=== PATIENT | female | born 1950 | race Caucasian/White ===

== ENCOUNTER 2016-06-06 14:56 | Inpatient (IN) | payer MEDICARE ==
[~2016-06-06] VITALS: Ht 167.6 cm; Wt 58.1 kg
[~2016-06-06 14:56] MED LIST: BUDE10.2 IH; DIAZ5TAB PO; DILT120C97 PO; DIPH25CA58 PO; DOCU-153 PO; ESTR1PAT10 TP; FLUC100T7 PO; GUAI-42 PO; IBUP-1027 PO; LEVO500T38 PO; PANT40TA3 PO; PROVENTIL HFA6.7 GM IH; TIOT18CA IH
--- NOTE | 2016-06-06 15:32 | RAD ---
Indication chest discomfort. Syncopal episode. A single view of the chest was obtained. Comparison is made to an examination almost one year earlier. The heart and pulmonary vessels appear within normal limits. There is slight blunting of both costophrenic angles which may reflect scar. The appearance is similar to the previous exam. Small pleural effusions are not excluded. There is slight volume loss at the left lung base which may reflect atelectasis or conceivably pneumonia. IMPRESSION: Slight blunting of both costophrenic angles similar to the previous exam. Slight volume loss at the left lung base may reflect atelectasis. Underlying pneumonia cannot be entirely excluded
[2016-06-06] MEDS ORDERED: IPRATRPIUM/ALBUTEROL 0.5/2.5MG 3 ML NEBU. NEB ONE (16:00)
--- NOTE | 2016-06-06 16:03 | PHYS DOC ---
Past Medical History Past Medical History: Asthma, CAD, CHF, COPD, Other Additional Past Medical Histor: Sympathetic Reflex Dystrophy Past Surgical History: Appendectomy, Cholecystectomy, Tonsillectomy Additional Past Surgical Histo: Tracheostomy previously Alcohol Use: None Drug Use: None Adult General HPI HPI 65-year-old female who had an episode of syncope prior to arrival in which she states she was watching television and then had a brief episode of loss consciousness. She awoke to drooling and urinary incontinence. She admits to having shortness of breath earlier today requiring supplementary oxygen during the day. She usually only requires it at night. She reports maybe minimal chest discomfort but no current pain whatsoever. She believes she does have history of COPD. She denies any recent cough or fever. Patient is speaking in complete sentences requiring 2 L by nasal cannula but does not appear to be in any acute distress at this time. Review of Systems Review of Systems Constitutional: Denies fever or chills [] Eyes: Denies change in visual acuity, redness, or eye pain [] HENT: Denies nasal congestion or sore throat [] Respiratory: Denies cough, has shortness of breath [] Cardiovascular: No additional information not addressed in HPI [] GI: Denies abdominal pain, nausea, vomiting, bloody stools or diarrhea [] : Denies dysuria or hematuria [] Musculoskeletal: Denies back pain or joint pain [] Integument: Denies rash or skin lesions [] Neurologic: Denies headache, focal weakness or sensory changes [] Endocrine: Denies polyuria or polydipsia [] Current Medications Current Medications Current Medications Medications (Trade) Dose Ordered Sig/René Start Time Stop Time Status Last Admin Dose Admin Albuterol/ Ipratropium (Duoneb) 3 ml 1X ONCE 06/06/16 16:00 06/06/16 16:01 DC 06/06/16 16:08 3 ML Allergies Allergies Allergies Coded Allergies Type Severity Reaction Last Updated Verified Iodine and Iodide Containing Produc Allergy Intermediate Unknown 06/18/15 Yes Penicillins Allergy Intermediate 06/18/15 Yes codeine Allergy Intermediate 06/18/15 Yes Physical Exam Physical Exam Constitutional: Well developed, well nourished, no acute distress, non-toxic appearance. [] HENT: Normocephalic, atraumatic, bilateral external ears normal, oropharynx moist, no oral exudates, nose normal. [] Eyes: PERRLA, EOMI, conjunctiva normal, no discharge. [] Neck: Normal range of motion, no tenderness, supple, no stridor. [] Cardiovascular:Heart rate regular rhythm, no murmur [] Lungs & Thorax: Bilateral breath expiratory wheezing with no acute respiratory distress [] Abdomen: Bowel sounds normal, soft, no tenderness, no masses, no pulsatile masses. [] Skin: Warm, dry, no erythema, no rash. [] Back: No tenderness, no CVA tenderness. [] Extremities: No tenderness, no cyanosis, no clubbing, ROM intact, no edema. [] Neurologic: Alert and oriented X 3, normal motor function, normal sensory function, no focal deficits noted. [] Psychologic: Affect normal, judgement normal, mood normal. [] Current Patient Data Vital Signs Vital Signs Date Time Temp Pulse Resp B/P Pulse Ox O2 Delivery O2 Flow Rate FiO2 06/06/16 15:09 98.1 103 58 111/70 98 Nasal Cannula 3 98.1 EKG EKG EKG as interpreted by me shows a sinus tachycardia with a rate of 106 bpm. There is a leftward axis. There is no obvious ischemic findings. Radiology/Procedures Radiology/Procedures Indication chest discomfort. Syncopal episode. A single view of the chest was obtained. Comparison is made to an examination almost one year earlier. The heart and pulmonary vessels appear within normal limits. There is slight blunting of both costophrenic angles which may reflect scar. The appearance is similar to the previous exam. Small pleural effusions are not excluded. There is slight volume loss at the left lung base which may reflect atelectasis or conceivably pneumonia. IMPRESSION: Slight blunting of both costophrenic angles similar to the previous exam. Slight volume loss at the left lung base may reflect atelectasis. Underlying pneumonia cannot be entirely excluded Course & Med Decision Making Course & Med Decision Making Pertinent Labs and Imaging studies reviewed. (See chart for details) 65-year-old female with syncope and increasing shortness of breath requiring supplementary oxygen will be admitted to the hospital for ongoing hypoxia and likely complications of this. Her laboratory workup is still pending. Her EKG shows a sinus tachycardia with no ischemic findings. She does believe she has a a questionable cardiac history. I'll be admitting her with cardiology and pulmonary consult. Her laboratory workup is unremarkable at this time. She is still requiring supplemental oxygen at this time. I discussed the need to admit the patient with the hospitalist, Dr. Dunn, who agreed to accept the patient for further evaluation and treatment with pulmonology and cardiology consult as well. EKG and chest film were fairly unremarkable although the radiologist felt that there could be an underlying pneumonia possibly. She has no fever or cough. She has no elevated white count. I do not see need to start antibiotics at this time. Dragon Disclaimer Dragon Disclaimer This electronic medical record was generated, in whole or in part, using a voice recognition dictation system. Departure Departure Impression: Primary Impression: Syncope Additional Impression: Hypoxia Disposition: 09 ADMITTED INPATIENT Admitting Physician: Leslie Dunn Condition: STABLE Referrals: NO PCP (PCP) Problem Qualifiers GEORGIA CHAVEZ DO Jun 06, 2016 16:03
[2016-06-06] MEDS ORDERED: ONDANSETRON PF 4 MG/2 ML VIAL. IV PRN (16:15)
--- NOTE | 2016-06-06 16:34 | EKG ---
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
[2016-06-06 17:17] LABS: BASO # 0.1 x10^3/uL (0.0-0.2); BASO % 1 % (0-3); EOS % 1 % (0-3); HEMATOCRIT 39.6 % (36.0-47.0); HEMOGLOBIN 12.9 g/dL (12.0-15.5); LYMPH # 1.6 x10^3/uL (1.0-4.8); LYMPH % 17 % (24-48); MEAN CORPUSCULAR HEMOGLOBIN 30 pg (25-35); MEAN CORPUSCULAR HGB CONC 32 g/dL (31-37); MEAN CORPUSCULAR VOLUME 92 fL (79-100); MONO % 8 % (0-9); NEUT % 73 % (31-73); PLATELET COUNT 210 x10^3/uL (140-400); RED BLOOD COUNT 4.29 x10^6/uL (3.50-5.40); WHITE BLOOD COUNT 9.5 x10^3/uL (4.0-11.0)
[2016-06-06 17:33] LABS: CALCIUM 8.5 mg/dL (8.5-10.1); CREATININE 0.8 mg/dL (0.6-1.0); GFR 71.5; POTASSIUM 4.3 mmol/L (3.5-5.1)
[2016-06-06] MEDS ORDERED: diphenhydrAMINE HCL 25 MG CAPSULE PO PRN (19:00)
[2016-06-06] MEDS ORDERED: DOCUSATE SODIUM 100 MG CAPSULE. PO PRN (19:00)
[2016-06-06] MEDS ORDERED: GUAIFENESIN DM 600/30MG TAB.ER.12H. PO PRN (19:00)
--- NOTE | 2016-06-06 19:03 | PDOC1 ---
History and Physical Date of Admission Date of Admission DATE: 06/06/16 TIME: 18:55 History of Present Illness History of Present Illness Mr. Jay, is a 65-year-old female admit from ER for syncope. She has one episode prior to arrival, was seated, then tried to transfer, took 2 steps, then slumped in a chair. Lost consciouness, lost bladder control, when she awoke, she was drooling. She noted new shortness of breath today. She complains of not getting portable 02 for her COPD and [employer] benefits. She is 98% service connected, was [employer], has back problems and COPD, lives alone, uses a wheelchair some and assist cane some. Past Medical History Pulmonary: COPD Psych: Anxiety, Panic (PTSD) Musculoskeletal: low back pain Endocrine: No pertinent hx Dermatology: No pertinent hx Past Surgical History Past Surgical History: No pertinent history Family History Family History: No Significant Social History Smoke: Quit ALCOHOL: none Current Problem List Problem List Problems Medical Problems: (1) Hypoxia Status: Acute (2) Syncope Status: Acute Problems: Current Medications Current Medications Current Medications Albuterol/ Ipratropium (Duoneb) 3 ml 1X ONCE NEB Last administered on t 16:08; Start 06/06/16 at 16:00; Stop 06/06/16 at 16:01; Status DC Ondansetron HCl (Zofran) 4 mg PRN Q8HRS PRN IV NAUSEA/VOMITING; Start 06/06/16 at 16:15; Stop 06/07/16 at 16:14 Albuterol/ Ipratropium (Duoneb) 3 ml RTQID NEB ; Start 06/06/16 at 20:00; Stop 06/07/16 at 19:59 Active Scripts Active Levaquin (Levofloxacin) 500 Mg Tablet 1 Tab PO DAILY Protonix (Pantoprazole Sodium) 40 Mg Tablet.dr 1 Tab PO DAILY Diflucan (Fluconazole) 100 Mg Tablet 100 Mg PO BID Reported Diltiazem 24HR Cd (Diltiazem Hcl) 120 Mg Cap.er.24h 120 Mg PO DAILY Mucinex Dm Er 600-30 Mg Tablet (Guaifenesin/Dextromethorphan) 1 Each Tab.er.12h 1 Each PO Benadryl (Diphenhydramine Hcl) 25 Mg Capsule 25 Mg PO PRN PRN Dok (Docusate Sodium) 100 Mg Capsule 100 Mg PO PRN PRN Ibuprofen 400 Mg Tablet 400 Mg PO PRN Q6HRS PRN Vivelle-Dot (Estradiol) 1 Each Patch.tdsw 0.1 Patch TP Valium (Diazepam) 5 Mg Tablet 5 Mg PO PRN Q4HRS PRN Proventil Hfa Inhaler (Albuterol Sulfate) 6.7 Gm Hfa.aer.ad 1 Puff IH PRN PRN Spiriva (Tiotropium Mcallen) 18 Mcg Cap.w.dev 1 Cap IH DAILY Symbicort 160-4.5 Mcg Inhaler (Budesonide/Formoterol Fumarate) 10.2 Gm Hfa.aer.ad 2 Puff IH BID Allergies Allergies: Coded Allergies: Iodine and Iodide Containing Produc (Verified Allergy, Intermediate, Unknown, 06/18/15) Penicillins (Verified Allergy, Intermediate, 06/18/15) codeine (Verified Allergy, Intermediate, 06/18/15) ROS General: YES: Appetite, Fatigue, Malaise, No: Chills, Night Sweats, Other PSYCHOLOGICAL ROS: YES: Anxiety, Concentration difficultie, Irritablity, Obsessive thoughts Eyes: No Blurry vision, No Decreased vision, No Double vision, No Dry eyes, No Excessive tearing, No Eye Pain, No Itchy Eyes, No Loss of vision, No Other, No Photophobia, No Scotomata, No Uses contacts, No Uses glasses Respiratory: YES: Shortness of breath, No: Cough, Hemoptysis, Orthopnea, Other, Pleuritic Pain, SOB with excertion, Sputum Changes, Stridor, Tachypnea, Wheezing Cardiovascular: No Chest Pain, No Edema, No Lt Headedness, No Orthopnea, No Other, No Palpitations, No Paroxysmal Noc. Dyspnea Gastrointestinal: Yes Nausea, No Abdominal Pain, No Constipation, No Diarrhea, No Hematochezia, No Melena, No Other, No Vomiting Genitourinary: No , No , No , No , No , No , No , No Discharge, No Dysuria, No Flank Pain, No Frequency, No Hematuria, No Incontinence, No Other, No Pain, No Retention, No Urgency Musculoskeletal: Yes Gait Disturbance, Yes Joint Pain, Yes Joint Stiffness, No Joint Swelling, No Muscle Pain, No Muscular Weakness, No Other, No Pain In :, No Swelling In: Neurological: Yes Gait Disturbance, No Behavorial Changes, No Bowel/Bladder ControlChng, No Confusion, No Dizziness, No Headaches, No Impaired Coord/balance, No Memory Loss, No Numbness/ Tingling, No Other, No Seizures, No Speech Problems, No Tremors, No Visual Changes, No Weakness Skin: Yes Dry Skin, No Acne, No Hair Changes, No Lumps, No Mole Changes, No Mottling, No Nail Changes, No Other, No Pruritus, No Rash, No Skin Lesion Changes Physical Exam General: Alert, Cooperative HEENT: Atraumatic, PERRLA Lungs: Other (rales, no wheeze) Heart: RRR, no murmurs Abdomen: Normal bowel sounds, Soft Extremities: No clubbing, Normal pulses, Other (Tr Le edema) Neuro: Normal speech, Sensation intact, Cranial nerves 3-12 NL Psych/Mental Status: Mental status NL, Mood NL Vitals Vitals Vital Signs Date Time Temp Pulse Resp B/P Pulse Ox O2 Delivery O2 Flow Rate FiO2 06/06/16 16:13 98 Nasal Cannula 2.0 06/06/16 15:09 98.1 103 58 111/70 98.1 Labs Labs Laboratory Tests Test 06/06/16 17:05 White Blood Count 9.5x10^3/uL (4.0-11.0) Red Blood Count 4.29x10^6/uL (3.50-5.40) Hemoglobin 12.9g/dL (12.0-15.5) Hematocrit 39.6% (36.0-47.0) Mean Corpuscular Volume 92fL (79-100) Mean Corpuscular Hemoglobin 30pg (25-35) Mean Corpuscular Hemoglobin Concent 32g/dL (31-37) Red Cell Distribution Width 13.0% (11.5-14.5) Platelet Count 210x10^3/uL (140-400) Neutrophils (%) (Auto) 73% (31-73) Lymphocytes (%) (Auto) 17% (24-48) Monocytes (%) (Auto) 8% (0-9) Eosinophils (%) (Auto) 1% (0-3) Basophils (%) (Auto) 1% (0-3) Neutrophils # (Auto) 6.9x10^3uL (1.8-7.7) Lymphocytes # (Auto) 1.6x10^3/uL (1.0-4.8) Monocytes # (Auto) 0.8x10^3/uL (0.0-1.1) Eosinophils # (Auto) 0.1x10^3/uL (0.0-0.7) Basophils # (Auto) 0.1x10^3/uL (0.0-0.2) Sodium Level 141mmol/L (136-145) Potassium Level 4.3mmol/L (3.5-5.1) Chloride Level 104mmol/L (98-107) Carbon Dioxide Level 29mmol/L (21-32) Anion Gap 8 (6-14) Blood Urea Nitrogen 13mg/dL (7-20) Creatinine 0.8mg/dL (0.6-1.0) Estimated GFR (Cockcroft-Gault) 71.5 Glucose Level 110mg/dL (70-99) Calcium Level 8.5mg/dL (8.5-10.1) Troponin I Quantitative < 0.017ng/mL (0.000-0.055) ST-Vdu-F-Type Natriuretic Peptide 110pg/mL (0-124) Laboratory Tests Test 06/06/16 17:05 White Blood Count 9.5x10^3/uL (4.0-11.0) Red Blood Count 4.29x10^6/uL (3.50-5.40) Hemoglobin 12.9g/dL (12.0-15.5) Hematocrit 39.6% (36.0-47.0) Mean Corpuscular Volume 92fL (79-100) Mean Corpuscular Hemoglobin 30pg (25-35) Mean Corpuscular Hemoglobin Concent 32g/dL (31-37) Red Cell Distribution Width 13.0% (11.5-14.5) Platelet Count 210x10^3/uL (140-400) Neutrophils (%) (Auto) 73% (31-73) Lymphocytes (%) (Auto) 17% (24-48) Monocytes (%) (Auto) 8% (0-9) Eosinophils (%) (Auto) 1% (0-3) Basophils (%) (Auto) 1% (0-3) Neutrophils # (Auto) 6.9x10^3uL (1.8-7.7) Lymphocytes # (Auto) 1.6x10^3/uL (1.0-4.8) Monocytes # (Auto) 0.8x10^3/uL (0.0-1.1) Eosinophils # (Auto) 0.1x10^3/uL (0.0-0.7) Basophils # (Auto) 0.1x10^3/uL (0.0-0.2) Sodium Level 141mmol/L (136-145) Potassium Level 4.3mmol/L (3.5-5.1) Chloride Level 104mmol/L (98-107) Carbon Dioxide Level 29mmol/L (21-32) Anion Gap 8 (6-14) Blood Urea Nitrogen 13mg/dL (7-20) Creatinine 0.8mg/dL (0.6-1.0) Estimated GFR (Cockcroft-Gault) 71.5 Glucose Level 110mg/dL (70-99) Calcium Level 8.5mg/dL (8.5-10.1) Troponin I Quantitative < 0.017ng/mL (0.000-0.055) OW-Eaq-P-Type Natriuretic Peptide 110pg/mL (0-124) VTE Prophylaxis Ordered VTE Prophylaxis Devices: Yes VTE Pharmacological Prophylaxi: No Assessment/Plan Assessment/Plan syncope check orthostatics, echo and tele could be vagal from story gen weakness and debility, nearly home bound per patient, no portable 02 has been given, home health has not been out in 6 weeks COPD, chronic hypoxic failure, Pulm consulted, cont RIHANNON Parker MD Jun 06, 2016 19:03
[2016-06-06] MEDS ORDERED: ALBUTEROL SULFATE 2.5 MG/3 ML NEBU. NEB PRN (19:15)
--- NOTE | 2016-06-06 19:29 | ACF ---
Admission Forms Criteria SYNCOPE Clinical Indications for Admission to Inpatient Care ( Place 'X' for any and all applicable criteria): Admission is indicated for syncope and ANY ONE of the following (1)(2)(3)(4)(5) (6)(7) : [X]I. Inpatient admission required rather than observation care (Also use Syncope: Observation Care Criteria as appropriate) because of ANY ONE of the following: [ ]a) Hemodynamic instability that is severe or persistent [ ]b) Cardiac arrhythmias of immediate concern identified or strongly suspected (eg, needs electrophysiologic study) [ ]c) Acute coronary syndrome identified (Also use Myocardial Infarction or Angina Criteria form ) [ ]d) Structural cardiac disorder (eg, aortic stenosis) suspected as cause that requires immediate correction [X]e) Respiratory symptoms (eg, dyspnea, tachypnea) that are severe or persistent [ ]f) Neurologic signs or symptoms that are severe or persistent ( eg, stroke, seizures, altered mental status) [ ]g) Severe electrolyte abnormalities requiring inpatient care [ ]h) Supplemental oxygen or respiratory treatment for over 24 hrs that are performable only in acute inpatient setting [ ]i) IV fluid to replace significant ongoing (eg, for over 24 hrs ) losses (>3 L/m2 per day) [ ]j) Continuous intravenous infusion of anticoagulation, platelet inhibitor, vasoactive, or antiarrhythmic medication(15)(16) [ ]k) Pulmonary artery catheter monitoring [ ]l) Temporary pacemaker placement(17) [ ]m) Emergent cardioversion(18) [ ]n) Other conditions, treatment or monitoring requiring inpatient admission [ ]II. Suspicion of imminently dangerous cause (eg, rare causes like pericardial tamponade, pulmonary embolism) [ ]III. Syncope causing severe injury requiring hospitalization Extended stay beyond goal length of stay may be needed for(28) [ ]a) Dangerous arrhythmia(15)(23)(27)(29) [ ]b) Myocardial ischemia [ ]c) Seizure disorder [ ]d) Syncope-related injuries The original [employer] content created by [employer] has been revised. The portions of the content which have been revised are identified through the use of italic text or in bold, and [employer] has neither reviewed nor approved the modified material. All other unmodified content is copyright [employer]. Please see references footnoted in the original [facility] edition 2016 Admission Criteria Met?: Yes BUTCH MELENDEZ Jun 06, 2016 19:29
[2016-06-06 20:03] VITALS: BP 137/72
[2016-06-06] MEDS: BUDESONIDE 0.5 MG/2 ML NEBU. NEB SCH (20:46)
[2016-06-06] MEDS: IPRATRPIUM/ALBUTEROL 0.5/2.5MG 3 ML NEBU. NEB SCH (20:47)
[2016-06-06] MEDS: DIAZEPAM 5 MG TABLET PO PRN (22:31)
[2016-06-06] MEDS: IBUPROFEN 400 MG TABLET. PO PRN (22:31)
[2016-06-06 22:32] VITALS: BP 134/63
[2016-06-07 05:04] LABS: BASO # 0.1 x10^3/uL (0.0-0.2); BASO % 1 % (0-3); EOS % 1 % (0-3); HEMATOCRIT 36.2 % (36.0-47.0); HEMOGLOBIN 12.5 g/dL (12.0-15.5); LYMPH # 2.1 x10^3/uL (1.0-4.8); LYMPH % 27 % (24-48); MEAN CORPUSCULAR HEMOGLOBIN 31 pg (25-35); MEAN CORPUSCULAR HGB CONC 34 g/dL (31-37); MEAN CORPUSCULAR VOLUME 91 fL (79-100); MONO % 10 % (0-9); NEUT % 61 % (31-73); PLATELET COUNT 186 x10^3/uL (140-400); RED BLOOD COUNT 3.97 x10^6/uL (3.50-5.40); RED CELL DISTRIBUTION WIDTH 13.1 % (11.5-14.5); WHITE BLOOD COUNT 7.8 x10^3/uL (4.0-11.0)
[2016-06-07 05:30] LABS: CALCIUM 8.3 mg/dL (8.5-10.1); CREATININE 0.8 mg/dL (0.6-1.0); GFR 71.5; POTASSIUM 4.3 mmol/L (3.5-5.1)
[2016-06-07] MEDS: BUDESONIDE 0.5 MG/2 ML NEBU. NEB SCH ×2 (06:40→20:48)
[2016-06-07] MEDS: IPRATRPIUM/ALBUTEROL 0.5/2.5MG 3 ML NEBU. NEB SCH ×4 (06:41→20:00)
[2016-06-07 07:00] VITALS: BP 97/51
[2016-06-07] MEDS: PANTOPRAZOLE 40 MG TABLET.DR. PO SCH (07:30)
[2016-06-07] MEDS: DILTIAZEM HCL 120 MG CAP.ER.24H PO SCH (09:00)
--- NOTE | 2016-06-07 09:25 | PDOC2 ---
TA PURCELL GLAUCOMA SPECIALIST 06/07/16 0925: CARDIAC CONSULT DATE OF CONSULT Date of Consult DATE: 06/07/16 TIME: 09:17 REASON FOR CONSULT Reason for Consult: Shortness of breath REFERRING PHYSICIAN Referring Physician: Dr. Mendez SOURCE Source: Chart review, Patient HISTORY OF PRESENT ILLNESS HISTORY OF PRESENT ILLNESS This is a 65 yo female, with a history of oxygen dependent COPD, who presented secondary to syncopal episode, ongoing shortness of breath, and chest pain. Patient reports she was sitting on edge of bed yesterday and got up to walk. Took one step and collapsed into nearby chair. Reports LOC with subsequent loss of bladder control and drooling from the mouth. Dyspnea has been chronic in nature over the last year and a half. Slightly worse, recently. Oxygen saturations drop into the low-80's with minimal activity. Reports she has been experiencing chest pain intermittently over the last couple weeks. Took nitro with 3 different episodes of the chest pain, which resolved pain. Located in her central chest. Describes as squeezing in nature. Unsure if SOA causes CP or vice versa. Pain in associated with tightness in her left jaw. Denies any dizziness, diaphoresis, nausea/vomiting, orthopnea, or LE edema. Report she has not been out of her house in over a year because she does not have portable oxygen. Reports having stress test a year and a half ago at that had to be halted because she "coded". Reports having same experience with first stress test years prior. No previous cardiac catheterization. PAST MEDICAL HISTORY Cardiovascular: CHF, HTN, HI Pulmonary: COPD (O2 dependent ) CENTRAL NERVOUS SYSTEM: Other (reflex sympathetic dystrophy) GI: No pertinent hx Heme/Onc: No pertinent hx Hepatobiliary: No pertinent hx Psych: Anxiety, Other (OCD) Musculoskeletal: Osteoarthritis, Other Rheumatologic: Other Infectious disease: No pertinent hx ENT: No pertinent hx Renal/: No pertinent hx Endocrine: No pertinent hx Dermatology: No pertinent hx PAST SURGICAL HISTORY Past Surgical History: Hysterectomy FAMILY HISTORY Family History: Coronary Artery Disease (both patents in 70's ) SOCIAL HISTORY Smoke: <1 pack per day ALCOHOL: none Drugs: None Lives: Alone CURRENT MEDICATIONS CURRENT MEDICATIONS Current Medications Medications (Trade) Dose Ordered Sig/René Route PRN Reason Start Time Stop Time Status Last Admin Dose Admin Albuterol/ Ipratropium (Duoneb) 3 ml 1X ONCE NEB 06/06/16 16:00 06/06/16 16:01 DC 06/06/16 16:08 Albuterol/ Ipratropium (Duoneb) 3 ml RTQID NEB 06/06/16 20:00 06/07/16 19:59 06/07/16 06:41 Budesonide (Pulmicort) 0.5 mg RTBID NEB 06/06/16 20:00 06/07/16 06:40 Diazepam (Valium) 5 mg PRN Q4HRS PRN PO ANXIETY / AGITATION 06/06/16 19:00 06/06/16 22:31 Guaifenesin (MUCINEX ER with DM) 1 tab Q12HR PRN PO cough 06/06/16 19:00 06/06/16 22:31 Ibuprofen (Motrin) 400 mg PRN Q6HRS PRN PO INFLAMMATION 06/06/16 19:00 06/06/16 22:31 Albuterol Sulfate (Ventolin Neb Soln) 2.5 mg PRN Q6HRS PRN NEB SHORTNESS OF BREATH 06/06/16 19:15 06/06/16 23:50 ALLERGIES ALLERGIES: Coded Allergies: Iodine and Iodide Containing Produc (Verified Allergy, Intermediate, Unknown, 06/18/15) Penicillins (Verified Allergy, Intermediate, 06/18/15) codeine (Verified Allergy, Intermediate, 06/18/15) ROS Review of System 14 point ROS conducted with pertinent positives noted above in HPI. PHYSICAL EXAM General: Alert, Oriented X3, Cooperative, No acute distress HEENT: Atraumatic, Mucous membr. moist/pink Lungs: Clear to auscultation Heart: Regular rate, Normal S1, Normal S2, Other (soft systolic murmur ) Abdomen: Soft, No tenderness Extremities: No edema, Normal pulses Skin: No breakdown, No significant lesion Neuro: Normal speech, Sensation intact Psych/Mental Status: Mental status NL, Mood NL VITALS VITALS Vital Signs Date Time Temp Pulse Resp B/P Pulse Ox O2 Delivery O2 Flow Rate FiO2 06/07/16 07:00 97.7 89 20 97/51 100 Nasal Cannula 3.0 97.7 LABS Lab: Laboratory Tests Test 06/06/16 17:05 06/06/16 22:05 06/07/16 04:23 White Blood Count 9.5x10^3/uL (4.0-11.0) 7.8x10^3/uL (4.0-11.0) Red Blood Count 4.29x10^6/uL (3.50-5.40) 3.97x10^6/uL (3.50-5.40) Hemoglobin 12.9g/dL (12.0-15.5) 12.5g/dL (12.0-15.5) Hematocrit 39.6% (36.0-47.0) 36.2% (36.0-47.0) Mean Corpuscular Volume 92fL (79-100) 91fL (79-100) Mean Corpuscular Hemoglobin 30pg (25-35) 31pg (25-35) Mean Corpuscular Hemoglobin Concent 32g/dL (31-37) 34g/dL (31-37) Red Cell Distribution Width 13.0% (11.5-14.5) 13.1% (11.5-14.5) Platelet Count 210x10^3/uL (140-400) 186x10^3/uL (140-400) Neutrophils (%) (Auto) 73% (31-73) 61% (31-73) Lymphocytes (%) (Auto) 17% (24-48) 27% (24-48) Monocytes (%) (Auto) 8% (0-9) 10% (0-9) Eosinophils (%) (Auto) 1% (0-3) 1% (0-3) Basophils (%) (Auto) 1% (0-3) 1% (0-3) Neutrophils # (Auto) 6.9x10^3uL (1.8-7.7) 4.7x10^3uL (1.8-7.7) Lymphocytes # (Auto) 1.6x10^3/uL (1.0-4.8) 2.1x10^3/uL (1.0-4.8) Monocytes # (Auto) 0.8x10^3/uL (0.0-1.1) 0.8x10^3/uL (0.0-1.1) Eosinophils # (Auto) 0.1x10^3/uL (0.0-0.7) 0.1x10^3/uL (0.0-0.7) Basophils # (Auto) 0.1x10^3/uL (0.0-0.2) 0.1x10^3/uL (0.0-0.2) Sodium Level 141mmol/L (136-145) 142mmol/L (136-145) Potassium Level 4.3mmol/L (3.5-5.1) 4.3mmol/L (3.5-5.1) Chloride Level 104mmol/L (98-107) 108mmol/L (98-107) Carbon Dioxide Level 29mmol/L (21-32) 31mmol/L (21-32) Anion Gap 8 (6-14) 3 (6-14) Blood Urea Nitrogen 13mg/dL (7-20) 15mg/dL (7-20) Creatinine 0.8mg/dL (0.6-1.0) 0.8mg/dL (0.6-1.0) Estimated GFR (Cockcroft-Gault) 71.5 71.5 Glucose Level 110mg/dL (70-99) 111mg/dL (70-99) Calcium Level 8.5mg/dL (8.5-10.1) 8.3mg/dL (8.5-10.1) Troponin I Quantitative < 0.017ng/mL (0.000-0.055) < 0.017ng/mL (0.000-0.055) < 0.017ng/mL (0.000-0.055) VP-Xdd-T-Type Natriuretic Peptide 110pg/mL (0-124) ECHOCARDIOGRAM ECHOCARDIOGRAM <Conclusion> The left ventricular systolic function is normal. The Ejection Fraction is estimated at 60-65%. There is normal LV segmental wall motion. Trace mitral regurgitation. Moderate tricuspid regurgitation. There is mild-moderate pulmonary hypertension. The PA pressure was estimated at 36 mmHg. There is no evidence of significant pericardial effusion. DATE: 06/15/15 1302 ASSESSMENT/PLAN ASSESSMENT/PLAN 1. Syncope 2. Acute on chronic respiratory failure 3. AE COPD 4. Chest pain, with typical and atypical features 5. Hypertension 6. Reflex sympathetic dystrophy Recommendations Suspect syncope was vagally induced. Will check orthos Obtain echo to assess LV function/presence of WMA Given symptomatology and risk factors, would consider for cardiac cath to rule out contributing obstructive disease; will discuss with primary insurance agency sales manager Add ASA. Check lipids Consider adding BB when stable from respiratory standpoint. Lung optimization per pulmonary Further recommendations pending diagnostics. Problems: DOMENICA WREN MD 06/07/16 1807: CARDIAC CONSULT ALLERGIES ALLERGIES: Coded Allergies: Iodine and Iodide Containing Produc (Verified Allergy, Intermediate, Unknown, 06/18/15) Penicillins (Verified Allergy, Intermediate, 06/18/15) codeine (Verified Allergy, Intermediate, 06/18/15) ASSESSMENT/PLAN ASSESSMENT/PLAN Patient seen and examined. Agree with above nurse practitioner note. 65-year-old woman known to us from her prior admission approximately one year ago presenting with progressive dyspnea. She has had intermittent chest pain which apparently is relieved with some nitroglycerin. She lives a sedentary lifestyle due to her lung disease. Her symptoms are most consistent with worsening progressive pulmonary pathology. Her hypoxia likely led to her syncopal event. She has normal LV function on echocardiogram. If after stabilization of her pulmonary status and treatment she continues to have any chest pain then we could consider coronary angiography. Otherwise continue supportive care. Will follow along. Problems: TA PURCELL APRN Jun 07, 2016 09:25 DOMENICA WREN MD Jun 07, 2016 18:07
[2016-06-07] MEDS ORDERED: ONDANSETRON PF 4 MG/2 ML VIAL. IV PRN (10:00)
[2016-06-07 10:22] VITALS: BP 109/67
[2016-06-07] MEDS: IBUPROFEN 400 MG TABLET. PO PRN ×2 (10:58→21:56)
--- NOTE | 2016-06-07 11:39 | RAD ---
Carotid ultrasound, 06/07/2016: History: Syncope Duplex evaluation of the carotid arteries in neck was performed including grayscale, color-flow and spectral Doppler analysis. There is mild smooth plaquing at both carotid bifurcations. The peak systolic velocity in the right internal carotid artery is 105 cm/s within end-diastolic velocity of 41 cm/s. The internal carotid artery to common carotid artery ratio is 1.1. The Doppler findings suggest narrowing in the 0-50% diameter range. On the left, the peak systolic velocity in the internal carotid artery is 122 cm/s. End-diastolic velocity is 47 cm/s. The internal carotid to common carotid artery ratio is 1.3. These Doppler findings also suggest 0-50% diameter narrowing. Antegrade flow is present in both vertebral arteries in the neck. IMPRESSION: Mild atherosclerotic plaquing at both carotid bifurcations with underlying luminal narrowing in the 0-50% diameter range bilaterally. Note: Stenosis calculations for CT, MRA and conventional angiography are based upon determination of the distal ICA diameter in accordance with the NASCET methodology. Stenosis calculations for Doppler studies are derived from validated velocity criteria which are known to correlate with NASCET methodology of determining stenosis.
--- NOTE | 2016-06-07 12:23 | PDOC ---
Provider Note Provider Note DICTATED ADEEL FRAGOSO MD Jun 07, 2016 12:23
[2016-06-07] MEDS: DIAZEPAM 5 MG TABLET PO PRN ×2 (12:33→21:21)
[2016-06-07] MEDS ORDERED: ACETAMINOPHEN 325 MG TABLET. PO PRN (13:00)
--- NOTE | 2016-06-07 13:01 | CONS ---
DATE OF CONSULTATION: ATTENDING PHYSICIAN: Dr. Dunn. REASON FOR CONSULTATION: Syncope. HISTORY OF PRESENT ILLNESS: The patient is a 65-year-old female, who had a syncopal episode, requiring hospitalization. She lost consciousness and also lost bladder control. When she woke up, she was drooling saliva. The patient has a history of tobacco use, 3-4 cigarettes a day since age 11. She uses oxygen at night and p.r.n. during the day. She has not seen a physician for over a year. The patient was brought into the hospital for further evaluation. I have reviewed the patient's chest x-ray. It shows some blunting of the costophrenic angle on the right side consistent with small pleural effusion. There is also some volume loss at the left base consistent with atelectasis or infiltrate. She has been coughing. She is unable to bring sputum. 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 Echo has been done. She said at home her blood pressure was really variable from high to low. She has no prior history of seizures. PAST MEDICAL HISTORY: Significant for COPD, unknown FEV1, history of anxiety, history of posttraumatic stress disorder, history of low back pain, history of tracheal stenosis and history of prolonged mechanical ventilation in the past. PAST SURGICAL HISTORY: Including tracheostomy in the past. ALLERGIES: IODINE, PENICILLIN AND CODEINE. MEDICATIONS: Reviewed as listed in the MRAD. REVIEW OF SYSTEMS: Twelve-point systems obtained, pertinent positives discussed in history of present illness, otherwise noncontributory. All systems that were negative were reviewed as well. SOCIAL HISTORY: Smoker since age 11, 3-4 cigarettes a day. PHYSICAL EXAMINATION: VITAL SIGNS: Stable. Her blood pressure has ranged from 97 systolic to 134 systolic. Pulse ox is 95% on 3 liters, afebrile. HEENT: Sclerae nonicteric. NECK: Supple. LUNGS: Wheezing with coughing. CARDIOVASCULAR: Regular. ABDOMEN: Soft. EXTREMITIES: With no pitting edema. LABORATORY DATA: Reviewed. White cell count ____, hemoglobin 12.5 and platelets are 186. BUN is 15, creatinine 0.8. IMPRESSION: 1. Syncopal episode. Etiology could be a new onset seizure. She did have loss of bladder function and drooling of saliva. The other possibility would be hypoxia resulting from acute bronchitis and acute exacerbation of chronic obstructive pulmonary disease. Possibility of mild congestive heart failure would also be in the differential diagnosis. 2. Persistent dry cough, possible acute bronchitis, cannot exclude pneumonia. We will do a noncontrast CT chest for further evaluation. 3. Underlying chronic obstructive pulmonary disease. 4. 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 RECOMMENDATIONS: 1. Obtain echocardiogram. 2. Add empiric antibiotic. 3. Noncontrast CT chest for further evaluation. 4. ____. 5. Follow cardiology recommendation. 6. Continue bronchodilators. 7. She may need cardiac catheterization per Cardiology. 8. Monitor blood pressure closely. She is on diltiazem at home. 9. Discussed with RN. We will follow along with you. ADEEL FRAGOSO MD DR: DIMPLE/ksenia JOB#: [id number] / [id number]
--- NOTE | 2016-06-07 13:03 | PDOC ---
PROGRESS NOTES Chief Complaint Chief Complaint 1. Syncope, vasovagal likely 2. chronic respiratory failure 3. COPD 4. Chest pain, with typical and atypical features 5. Hypertension 6. Reflex sympathetic dystrophy plan: fu with pulm, card echo pending US carotid neg orthostatic BP PENDING DUONEB ON LEVAQUIN PTOT hope dc in 1-2ds History of Present Illness History of Present Illness complaint that this hop doesnot have her medications giving staff a hard time, not cooperate to the visiting Vitals Vitals Vital Signs Date Time Temp Pulse Resp B/P Pulse Ox O2 Delivery O2 Flow Rate FiO2 06/07/16 12:28 98 Nasal Cannula 4.0 06/07/16 10:22 98.0 107 18 109/67 98.0 Physical Exam General: Alert, Oriented X3, Cooperative, No acute distress Heart: Regular rate, Normal S1, Normal S2, Other (soft systolic murmur ) Lungs: Clear Abdomen: Soft, No tenderness Extremities: No edema, Normal pulses Skin: No breakdown, No significant lesion Labs LABS Laboratory Tests Test 06/06/16 17:05 06/06/16 22:05 06/07/16 04:23 White Blood Count 9.5x10^3/uL (4.0-11.0) 7.8x10^3/uL (4.0-11.0) Red Blood Count 4.29x10^6/uL (3.50-5.40) 3.97x10^6/uL (3.50-5.40) Hemoglobin 12.9g/dL (12.0-15.5) 12.5g/dL (12.0-15.5) Hematocrit 39.6% (36.0-47.0) 36.2% (36.0-47.0) Mean Corpuscular Volume 92fL (79-100) 91fL (79-100) Mean Corpuscular Hemoglobin 30pg (25-35) 31pg (25-35) Mean Corpuscular Hemoglobin Concent 32g/dL (31-37) 34g/dL (31-37) Red Cell Distribution Width 13.0% (11.5-14.5) 13.1% (11.5-14.5) Platelet Count 210x10^3/uL (140-400) 186x10^3/uL (140-400) Neutrophils (%) (Auto) 73% (31-73) 61% (31-73) Lymphocytes (%) (Auto) 17% (24-48) 27% (24-48) Monocytes (%) (Auto) 8% (0-9) 10% (0-9) Eosinophils (%) (Auto) 1% (0-3) 1% (0-3) Basophils (%) (Auto) 1% (0-3) 1% (0-3) Neutrophils # (Auto) 6.9x10^3uL (1.8-7.7) 4.7x10^3uL (1.8-7.7) Lymphocytes # (Auto) 1.6x10^3/uL (1.0-4.8) 2.1x10^3/uL (1.0-4.8) Monocytes # (Auto) 0.8x10^3/uL (0.0-1.1) 0.8x10^3/uL (0.0-1.1) Eosinophils # (Auto) 0.1x10^3/uL (0.0-0.7) 0.1x10^3/uL (0.0-0.7) Basophils # (Auto) 0.1x10^3/uL (0.0-0.2) 0.1x10^3/uL (0.0-0.2) Sodium Level 141mmol/L (136-145) 142mmol/L (136-145) Potassium Level 4.3mmol/L (3.5-5.1) 4.3mmol/L (3.5-5.1) Chloride Level 104mmol/L (98-107) 108mmol/L (98-107) Carbon Dioxide Level 29mmol/L (21-32) 31mmol/L (21-32) Anion Gap 8 (6-14) 3 (6-14) Blood Urea Nitrogen 13mg/dL (7-20) 15mg/dL (7-20) Creatinine 0.8mg/dL (0.6-1.0) 0.8mg/dL (0.6-1.0) Estimated GFR (Cockcroft-Gault) 71.5 71.5 Glucose Level 110mg/dL (70-99) 111mg/dL (70-99) Calcium Level 8.5mg/dL (8.5-10.1) 8.3mg/dL (8.5-10.1) Troponin I Quantitative < 0.017ng/mL (0.000-0.055) < 0.017ng/mL (0.000-0.055) < 0.017ng/mL (0.000-0.055) OT-Tyi-S-Type Natriuretic Peptide 110pg/mL (0-124) Review of Systems Review of Systems no fever, chills, sob or chest pain Assessment and Plan Assessmemt and Plan Problems Medical Problems: (1) Hypoxia Status: Acute (2) Syncope Status: Acute Problems: Comment Review of Relevant I have reviewed the following items lazaro (where applicable) has been applied. Labs Laboratory Tests Test 06/06/16 17:05 06/06/16 22:05 06/07/16 04:23 White Blood Count 9.5x10^3/uL (4.0-11.0) 7.8x10^3/uL (4.0-11.0) Red Blood Count 4.29x10^6/uL (3.50-5.40) 3.97x10^6/uL (3.50-5.40) Hemoglobin 12.9g/dL (12.0-15.5) 12.5g/dL (12.0-15.5) Hematocrit 39.6% (36.0-47.0) 36.2% (36.0-47.0) Mean Corpuscular Volume 92fL (79-100) 91fL (79-100) Mean Corpuscular Hemoglobin 30pg (25-35) 31pg (25-35) Mean Corpuscular Hemoglobin Concent 32g/dL (31-37) 34g/dL (31-37) Red Cell Distribution Width 13.0% (11.5-14.5) 13.1% (11.5-14.5) Platelet Count 210x10^3/uL (140-400) 186x10^3/uL (140-400) Neutrophils (%) (Auto) 73% (31-73) 61% (31-73) Lymphocytes (%) (Auto) 17% (24-48) 27% (24-48) Monocytes (%) (Auto) 8% (0-9) 10% (0-9) Eosinophils (%) (Auto) 1% (0-3) 1% (0-3) Basophils (%) (Auto) 1% (0-3) 1% (0-3) Neutrophils # (Auto) 6.9x10^3uL (1.8-7.7) 4.7x10^3uL (1.8-7.7) Lymphocytes # (Auto) 1.6x10^3/uL (1.0-4.8) 2.1x10^3/uL (1.0-4.8) Monocytes # (Auto) 0.8x10^3/uL (0.0-1.1) 0.8x10^3/uL (0.0-1.1) Eosinophils # (Auto) 0.1x10^3/uL (0.0-0.7) 0.1x10^3/uL (0.0-0.7) Basophils # (Auto) 0.1x10^3/uL (0.0-0.2) 0.1x10^3/uL (0.0-0.2) Sodium Level 141mmol/L (136-145) 142mmol/L (136-145) Potassium Level 4.3mmol/L (3.5-5.1) 4.3mmol/L (3.5-5.1) Chloride Level 104mmol/L (98-107) 108mmol/L (98-107) Carbon Dioxide Level 29mmol/L (21-32) 31mmol/L (21-32) Anion Gap 8 (6-14) 3 (6-14) Blood Urea Nitrogen 13mg/dL (7-20) 15mg/dL (7-20) Creatinine 0.8mg/dL (0.6-1.0) 0.8mg/dL (0.6-1.0) Estimated GFR (Cockcroft-Gault) 71.5 71.5 Glucose Level 110mg/dL (70-99) 111mg/dL (70-99) Calcium Level 8.5mg/dL (8.5-10.1) 8.3mg/dL (8.5-10.1) Troponin I Quantitative < 0.017ng/mL (0.000-0.055) < 0.017ng/mL (0.000-0.055) < 0.017ng/mL (0.000-0.055) QY-Gpi-P-Type Natriuretic Peptide 110pg/mL (0-124) Laboratory Tests Test 06/06/16 17:05 06/06/16 22:05 06/07/16 04:23 White Blood Count 9.5x10^3/uL (4.0-11.0) 7.8x10^3/uL (4.0-11.0) Red Blood Count 4.29x10^6/uL (3.50-5.40) 3.97x10^6/uL (3.50-5.40) Hemoglobin 12.9g/dL (12.0-15.5) 12.5g/dL (12.0-15.5) Hematocrit 39.6% (36.0-47.0) 36.2% (36.0-47.0) Mean Corpuscular Volume 92fL (79-100) 91fL (79-100) Mean Corpuscular Hemoglobin 30pg (25-35) 31pg (25-35) Mean Corpuscular Hemoglobin Concent 32g/dL (31-37) 34g/dL (31-37) Red Cell Distribution Width 13.0% (11.5-14.5) 13.1% (11.5-14.5) Platelet Count 210x10^3/uL (140-400) 186x10^3/uL (140-400) Neutrophils (%) (Auto) 73% (31-73) 61% (31-73) Lymphocytes (%) (Auto) 17% (24-48) 27% (24-48) Monocytes (%) (Auto) 8% (0-9) 10% (0-9) Eosinophils (%) (Auto) 1% (0-3) 1% (0-3) Basophils (%) (Auto) 1% (0-3) 1% (0-3) Neutrophils # (Auto) 6.9x10^3uL (1.8-7.7) 4.7x10^3uL (1.8-7.7) Lymphocytes # (Auto) 1.6x10^3/uL (1.0-4.8) 2.1x10^3/uL (1.0-4.8) Monocytes # (Auto) 0.8x10^3/uL (0.0-1.1) 0.8x10^3/uL (0.0-1.1) Eosinophils # (Auto) 0.1x10^3/uL (0.0-0.7) 0.1x10^3/uL (0.0-0.7) Basophils # (Auto) 0.1x10^3/uL (0.0-0.2) 0.1x10^3/uL (0.0-0.2) Sodium Level 141mmol/L (136-145) 142mmol/L (136-145) Potassium Level 4.3mmol/L (3.5-5.1) 4.3mmol/L (3.5-5.1) Chloride Level 104mmol/L (98-107) 108mmol/L (98-107) Carbon Dioxide Level 29mmol/L (21-32) 31mmol/L (21-32) Anion Gap 8 (6-14) 3 (6-14) Blood Urea Nitrogen 13mg/dL (7-20) 15mg/dL (7-20) Creatinine 0.8mg/dL (0.6-1.0) 0.8mg/dL (0.6-1.0) Estimated GFR (Cockcroft-Gault) 71.5 71.5 Glucose Level 110mg/dL (70-99) 111mg/dL (70-99) Calcium Level 8.5mg/dL (8.5-10.1) 8.3mg/dL (8.5-10.1) Troponin I Quantitative < 0.017ng/mL (0.000-0.055) < 0.017ng/mL (0.000-0.055) < 0.017ng/mL (0.000-0.055) PM-Lnp-V-Type Natriuretic Peptide 110pg/mL (0-124) Medications Current Medications Albuterol/ Ipratropium (Duoneb) 3 ml 1X ONCE NEB Last administered on t 16:08; Start 06/06/16 at 16:00; Stop 06/06/16 at 16:01; Status DC Ondansetron HCl (Zofran) 4 mg PRN Q8HRS PRN IV NAUSEA/VOMITING; Start 06/06/16 at 16:15; Stop 06/07/16 at 16:14 Albuterol/ Ipratropium (Duoneb) 3 ml RTQID NEB Last administered on 06/07/16 12:25; Start 06/06/16 at 20:00; Stop 06/07/16 at 19:59 Budesonide (Pulmicort) 0.5 mg RTBID NEB Last administered on 06/07/16 06:40; Start 06/06/16 at 20:00 Diazepam (Valium) 5 mg PRN Q4HRS PRN PO ANXIETY / AGITATION Last administered on 06/07/16 12:33; Start 06/06/16 at 19:00 Diltiazem HCl (Cardizem 24hr Cd) 120 mg DAILY PO ; Start 06/07/16 at 09:00 Diphenhydramine HCl (Benadryl) 25 mg Q8HRS PRN PO ALLERGIES; Start 06/06/16 at 19:00 Docusate Sodium (Colace) 100 mg DAILY PRN PO CONSTIPATION; Start 06/06/16 at 19 :00 Guaifenesin (MUCINEX ER with DM) 1 tab Q12HR PRN PO cough Last administered on 06/06/16 22:31; Start 06/06/16 at 19:00 Ibuprofen (Motrin) 400 mg PRN Q6HRS PRN PO INFLAMMATION Last administered on 10:58; Start 06/06/16 at 19:00 Pantoprazole Sodium (Protonix) 40 mg DAILYAC PO ; Start 06/07/16 at 07:30 Albuterol Sulfate (Ventolin Neb Soln) 2.5 mg PRN Q6HRS PRN NEB SHORTNESS OF BREATH Last administered on 06/06/16 23:50; Start 06/06/16 at 19:15 Ondansetron HCl 4 mg 4 mg PRN Q6HRS PRN IV NAUSEA/VOMITING; Start 06/07/16 at 10:00 Levofloxacin/ Dextrose (LEVAQUIN 500mg PREMIX) 100 ml @ 100 mls/hr Q24H IV ; Start 06/07/16 at 13:00 Aspirin (Ecotrin) 81 mg DAILYWBKFT PO ; Start 06/07/16 at 13:00 Active Scripts Active Levaquin (Levofloxacin) 500 Mg Tablet 1 Tab PO DAILY Protonix (Pantoprazole Sodium) 40 Mg Tablet.dr 1 Tab PO DAILY Diflucan (Fluconazole) 100 Mg Tablet 100 Mg PO BID Reported Diltiazem 24HR Cd (Diltiazem Hcl) 120 Mg Cap.er.24h 120 Mg PO DAILY Mucinex Dm Er 600-30 Mg Tablet (Guaifenesin/Dextromethorphan) 1 Each Tab.er.12h 1 Each PO Benadryl (Diphenhydramine Hcl) 25 Mg Capsule 25 Mg PO PRN PRN Dok (Docusate Sodium) 100 Mg Capsule 100 Mg PO PRN PRN Ibuprofen 400 Mg Tablet 400 Mg PO PRN Q6HRS PRN Vivelle-Dot (Estradiol) 1 Each Patch.tdsw 0.1 Patch TP Valium (Diazepam) 5 Mg Tablet 5 Mg PO PRN Q4HRS PRN Proventil Hfa Inhaler (Albuterol Sulfate) 6.7 Gm Hfa.aer.ad 1 Puff IH PRN PRN Spiriva (Tiotropium [place]) 18 Mcg Cap.w.dev 1 Cap IH DAILY Symbicort 160-4.5 Mcg Inhaler (Budesonide/Formoterol Fumarate) 10.2 Gm Hfa.aer.ad 2 Puff IH BID Vitals/I & O Vital Sign - Last 24 Hours 06/06/16 06/06/16 06/06/16 06/06/16 15:09 16:13 19:55 20:00 Temp 98.1 98.1 Pulse 103 Resp 58 B/P 111/70 Pulse Ox 98 98 O2 Delivery Nasal Cannula Nasal Cannula Nasal Cannula Nasal Cannula O2 Flow Rate 3 2.0 4.0 4.0 06/06/16 06/06/16 06/06/16 06/06/16 20:03 20:47 22:32 23:50 Temp 97.9 97.4 97.9 97.4 Pulse 96 104 Resp 22 18 B/P 137/72 134/63 Pulse Ox 95 94 O2 Delivery Nasal Cannula Nasal Cannula Room Air Nasal Cannula O2 Flow Rate 4.0 2.0 3.0 406/07/16 06/07/16 06/07/16 06:41 07:00 10:22 12:28 Temp 97.7 98.0 97.7 98.0 Pulse 89 107 Resp 20 18 B/P 97/51 109/67 Pulse Ox 98 100 95 98 O2 Delivery Nasal Cannula Nasal Cannula Nasal Cannula Nasal Cannula O2 Flow Rate 3.0 3.0 3.0 4.0 Intake and Output 06/06/16 06/06/16 06/07/16 15:00 23:00 07:00 Intake Total 407 ml Balance 407 ml COURTNEY BARKSDALE MD Jun 07, 2016 13:03
[2016-06-07] MEDS: ASPIRIN ENTERIC COATED 81 MG TABLET.DR. PO SCH (14:30)
--- NOTE | 2016-06-07 15:06 | CARD ---
APPROVED REPORT EXAM: Two-dimensional and M-mode echocardiogram with Doppler and color Doppler. Other Information Quality : GoodHR: 88bpm Rhythm : NSR INDICATION Syncope RISK FACTORS Smoking 2D DIMENSIONS RVDd2.5 (2.9-3.5cm)Left Atrium(2D)2.4 (1.6-4.0cm) IVSd0.7 (0.7-1.1cm)Aortic Root(2D)3.0 (2.0-3.7cm) LVDd3.8 (3.9-5.9cm)LVOT Diameter2.2 (1.8-2.4cm) PWd0.7 (0.7-1.1cm)LVDs2.2 (2.5-4.0cm) FS (%) 40.5 %SV43.7 ml LVEF(%)72.0 (>50%) Aortic Valve AoV Peak Shahram.112.9cm/sAoV VTI22.4cm AO Peak GR.5.1mmHgLVOT Peak Shahram.95.0cm/s AO Mean GR.3mmHgAVA (VMAX)3.15cm2 Mitral Valve MV E Gdveqvsn630.4cm/sMV E Peak Gr.9mmHg MV DECEL [id number] A Lzqwtzrl687.9cm/s MV E Mean Gr.4mmHgE/A Ratio0.8 MV A Ukmjwoco73kf Pulmonary Valve PV Peak Bdpkoiwx45.2cm/s Tricuspid Valve TR P. Chmssuna284lr/sTR Peak Gr.34mmHg Pulmonary Vein S1 Ilgxlrlm94.4cm/sD2 Ixdsuvpc82.4cm/s PVa sqxqhmfa70fohf LEFT VENTRICLE The left ventricle is normal size. There is normal left ventricular wall thickness. The left ventricu lar systolic function is normal and the ejection fraction is within normal range. The Ejection Fracti on is 65-70%. There is normal LV segmental wall motion. Transmitral Doppler flow pattern is Grade I-a bnormal relaxation pattern. RIGHT VENTRICLE The right ventricle is normal size. There is normal right ventricular wall thickness. The right ventr icular systolic function is normal. ATRIA The left atrium is mildly dilated. The right atrium size is normal. The interatrial septum is intact with no evidence for an atrial septal defect or patent foramen ovale as noted on 2-D or Doppler imagi ng. AORTIC VALVE The aortic valve is mildly sclerotic. The aortic valve is trileaflet. Doppler and Color Flow revealed no significant aortic regurgitation. There is no significant aortic valvular stenosis. MITRAL VALVE Mitral annular calcification is mild. The mitral valve leaflets are thickened. There is no evidence o f mitral valve prolapse. There is no mitral valve stenosis. Doppler and Color Flow revealed trace bernice ral regurgitation. TRICUSPID VALVE Doppler and Color Flow revealed mild tricuspid regurgitation. The pulmonary artery systolic pressure is estimated at 37 mmHg. PULMONIC VALVE The pulmonic valve is not well visualized. Doppler and Color Flow revealed trace pulmonic valvular re gurgitation. There is no pulmonic valvular stenosis. GREAT VESSELS The aortic root is normal in size. The ascending aorta is normal in size. The IVC is normal in size a nd collapses >50% with inspiration. PERICARDIAL EFFUSION There is no evidence of significant pericardial effusion. Critical Notification Critical Value: No <Conclusion> There is normal LV segmental wall motion. The left ventricular systolic function is normal and the ejection fraction is within normal range. Th e Ejection Fraction is 65-70%.
[2016-06-07 15:34] VITALS: BP 124/76
--- NOTE | 2016-06-07 15:44 | PDOC2 ---
NEUROLOGY CONSULT Date of Admission Date of Admission DATE: 06/07/16 TIME: 15:38 Reason for Consult Reason for Consult: Syncope Referring Physician Referring Physician: Dr. Dunn Source Source: Chart review, Patient History of Present Illness History of Present Illness The patient is a 65-year-old right-handed female with chronic obstructive pulmonary disease who fainted yesterday. She was watching television in her bedroom, set up from the bed and felt lightheaded, and the next thing she knows she was on the floor with drooling and urinary incontinence. She thinks she was out for about 15 minutes. There was no sign of trauma from a seizure such as tongue biting or sore muscles. There is no prior history of stroke, seizure, syncope, or head injury. She feels better today. She generally gets around with a wheelchair because of a diagnosis of complex regional pain syndrome of the left leg. She generally gets her medical care at the [facility]. Past Medical History Cardiovascular: CAD, CHF, HTN, [facility] Pulmonary: COPD CENTRAL NERVOUS SYSTEM: Other (complex regional pain syndrome of the left leg) Psych: Anxiety, Other (posttraumatic stress disorder, obsessive-compulsive disorder) Musculoskeletal: Osteoarthritis Past Surgical History Past Surgical History: Appendectomy, Tonsillectomy, Hysterectomy Family History Family History: No pertinent hx (negative for epilepsy) Social History Social History Smokes 4 cigarettes per day, retired, , lives on her own Current Medications Current Medications Current Medications Albuterol/ Ipratropium (Duoneb) 3 ml 1X ONCE NEB Last administered on 16:08; Start 06/06/16 at 16:00; Stop 06/06/16 at 16:01; Status DC Ondansetron HCl (Zofran) 4 mg PRN Q8HRS PRN IV NAUSEA/VOMITING; Start 06/06/16 at 16:15; Stop 06/07/16 at 16:14 Albuterol/ Ipratropium (Duoneb) 3 ml RTQID NEB Last administered on 06/07/16 12:25; Start 06/06/16 at 20:00; Stop 06/07/16 at 19:59 Budesonide (Pulmicort) 0.5 mg RTBID NEB Last administered on 06/07/16 06:40; Start 06/06/16 at 20:00 Diazepam (Valium) 5 mg PRN Q4HRS PRN PO ANXIETY / AGITATION Last administered on 06/07/16 12:33; Start 06/06/16 at 19:00 Diltiazem HCl (Cardizem 24hr Cd) 120 mg DAILY PO ; Start 06/07/16 at 09:00 Diphenhydramine HCl (Benadryl) 25 mg Q8HRS PRN PO ALLERGIES; Start 06/06/16 at 19:00 Docusate Sodium (Colace) 100 mg DAILY PRN PO CONSTIPATION; Start 06/06/16 at 19 :00 Guaifenesin (MUCINEX ER with DM) 1 tab Q12HR PRN PO cough Last administered on 06/06/16 22:31; Start 06/06/16 at 19:00 Ibuprofen (Motrin) 400 mg PRN Q6HRS PRN PO INFLAMMATION Last administered on 10:58; Start 06/06/16 at 19:00 Pantoprazole Sodium (Protonix) 40 mg DAILYAC PO ; Start 06/07/16 at 07:30 Albuterol Sulfate (Ventolin Neb Soln) 2.5 mg PRN Q6HRS PRN NEB SHORTNESS OF BREATH Last administered on 06/06/16 23:50; Start 06/06/16 at 19:15 Ondansetron HCl 4 mg 4 mg PRN Q6HRS PRN IV NAUSEA/VOMITING; Start 06/07/16 at 10:00 Levofloxacin/ Dextrose (LEVAQUIN 500mg PREMIX) 100 ml @ 100 mls/hr Q24H IV Last administered on 06/07/16 14:30; Start 06/07/16 at 13:00 Aspirin (Ecotrin) 81 mg DAILYWBKFT PO Last administered on 06/07/16 14:30; Start 06/07/16 at 13:00 Albuterol/ Ipratropium (Duoneb) 3 ml RTQID NEB ; Start 06/07/16 at 16:00 Acetaminophen (Tylenol) 650 mg PRN Q6HRS PRN PO FEVER; Start 06/07/16 at 13:00 Active Scripts Active Levaquin (Levofloxacin) 500 Mg Tablet 1 Tab PO DAILY Protonix (Pantoprazole Sodium) 40 Mg Tablet.dr 1 Tab PO DAILY Diflucan (Fluconazole) 100 Mg Tablet 100 Mg PO BID Reported Diltiazem 24HR Cd (Diltiazem Hcl) 120 Mg Cap.er.24h 120 Mg PO DAILY Mucinex Dm Er 600-30 Mg Tablet (Guaifenesin/Dextromethorphan) 1 Each Tab.er.12h 1 Each PO Benadryl (Diphenhydramine Hcl) 25 Mg Capsule 25 Mg PO PRN PRN Dok (Docusate Sodium) 100 Mg Capsule 100 Mg PO PRN PRN Ibuprofen 400 Mg Tablet 400 Mg PO PRN Q6HRS PRN Vivelle-Dot (Estradiol) 1 Each Patch.tdsw 0.1 Patch TP Valium (Diazepam) 5 Mg Tablet 5 Mg PO PRN Q4HRS PRN Proventil Hfa Inhaler (Albuterol Sulfate) 6.7 Gm Hfa.aer.ad 1 Puff IH PRN PRN Spiriva (Tiotropium [place]) 18 Mcg Cap.w.dev 1 Cap IH DAILY Symbicort 160-4.5 Mcg Inhaler (Budesonide/Formoterol Fumarate) 10.2 Gm Hfa.aer.ad 2 Puff IH BID Allergies Allergies: Coded Allergies: Iodine and Iodide Containing Produc (Verified Allergy, Intermediate, Unknown, 06/18/15) Penicillins (Verified Allergy, Intermediate, 06/18/15) codeine (Verified Allergy, Intermediate, 06/18/15) ROS Review of System Patient denies fevers, chills, weight loss,angina, abdominal pain, change in bowels, or dysuria. Positive for dyspnea. 14 point review of systems is negative. Physical Exam Physical Examination PHYSICAL EXAMINATION: Vital signs: see above. General appearance is normal and in no acute distress. HEENT: Normocephalic and nontraumatic. Eyes, nose, ears, and throat are unremarkable. Neck is supple. No lymphadenopathy. No bruits are heard over the carotid artery. No crepitus. Extremities: No skin, color, temperature, pulse changes to suspect complex regional pain syndrome NEUROLOGICAL EXAMINATION: Mental Status Examination: Alert. Oriented to time, place, and person. Answers questions and follows commends. Pupils are equal round and reactive to light and accommodation.xtraocular movements are intact. Visual field exam shows no defect on the direct confrontation. No motor or sensory deficits on the facial exam. Uvula in the midline and the soft palate elevated symmetrically. No deviation of the tongue to any direction. Gross hearing is normal. Shoulder shrug normal. Muscle tone is normal. Muscle strength is 5. Deep tendon reflexes are 2+ all around. Plantar reflex is with flexion response bilaterally. Wxbzpx-qz-pcpn test performance is accurate. Alternative movements are accurate. Gait not tested. Sensory exam shows no deficits. No cerebellar signs are elicited. Vitals VITALS Vital Signs Date Time Temp Pulse Resp B/P Pulse Ox O2 Delivery O2 Flow Rate FiO2 06/07/16 15:34 98.4 107 20 124/76 99 Nasal Cannula 98.4 06/07/16 12:28 4.0 Labs Labs Laboratory Tests Test 06/06/16 17:05 06/06/16 22:05 06/07/16 04:23 White Blood Count 9.5x10^3/uL (4.0-11.0) 7.8x10^3/uL (4.0-11.0) Red Blood Count 4.29x10^6/uL (3.50-5.40) 3.97x10^6/uL (3.50-5.40) Hemoglobin 12.9g/dL (12.0-15.5) 12.5g/dL (12.0-15.5) Hematocrit 39.6% (36.0-47.0) 36.2% (36.0-47.0) Mean Corpuscular Volume 92fL (79-100) 91fL (79-100) Mean Corpuscular Hemoglobin 30pg (25-35) 31pg (25-35) Mean Corpuscular Hemoglobin Concent 32g/dL (31-37) 34g/dL (31-37) Red Cell Distribution Width 13.0% (11.5-14.5) 13.1% (11.5-14.5) Platelet Count 210x10^3/uL (140-400) 186x10^3/uL (140-400) Neutrophils (%) (Auto) 73% (31-73) 61% (31-73) Lymphocytes (%) (Auto) 17% (24-48) 27% (24-48) Monocytes (%) (Auto) 8% (0-9) 10% (0-9) Eosinophils (%) (Auto) 1% (0-3) 1% (0-3) Basophils (%) (Auto) 1% (0-3) 1% (0-3) Neutrophils # (Auto) 6.9x10^3uL (1.8-7.7) 4.7x10^3uL (1.8-7.7) Lymphocytes # (Auto) 1.6x10^3/uL (1.0-4.8) 2.1x10^3/uL (1.0-4.8) Monocytes # (Auto) 0.8x10^3/uL (0.0-1.1) 0.8x10^3/uL (0.0-1.1) Eosinophils # (Auto) 0.1x10^3/uL (0.0-0.7) 0.1x10^3/uL (0.0-0.7) Basophils # (Auto) 0.1x10^3/uL (0.0-0.2) 0.1x10^3/uL (0.0-0.2) Sodium Level 141mmol/L (136-145) 142mmol/L (136-145) Potassium Level 4.3mmol/L (3.5-5.1) 4.3mmol/L (3.5-5.1) Chloride Level 104mmol/L (98-107) 108mmol/L (98-107) Carbon Dioxide Level 29mmol/L (21-32) 31mmol/L (21-32) Anion Gap 8 (6-14) 3 (6-14) Blood Urea Nitrogen 13mg/dL (7-20) 15mg/dL (7-20) Creatinine 0.8mg/dL (0.6-1.0) 0.8mg/dL (0.6-1.0) Estimated GFR (Cockcroft-Gault) 71.5 71.5 Glucose Level 110mg/dL (70-99) 111mg/dL (70-99) Calcium Level 8.5mg/dL (8.5-10.1) 8.3mg/dL (8.5-10.1) Troponin I Quantitative < 0.017ng/mL (0.000-0.055) < 0.017ng/mL (0.000-0.055) < 0.017ng/mL (0.000-0.055) LS-Sop-T-Type Natriuretic Peptide 110pg/mL (0-124) Laboratory Tests Test 06/06/16 17:05 06/06/16 22:05 06/07/16 04:23 White Blood Count 9.5x10^3/uL (4.0-11.0) 7.8x10^3/uL (4.0-11.0) Red Blood Count 4.29x10^6/uL (3.50-5.40) 3.97x10^6/uL (3.50-5.40) Hemoglobin 12.9g/dL (12.0-15.5) 12.5g/dL (12.0-15.5) Hematocrit 39.6% (36.0-47.0) 36.2% (36.0-47.0) Mean Corpuscular Volume 92fL (79-100) 91fL (79-100) Mean Corpuscular Hemoglobin 30pg (25-35) 31pg (25-35) Mean Corpuscular Hemoglobin Concent 32g/dL (31-37) 34g/dL (31-37) Red Cell Distribution Width 13.0% (11.5-14.5) 13.1% (11.5-14.5) Platelet Count 210x10^3/uL (140-400) 186x10^3/uL (140-400) Neutrophils (%) (Auto) 73% (31-73) 61% (31-73) Lymphocytes (%) (Auto) 17% (24-48) 27% (24-48) Monocytes (%) (Auto) 8% (0-9) 10% (0-9) Eosinophils (%) (Auto) 1% (0-3) 1% (0-3) Basophils (%) (Auto) 1% (0-3) 1% (0-3) Neutrophils # (Auto) 6.9x10^3uL (1.8-7.7) 4.7x10^3uL (1.8-7.7) Lymphocytes # (Auto) 1.6x10^3/uL (1.0-4.8) 2.1x10^3/uL (1.0-4.8) Monocytes # (Auto) 0.8x10^3/uL (0.0-1.1) 0.8x10^3/uL (0.0-1.1) Eosinophils # (Auto) 0.1x10^3/uL (0.0-0.7) 0.1x10^3/uL (0.0-0.7) Basophils # (Auto) 0.1x10^3/uL (0.0-0.2) 0.1x10^3/uL (0.0-0.2) Sodium Level 141mmol/L (136-145) 142mmol/L (136-145) Potassium Level 4.3mmol/L (3.5-5.1) 4.3mmol/L (3.5-5.1) Chloride Level 104mmol/L (98-107) 108mmol/L (98-107) Carbon Dioxide Level 29mmol/L (21-32) 31mmol/L (21-32) Anion Gap 8 (6-14) 3 (6-14) Blood Urea Nitrogen 13mg/dL (7-20) 15mg/dL (7-20) Creatinine 0.8mg/dL (0.6-1.0) 0.8mg/dL (0.6-1.0) Estimated GFR (Cockcroft-Gault) 71.5 71.5 Glucose Level 110mg/dL (70-99) 111mg/dL (70-99) Calcium Level 8.5mg/dL (8.5-10.1) 8.3mg/dL (8.5-10.1) Troponin I Quantitative < 0.017ng/mL (0.000-0.055) < 0.017ng/mL (0.000-0.055) < 0.017ng/mL (0.000-0.055) VQ-Ulj-Z-Type Natriuretic Peptide 110pg/mL (0-124) Images Images Carotid Dopplers and echocardiogram both unremarkable Assessment/Plan Assessment/Plan Impression: She probably fainted from hypoxia with her chronic obstructive pulmonary disease but the drooling and incontinence is worrisome for something else such as a seizure. Recommendations: She has had no imaging of the brain. A CT scan at admission may have been sufficient, but since she has not had anything done, I will go ahead and get a more definitive study now, brain MRI. Patient is willing to undergo the study and thinks she will not have any problems as long as she has oxygen Electroencephalogram Holding off on anticonvulsants unless these tests show evidence of a seizure disorder Thank you for letting me help with the patient's care. ISABELLA MARQUEZ MD Jun 07, 2016 15:44
--- NOTE | 2016-06-07 16:49 | RAD ---
CT of the chest without contrast, 06/07/2016: History: Cough, possible infiltrates Noncontrast scans were obtained as requested. There appear to be mild emphysematous changes in the lungs. There are scattered linear opacities compatible with scarring versus minimal atelectasis. No significant pulmonary consolidation is is seen. No pulmonary mass is evident. There is mild, smooth calcific pleural plaquing posteriorly on the right. No pleural fluid is evident. There is minimal calcific plaquing of the thoracic aorta without evidence of aneurysm. The heart is not enlarged. No mediastinal adenopathy is seen. IMPRESSION: 1. Emphysema with parenchymal scarring. 2. Mild calcific pleural plaquing on the right. 3. No acute pulmonary abnormality is detected. PQRS Compliance Statement: One or more of the following individualized dose reduction techniques were utilized for this examination: 1. Automated exposure control 2. Adjustment of the mA and/or kV according to patient size 3. Use of iterative reconstruction technique
[2016-06-07 19:32] VITALS: BP 109/69
[2016-06-07] MEDS: BENZONATATE 100 MG CAPSULE. PO SCH (21:16)
[2016-06-07] MEDS: GUAIFENESIN 200 MG/10 ML LIQUID. PO PRN (21:16)
[2016-06-07] MEDS: GUAIFENESIN DM 600/30MG TAB.ER.12H. PO SCH (21:16)
[2016-06-07 22:32] VITALS: BP 94/54
[2016-06-08 02:17] VITALS: BP 98/62
[2016-06-08 03:23] LABS: BASO % 1 % (0-3); EOS % 2 % (0-3); HEMATOCRIT 35.9 % (36.0-47.0); HEMOGLOBIN 11.6 g/dL (12.0-15.5); LYMPH # 1.8 x10^3/uL (1.0-4.8); LYMPH % 27 % (24-48); MEAN CORPUSCULAR HEMOGLOBIN 30 pg (25-35); MEAN CORPUSCULAR HGB CONC 33 g/dL (31-37); MEAN CORPUSCULAR VOLUME 93 fL (79-100); MONO % 11 % (0-9); NEUT % 60 % (31-73); PLATELET COUNT 179 x10^3/uL (140-400); RED BLOOD COUNT 3.86 x10^6/uL (3.50-5.40); RED CELL DISTRIBUTION WIDTH 13.2 % (11.5-14.5); WHITE BLOOD COUNT 6.6 x10^3/uL (4.0-11.0)
[2016-06-08 03:41] LABS: CALCIUM 8.1 mg/dL (8.5-10.1); CREATININE 0.9 mg/dL (0.6-1.0); GFR 62.5
[2016-06-08 03:48] LABS: CHOLESTEROL/HDL RATIO 2.5
[2016-06-08] MEDS: GUAIFENESIN 200 MG/10 ML LIQUID. PO PRN (05:55)
[2016-06-08] MEDS: IBUPROFEN 400 MG TABLET. PO PRN ×2 (05:55→19:59)
[2016-06-08] MEDS: IPRATRPIUM/ALBUTEROL 0.5/2.5MG 3 ML NEBU. NEB SCH ×4 (08:12→20:19)
[2016-06-08] MEDS: BUDESONIDE 0.5 MG/2 ML NEBU. NEB SCH ×2 (08:12→20:19)
[2016-06-08] MEDS: ASPIRIN ENTERIC COATED 81 MG TABLET.DR. PO SCH (09:30)
[2016-06-08] MEDS: PANTOPRAZOLE 40 MG TABLET.DR. PO SCH (09:30)
[2016-06-08] MEDS: GUAIFENESIN DM 600/30MG TAB.ER.12H. PO SCH ×2 (09:30→19:59)
[2016-06-08] MEDS: BENZONATATE 100 MG CAPSULE. PO SCH ×3 (09:31→19:59)
[2016-06-08] MEDS: DILTIAZEM HCL 120 MG CAP.ER.24H PO SCH (09:31)
[2016-06-08 10:00] VITALS: BP 127/61
--- NOTE | 2016-06-08 11:11 | PDOC ---
PULMONARY PROGRESS NOTES Subjective less cough Vitals Vital Signs Date Time Temp Pulse Resp B/P Pulse Ox O2 Delivery O2 Flow Rate FiO2 06/08/16 10:00 98.1 101 20 127/61 98 Nasal Cannula 4.0 98.1 General: Alert, Oriented X4, No acute distress Lungs: Clear Cardiovascular: S1, S2 Abdomen: Soft Neuro Exam: Alert Extremities: No Edema Skin: Warm Labs Laboratory Tests Test 06/06/16 17:05 06/06/16 22:05 06/07/16 04:23 06/08/16 03:02 White Blood Count 9.5x10^3/uL (4.0-11.0) 7.8x10^3/uL (4.0-11.0) 6.6x10^3/uL (4.0-11.0) Red Blood Count 4.29x10^6/uL (3.50-5.40) 3.97x10^6/uL (3.50-5.40) 3.86x10^6/uL (3.50-5.40) Hemoglobin 12.9g/dL (12.0-15.5) 12.5g/dL (12.0-15.5) 11.6g/dL (12.0-15.5) Hematocrit 39.6% (36.0-47.0) 36.2% (36.0-47.0) 35.9% (36.0-47.0) Mean Corpuscular Volume 92fL (79-100) 91fL (79-100) 93fL (79-100) Mean Corpuscular Hemoglobin 30pg (25-35) 31pg (25-35) 30pg (25-35) Mean Corpuscular Hemoglobin Concent 32g/dL (31-37) 34g/dL (31-37) 33g/dL (31-37) Red Cell Distribution Width 13.0% (11.5-14.5) 13.1% (11.5-14.5) 13.2% (11.5-14.5) Platelet Count 210x10^3/uL (140-400) 186x10^3/uL (140-400) 179x10^3/uL (140-400) Neutrophils (%) (Auto) 73% (31-73) 61% (31-73) 60% (31-73) Lymphocytes (%) (Auto) 17% (24-48) 27% (24-48) 27% (24-48) Monocytes (%) (Auto) 8% (0-9) 10% (0-9) 11% (0-9) Eosinophils (%) (Auto) 1% (0-3) 1% (0-3) 2% (0-3) Basophils (%) (Auto) 1% (0-3) 1% (0-3) 1% (0-3) Neutrophils # (Auto) 6.9x10^3uL (1.8-7.7) 4.7x10^3uL (1.8-7.7) 3.9x10^3uL (1.8-7.7) Lymphocytes # (Auto) 1.6x10^3/uL (1.0-4.8) 2.1x10^3/uL (1.0-4.8) 1.8x10^3/uL (1.0-4.8) Monocytes # (Auto) 0.8x10^3/uL (0.0-1.1) 0.8x10^3/uL (0.0-1.1) 0.8x10^3/uL (0.0-1.1) Eosinophils # (Auto) 0.1x10^3/uL (0.0-0.7) 0.1x10^3/uL (0.0-0.7) 0.1x10^3/uL (0.0-0.7) Basophils # (Auto) 0.1x10^3/uL (0.0-0.2) 0.1x10^3/uL (0.0-0.2) 0.0x10^3/uL (0.0-0.2) Sodium Level 141mmol/L (136-145) 142mmol/L (136-145) 140mmol/L (136-145) Potassium Level 4.3mmol/L (3.5-5.1) 4.3mmol/L (3.5-5.1) 4.0mmol/L (3.5-5.1) Chloride Level 104mmol/L (98-107) 108mmol/L (98-107) 105mmol/L (98-107) Carbon Dioxide Level 29mmol/L (21-32) 31mmol/L (21-32) 32mmol/L (21-32) Anion Gap 8 (6-14) 3 (6-14) 3 (6-14) Blood Urea Nitrogen 13mg/dL (7-20) 15mg/dL (7-20) 16mg/dL (7-20) Creatinine 0.8mg/dL (0.6-1.0) 0.8mg/dL (0.6-1.0) 0.9mg/dL (0.6-1.0) Estimated GFR (Cockcroft-Gault) 71.5 71.5 62.5 Glucose Level 110mg/dL (70-99) 111mg/dL (70-99) 110mg/dL (70-99) Calcium Level 8.5mg/dL (8.5-10.1) 8.3mg/dL (8.5-10.1) 8.1mg/dL (8.5-10.1) Troponin I Quantitative < 0.017ng/mL (0.000-0.055) < 0.017ng/mL (0.000-0.055) < 0.017ng/mL (0.000-0.055) LU-Szg-H-Type Natriuretic Peptide 110pg/mL (0-124) Triglycerides Level 59mg/dL (0-150) Cholesterol Level 142mg/dL (0-200) LDL Cholesterol, Calculated 73mg/dL (0-100) VLDL Cholesterol, Calculated 12mg/dL (0-40) HDL Cholesterol 57mg/dL (40-60) Cholesterol/HDL Ratio 2.5 Laboratory Tests Test 06/08/16 03:02 White Blood Count 6.6x10^3/uL (4.0-11.0) Red Blood Count 3.86x10^6/uL (3.50-5.40) Hemoglobin 11.6g/dL (12.0-15.5) Hematocrit 35.9% (36.0-47.0) Mean Corpuscular Volume 93fL (79-100) Mean Corpuscular Hemoglobin 30pg (25-35) Mean Corpuscular Hemoglobin Concent 33g/dL (31-37) Red Cell Distribution Width 13.2% (11.5-14.5) Platelet Count 179x10^3/uL (140-400) Neutrophils (%) (Auto) 60% (31-73) Lymphocytes (%) (Auto) 27% (24-48) Monocytes (%) (Auto) 11% (0-9) Eosinophils (%) (Auto) 2% (0-3) Basophils (%) (Auto) 1% (0-3) Neutrophils # (Auto) 3.9x10^3uL (1.8-7.7) Lymphocytes # (Auto) 1.8x10^3/uL (1.0-4.8) Monocytes # (Auto) 0.8x10^3/uL (0.0-1.1) Eosinophils # (Auto) 0.1x10^3/uL (0.0-0.7) Basophils # (Auto) 0.0x10^3/uL (0.0-0.2) Sodium Level 140mmol/L (136-145) Potassium Level 4.0mmol/L (3.5-5.1) Chloride Level 105mmol/L (98-107) Carbon Dioxide Level 32mmol/L (21-32) Anion Gap 3 (6-14) Blood Urea Nitrogen 16mg/dL (7-20) Creatinine 0.9mg/dL (0.6-1.0) Estimated GFR (Cockcroft-Gault) 62.5 Glucose Level 110mg/dL (70-99) Calcium Level 8.1mg/dL (8.5-10.1) Triglycerides Level 59mg/dL (0-150) Cholesterol Level 142mg/dL (0-200) LDL Cholesterol, Calculated 73mg/dL (0-100) VLDL Cholesterol, Calculated 12mg/dL (0-40) HDL Cholesterol 57mg/dL (40-60) Cholesterol/HDL Ratio 2.5 Medications Active Scripts Medications Dose Route/Sig Days Date Category Levaquin (Levofloxacin) 500 Mg Tablet 1 Tab PO DAILY 06/19/15 Rx Protonix (Pantoprazole Sodium) 40 Mg Tablet.dr 1 Tab PO DAILY 06/18/15 Rx Diflucan (Fluconazole) 100 Mg Tablet 100 Mg PO BID 4/28/16 Rx Diltiazem 24HR Cd (Diltiazem Hcl) 120 Mg Cap.er.24h 120 Mg PO DAILY 06/14/15 Reported Mucinex Dm Er 600-30 Mg Tablet (Guaifenesin/Dextromethorphan) 1 Each Tab.er.12h 1 Each PO 06/14/15 Reported Benadryl (Diphenhydramine Hcl) 25 Mg Capsule 25 Mg PO PRN PRN 06/14/15 Reported Dok (Docusate Sodium) 100 Mg Capsule 100 Mg PO PRN PRN 06/14/15 Reported Ibuprofen 400 Mg Tablet 400 Mg PO PRN Q6HRS PRN 06/14/15 Reported Vivelle-Dot (Estradiol) 1 Each Patch.tdsw 0.1 Patch TP 06/14/15 Reported Valium (Diazepam) 5 Mg Tablet 5 Mg PO PRN Q4HRS PRN 06/14/15 Reported Proventil Hfa Inhaler (Albuterol Sulfate) 6.7 Gm Hfa.aer.ad 1 Puff IH PRN PRN 06/14/15 Reported Spiriva (Tiotropium [place]) 18 Mcg Cap.w.dev 1 Cap IH DAILY 06/14/15 Reported Symbicort 160-4.5 Mcg Inhaler (Budesonide/Formoterol Fumarate) 10.2 Gm Hfa.aer.ad 2 Puff IH BID 06/14/15 Reported Impression . 1. Syncopal episode. Etiology could be a new onset seizure. She did have loss of bladder function and drooling of saliva. The other possibility would be hypoxia resulting from acute bronchitis and acute exacerbation of chronic obstructive pulmonary disease. Possibility of mild congestive heart failure would also be in the differential diagnosis. 2. Persistent dry cough, possible acute bronchitis, cannot exclude pneumonia. We will do a noncontrast CT chest for further evaluation. 3. Underlying chronic obstructive pulmonary disease. 4. 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 Plan . 1. Normal EF by echocardiogram. 2. empiric antibiotic. 3. Noncontrast CT chest reviewed . no pneumonia 4. will need 6 min walk. she wants portable conc 5. Follow cardiology recommendation. 6. Continue bronchodilators. 8. Monitor blood pressure closely. She is on diltiazem at home. 9. Discussed with RN. We will follow along with you. ADEEL FRAGOSO MD Jun 08, 2016 11:11
--- NOTE | 2016-06-08 11:15 | PDOC ---
PROGRESS NOTES Assessment Problems Medical Problems: (1) Hypoxia Status: Acute (2) Syncope Status: Acute Vasovagal syncope due to hypoxia, but with drooling and incontinence, seizure is still possible Plan Await MRI and EEG Hold off on anticonvulsants She does not drive anyway so driving restriction question is moot Subjective She is not sure she wants the MRI and EEG, as she is certain the symptoms were due to her hypoxia. I explained to her that she was most likely correct, but the EEG and MRI are necessary to exclude the slight possibility of seizure or other cause of the problem. Objective Vital Signs Date Time Temp Pulse Resp B/P Pulse Ox O2 Delivery O2 Flow Rate FiO2 06/08/16 10:00 98.1 101 20 127/61 98 Nasal Cannula 4.0 98.1 Intake and Output 06/08/16 07:00 Intake Total 320 ml Balance 320 ml Intake Oral 220 ml IV Total 100 ml # Voids 10 PHYSICAL EXAM Alert. Oriented to time, place and person. PERRL. EOMI. CN: no focal findings. Muscle tone: normal. Muscle strength: 5/5 DTR: 2+ Plantar reflex: flexor Gait: not examined in bed. Sensory exam: no abnormal findings. No cerebellar signs elicited. Review of Relevant I have reviewed the following items lazaro (where applicable) has been applied. Labs Laboratory Tests Test 06/06/16 17:05 06/06/16 22:05 06/07/16 04:23 06/08/16 03:02 White Blood Count 9.5x10^3/uL (4.0-11.0) 7.8x10^3/uL (4.0-11.0) 6.6x10^3/uL (4.0-11.0) Red Blood Count 4.29x10^6/uL (3.50-5.40) 3.97x10^6/uL (3.50-5.40) 3.86x10^6/uL (3.50-5.40) Hemoglobin 12.9g/dL (12.0-15.5) 12.5g/dL (12.0-15.5) 11.6g/dL (12.0-15.5) Hematocrit 39.6% (36.0-47.0) 36.2% (36.0-47.0) 35.9% (36.0-47.0) Mean Corpuscular Volume 92fL (79-100) 91fL (79-100) 93fL (79-100) Mean Corpuscular Hemoglobin 30pg (25-35) 31pg (25-35) 30pg (25-35) Mean Corpuscular Hemoglobin Concent 32g/dL (31-37) 34g/dL (31-37) 33g/dL (31-37) Red Cell Distribution Width 13.0% (11.5-14.5) 13.1% (11.5-14.5) 13.2% (11.5-14.5) Platelet Count 210x10^3/uL (140-400) 186x10^3/uL (140-400) 179x10^3/uL (140-400) Neutrophils (%) (Auto) 73% (31-73) 61% (31-73) 60% (31-73) Lymphocytes (%) (Auto) 17% (24-48) 27% (24-48) 27% (24-48) Monocytes (%) (Auto) 8% (0-9) 10% (0-9) 11% (0-9) Eosinophils (%) (Auto) 1% (0-3) 1% (0-3) 2% (0-3) Basophils (%) (Auto) 1% (0-3) 1% (0-3) 1% (0-3) Neutrophils # (Auto) 6.9x10^3uL (1.8-7.7) 4.7x10^3uL (1.8-7.7) 3.9x10^3uL (1.8-7.7) Lymphocytes # (Auto) 1.6x10^3/uL (1.0-4.8) 2.1x10^3/uL (1.0-4.8) 1.8x10^3/uL (1.0-4.8) Monocytes # (Auto) 0.8x10^3/uL (0.0-1.1) 0.8x10^3/uL (0.0-1.1) 0.8x10^3/uL (0.0-1.1) Eosinophils # (Auto) 0.1x10^3/uL (0.0-0.7) 0.1x10^3/uL (0.0-0.7) 0.1x10^3/uL (0.0-0.7) Basophils # (Auto) 0.1x10^3/uL (0.0-0.2) 0.1x10^3/uL (0.0-0.2) 0.0x10^3/uL (0.0-0.2) Sodium Level 141mmol/L (136-145) 142mmol/L (136-145) 140mmol/L (136-145) Potassium Level 4.3mmol/L (3.5-5.1) 4.3mmol/L (3.5-5.1) 4.0mmol/L (3.5-5.1) Chloride Level 104mmol/L (98-107) 108mmol/L (98-107) 105mmol/L (98-107) Carbon Dioxide Level 29mmol/L (21-32) 31mmol/L (21-32) 32mmol/L (21-32) Anion Gap 8 (6-14) 3 (6-14) 3 (6-14) Blood Urea Nitrogen 13mg/dL (7-20) 15mg/dL (7-20) 16mg/dL (7-20) Creatinine 0.8mg/dL (0.6-1.0) 0.8mg/dL (0.6-1.0) 0.9mg/dL (0.6-1.0) Estimated GFR (Cockcroft-Gault) 71.5 71.5 62.5 Glucose Level 110mg/dL (70-99) 111mg/dL (70-99) 110mg/dL (70-99) Calcium Level 8.5mg/dL (8.5-10.1) 8.3mg/dL (8.5-10.1) 8.1mg/dL (8.5-10.1) Troponin I Quantitative < 0.017ng/mL (0.000-0.055) < 0.017ng/mL (0.000-0.055) < 0.017ng/mL (0.000-0.055) CF-Qck-I-Type Natriuretic Peptide 110pg/mL (0-124) Triglycerides Level 59mg/dL (0-150) Cholesterol Level 142mg/dL (0-200) LDL Cholesterol, Calculated 73mg/dL (0-100) VLDL Cholesterol, Calculated 12mg/dL (0-40) HDL Cholesterol 57mg/dL (40-60) Cholesterol/HDL Ratio 2.5 Laboratory Tests Test 06/08/16 03:02 White Blood Count 6.6x10^3/uL (4.0-11.0) Red Blood Count 3.86x10^6/uL (3.50-5.40) Hemoglobin 11.6g/dL (12.0-15.5) Hematocrit 35.9% (36.0-47.0) Mean Corpuscular Volume 93fL (79-100) Mean Corpuscular Hemoglobin 30pg (25-35) Mean Corpuscular Hemoglobin Concent 33g/dL (31-37) Red Cell Distribution Width 13.2% (11.5-14.5) Platelet Count 179x10^3/uL (140-400) Neutrophils (%) (Auto) 60% (31-73) Lymphocytes (%) (Auto) 27% (24-48) Monocytes (%) (Auto) 11% (0-9) Eosinophils (%) (Auto) 2% (0-3) Basophils (%) (Auto) 1% (0-3) Neutrophils # (Auto) 3.9x10^3uL (1.8-7.7) Lymphocytes # (Auto) 1.8x10^3/uL (1.0-4.8) Monocytes # (Auto) 0.8x10^3/uL (0.0-1.1) Eosinophils # (Auto) 0.1x10^3/uL (0.0-0.7) Basophils # (Auto) 0.0x10^3/uL (0.0-0.2) Sodium Level 140mmol/L (136-145) Potassium Level 4.0mmol/L (3.5-5.1) Chloride Level 105mmol/L (98-107) Carbon Dioxide Level 32mmol/L (21-32) Anion Gap 3 (6-14) Blood Urea Nitrogen 16mg/dL (7-20) Creatinine 0.9mg/dL (0.6-1.0) Estimated GFR (Cockcroft-Gault) 62.5 Glucose Level 110mg/dL (70-99) Calcium Level 8.1mg/dL (8.5-10.1) Triglycerides Level 59mg/dL (0-150) Cholesterol Level 142mg/dL (0-200) LDL Cholesterol, Calculated 73mg/dL (0-100) VLDL Cholesterol, Calculated 12mg/dL (0-40) HDL Cholesterol 57mg/dL (40-60) Cholesterol/HDL Ratio 2.5 Medications Current Medications Albuterol/ Ipratropium (Duoneb) 3 ml 1X ONCE NEB Last administered on 16:08; Start 06/06/16 at 16:00; Stop 06/06/16 at 16:01; Status DC Ondansetron HCl (Zofran) 4 mg PRN Q8HRS PRN IV NAUSEA/VOMITING; Start 06/06/16 at 16:15; Stop 06/07/16 at 16:14; Status DC Albuterol/ Ipratropium (Duoneb) 3 ml RTQID NEB Last administered on 06/07/16 16:03; Start 06/06/16 at 20:00; Stop 06/07/16 at 19:59; Status DC Budesonide (Pulmicort) 0.5 mg RTBID NEB Last administered on 06/08/16 08:12; Start 06/06/16 at 20:00 Diazepam (Valium) 5 mg PRN Q4HRS PRN PO ANXIETY / AGITATION Last administered on 06/07/16 21:21; Start 06/06/16 at 19:00 Diltiazem HCl (Cardizem 24hr Cd) 120 mg DAILY PO Last administered on 09:31; Start 06/07/16 at 09:00 Diphenhydramine HCl (Benadryl) 25 mg Q8HRS PRN PO ALLERGIES; Start 06/06/16 at 19:00 Docusate Sodium (Colace) 100 mg DAILY PRN PO CONSTIPATION; Start 06/06/16 at 19 :00 Guaifenesin (MUCINEX ER with DM) 1 tab Q12HR PRN PO cough Last administered on 06/06/16 22:31; Start 06/06/16 at 19:00; Stop 06/07/16 at 20:52; Status DC Ibuprofen (Motrin) 400 mg PRN Q6HRS PRN PO INFLAMMATION Last administered on 05:55; Start 06/06/16 at 19:00 Pantoprazole Sodium (Protonix) 40 mg DAILYAC PO Last administered on 06/08/16 09:30; Start 06/07/16 at 07:30 Albuterol Sulfate (Ventolin Neb Soln) 2.5 mg PRN Q6HRS PRN NEB SHORTNESS OF BREATH Last administered on 06/06/16 23:50; Start 06/06/16 at 19:15 Ondansetron HCl 4 mg 4 mg PRN Q6HRS PRN IV NAUSEA/VOMITING; Start 06/07/16 at 10:00 Levofloxacin/ Dextrose (LEVAQUIN 500mg PREMIX) 100 ml @ 100 mls/hr Q24H IV Last administered on 06/07/16 14:30; Start 06/07/16 at 13:00 Aspirin (Ecotrin) 81 mg DAILYWBKFT PO Last administered on 06/08/16 09:30; Start 06/07/16 at 13:00 Albuterol/ Ipratropium (Duoneb) 3 ml RTQID NEB Last administered on 06/08/16 08:12; Start 06/07/16 at 16:00 Acetaminophen (Tylenol) 650 mg PRN Q6HRS PRN PO FEVER; Start 06/07/16 at 13:00 Guaifenesin (MUCINEX ER with DM) 1 tab Q12HR PO Last administered on 06/08/16 09:30; Start 06/07/16 at 21:00 Benzonatate (Tessalon Perle) 100 mg [id number] PO Last administered on 06/08/16 09 :31; Start 06/07/16 at 21:00 Guaifenesin (Robitussin) 200 mg PRN Q6HRS PRN PO COUGH Last administered on 05:55; Start 06/07/16 at 21:00 Active Scripts Active Levaquin (Levofloxacin) 500 Mg Tablet 1 Tab PO DAILY Protonix (Pantoprazole Sodium) 40 Mg Tablet.dr 1 Tab PO DAILY Diflucan (Fluconazole) 100 Mg Tablet 100 Mg PO BID Reported Diltiazem 24HR Cd (Diltiazem Hcl) 120 Mg Cap.er.24h 120 Mg PO DAILY Mucinex Dm Er 600-30 Mg Tablet (Guaifenesin/Dextromethorphan) 1 Each Tab.er.12h 1 Each PO Benadryl (Diphenhydramine Hcl) 25 Mg Capsule 25 Mg PO PRN PRN Dok (Docusate Sodium) 100 Mg Capsule 100 Mg PO PRN PRN Ibuprofen 400 Mg Tablet 400 Mg PO PRN Q6HRS PRN Vivelle-Dot (Estradiol) 1 Each Patch.tdsw 0.1 Patch TP Valium (Diazepam) 5 Mg Tablet 5 Mg PO PRN Q4HRS PRN Proventil Hfa Inhaler (Albuterol Sulfate) 6.7 Gm Hfa.aer.ad 1 Puff IH PRN PRN Spiriva (Tiotropium [place]) 18 Mcg Cap.w.dev 1 Cap IH DAILY Symbicort 160-4.5 Mcg Inhaler (Budesonide/Formoterol Fumarate) 10.2 Gm Hfa.aer.ad 2 Puff IH BID Vitals/I & O Vital Sign - Last 24 Hours 06/07/16 06/07/16 06/07/16 06/07/16 12:28 15:34 16:05 19:20 Temp 98.4 98.4 Pulse 107 Resp 20 B/P 124/76 Pulse Ox 98 99 98 O2 Delivery Nasal Cannula Nasal Cannula Nasal Cannula Nasal Cannula O2 Flow Rate 4.0 4.0 4.0 06/07/16 06/07/16 06/07/16 06/07/16 19:32 20:53 20:53 22:32 Temp 97.8 97.7 97.8 97.7 Pulse 101 102 Resp 22 22 B/P 109/69 94/54 Pulse Ox 97 98 98 96 O2 Delivery Nasal Cannula Nasal Cannula Nasal Cannula Nasal Cannula O2 Flow Rate 4.0 4.0 4.0 4.0 06/08/16 06/08/16 06/08/16 06/08/16 02:17 05:15 08:00 08:17 Temp 98.0 98.0 Pulse 100 Resp 18 B/P 98/62 Pulse Ox 97 98 O2 Delivery Nasal Cannula Nasal Cannula Nasal Cannula Nasal Cannula O2 Flow Rate 4.0 4.0 4.0 4.0 06/08/16 06/08/16 09:31 10:00 Temp 98.1 98.1 Pulse 110 101 Resp 20 B/P 127/61 Pulse Ox 98 O2 Delivery Nasal Cannula O2 Flow Rate 4.0 Intake and Output 06/07/16 06/07/16 06/08/16 15:00 23:00 07:00 Intake Total 100 ml 220 ml Balance 100 ml 220 ml ISABELLA MARQUEZ MD Jun 08, 2016 11:15
[2016-06-08 12:44] VITALS: BP 118/75
--- NOTE | 2016-06-08 12:54 | PDOC ---
PROGRESS NOTES Chief Complaint Chief Complaint 1. Syncope 2/2 HYOxia likely 2. acute on chronic respiratory failure 3. COPD exacerbation 4. Chest pain, with typical and atypical features, 2/2 1 5. Hypertension 6. Reflex sympathetic dystrophy plan: fu with pulm, card, neuro echo normal US carotid neg orthostatic BP PENDING, pt refused to do it DUONEB ON LEVAQUIN, duoneb PTOT hope dc tmr if ok with specialist MRI, EEG pending as per neuro SW involve for portable O2 require to get her estrogen patch, which providence dosenot have it here, pt is very angry about her asking cannot be met in this hop and requires to go home NOW. History of Present Illness History of Present Illness complaint that this hop doesnot have her medications giving staff a hard time, not cooperate to the visiting pt looks calm, although saying she has more sob, on [place] 4L, home 2L. Vitals Vitals Vital Signs Date Time Temp Pulse Resp B/P Pulse Ox O2 Delivery O2 Flow Rate FiO2 06/08/16 12:44 98.5 114 20 118/75 97 Nasal Cannula 2.0 98.5 Physical Exam General: Alert, Oriented X3, Cooperative, No acute distress Heart: Regular rate, Normal S1, Normal S2, Other (soft systolic murmur ) Lungs: Clear Abdomen: Soft, No tenderness Extremities: No edema, Normal pulses Skin: No breakdown, No significant lesion Labs LABS Laboratory Tests Test 06/08/16 03:02 White Blood Count 6.6x10^3/uL (4.0-11.0) Red Blood Count 3.86x10^6/uL (3.50-5.40) Hemoglobin 11.6g/dL (12.0-15.5) Hematocrit 35.9% (36.0-47.0) Mean Corpuscular Volume 93fL (79-100) Mean Corpuscular Hemoglobin 30pg (25-35) Mean Corpuscular Hemoglobin Concent 33g/dL (31-37) Red Cell Distribution Width 13.2% (11.5-14.5) Platelet Count 179x10^3/uL (140-400) Neutrophils (%) (Auto) 60% (31-73) Lymphocytes (%) (Auto) 27% (24-48) Monocytes (%) (Auto) 11% (0-9) Eosinophils (%) (Auto) 2% (0-3) Basophils (%) (Auto) 1% (0-3) Neutrophils # (Auto) 3.9x10^3uL (1.8-7.7) Lymphocytes # (Auto) 1.8x10^3/uL (1.0-4.8) Monocytes # (Auto) 0.8x10^3/uL (0.0-1.1) Eosinophils # (Auto) 0.1x10^3/uL (0.0-0.7) Basophils # (Auto) 0.0x10^3/uL (0.0-0.2) Sodium Level 140mmol/L (136-145) Potassium Level 4.0mmol/L (3.5-5.1) Chloride Level 105mmol/L (98-107) Carbon Dioxide Level 32mmol/L (21-32) Anion Gap 3 (6-14) Blood Urea Nitrogen 16mg/dL (7-20) Creatinine 0.9mg/dL (0.6-1.0) Estimated GFR (Cockcroft-Gault) 62.5 Glucose Level 110mg/dL (70-99) Calcium Level 8.1mg/dL (8.5-10.1) Triglycerides Level 59mg/dL (0-150) Cholesterol Level 142mg/dL (0-200) LDL Cholesterol, Calculated 73mg/dL (0-100) VLDL Cholesterol, Calculated 12mg/dL (0-40) HDL Cholesterol 57mg/dL (40-60) Cholesterol/HDL Ratio 2.5 Review of Systems Review of Systems no fever, chills, chest pain Assessment and Plan Assessmemt and Plan Problems Medical Problems: (1) Hypoxia Status: Acute (2) Syncope Status: Acute Problems: Comment Review of Relevant I have reviewed the following items lazaro (where applicable) has been applied. Labs Laboratory Tests Test 06/06/16 17:05 06/06/16 22:05 06/07/16 04:23 06/08/16 03:02 White Blood Count 9.5x10^3/uL (4.0-11.0) 7.8x10^3/uL (4.0-11.0) 6.6x10^3/uL (4.0-11.0) Red Blood Count 4.29x10^6/uL (3.50-5.40) 3.97x10^6/uL (3.50-5.40) 3.86x10^6/uL (3.50-5.40) Hemoglobin 12.9g/dL (12.0-15.5) 12.5g/dL (12.0-15.5) 11.6g/dL (12.0-15.5) Hematocrit 39.6% (36.0-47.0) 36.2% (36.0-47.0) 35.9% (36.0-47.0) Mean Corpuscular Volume 92fL (79-100) 91fL (79-100) 93fL (79-100) Mean Corpuscular Hemoglobin 30pg (25-35) 31pg (25-35) 30pg (25-35) Mean Corpuscular Hemoglobin Concent 32g/dL (31-37) 34g/dL (31-37) 33g/dL (31-37) Red Cell Distribution Width 13.0% (11.5-14.5) 13.1% (11.5-14.5) 13.2% (11.5-14.5) Platelet Count 210x10^3/uL (140-400) 186x10^3/uL (140-400) 179x10^3/uL (140-400) Neutrophils (%) (Auto) 73% (31-73) 61% (31-73) 60% (31-73) Lymphocytes (%) (Auto) 17% (24-48) 27% (24-48) 27% (24-48) Monocytes (%) (Auto) 8% (0-9) 10% (0-9) 11% (0-9) Eosinophils (%) (Auto) 1% (0-3) 1% (0-3) 2% (0-3) Basophils (%) (Auto) 1% (0-3) 1% (0-3) 1% (0-3) Neutrophils # (Auto) 6.9x10^3uL (1.8-7.7) 4.7x10^3uL (1.8-7.7) 3.9x10^3uL (1.8-7.7) Lymphocytes # (Auto) 1.6x10^3/uL (1.0-4.8) 2.1x10^3/uL (1.0-4.8) 1.8x10^3/uL (1.0-4.8) Monocytes # (Auto) 0.8x10^3/uL (0.0-1.1) 0.8x10^3/uL (0.0-1.1) 0.8x10^3/uL (0.0-1.1) Eosinophils # (Auto) 0.1x10^3/uL (0.0-0.7) 0.1x10^3/uL (0.0-0.7) 0.1x10^3/uL (0.0-0.7) Basophils # (Auto) 0.1x10^3/uL (0.0-0.2) 0.1x10^3/uL (0.0-0.2) 0.0x10^3/uL (0.0-0.2) Sodium Level 141mmol/L (136-145) 142mmol/L (136-145) 140mmol/L (136-145) Potassium Level 4.3mmol/L (3.5-5.1) 4.3mmol/L (3.5-5.1) 4.0mmol/L (3.5-5.1) Chloride Level 104mmol/L (98-107) 108mmol/L (98-107) 105mmol/L (98-107) Carbon Dioxide Level 29mmol/L (21-32) 31mmol/L (21-32) 32mmol/L (21-32) Anion Gap 8 (6-14) 3 (6-14) 3 (6-14) Blood Urea Nitrogen 13mg/dL (7-20) 15mg/dL (7-20) 16mg/dL (7-20) Creatinine 0.8mg/dL (0.6-1.0) 0.8mg/dL (0.6-1.0) 0.9mg/dL (0.6-1.0) Estimated GFR (Cockcroft-Gault) 71.5 71.5 62.5 Glucose Level 110mg/dL (70-99) 111mg/dL (70-99) 110mg/dL (70-99) Calcium Level 8.5mg/dL (8.5-10.1) 8.3mg/dL (8.5-10.1) 8.1mg/dL (8.5-10.1) Troponin I Quantitative < 0.017ng/mL (0.000-0.055) < 0.017ng/mL (0.000-0.055) < 0.017ng/mL (0.000-0.055) TH-Mkd-Y-Type Natriuretic Peptide 110pg/mL (0-124) Triglycerides Level 59mg/dL (0-150) Cholesterol Level 142mg/dL (0-200) LDL Cholesterol, Calculated 73mg/dL (0-100) VLDL Cholesterol, Calculated 12mg/dL (0-40) HDL Cholesterol 57mg/dL (40-60) Cholesterol/HDL Ratio 2.5 Laboratory Tests Test 06/08/16 03:02 White Blood Count 6.6x10^3/uL (4.0-11.0) Red Blood Count 3.86x10^6/uL (3.50-5.40) Hemoglobin 11.6g/dL (12.0-15.5) Hematocrit 35.9% (36.0-47.0) Mean Corpuscular Volume 93fL (79-100) Mean Corpuscular Hemoglobin 30pg (25-35) Mean Corpuscular Hemoglobin Concent 33g/dL (31-37) Red Cell Distribution Width 13.2% (11.5-14.5) Platelet Count 179x10^3/uL (140-400) Neutrophils (%) (Auto) 60% (31-73) Lymphocytes (%) (Auto) 27% (24-48) Monocytes (%) (Auto) 11% (0-9) Eosinophils (%) (Auto) 2% (0-3) Basophils (%) (Auto) 1% (0-3) Neutrophils # (Auto) 3.9x10^3uL (1.8-7.7) Lymphocytes # (Auto) 1.8x10^3/uL (1.0-4.8) Monocytes # (Auto) 0.8x10^3/uL (0.0-1.1) Eosinophils # (Auto) 0.1x10^3/uL (0.0-0.7) Basophils # (Auto) 0.0x10^3/uL (0.0-0.2) Sodium Level 140mmol/L (136-145) Potassium Level 4.0mmol/L (3.5-5.1) Chloride Level 105mmol/L (98-107) Carbon Dioxide Level 32mmol/L (21-32) Anion Gap 3 (6-14) Blood Urea Nitrogen 16mg/dL (7-20) Creatinine 0.9mg/dL (0.6-1.0) Estimated GFR (Cockcroft-Gault) 62.5 Glucose Level 110mg/dL (70-99) Calcium Level 8.1mg/dL (8.5-10.1) Triglycerides Level 59mg/dL (0-150) Cholesterol Level 142mg/dL (0-200) LDL Cholesterol, Calculated 73mg/dL (0-100) VLDL Cholesterol, Calculated 12mg/dL (0-40) HDL Cholesterol 57mg/dL (40-60) Cholesterol/HDL Ratio 2.5 Medications Current Medications Albuterol/ Ipratropium (Duoneb) 3 ml 1X ONCE NEB Last administered on 16:08; Start 06/06/16 at 16:00; Stop 06/06/16 at 16:01; Status DC Ondansetron HCl (Zofran) 4 mg PRN Q8HRS PRN IV NAUSEA/VOMITING; Start 06/06/16 at 16:15; Stop 06/07/16 at 16:14; Status DC Albuterol/ Ipratropium (Duoneb) 3 ml RTQID NEB Last administered on 06/07/16 16:03; Start 06/06/16 at 20:00; Stop 06/07/16 at 19:59; Status DC Budesonide (Pulmicort) 0.5 mg RTBID NEB Last administered on 06/08/16 08:12; Start 06/06/16 at 20:00 Diazepam (Valium) 5 mg PRN Q4HRS PRN PO ANXIETY / AGITATION Last administered on 06/07/16 21:21; Start 06/06/16 at 19:00 Diltiazem HCl (Cardizem 24hr Cd) 120 mg DAILY PO Last administered on 09:31; Start 06/07/16 at 09:00 Diphenhydramine HCl (Benadryl) 25 mg Q8HRS PRN PO ALLERGIES; Start 06/06/16 at 19:00 Docusate Sodium (Colace) 100 mg DAILY PRN PO CONSTIPATION; Start 06/06/16 at 19 :00 Guaifenesin (MUCINEX ER with DM) 1 tab Q12HR PRN PO cough Last administered on 06/06/16 22:31; Start 06/06/16 at 19:00; Stop 06/07/16 at 20:52; Status DC Ibuprofen (Motrin) 400 mg PRN Q6HRS PRN PO INFLAMMATION Last administered on 05:55; Start 06/06/16 at 19:00 Pantoprazole Sodium (Protonix) 40 mg DAILYAC PO Last administered on 06/08/16 09:30; Start 06/07/16 at 07:30 Albuterol Sulfate (Ventolin Neb Soln) 2.5 mg PRN Q6HRS PRN NEB SHORTNESS OF BREATH Last administered on 06/06/16 23:50; Start 06/06/16 at 19:15 Ondansetron HCl 4 mg 4 mg PRN Q6HRS PRN IV NAUSEA/VOMITING; Start 06/07/16 at 10:00 Levofloxacin/ Dextrose (LEVAQUIN 500mg PREMIX) 100 ml @ 100 mls/hr Q24H IV Last administered on 06/07/16 14:30; Start 06/07/16 at 13:00 Aspirin (Ecotrin) 81 mg DAILYWBKFT PO Last administered on 06/08/16 09:30; Start 06/07/16 at 13:00 Albuterol/ Ipratropium (Duoneb) 3 ml RTQID NEB Last administered on 06/08/16 12:06; Start 06/07/16 at 16:00 Acetaminophen (Tylenol) 650 mg PRN Q6HRS PRN PO FEVER; Start 06/07/16 at 13:00 Guaifenesin (MUCINEX ER with DM) 1 tab Q12HR PO Last administered on 06/08/16 09:30; Start 06/07/16 at 21:00 Benzonatate (Tessalon Perle) 100 mg [id number] PO Last administered on 06/08/16 09 :31; Start 06/07/16 at 21:00 Guaifenesin (Robitussin) 200 mg PRN Q6HRS PRN PO COUGH Last administered on 05:55; Start 06/07/16 at 21:00 Active Scripts Active Levaquin (Levofloxacin) 500 Mg Tablet 1 Tab PO DAILY Protonix (Pantoprazole Sodium) 40 Mg Tablet.dr 1 Tab PO DAILY Diflucan (Fluconazole) 100 Mg Tablet 100 Mg PO BID Reported Diltiazem 24HR Cd (Diltiazem Hcl) 120 Mg Cap.er.24h 120 Mg PO DAILY Mucinex Dm Er 600-30 Mg Tablet (Guaifenesin/Dextromethorphan) 1 Each Tab.er.12h 1 Each PO Benadryl (Diphenhydramine Hcl) 25 Mg Capsule 25 Mg PO PRN PRN Dok (Docusate Sodium) 100 Mg Capsule 100 Mg PO PRN PRN Ibuprofen 400 Mg Tablet 400 Mg PO PRN Q6HRS PRN Vivelle-Dot (Estradiol) 1 Each Patch.tdsw 0.1 Patch TP Valium (Diazepam) 5 Mg Tablet 5 Mg PO PRN Q4HRS PRN Proventil Hfa Inhaler (Albuterol Sulfate) 6.7 Gm Hfa.aer.ad 1 Puff IH PRN PRN Spiriva (Tiotropium [place]) 18 Mcg Cap.w.dev 1 Cap IH DAILY Symbicort 160-4.5 Mcg Inhaler (Budesonide/Formoterol Fumarate) 10.2 Gm Hfa.aer.ad 2 Puff IH BID Vitals/I & O Vital Sign - Last 24 Hours 06/07/16 06/07/16 06/07/16 06/07/16 15:34 16:05 19:20 19:32 Temp 98.4 97.8 98.4 97.8 Pulse 107 101 Resp 20 22 B/P 124/76 109/69 Pulse Ox 99 98 97 O2 Delivery Nasal Cannula Nasal Cannula Nasal Cannula Nasal Cannula O2 Flow Rate 4.0 4.0 4.0 06/07/16 06/07/16 06/07/16 06/08/16 20:53 20:53 22:32 02:17 Temp 97.7 98.0 97.7 98.0 Pulse 102 100 Resp 18 B/P 94/54 98/62 Pulse Ox 98 98 96 97 O2 Delivery Nasal Cannula Nasal Cannula Nasal Cannula Nasal Cannula O2 Flow Rate 4.0 4.0 4.0 4.0 06/08/16 06/08/16 06/08/16 06/08/16 05:15 08:00 08:17 08:20 Pulse Ox 98 98 O2 Delivery Nasal Cannula Nasal Cannula Nasal Cannula Nasal Cannula O2 Flow Rate 4.0 4.0 4.0 4.0 06/08/16 06/08/16 06/08/16 06/08/16 09:31 10:00 12:07 12:44 Temp 98.1 98.5 98.1 98.5 Pulse 110 101 114 Resp 20 20 B/P 127/61 118/75 Pulse Ox 98 97 O2 Delivery Nasal Cannula Nasal Cannula Nasal Cannula O2 Flow Rate 4.0 2.0 2.0 Intake and Output 06/07/16 06/07/16 06/08/16 15:00 23:00 07:00 Intake Total 100 ml 220 ml Balance 100 ml 220 ml COURTNEY BARKSDALE MD Jun 08, 2016 12:54
--- NOTE | 2016-06-08 13:14 | PDOC ---
TA PURCELL PARTS EXPEDITER 06/08/16 1314: CARDIO Progress Notes Date and Time Date of Service 06/08/16 Time of Evaluation 1220 Subjective Subjective: No Chest Pain, No Palpitations, Other (c/o PLASENCIA and cough. no further CP. Concerned BP is too low. ) Comments: no acute events overnight. Vitals Vitals Vital Signs Date Time Temp Pulse Resp B/P Pulse Ox O2 Delivery O2 Flow Rate FiO2 06/08/16 12:44 98.5 114 20 118/75 97 Nasal Cannula 2.0 98.5 Weight Weight [ ] Input and Output Intake and Output Intake and Output 06/08/16 06:59 Intake Total 320 ml Balance 320 ml Intake Oral 220 ml IV Total 100 ml # Voids 10 Laboratory Labs Laboratory Tests Test 06/08/16 03:02 White Blood Count 6.6x10^3/uL (4.0-11.0) Red Blood Count 3.86x10^6/uL (3.50-5.40) Hemoglobin 11.6g/dL (12.0-15.5) Hematocrit 35.9% (36.0-47.0) Mean Corpuscular Volume 93fL (79-100) Mean Corpuscular Hemoglobin 30pg (25-35) Mean Corpuscular Hemoglobin Concent 33g/dL (31-37) Red Cell Distribution Width 13.2% (11.5-14.5) Platelet Count 179x10^3/uL (140-400) Neutrophils (%) (Auto) 60% (31-73) Lymphocytes (%) (Auto) 27% (24-48) Monocytes (%) (Auto) 11% (0-9) Eosinophils (%) (Auto) 2% (0-3) Basophils (%) (Auto) 1% (0-3) Neutrophils # (Auto) 3.9x10^3uL (1.8-7.7) Lymphocytes # (Auto) 1.8x10^3/uL (1.0-4.8) Monocytes # (Auto) 0.8x10^3/uL (0.0-1.1) Eosinophils # (Auto) 0.1x10^3/uL (0.0-0.7) Basophils # (Auto) 0.0x10^3/uL (0.0-0.2) Sodium Level 140mmol/L (136-145) Potassium Level 4.0mmol/L (3.5-5.1) Chloride Level 105mmol/L (98-107) Carbon Dioxide Level 32mmol/L (21-32) Anion Gap 3 (6-14) Blood Urea Nitrogen 16mg/dL (7-20) Creatinine 0.9mg/dL (0.6-1.0) Estimated GFR (Cockcroft-Gault) 62.5 Glucose Level 110mg/dL (70-99) Calcium Level 8.1mg/dL (8.5-10.1) Triglycerides Level 59mg/dL (0-150) Cholesterol Level 142mg/dL (0-200) LDL Cholesterol, Calculated 73mg/dL (0-100) VLDL Cholesterol, Calculated 12mg/dL (0-40) HDL Cholesterol 57mg/dL (40-60) Cholesterol/HDL Ratio 2.5 Physical Exam HEENT: Neck Supple W Full Motion Chest: Symmetric LUNGS: Other (fine expiratory wheezes, diminishes overall) Heart: S1S2, RRR, murmurs (soft systolic murmur ) Abdomen: Soft N/T Extremities: 2+ Dorsalis Pedis, No Edema Neurology: alert, oriented, follow commands Assessment Assessment 1. Syncope 2. Dyspnea 3. AE COPD 4. Chest pain, with typical and atypical features 5. hypertension; now mildly hypotensive 6. Reflex sympathetic dystrophy 7. Anxiety Recommendations Suspect chest pain likely related to combination of COPD and anxiety Continued tobaccoism- discussed cessation. BP marginal on Cardizem CD 120mg. Will decrease to short-acting 30mg BID If HR elevates with this dose reduction; could consider adding digoxin for better rate control. Continue supportive care. DOMENICA WREN MD 06/08/16 1723: CARDIO Progress Notes Plan Plan Patient seen and examined. Agree with above nurse practitioner noted. No acute cardiac events overnight. Continues to have dyspnea. From a cardiac perspective her EKG, biomarkers and echocardiogram do not reveal any acute pathology. She has significant lung disease and is currently being evaluated by the pulmonary team. Neurologic evaluation pending for her possible hypoxic syncope/seizure. Supportive care from a cardiac standpoint. No further testing necessary. We will follow along peripherally. Okay to discharge from cardiac standpoint her sinus tachycardia is reflexive, no acute interventions. No digoxin. TA PURCELL APRN Jun 08, 2016 13:14 DOMENICA WREN MD Jun 08, 2016 17:23
--- NOTE | 2016-06-08 13:50 | RAD ---
PROCEDURE MRI brain without contrast. HISTORY Seizures. Unsteady gait. Possible seizure. TECHNIQUE Sagittal T1, axial T1, axial T2, axial FLAIR, axial T2 gradient, coronal T2, and diffusion imaging with ADC map were performed. Oblique coronal T2 imaging through the temporal lobes was performed. COMPARISON None. FINDINGS There is prominence of the ventricles and sulci. FLAIR hyperintensities in the supratentorial white matter are nonspecific but most suggestive of minimal small vessel ischemic disease. There is no acute intracranial hemorrhage or extra-axial fluid collection there is no mass effect or midline shift. There is no restricted diffusion to suggest an acute infarct. Cervicomedullary junction is unremarkable. Intracranial flow voids are preserved. Mastoid air cells are partially opacified. Paranasal sinuses are clear. Oblique coronal imaging through the temporal lobes demonstrates no evidence of mesial temporal sclerosis or temporal lobe mass. IMPRESSION No acute intracranial findings. Brain parenchymal volume loss and minimal probable small-vessel ischemic disease. Electronically signed by: Jae Chiu MD (Jun 08, 2016 13:49:21)
[2016-06-08 15:00] VITALS: BP 96/57
[2016-06-08 19:40] VITALS: BP 128/61
[2016-06-08] MEDS: DIAZEPAM 5 MG TABLET PO PRN (19:58)
[2016-06-08] MEDS: DILTIAZEM HCL 30 MG TABLET PO SCH (20:00)
[2016-06-08 23:29] VITALS: BP 106/55
[2016-06-09] MEDS: DIAZEPAM 5 MG TABLET PO PRN (00:42)
[2016-06-09 03:46] VITALS: BP 102/53
[2016-06-09 07:00] VITALS: BP 116/71
[2016-06-09] MEDS: IPRATRPIUM/ALBUTEROL 0.5/2.5MG 3 ML NEBU. NEB SCH ×2 (08:55→11:56)
[2016-06-09] MEDS: BUDESONIDE 0.5 MG/2 ML NEBU. NEB SCH (08:55)
--- NOTE | 2016-06-09 09:29 | PDOC ---
PROGRESS NOTES Assessment Problems Medical Problems: (1) Hypoxia Status: Acute (2) Syncope Status: Acute Vasovagal syncope due to hypoxia, but with drooling and incontinence, seizure is still possible Plan Patient refused EEG, understands risks of that refusal Okay for discharge Follow-up with neurology as needed. Subjective No complaints, wants to go home Objective Vital Signs Date Time Temp Pulse Resp B/P Pulse Ox O2 Delivery O2 Flow Rate FiO2 06/09/16 08:55 98 Nasal Cannula 2.0 06/09/16 07:00 98.0 94 22 116/71 98.0 Intake and Output 06/09/16 07:00 Intake Total 1950 ml Output Total 1200 ml Balance 750 ml Intake Oral 1950 ml Output Urine Total 1200 ml PHYSICAL EXAM Alert. Oriented to time, place and person. PERRL. EOMI. CN: no focal findings. Muscle tone: normal. Muscle strength: 5/5 DTR: 2+ Plantar reflex: flexor Gait: not examined in bed. Sensory exam: no abnormal findings. No cerebellar signs elicited. Review of Relevant I have reviewed the following items lazaro (where applicable) has been applied. Labs Laboratory Tests Test 06/08/16 03:02 White Blood Count 6.6x10^3/uL (4.0-11.0) Red Blood Count 3.86x10^6/uL (3.50-5.40) Hemoglobin 11.6g/dL (12.0-15.5) Hematocrit 35.9% (36.0-47.0) Mean Corpuscular Volume 93fL (79-100) Mean Corpuscular Hemoglobin 30pg (25-35) Mean Corpuscular Hemoglobin Concent 33g/dL (31-37) Red Cell Distribution Width 13.2% (11.5-14.5) Platelet Count 179x10^3/uL (140-400) Neutrophils (%) (Auto) 60% (31-73) Lymphocytes (%) (Auto) 27% (24-48) Monocytes (%) (Auto) 11% (0-9) Eosinophils (%) (Auto) 2% (0-3) Basophils (%) (Auto) 1% (0-3) Neutrophils # (Auto) 3.9x10^3uL (1.8-7.7) Lymphocytes # (Auto) 1.8x10^3/uL (1.0-4.8) Monocytes # (Auto) 0.8x10^3/uL (0.0-1.1) Eosinophils # (Auto) 0.1x10^3/uL (0.0-0.7) Basophils # (Auto) 0.0x10^3/uL (0.0-0.2) Sodium Level 140mmol/L (136-145) Potassium Level 4.0mmol/L (3.5-5.1) Chloride Level 105mmol/L (98-107) Carbon Dioxide Level 32mmol/L (21-32) Anion Gap 3 (6-14) Blood Urea Nitrogen 16mg/dL (7-20) Creatinine 0.9mg/dL (0.6-1.0) Estimated GFR (Cockcroft-Gault) 62.5 Glucose Level 110mg/dL (70-99) Calcium Level 8.1mg/dL (8.5-10.1) Triglycerides Level 59mg/dL (0-150) Cholesterol Level 142mg/dL (0-200) LDL Cholesterol, Calculated 73mg/dL (0-100) VLDL Cholesterol, Calculated 12mg/dL (0-40) HDL Cholesterol 57mg/dL (40-60) Cholesterol/HDL Ratio 2.5 Medications Current Medications Albuterol/ Ipratropium (Duoneb) 3 ml 1X ONCE NEB Last administered on 16:08; Start 06/06/16 at 16:00; Stop 06/06/16 at 16:01; Status DC Ondansetron HCl (Zofran) 4 mg PRN Q8HRS PRN IV NAUSEA/VOMITING; Start 06/06/16 at 16:15; Stop 06/07/16 at 16:14; Status DC Albuterol/ Ipratropium (Duoneb) 3 ml RTQID NEB Last administered on 06/07/16 16:03; Start 06/06/16 at 20:00; Stop 06/07/16 at 19:59; Status DC Budesonide (Pulmicort) 0.5 mg RTBID NEB Last administered on 06/09/16 08:55; Start 06/06/16 at 20:00 Diazepam (Valium) 5 mg PRN Q4HRS PRN PO ANXIETY / AGITATION Last administered on 06/09/16 00:42; Start 06/06/16 at 19:00 Diltiazem HCl (Cardizem 24hr Cd) 120 mg DAILY PO Last administered on 09:31; Start 06/07/16 at 09:00; Stop 06/08/16 at 13:19; Status DC Diphenhydramine HCl (Benadryl) 25 mg Q8HRS PRN PO ALLERGIES; Start 06/06/16 at 19:00 Docusate Sodium (Colace) 100 mg DAILY PRN PO CONSTIPATION; Start 06/06/16 at 19 :00 Guaifenesin (MUCINEX ER with DM) 1 tab Q12HR PRN PO cough Last administered on 06/06/16 22:31; Start 06/06/16 at 19:00; Stop 06/07/16 at 20:52; Status DC Ibuprofen (Motrin) 400 mg PRN Q6HRS PRN PO INFLAMMATION Last administered on 19:59; Start 06/06/16 at 19:00 Pantoprazole Sodium (Protonix) 40 mg DAILYAC PO Last administered on 06/08/16 09:30; Start 06/07/16 at 07:30 Albuterol Sulfate (Ventolin Neb Soln) 2.5 mg PRN Q6HRS PRN NEB SHORTNESS OF BREATH Last administered on 06/06/16 23:50; Start 06/06/16 at 19:15 Ondansetron HCl 4 mg 4 mg PRN Q6HRS PRN IV NAUSEA/VOMITING; Start 06/07/16 at 10:00 Levofloxacin/ Dextrose (LEVAQUIN 500mg PREMIX) 100 ml @ 100 mls/hr Q24H IV Last administered on 06/08/16 15:12; Start 06/07/16 at 13:00 Aspirin (Ecotrin) 81 mg DAILYWBKFT PO Last administered on 06/08/16 09:30; Start 06/07/16 at 13:00 Albuterol/ Ipratropium (Duoneb) 3 ml RTQID NEB Last administered on 06/09/16 08:55; Start 06/07/16 at 16:00 Acetaminophen (Tylenol) 650 mg PRN Q6HRS PRN PO FEVER; Start 06/07/16 at 13:00 Guaifenesin (MUCINEX ER with DM) 1 tab Q12HR PO Last administered on 06/08/16 19:59; Start 06/07/16 at 21:00 Benzonatate (Tessalon Perle) 100 mg [id number] PO Last administered on 06/08/16 19 :59; Start 06/07/16 at 21:00 Guaifenesin (Robitussin) 200 mg PRN Q6HRS PRN PO COUGH Last administered on 05:55; Start 06/07/16 at 21:00 Diltiazem HCl (Cardizem) 30 mg BID PO Last administered on 06/08/16 20:00; Start 06/08/16 at 21:00 Active Scripts Active Levaquin (Levofloxacin) 500 Mg Tablet 1 Tab PO DAILY Protonix (Pantoprazole Sodium) 40 Mg Tablet.dr 1 Tab PO DAILY Diflucan (Fluconazole) 100 Mg Tablet 100 Mg PO BID Reported Diltiazem 24HR Cd (Diltiazem Hcl) 120 Mg Cap.er.24h 120 Mg PO DAILY Mucinex Dm Er 600-30 Mg Tablet (Guaifenesin/Dextromethorphan) 1 Each Tab.er.12h 1 Each PO Benadryl (Diphenhydramine Hcl) 25 Mg Capsule 25 Mg PO PRN PRN Dok (Docusate Sodium) 100 Mg Capsule 100 Mg PO PRN PRN Ibuprofen 400 Mg Tablet 400 Mg PO PRN Q6HRS PRN Vivelle-Dot (Estradiol) 1 Each Patch.tdsw 0.1 Patch TP Valium (Diazepam) 5 Mg Tablet 5 Mg PO PRN Q4HRS PRN Proventil Hfa Inhaler (Albuterol Sulfate) 6.7 Gm Hfa.aer.ad 1 Puff IH PRN PRN Spiriva (Tiotropium [place]) 18 Mcg Cap.w.dev 1 Cap IH DAILY Symbicort 160-4.5 Mcg Inhaler (Budesonide/Formoterol Fumarate) 10.2 Gm Hfa.aer.ad 2 Puff IH BID Vitals/I & O Vital Sign - Last 24 Hours 06/08/16 06/08/16 06/08/16 06/08/16 09:31 10:00 12:07 12:44 Temp 98.1 98.5 98.1 98.5 Pulse 110 101 114 Resp 20 20 B/P 127/61 118/75 Pulse Ox 98 97 O2 Delivery Nasal Cannula Nasal Cannula Nasal Cannula O2 Flow Rate 4.0 2.0 2.0 06/08/16 06/08/16 06/08/16 06/08/16 15:00 15:43 19:40 20:00 Temp 98.0 98.7 98.0 98.7 Pulse 98 100 100 Resp 20 B/P 96/57 128/61 128/61 Pulse Ox 97 97 O2 Delivery Nasal Cannula Nasal Cannula Nasal Cannula O2 Flow Rate 2.0 2.0 3.0 06/08/16 06/08/16 06/08/16 06/08/16 20:19 20:24 22:46 23:29 Temp 98.2 98.2 Pulse 93 Resp 18 B/P 106/55 Pulse Ox 100 O2 Delivery Nasal Cannula Nasal Cannula Nasal Cannula Nasal Cannula O2 Flow Rate 2.0 2.0 4.0 3.0 06/09/16 06/09/16 06/09/16 03:46 07:00 08:55 Temp 97.7 98.0 97.7 98.0 Pulse 85 94 Resp 16 22 B/P 102/53 116/71 Pulse Ox 100 95 98 O2 Delivery Nasal Cannula Room Air Nasal Cannula O2 Flow Rate 3.0 2.0 Intake and Output 06/08/16 06/08/16 06/09/16 15:00 23:00 07:00 Intake Total 1350 ml 600 ml Output Total 900 ml 300 ml Balance 450 ml 300 ml Images Brain MRI, 06/08: There is prominence of the ventricles and sulci. FLAIR hyperintensities in the supratentorial white matter are nonspecific but most suggestive of minimal small vessel ischemic disease. There is no acute intracranial hemorrhage or extra-axial fluid collection there is no mass effect or midline shift. There is no restricted diffusion to suggest an acute infarct. Cervicomedullary junction is unremarkable. Intracranial flow voids are preserved. Mastoid air cells are partially opacified. Paranasal sinuses are clear. Oblique coronal imaging through the temporal lobes demonstrates no evidence of mesial temporal sclerosis or temporal lobe mass. IMPRESSION No acute intracranial findings. Brain parenchymal volume loss and minimal probable small-vessel ischemic disease. ISABELLA MARQUEZ MD Jun 09, 2016 09:29
[2016-06-09] MEDS ORDERED: ASPI81TA9 PO (09:37)
[2016-06-09] MEDS ORDERED: BENZ100C2 PO (09:37)
[2016-06-09] MEDS ORDERED: DILT30TA26 PO (09:37)
[2016-06-09] MEDS ORDERED: Levofloxacin PO (09:37)
[2016-06-09] MEDS: PANTOPRAZOLE 40 MG TABLET.DR. PO SCH (09:48)
[2016-06-09] MEDS: DILTIAZEM HCL 30 MG TABLET PO SCH (09:48)
[2016-06-09] MEDS: ASPIRIN ENTERIC COATED 81 MG TABLET.DR. PO SCH (09:48)
[2016-06-09] MEDS: BENZONATATE 100 MG CAPSULE. PO SCH ×2 (09:48→15:24)
[2016-06-09] MEDS: GUAIFENESIN DM 600/30MG TAB.ER.12H. PO SCH (09:48)
[2016-06-09 11:15] VITALS: BP 120/59
[2016-06-09] MEDS ORDERED: LEVOFLOXACIN 500 MG TABLET PO SCH (12:00)
--- NOTE | 2016-06-09 12:29 | PDOC3 ---
Discharge Summary [facility] Date of Admission: Jun 06, 2016 Discharge Date: Jun 09, 2016 Admitting Diagnosis 1. Syncope 2/2 HYOxia likely 2. acute on chronic respiratory failure 3. COPD exacerbation 4. Chest pain, with typical and atypical features, 2/2 1 5. Hypertension 6. Reflex sympathetic dystrophy Problems: Final Diagnosis CONSULTS neuro pulm card Brief Hospital Course Ms. Jay is a 65 old F, comes from home for syncope.Pt has very vague complain and cannot be trusted. She said she passed out when standing with facial drooling and urine incontinence. brain MRI neg. She refused to do orthostatic BP CHEck altho her BP is at lower side. She is on O2 2L 12/09, saying she has more sob, however, she looks calm to me. She would appears sob if tells her decrease NC 4L to 2L, but feels calm if we just turn the o2 DOWN to 2L wo telling her, and her sat is 95% on RA. She said [facility], however, SW called [place] , who has been willing to just waiting for [facility], not ours. 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 dc home with decreased cardizem to 30mg bid, cont levaquin, should get o2 from HER [facility]WN [facility]. dc time 35min. Physical Exam General: Alert, Oriented X3, Cooperative, No acute distress Heart: Regular rate, Normal S1, Normal S2, Other (soft systolic murmur ) Lungs: Clear Abdomen: Soft, No tenderness Extremities: No edema, Normal pulses Skin: No breakdown, No significant lesion Problems: Disposition home CONDITION AT DISCHARGE: Improved, Stable Diet regular Scheduled ([Levofloxacin]) 500 MG PO [id number] Aspirin (Aspirin Ec) 81 MG PO DAILYWBKFT Benzonatate (Benzonatate) 100 MG PO [id number] Budesonide/Formoterol Fumarate (Symbicort 160-4.5 Mcg Inhaler) 2 PUFF IH BID ( Reported) Diltiazem Hcl (Cardizem Tablet) 30 MG PO BID Pantoprazole Sodium (Protonix) 1 TAB PO DAILY Tiotropium [place] (Spiriva) 1 CAP IH DAILY (Reported) Scheduled PRN Albuterol Sulfate (Proventil Hfa Inhaler) 1 PUFF IH PRN PRN PRN WHEEZING ( Reported) Diazepam (Valium) 5 MG PO PRN Q4HRS PRN PRN ANXIETY / AGITATION (Reported) Diphenhydramine Hcl (Benadryl) 25 MG PO PRN PRN PRN ALLERGIES (Reported) Docusate Sodium (Dok) 100 MG PO PRN PRN PRN CONSTIPATION (Reported) Ibuprofen (Ibuprofen) 400 MG PO PRN Q6HRS PRN PRN INFLAMMATION (Reported) Miscellaneous Medications Estradiol (Vivelle-Dot) 0.1 PATCH TP (Reported) Guaifenesin/Dextromethorphan (Mucinex Dm Er 600-30 Mg Tablet) 1 EACH PO ( Reported) Discontinued Medications Diltiazem Hcl (Diltiazem 24HR Cd) 120 MG PO DAILY (Reported) Fluconazole (Diflucan) 100 MG PO BID Levofloxacin (Levaquin) 1 TAB PO DAILY Follow Up pcp in 2 weeks COURTNEY BARKSDALE MD Jun 09, 2016 12:29
[2016-06-09] MEDS: IBUPROFEN 400 MG TABLET. PO PRN (15:24)
== END 2016-06-09 15:30 | disposition home or self-care (01) | DRG 189 ==
LOC: ER 14:56 → 2 SOUTH 16:00
PROVIDERS: ADMIT Internal Medicine; ATTEND Internal Medicine
DX: J96.21 Acute and chronic respiratory failure with hypoxia (principal); G90.50 Complex regional pain syndrome I, unspecified; J44.1 Chronic obstructive pulmonary disease with (acute) exacerbation; J98.11 Atelectasis; F17.210 Nicotine dependence, cigarettes, uncomplicated; F42.9 Obsessive-compulsive disorder, unspecified; F43.10 Post-traumatic stress disorder, unspecified; I11.0 Hypertensive heart disease with heart failure; I25.10 Atherosclerotic heart disease of native coronary artery without angina pectoris; R32 Unspecified urinary incontinence; I50.9 Heart failure, unspecified; F41.9 Anxiety disorder, unspecified; M19.90 Unspecified osteoarthritis, unspecified site; Z90.710 Acquired absence of both cervix and uterus; Z88.6 Allergy status to analgesic agent; Z90.49 Acquired absence of other specified parts of digestive tract; Z82.49 Family history of ischemic heart disease and other diseases of the circulatory system; Z99.81 Dependence on supplemental oxygen; Z79.899 Other long term (current) drug therapy; Z88.0 Allergy status to penicillin; Z91.041 Radiographic dye allergy status
CPT/HCPCS: 36415; 70551; 71010; 71250; 80048; 80061; 83880; 84484; 85027; 93005; 93306; 93880; 94250; 94640; J1956; J7620; 97530; 99285-25

== ENCOUNTER 2016-11-08 13:46 | Inpatient (IN) | payer MEDICARE ==
[~2016-11-08] VITALS: Ht 167.6 cm; Wt 57.2 kg
[~2016-11-08 13:46] MED LIST changes: +ASPI-612 PO; +BENZ100C15 PO; +DILT120C80 PO; -DILT120C97 PO; +DILT30TA26 PO; +GUAI-108 PO; -GUAI-42 PO; -LEVO500T38 PO; +LEVO500T59 PO; +Levofloxacin PO
[2016-11-08 14:14] LABS: BASO # 0.1 x10^3/uL (0.0-0.2); BASO % 1 % (0-3); EOS % 0 % (0-3); HEMATOCRIT 42.7 % (36.0-47.0); HEMOGLOBIN 13.9 g/dL (12.0-15.5); LYMPH # 1.6 x10^3/uL (1.0-4.8); LYMPH % 18 % (24-48); MEAN CORPUSCULAR HEMOGLOBIN 30 pg (25-35); MEAN CORPUSCULAR HGB CONC 33 g/dL (31-37); MEAN CORPUSCULAR VOLUME 92 fL (79-100); MONO % 9 % (0-9); NEUT % 72 % (31-73); PLATELET COUNT 216 x10^3/uL (140-400); RED BLOOD COUNT 4.65 x10^6/uL (3.50-5.40); RED CELL DISTRIBUTION WIDTH 13.1 % (11.5-14.5); WHITE BLOOD COUNT 8.8 x10^3/uL (4.0-11.0)
--- NOTE | 2016-11-08 14:17 | RAD ---
Portable chest, 11/08/2016: History: Chest pain Comparison is made to a study from 06/06/2016. The heart size is normal. There are emphysematous changes in the lungs with scattered parenchymal scars. There is unchanged blunting of the lateral costophrenic angles, probably due to scarring. No acute infiltrate is seen. There is no evidence of pneumothorax or definite pleural fluid. IMPRESSION: 1. Emphysema with parenchymal scarring. 2. No acute cardiopulmonary abnormality is detected.
[2016-11-08 14:31] LABS: ANION GAP 4 (6-14); BLOOD UREA NITROGEN 11 mg/dL (7-20); CALCIUM 9.2 mg/dL (8.5-10.1); CARBON DIOXIDE 34 mmol/L (21-32); CHLORIDE 104 mmol/L (98-107); CREATININE 0.9 mg/dL (0.6-1.0); GFR 62.3; GLUCOSE 119 mg/dL (70-99); POTASSIUM 4.3 mmol/L (3.5-5.1); SODIUM 142 mmol/L (136-145)
[2016-11-08 14:37] LABS: ALBUMIN 3.4 g/dL (3.4-5.0); ALK PHOS 56 U/L (46-116); ALT (SGPT) 24 U/L (14-59); AST (SGOT) 20 U/L (15-37); DIRECT BILIRUBIN < 0.1 mg/dL (0.0-0.2); TOTAL BILIRUBIN 0.3 mg/dL (0.2-1.0); TOTAL PROTEIN 7.2 g/dL (6.4-8.2)
--- NOTE | 2016-11-08 15:26 | PHYS DOC ---
Past Medical History Past Medical History: Asthma, CAD, CHF, COPD, CA, Pneumonia, Other Additional Past Medical Histor: Sympathetic Reflex Dystrophy, OCD, uses O2 @ noc, bowel perf Past Surgical History: Appendectomy, Cholecystectomy, Tonsillectomy, Other Additional Past Surgical Histo: Tracheostomy previously, bowel perf Alcohol Use: Occasionally Drug Use: None Adult General Chief Complaint Chief Complaint: CHEST PAIN-CARDIAC NATURE HPI HPI Patient is a 66 year old F who presents with CP and abd pain that started about 2-3 days. She describes the pain as sharp, moderate, nonradiating and without alleviating factors. 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 She denies nausea or vomiting. Review of systems is negative for fevers chills diarrhea constipation blood in stools. All other review of systems is negative unless otherwise noted in history of present illness. ED course: 58-year-old female presenting to the emergency department today with chest pain and abdominal pain. Triage vital signs showed tachycardia otherwise afebrile. Pertinent physical exam findings show soft nontender abdomen. There is mild erythema on the superficial skin of the old surgical scar. Blood work obtained along with chest x-ray and CT the abdomen pelvis. CT the abdomen shows complex fluid collection. In addition the patient's superficial signs of developing cellulitis is probable this is an infected hematoma. We will initiate IV antibiotics and admit the patient to the hospital for further clarification in consultation. Review of Systems Review of Systems SEE ABOVE. Allergies Allergies Allergies Coded Allergies Type Severity Reaction Last Updated Verified Iodine and Iodide Containing Produc Allergy Intermediate Unknown 06/18/15 Yes Penicillins Allergy Intermediate 06/18/15 Yes codeine Allergy Intermediate 06/18/15 Yes Physical Exam Physical Exam SEE ABOVE Constitutional: Well developed, well nourished, no acute distress, non-toxic appearance. [] HENT: Normocephalic, atraumatic, bilateral external ears normal, oropharynx moist, no oral exudates, nose normal. [] Eyes: PERRLA, EOMI, conjunctiva normal, no discharge. [] Neck: Normal range of motion, no tenderness, supple, no stridor. [] Cardiovascular:Heart rate regular rhythm, no murmur [] Lungs & Thorax: Bilateral breath sounds clear to auscultation [] Abdomen: Bowel sounds normal, soft, no tenderness, no masses, no pulsatile masses. see above Skin: Warm, dry, no erythema, no rash. [] Back: No tenderness, no CVA tenderness. [] Extremities: No tenderness, no cyanosis, no clubbing, ROM intact, no edema. [] Neurologic: Alert and oriented X 3, normal motor function, normal sensory function, no focal deficits noted. [] Psychologic: Affect normal, judgement normal, mood normal. [] Current Patient Data Vital Signs Vital Signs Date Time Temp Pulse Resp B/P (MAP) Pulse Ox O2 Delivery O2 Flow Rate FiO2 11/08/16 14:15 98.0 115 18 118/75 (89) 97 Room Air 98.0 Lab Values Laboratory Tests Test 11/08/16 14:00 White Blood Count 8.8 x10^3/uL (4.0-11.0) Red Blood Count 4.65 x10^6/uL (3.50-5.40) Hemoglobin 13.9 g/dL (12.0-15.5) Hematocrit 42.7 % (36.0-47.0) Mean Corpuscular Volume 92 fL (79-100) Mean Corpuscular Hemoglobin 30 pg (25-35) Mean Corpuscular Hemoglobin Concent 33 g/dL (31-37) Red Cell Distribution Width 13.1 % (11.5-14.5) Platelet Count 216 x10^3/uL (140-400) Neutrophils (%) (Auto) 72 % (31-73) Lymphocytes (%) (Auto) 18 % (24-48) L Monocytes (%) (Auto) 9 % (0-9) Eosinophils (%) (Auto) 0 % (0-3) Basophils (%) (Auto) 1 % (0-3) Neutrophils # (Auto) 6.3 x10^3uL (1.8-7.7) Lymphocytes # (Auto) 1.6 x10^3/uL (1.0-4.8) Monocytes # (Auto) 0.8 x10^3/uL (0.0-1.1) Eosinophils # (Auto) 0.0 x10^3/uL (0.0-0.7) Basophils # (Auto) 0.1 x10^3/uL (0.0-0.2) Sodium Level 142 mmol/L (136-145) Potassium Level 4.3 mmol/L (3.5-5.1) Chloride Level 104 mmol/L (98-107) Carbon Dioxide Level 34 mmol/L (21-32) H Anion Gap 4 (6-14) L Blood Urea Nitrogen 11 mg/dL (7-20) Creatinine 0.9 mg/dL (0.6-1.0) Estimated GFR (Cockcroft-Gault) 62.3 Glucose Level 119 mg/dL (70-99) H Calcium Level 9.2 mg/dL (8.5-10.1) Total Bilirubin 0.3 mg/dL (0.2-1.0) Direct Bilirubin < 0.1 mg/dL (0.0-0.2) Aspartate Amino Transferase (AST) 20 U/L (15-37) Alanine Aminotransferase (ALT) 24 U/L (14-59) Alkaline Phosphatase 56 U/L (46-116) Troponin I Quantitative < 0.017 ng/mL (0.000-0.055) KQ-Ylb-[id number]-Type Natriuretic Peptide 68 pg/mL (0-124) Total Protein 7.2 g/dL (6.4-8.2) Albumin 3.4 g/dL (3.4-5.0) Lipase 220 U/L (73-393) Laboratory Tests 11/08/16 14:00 Laboratory Tests 11/08/16 14:00 EKG EKG [] Radiology/Procedures Radiology/Procedures [] Course & Med Decision Making Course & Med Decision Making Pertinent Labs and Imaging studies reviewed. (See chart for details) [] Dragon Disclaimer Dragon Disclaimer This electronic medical record was generated, in whole or in part, using a voice recognition dictation system. Departure Departure Impression: Primary Impression: Chest pain Additional Impressions: Abdominal pain Syncope Abdominal fluid collection Disposition: ADMITTED INPATIENT Admitting Physician: Samantha Andrade Condition: STABLE Referrals: NO PCP (PCP) Problem Qualifiers ELLEN LOMBARDI MD Nov 08, 2016 15:26
--- NOTE | 2016-11-08 15:35 | RAD ---
CT of the abdomen and pelvis without contrast, 11/08/2016: History: Abdominal pain, mesh infection Noncontrast scans were obtained as requested. This limits evaluation of the intra-abdominal structures. There is mild linear atelectasis and/or scarring in the lung bases. The unopacified liver is unremarkable. The gallbladder is not clearly defined. The pancreas is unremarkable. The spleen is of normal size. The unopacified kidneys show no abnormality. Aortoiliac calcific plaquing is present without evidence of aneurysm. The uterus is surgically absent. There are surgical sutures related to a bowel loop in the right lower quadrant. There is no evidence of bowel obstruction. No free air or free fluid is evident in the abdomen or pelvis. There is diastases of the rectus abdominis musculature. There is a given history of previous hernia surgery with mesh placement. There is a 2.8 cm subcutaneous mass located just to the left of midline in the anterior abdominal wall at the upper pelvic level. It is predominantly of low density with a possible septation. It cannot be clearly from the medial aspect of the underlying left rectus musculature. This probably represents a small complex fluid collection. There is mild adjacent streaky increased density in the subcutaneous fat compatible with inflammation or scarring. There is moderate degenerative disc disease at L4-5 and L5-S1. IMPRESSION: 1. Small mass in the anterior abdominal wall at the upper pelvic level most likely representing complex fluid such as an old hematoma, although an infected hematoma or abscess cannot be excluded. Clinical correlation is suggested. 2. No acute intra-abdominal abnormality is detected. PQRS Compliance Statement: One or more of the following individualized dose reduction techniques were utilized for this examination: 1. Automated exposure control 2. Adjustment of the mA and/or kV according to patient size 3. Use of iterative reconstruction technique
[2016-11-08] MEDS ORDERED: MORPHINE SULFATE 2 MG/ML DISP.SYRIN. IV PRN (16:00)
[2016-11-08] MEDS ORDERED: ONDANSETRON PF 4 MG/2 ML VIAL. IV PRN ×2 (16:00→16:45)
[2016-11-08] MEDS ORDERED: VANCOMYCIN PER PHARMACY MC PRN (16:00)
[2016-11-08] MEDS ORDERED: VANCOMYCIN 1.5 GM in IV NORMAL SALINE 500ML BAG 500 ML IV ONE (16:15)
--- NOTE | 2016-11-08 16:22 | PDOC1 ---
History and Physical Date of Admission Date of Admission 11/08/16 Identification/Chief Complaint Chief Complaint syncope, abd pain Problems: Source Source: Chart review, Patient History of Present Illness History of Present Illness Patient is a 66 year old F who presents with CP and abd pain, syncope today. Pt was dced here 05/2016, AT THAT TIME, She came from home for syncope. Pt has very vague complain and cannot be trusted. brain MRI neg. She refused to do orthostatic BP CHEck altho her BP is at lower side. She is on O2 2L 12/09, saying she has more sob, however, she looked calm to me. She would appears sob if tells her decrease NC 4L to 2L, but feels calm if we just turn the o2 DOWN to 2L wo telling her, and her sat is 95% on RA. She said her [facility], however, SW called [place] , who has been willing to just waiting for [facility], not ours. pT HAs been behaving very inappropriately to all staff in 05/2016, c[facility]o [facility] caregiver her own home meds (which we dont have here and not critical), requires to go home, refused EEG. She was eventually dced home with portable o2 tank. This time, she felt more cough with some mucus, on home o2 2L. sHE ALSO c/o some chest pain today, substernal, no radiation. now chest pain free in ER. She said she usually uses wheelchair, and syncoped today. However, she can not tell how me the details. She said she was combing her hair then passed out, but cannot tell me if she felt on the chair or the floor. She said her visiting nurse was there and came to see her and then called EMS. She also has h/o multiple abd sx 27ys ago, started with bowel perforation, then several sx, complicated with fistula. She feels the scar tissues has pain, erythema, for 3 days, no skin discharge, or fever, or chills. 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 She said [facility] c[facility] 3 weeks ago for same thing, was better. CT showed 1. Small mass in the anterior abdominal wall at the upper pelvic level most likely representing complex fluid such as an old hematoma, although an infected hematoma or abscess cannot be excluded. smoke 6 cig per day. Past Medical History Cardiovascular: CAD, CHF, HTN, [place] Pulmonary: COPD CENTRAL NERVOUS SYSTEM: Other GI: No pertinent hx Heme/Onc: No pertinent hx Hepatobiliary: No pertinent hx Psych: Anxiety, Other Rheumatologic: Other Infectious disease: No pertinent hx Renal/: No pertinent hx Endocrine: No pertinent hx Past Surgical History Past Surgical History: Appendectomy, Tonsillectomy, Hysterectomy, Colectomy Family History Family History: Coronary Artery Disease Social History Smoke: <1 pack per day ALCOHOL: none Drugs: None Current Problem List Problem List Problems Medical Problems: (1) Abdominal pain Status: Acute (2) Chest pain Status: Acute Current Medications Current Medications Current Medications Medications (Trade) Dose Ordered Sig/René Start Time Stop Time Status Last Admin Dose Admin Morphine Sulfate 2 mg PRN Q2HR PRN 11/08/16 16:00 11/09/16 15:59 UNV Ondansetron HCl (Zofran) 4 mg PRN Q8HRS PRN 11/08/16 16:00 11/09/16 15:59 Sodium Chloride 1,000 ml @ 100 mls/hr Q10H 11/08/16 15:56 11/09/16 15:55 Vancomycin HCl (Vanco Per Pharmacy) 1 each PRN DAILY PRN 11/08/16 16:00 UNV Vancomycin HCl 1.5 gm/Sodium Chloride 500 ml @ 250 mls/hr 1X ONCE 11/08/16 16:15 11/08/16 18:14 Allergies Allergies Allergies Coded Allergies Type Severity Reaction Last Updated Verified Iodine and Iodide Containing Produc Allergy Intermediate Unknown 06/18/15 Yes Penicillins Allergy Intermediate 06/18/15 Yes codeine Allergy Intermediate 06/18/15 Yes morphine Allergy Intermediate 11/08/16 Yes ROS Review of System CONSTITUTIONAL: No fever or chills EYES: No recent changes SKIN: No rash or itching CARDIOVASCULAR: No chest pain, syncope, palpitations, or edema RESPIRATORY: No SOB, + cough GASTROINTESTINAL: No nausea, vomiting or abdominal pain NEUROLOGICAL: No headaches or weakness ENDOCRINE: No cold or heat intolerance GENITOURINARY: No urgency or frequency of urination MUSCULOSKELETAL: No back pain or joint pain LYMPHATICS: No enlarged lymph nodes PSYCHIATRIC: No anxiety or depression Physical Exam Physical Exam GEN.: No apparent distress. Alert and oriented. HEENT: Head is normocephalic, atraumatic NECK: Supple. LUNGS: Clear to auscultation. HEART: RRR, S1, S2 present. Peripheral pulses intact ABDOMEN: Soft, nontender. Positive bowel sounds. EXTREMITIES: Without any cyanosis. NEUROLOGIC: Normal speech, normal tone PSYCHIATRIC: Normal affect, normal mood. SKIN: No ulcerations Vitals Vitals Vital Signs Date Time Temp Pulse Resp B/P (MAP) Pulse Ox O2 Delivery O2 Flow Rate FiO2 11/08/16 15:39 101 18 114/73 (87) 97 Room Air 11/08/16 14:15 98.0 98.0 Labs Labs Laboratory Tests Test 11/08/16 14:00 White Blood Count 8.8 x10^3/uL (4.0-11.0) Red Blood Count 4.65 x10^6/uL (3.50-5.40) Hemoglobin 13.9 g/dL (12.0-15.5) Hematocrit 42.7 % (36.0-47.0) Mean Corpuscular Volume 92 fL (79-100) Mean Corpuscular Hemoglobin 30 pg (25-35) Mean Corpuscular Hemoglobin Concent 33 g/dL (31-37) Red Cell Distribution Width 13.1 % (11.5-14.5) Platelet Count 216 x10^3/uL (140-400) Neutrophils (%) (Auto) 72 % (31-73) Lymphocytes (%) (Auto) 18 % (24-48) Monocytes (%) (Auto) 9 % (0-9) Eosinophils (%) (Auto) 0 % (0-3) Basophils (%) (Auto) 1 % (0-3) Neutrophils # (Auto) 6.3 x10^3uL (1.8-7.7) Lymphocytes # (Auto) 1.6 x10^3/uL (1.0-4.8) Monocytes # (Auto) 0.8 x10^3/uL (0.0-1.1) Eosinophils # (Auto) 0.0 x10^3/uL (0.0-0.7) Basophils # (Auto) 0.1 x10^3/uL (0.0-0.2) Sodium Level 142 mmol/L (136-145) Potassium Level 4.3 mmol/L (3.5-5.1) Chloride Level 104 mmol/L (98-107) Carbon Dioxide Level 34 mmol/L (21-32) Anion Gap 4 (6-14) Blood Urea Nitrogen 11 mg/dL (7-20) Creatinine 0.9 mg/dL (0.6-1.0) Estimated GFR (Cockcroft-Gault) 62.3 Glucose Level 119 mg/dL (70-99) Calcium Level 9.2 mg/dL (8.5-10.1) Total Bilirubin 0.3 mg/dL (0.2-1.0) Direct Bilirubin < 0.1 mg/dL (0.0-0.2) Aspartate Amino Transf (AST/SGOT) 20 U/L (15-37) Alanine Aminotransferase (ALT/SGPT) 24 U/L (14-59) Alkaline Phosphatase 56 U/L (46-116) Troponin I Quantitative < 0.017 ng/mL (0.000-0.055) EM-Oxa-A-Type Natriuretic Peptide 68 pg/mL (0-124) Total Protein 7.2 g/dL (6.4-8.2) Albumin 3.4 g/dL (3.4-5.0) Lipase 220 U/L (73-393) Laboratory Tests Test 11/08/16 14:00 White Blood Count 8.8 x10^3/uL (4.0-11.0) Red Blood Count 4.65 x10^6/uL (3.50-5.40) Hemoglobin 13.9 g/dL (12.0-15.5) Hematocrit 42.7 % (36.0-47.0) Mean Corpuscular Volume 92 fL (79-100) Mean Corpuscular Hemoglobin 30 pg (25-35) Mean Corpuscular Hemoglobin Concent 33 g/dL (31-37) Red Cell Distribution Width 13.1 % (11.5-14.5) Platelet Count 216 x10^3/uL (140-400) Neutrophils (%) (Auto) 72 % (31-73) Lymphocytes (%) (Auto) 18 % (24-48) Monocytes (%) (Auto) 9 % (0-9) Eosinophils (%) (Auto) 0 % (0-3) Basophils (%) (Auto) 1 % (0-3) Neutrophils # (Auto) 6.3 x10^3uL (1.8-7.7) Lymphocytes # (Auto) 1.6 x10^3/uL (1.0-4.8) Monocytes # (Auto) 0.8 x10^3/uL (0.0-1.1) Eosinophils # (Auto) 0.0 x10^3/uL (0.0-0.7) Basophils # (Auto) 0.1 x10^3/uL (0.0-0.2) Sodium Level 142 mmol/L (136-145) Potassium Level 4.3 mmol/L (3.5-5.1) Chloride Level 104 mmol/L (98-107) Carbon Dioxide Level 34 mmol/L (21-32) Anion Gap 4 (6-14) Blood Urea Nitrogen 11 mg/dL (7-20) Creatinine 0.9 mg/dL (0.6-1.0) Estimated GFR (Cockcroft-Gault) 62.3 Glucose Level 119 mg/dL (70-99) Calcium Level 9.2 mg/dL (8.5-10.1) Total Bilirubin 0.3 mg/dL (0.2-1.0) Direct Bilirubin < 0.1 mg/dL (0.0-0.2) Aspartate Amino Transf (AST/SGOT) 20 U/L (15-37) Alanine Aminotransferase (ALT/SGPT) 24 U/L (14-59) Alkaline Phosphatase 56 U/L (46-116) Troponin I Quantitative < 0.017 ng/mL (0.000-0.055) KC-Vty-I-Type Natriuretic Peptide 68 pg/mL (0-124) Total Protein 7.2 g/dL (6.4-8.2) Albumin 3.4 g/dL (3.4-5.0) Lipase 220 U/L (73-393) VTE Prophylaxis Ordered VTE Prophylaxis Devices: Yes VTE Pharmacological Prophylaxi: Yes Assessment/Plan Assessment/Plan syncope, vasovagal likely h/o syncope , possible 2/2 hypoxia chronic hypoxic resp failure abd cellulitis COPD exacerbation bronchitis chest pain, 2/2 cough likely htn h/o CAD chf stable, diastolic grade 1 Reflex sympathetic dystrophy tobaccoism plan: card, sx consult levaquin for now copd meds, duoneb, cough meds cont home meds on NC 2 L dvt ppx pt likely has bipolar disorder, gave staff including me a hard time last admission. has home health, [facility]. COURTNEY BARKSDALE MD Nov 08, 2016 16:22
[2016-11-08] MEDS ORDERED: hydrALAZINE 20 MG/ML VIAL. IVP PRN (16:45)
[2016-11-08] MEDS ORDERED: DOCUSATE SODIUM 100 MG CAPSULE. PO PRN (16:45)
[2016-11-08] MEDS: ENOXAPARIN 40 MG/0.4 ML SYRINGE. SQ SCH (17:00)
[2016-11-08] MEDS: IV NORMAL SALINE 1000ML BAG 1,000 ML IV SCH (17:49)
[2016-11-08] MEDS: PANTOPRAZOLE 40 MG TABLET.DR. PO SCH (17:50)
[2016-11-08] MEDS: ASPIRIN ENTERIC COATED 81 MG TABLET.DR. PO SCH (17:50)
[2016-11-08 19:00] VITALS: BP 112/72
[2016-11-08] MEDS: BUDESONIDE 0.5 MG/2 ML NEBU. NEB SCH (19:42)
[2016-11-08] MEDS: IPRATRPIUM/ALBUTEROL 0.5/2.5MG 3 ML NEBU. NEB SCH (19:42)
[2016-11-08] MEDS ORDERED: IPRATRPIUM/ALBUTEROL 0.5/2.5MG 3 ML NEBU. NEB SCH (20:00)
[2016-11-08] MEDS ORDERED: NON FORMULARY ITEM (Budesonide/Formoterol Fumarate (Symbicort 160-4.5 Mcg Inhaler) 2 PUFF) IH SCH (21:00)
[2016-11-08] MEDS: ACETAMINOPHEN 325 MG TABLET. PO PRN (21:11)
[2016-11-08] MEDS: BENZONATATE 100 MG CAPSULE. PO SCH (21:12)
[2016-11-08] MEDS: diazePAM 5 MG TABLET PO PRN (21:12)
[2016-11-08] MEDS: dilTIAZem HCL 30 MG TABLET PO SCH (21:13)
[2016-11-08 23:26] VITALS: BP 124/81
[2016-11-08] MEDS: IBUPROFEN 800 MG TABLET. PO PRN (23:38)
[2016-11-09] VITALS (9 sets, daily range): BP systolic 85–124; BP diastolic 39–75
[2016-11-09] MEDS: ALBUTEROL SULFATE 2.5 MG/3 ML NEBU. NEB PRN ×3 (01:33→21:24)
[2016-11-09] MEDS: IV NORMAL SALINE 1000ML BAG 1,000 ML IV SCH ×2 (01:56→04:38)
[2016-11-09] MEDS: IBUPROFEN 800 MG TABLET. PO PRN ×3 (04:53→22:43)
--- NOTE | 2016-11-09 06:27 | EKG ---
[facility] [address] [place] [address] Test Date: 2016-11-08 Test Time: 13:51:56 Pat Name: SAMEER BAHENA Department: Room: 444 1 Gender: F Bottle Caser: : 1950 Requested By: ELLEN LOMBARDI Order Number: [id number] Reading MD: Nicolle Pittman Measurements Intervals [place] Rate: 103 P: 63 HI: 152 QRS: -20 QRSD: 78 T: 73 QT: 332 QTc: 437 Interpretive Statements SINUS TACHYCARDIA LEFTWARD AXIS T ABNORMALITY IN HIGH LATERAL LEADS Electronically Signed On 11-13-2016 21:50:56 CDT by Nicolle Pittman
[2016-11-09 06:32] LABS: BASO % 1 % (0-3); EOS % 2 % (0-3); HEMATOCRIT 35.4 % (36.0-47.0); HEMOGLOBIN 11.9 g/dL (12.0-15.5); LYMPH # 1.6 x10^3/uL (1.0-4.8); LYMPH % 26 % (24-48); MEAN CORPUSCULAR HEMOGLOBIN 30 pg (25-35); MEAN CORPUSCULAR HGB CONC 34 g/dL (31-37); MEAN CORPUSCULAR VOLUME 90 fL (79-100); MONO % 11 % (0-9); NEUT % 61 % (31-73); PLATELET COUNT 175 x10^3/uL (140-400); RED BLOOD COUNT 3.93 x10^6/uL (3.50-5.40); RED CELL DISTRIBUTION WIDTH 13.1 % (11.5-14.5); WHITE BLOOD COUNT 6.1 x10^3/uL (4.0-11.0)
[2016-11-09 06:50] LABS: CALCIUM 7.7 mg/dL (8.5-10.1); CREATININE 0.8 mg/dL (0.6-1.0); GFR 71.3
[2016-11-09] MEDS: IPRATRPIUM/ALBUTEROL 0.5/2.5MG 3 ML NEBU. NEB SCH ×4 (07:08→20:00)
[2016-11-09] MEDS: BUDESONIDE 0.5 MG/2 ML NEBU. NEB SCH ×2 (07:08→20:00)
[2016-11-09] MEDS: dilTIAZem HCL 30 MG TABLET PO SCH ×2 (08:26→20:22)
[2016-11-09] MEDS: BENZONATATE 100 MG CAPSULE. PO SCH ×3 (08:28→20:22)
[2016-11-09] MEDS: PANTOPRAZOLE 40 MG TABLET.DR. PO SCH (08:28)
[2016-11-09] MEDS: ASPIRIN ENTERIC COATED 81 MG TABLET.DR. PO SCH (08:28)
[2016-11-09] MEDS ORDERED: NON FORMULARY ITEM (Tiotropium Bromide (Spiriva) 1 CAP) IH SCH (09:00)
--- NOTE | 2016-11-09 09:26 | PDOC2 ---
TA PURCELL PROPERTY ANALYST 11/09/16 0926: CARDIAC CONSULT DATE OF CONSULT Date of Consult DATE: 11/09/16 TIME: 09:19 REASON FOR CONSULT Reason for Consult: Chest pain REFERRING PHYSICIAN Referring Physician: Dr. Reno SOURCE Source: Chart review, Patient HISTORY OF PRESENT ILLNESS HISTORY OF PRESENT ILLNESS This is a 66 yo female who presented with complaints of abdominal and chest pain. Pain has been ongoing for the last couple of days. Apparently had syncopal episode yesterday afternoon. Was found "slumped over and drooling" by home care nurse. Patient reports she "couldn't have been out for long." BP was noted at 88/38. Has been having intermittent dizziness and nausea for the last couple of days. Occurs with rest and activity. Chest pain has been intermittent for the last 5 days or so. Not precipitated with activity. Describes as stabbing in nature. Lasts a few seconds and resolves without intervention. Abdominal pain more severe. Began 2-3 days ago and is constant in nature. CT abdomen notable for abdominal wall fluid collection. Is unable to walk on treadmill. H/o "coding" with prior nuclear stress test. PAST MEDICAL HISTORY Past Medical History Cardiovascular: CHF, HTN, [place] Pulmonary: COPD (O2 dependent ) CENTRAL NERVOUS SYSTEM: Other (reflex sympathetic dystrophy) GI: No pertinent hx Heme/Onc: No pertinent hx Hepatobiliary: No pertinent hx Psych: Anxiety, depression, Other (OCD) Musculoskeletal: Osteoarthritis, Other Rheumatologic: Other Infectious disease: No pertinent hx ENT: No pertinent hx Renal/: No pertinent hx Endocrine: No pertinent hx Dermatology: No pertinent hx PAST SURGICAL HISTORY Past Surgical History: Appendectomy, Tonsillectomy, Hysterectomy, Colectomy FAMILY HISTORY Family History: Coronary Artery Disease SOCIAL HISTORY Social History Smoke: <1 pack per day ALCOHOL: none Drugs: None Lives: Alone CURRENT MEDICATIONS CURRENT MEDICATIONS Current Medications Medications (Trade) Dose Ordered Sig/René Route PRN Reason Start Time Stop Time Status Last Admin Dose Admin Sodium Chloride 1,000 ml @ 100 mls/hr Q10H IV 11/08/16 15:56 11/09/16 15:55 11/09/16 04:38 Aspirin (Ecotrin) 81 mg [id number] PO 11/08/16 17:00 11/09/16 08:28 Benzonatate (Tessalon Perle) 100 mg [id number] PO 11/08/16 21:00 11/09/16 08:28 Diazepam (Valium) 5 mg PRN Q4HRS PRN PO ANXIETY / AGITATION 11/08/16 16:45 11/08/16 21:12 Diltiazem HCl (Cardizem) 30 mg BID PO 11/08/16 21:00 11/08/16 21:13 Pantoprazole Sodium (Protonix) 40 mg DAILYAC PO 11/08/16 16:30 11/09/16 08:28 Acetaminophen (Tylenol) 650 mg PRN Q6HRS PRN PO FEVER 11/08/16 16:45 11/08/16 21:11 Albuterol/ Ipratropium (Duoneb) 3 ml RTQID NEB 11/08/16 20:00 11/09/16 07:08 Albuterol Sulfate (Ventolin Neb Soln) 2.5 mg PRN Q2HR PRN NEB SHORTNESS OF BREATH 11/08/16 16:45 11/09/16 01:33 Guaifenesin (Mucinex) 600 mg BID PO 11/08/16 21:00 11/09/16 08:28 Levofloxacin/ Dextrose 150 ml @ 100 mls/hr Q24H IV 11/08/16 17:00 11/08/16 17:50 Budesonide (Pulmicort) 0.5 mg RTBID NEB 11/08/16 20:00 11/09/16 07:08 Ibuprofen (Motrin) 800 mg PRN Q6HRS PRN PO INFLAMMATION 11/08/16 23:30 11/09/16 04:53 ALLERGIES ALLERGIES: Coded Allergies: Iodine and Iodide Containing Produc (Verified Allergy, Intermediate, Unknown, 06/18/15) Penicillins (Verified Allergy, Intermediate, 06/18/15) codeine (Verified Allergy, Intermediate, 06/18/15) morphine (Verified Allergy, Intermediate, 11/08/16) ROS Review of System 14 point ROS conducted with pertinent positives noted above in HPI. PHYSICAL EXAM PHYSICAL EXAM General: Alert, Oriented X3, Cooperative, No acute distress HEENT: Atraumatic, Mucous membr. moist/pink Lungs: Clear to auscultation Heart: Regular rate, Normal S1, Normal S2, no murmur Abdomen: Soft, No tenderness. diffuse abdominal tenderness Extremities: No edema, Normal pulses Skin: No breakdown, No significant lesion Neuro: Normal speech, Sensation intact Psych/Mental Status: Mental status NL, Mood NL VITALS VITALS Vital Signs Date Time Temp Pulse Resp B/P (MAP) Pulse Ox O2 Delivery O2 Flow Rate FiO2 11/09/16 08:26 82 88/49 11/09/16 07:20 Nasal Cannula 2.0 11/09/16 07:10 95 11/09/16 07:00 97.7 18 97.7 LABS Lab: Laboratory Tests Test 11/08/16 14:00 11/09/16 06:05 White Blood Count 8.8 x10^3/uL (4.0-11.0) 6.1 x10^3/uL (4.0-11.0) Red Blood Count 4.65 x10^6/uL (3.50-5.40) 3.93 x10^6/uL (3.50-5.40) Hemoglobin 13.9 g/dL (12.0-15.5) 11.9 g/dL (12.0-15.5) Hematocrit 42.7 % (36.0-47.0) 35.4 % (36.0-47.0) Mean Corpuscular Volume 92 fL (79-100) 90 fL (79-100) Mean Corpuscular Hemoglobin 30 pg (25-35) 30 pg (25-35) Mean Corpuscular Hemoglobin Concent 33 g/dL (31-37) 34 g/dL (31-37) Red Cell Distribution Width 13.1 % (11.5-14.5) 13.1 % (11.5-14.5) Platelet Count 216 x10^3/uL (140-400) 175 x10^3/uL (140-400) Neutrophils (%) (Auto) 72 % (31-73) 61 % (31-73) Lymphocytes (%) (Auto) 18 % (24-48) 26 % (24-48) Monocytes (%) (Auto) 9 % (0-9) 11 % (0-9) Eosinophils (%) (Auto) 0 % (0-3) 2 % (0-3) Basophils (%) (Auto) 1 % (0-3) 1 % (0-3) Neutrophils # (Auto) 6.3 x10^3uL (1.8-7.7) 3.7 x10^3uL (1.8-7.7) Lymphocytes # (Auto) 1.6 x10^3/uL (1.0-4.8) 1.6 x10^3/uL (1.0-4.8) Monocytes # (Auto) 0.8 x10^3/uL (0.0-1.1) 0.7 x10^3/uL (0.0-1.1) Eosinophils # (Auto) 0.0 x10^3/uL (0.0-0.7) 0.1 x10^3/uL (0.0-0.7) Basophils # (Auto) 0.1 x10^3/uL (0.0-0.2) 0.0 x10^3/uL (0.0-0.2) Sodium Level 142 mmol/L (136-145) 141 mmol/L (136-145) Potassium Level 4.3 mmol/L (3.5-5.1) 4.0 mmol/L (3.5-5.1) Chloride Level 104 mmol/L (98-107) 108 mmol/L (98-107) Carbon Dioxide Level 34 mmol/L (21-32) 29 mmol/L (21-32) Anion Gap 4 (6-14) 4 (6-14) Blood Urea Nitrogen 11 mg/dL (7-20) 11 mg/dL (7-20) Creatinine 0.9 mg/dL (0.6-1.0) 0.8 mg/dL (0.6-1.0) Estimated GFR (Cockcroft-Gault) 62.3 71.3 Glucose Level 119 mg/dL (70-99) 93 mg/dL (70-99) Calcium Level 9.2 mg/dL (8.5-10.1) 7.7 mg/dL (8.5-10.1) Total Bilirubin 0.3 mg/dL (0.2-1.0) Direct Bilirubin < 0.1 mg/dL (0.0-0.2) Aspartate Amino Transf (AST/SGOT) 20 U/L (15-37) Alanine Aminotransferase (ALT/SGPT) 24 U/L (14-59) Alkaline Phosphatase 56 U/L (46-116) Troponin I Quantitative < 0.017 ng/mL (0.000-0.055) BP-Ewo-H-Type Natriuretic Peptide 68 pg/mL (0-124) Total Protein 7.2 g/dL (6.4-8.2) Albumin 3.4 g/dL (3.4-5.0) Lipase 220 U/L (73-393) ECHOCARDIOGRAM ECHOCARDIOGRAM <Conclusion> There is normal LV segmental wall motion. The left ventricular systolic function is normal and the ejection fraction is within normal range. The Ejection Fraction is 65-70%. DATE: 06/07/16 1505 ASSESSMENT/PLAN ASSESSMENT/PLAN 1. Syncope, etiology? 2. Chest pain, atypical 3. Abdominal pain/ abdominal wall fluid collection 4. Hypertension with present hypotension Recommendations EKG and biomarkers do not reveal any acute pathology. Recent echo with normal LV function, no WMA present. Hold Cardizem as warranted for hypotension Check orthos Given recurrent chest pain, discussed further ischemic evaluation in the form of Dobutamine stress echo. Patient would like to defer at this time. Place on tele. Plan for outpatient event monitor with follow up in 4 weeks. Continue supportive care. Problems: DOMENICA WREN MD 11/09/16 1821: CARDIAC CONSULT ALLERGIES ALLERGIES: Coded Allergies: Iodine and Iodide Containing Produc (Verified Allergy, Intermediate, Unknown, 06/18/15) Penicillins (Verified Allergy, Intermediate, 06/18/15) codeine (Verified Allergy, Intermediate, 06/18/15) morphine (Verified Allergy, Intermediate, 11/08/16) ASSESSMENT/PLAN ASSESSMENT/PLAN Pt. seen and examined. Agree with above BUS INFO CONSULTANT note. 66 y.o woman well known to our service. She has atypical chest pain but risk factors. She has been reluctant to various forms of chemical stress and unfortunately cannot do a treadmill. I think cath would be unnecessary at this time given low to moderate suspicion only for CAD. She has multiple other reasons for chest discomfort. Supportive care for now and outpt f/u. I told the patient that given her allergies and restrictions on tests she is willing to undergo, we are limited in what we can offer to her. Thanks for consultation. Problems: TA PURCELL APRN Nov 09, 2016 09:26 DOMENICA WREN MD Nov 09, 2016 18:21
--- NOTE | 2016-11-09 10:04 | ACF ---
Admit Criteria Forms Admit Criteria Forms Admit Criteria Forms ABDOMINAL PAIN Clinical Indications for Admission to Inpatient Care ( huslia/check or initial the applicable condition/criteria): Admission is indicated for ANY ONE of the following (1)(2)(3)(4)(5)(6): [ ]I. Surgery needed that cannot be performed on ambulatory basis [ ]II. Peritoneal signs present (eg, rebound tenderness, rigidity) [ ]III. Evaluation requires patient to not eat or drink for extended period ( eg, more than 24 hours). [ X]IV. Inpatient admission required[B] rather than observation care (see Abdominal Pain: Observation Care guideline as appropriate) because of ANY ONE of the following(7)(8)(9): [ ] a) Hemodynamic instability [ ]b) Severe pain requiring acute inpatient management [X]c) Identification of etiology or finding that requires inpatient care (eg, aortic dissection, free air,bowel ischemia)(10) [ ]d) Absent bowel sounds with complete ileus (11) [ ]e) Signs of intestinal obstruction[C] [ ]f) Suspected toxic megacolon [ ]g) Severe electrolyte abnormalities requiring inpatient care [ ]h) High fever or infection requiring inpatient admission as indicated by ANY ONE of the following (12)(13): [ ]i) Appropriate outpatient or observation care antimicrobial treatment unavailable, not effective, or not feasible [ ]ii) Documented bacteremia [ ]iii) Temperature greater than 104.9 degrees F (40.5 degrees C) (oral) [ ]iv) Temperature greater than 103.1 degrees F (39.5 degrees C) ( oral) or less than 96.8 degrees F (36 degrees C) (rectal) that does not respond to all emergency treatment measures [ ]i) IV fluid required rather than oral rehydration to replace significant ongoing (eg, for greater than 24 hours) losses (greater than 3 L/m2 per day)(14)(15) [ ]j) Percutaneous or open drainage (eg, abscess, biliary tract) procedures [ ]k) Parenteral nutrition regimen that must be implemented on inpatient basis [ ]l) Other condition, treatment, or monitoring requiring inpatient admission Extended stay beyond goal length of stay may be needed for (1)(3)(4)(10)(16): [ ]a) Surgery (e.g., colectomy, revascularization procedure) [ ]b) Persistent abdominal pain with suspected intra-abdominal process [ ]c) Diagnosed condition requiring continued stay (e.g., pancreatitis, complicated diverticulitis) The original [facility] [employer] content created by [facility]hem[facility] Seen on [facility] has been revised. The portions of the content which have been revised are identified through the use of italic text, and [facility] has neither reviewed nor approved the modified material.All other unmodified content is copyright [facility] Seen on [facility]. Please see references footnoted in the original [facility] [employer] edition 2014 LEAH TABOR Nov 09, 2016 10:04
--- NOTE | 2016-11-09 12:47 | PDOC2 ---
CONSULT Date of Consult Date of Consult DATE: 11/09/16 TIME: 12:41 Reason for Consult Reason for Consult: Abdominal wall mass, pain Referring Physician Referring Physician: Lupe Identification/Chief Complaint Chief Complaint abd pain and recurrent abd mass Problems: Source Source: Patient History of Present Illness Reason for Visit: 66 yo F with complicated surgical history secondary to ischemic colon injury. Multiple fistula and hernia surgery since at [facility] and elsewhere. Pt notes recurrent abd wall fistulas/abscess that have previously been treated with drainage and debridement, without persistent resolution. She presents with recurrent episode with c/o pain and syncope. Past Medical History Cardiovascular: CAD, CHF, HTN, [place] Pulmonary: COPD CENTRAL NERVOUS SYSTEM: Other GI: No pertinent hx Heme/Onc: No pertinent hx Hepatobiliary: No pertinent hx Psych: Anxiety, Other Musculoskeletal: Osteoarthritis Rheumatologic: Other Infectious disease: No pertinent hx Renal/: No pertinent hx Endocrine: No pertinent hx Past Surgical History Past Surgical History: Appendectomy, Tonsillectomy, Hysterectomy, Colectomy Family History Family History: Coronary Artery Disease Social History <1 pack per day ALCOHOL: none Drugs: None Lives: Alone Current Problem List Problem List Problems Medical Problems: (1) Abdominal fluid collection Status: Acute (2) Abdominal pain Status: Acute (3) Chest pain Status: Acute (4) Syncope Status: Acute Current Medications Current Medications Current Medications Vancomycin HCl (Vanco Per Pharmacy) 1 each PRN DAILY PRN MC SEE COMMENTS; Start 11/08/16 at 16:00; Stop 11/08/16 at 16:40; Status DC Ondansetron HCl (Zofran) 4 mg PRN Q8HRS PRN IV NAUSEA/VOMITING; Start 11/08/16 at 16:00; Stop 11/09/16 at 15:59 Morphine Sulfate 2 mg PRN Q2HR PRN IV PAIN; Start 11/08/16 at 16:00; Stop 11/09 at 15:59; Status UNV Sodium Chloride 1,000 ml @ 100 mls/hr Q10H IV Last administered on 11/09/16t 04:38; Start 11/08/16 at 15:56; Stop 11/09/16 at 15:55 Vancomycin HCl 1.5 gm/Sodium Chloride 500 ml @ 250 mls/hr 1X ONCE IV ; Start 11/08/16 at 16:15; Stop 11/08/16 at 18:14; Status DC Aspirin (Ecotrin) 81 mg DAILYWBKFT PO Last administered on 11/09/16 08:28; Start 11/08/16 at 17:00 Benzonatate (Tessalon Perle) 100 mg [id number] PO Last administered on 11/09/16 08 :28; Start 11/08/16 at 21:00 Diazepam (Valium) 5 mg PRN Q4HRS PRN PO ANXIETY / AGITATION Last administered on 11/08/16 21:12; Start 11/08/16 at 16:45 Diltiazem HCl (Cardizem) 30 mg BID PO Last administered on 11/08/16 21:13; Start 11/08/16 at 21:00 Diphenhydramine HCl (Benadryl) 25 mg PRN Q6HRS PRN PO ALLERGIES; Start at 16:45 Docusate Sodium (Colace) 100 mg PRN BID PRN PO CONSTIPATION; Start 11/08/16 at 16:45 Pantoprazole Sodium (Protonix) 40 mg DAILYAC PO Last administered on 11/09/16 08:28; Start 11/08/16 at 16:30 Non-Formulary Medication 2 puff BID IH ; Start 11/08/16 at 21:00; Stop 11/08/16 at 21:00; Status DC Non-Formulary Medication 1 cap DAILY IH ; Start 11/09/16 at 09:00; Stop at 09:00; Status DC Acetaminophen (Tylenol) 650 mg PRN Q6HRS PRN PO FEVER Last administered on 11/08 21:11; Start 11/08/16 at 16:45 Ondansetron HCl (Zofran) 4 mg PRN Q6HRS PRN IV NAUSEA/VOMITING; Start 11/08/16 at 16:45 Hydralazine HCl (Apresoline) 10 mg PRN Q4HRS PRN IVP ELEVATED BP, SEE COMMENTS ; Start 11/08/16 at 16:45 Docusate Sodium (Colace) 100 mg PRN DAILY PRN PO CONSTIPATION; Start 11/08/16 at 16:45 Albuterol/ Ipratropium (Duoneb) 3 ml RTQID NEB Last administered on 11/09/16 11:06; Start 11/08/16 at 20:00 Albuterol Sulfate (Ventolin Neb Soln) 2.5 mg PRN Q2HR PRN NEB SHORTNESS OF BREATH Last administered on 11/09/16 01:33; Start 11/08/16 at 16:45 Guaifenesin (Mucinex) 600 mg BID PO Last administered on 11/09/16 08:28; Start 11/08/16 at 21:00 Levofloxacin/ Dextrose 150 ml @ 100 mls/hr Q24H IV Last administered on 17:50; Start 11/08/16 at 17:00 Enoxaparin Sodium (Lovenox 40mg Syringe) 40 mg Q24H SQ ; Start 11/08/16 at 17:00 Albuterol/ Ipratropium (Duoneb) 3 ml RTQID NEB ; Start 11/08/16 at 20:00; Status UNV Budesonide (Pulmicort) 0.5 mg RTBID NEB Last administered on 11/09/16 07:08; Start 11/08/16 at 20:00 Ibuprofen (Motrin) 800 mg PRN Q6HRS PRN PO INFLAMMATION Last administered on 12:21; Start 11/08/16 at 23:30 Active Scripts Active [Levofloxacin] 500 MG Tablet 500 Mg PO DAILY06 Cardizem Tablet (Diltiazem Hcl) 30 Mg Tablet 30 Mg PO BID Benzonatate 100 Mg Capsule 100 Mg PO [id number] Aspirin Ec (Aspirin) 81 Mg Tablet.dr 81 Mg PO DAILYWBKFT Protonix (Pantoprazole Sodium) 40 Mg Tablet.dr 1 Tab PO DAILY Reported Mucinex Dm Er 600-30 Mg Tablet (Guaifenesin/Dextromethorphan) 1 Each Tab.er.12h 1 Each PO Benadryl (Diphenhydramine Hcl) 25 Mg Capsule 25 Mg PO PRN PRN Dok (Docusate Sodium) 100 Mg Capsule 100 Mg PO PRN PRN Ibuprofen 400 Mg Tablet 400 Mg PO PRN Q6HRS PRN Vivelle-Dot (Estradiol) 1 Each Patch.tdsw 0.1 Patch TP Valium (Diazepam) 5 Mg Tablet 5 Mg PO PRN Q4HRS PRN Proventil Hfa Inhaler (Albuterol Sulfate) 6.7 Gm Hfa.aer.ad 1 Puff IH PRN PRN Spiriva (Tiotropium Branch) 18 Mcg Cap.w.dev 1 Cap IH DAILY Symbicort 160-4.5 Mcg Inhaler (Budesonide/Formoterol Fumarate) 10.2 Gm Hfa.aer.ad 2 Puff IH BID Allergies Allergies: Coded Allergies: Iodine and Iodide Containing Produc (Verified Allergy, Intermediate, Unknown, 06/18/15) Penicillins (Verified Allergy, Intermediate, 06/18/15) codeine (Verified Allergy, Intermediate, 06/18/15) morphine (Verified Allergy, Intermediate, 11/08/16) ROS Gastrointestinal: Yes Abdominal Pain Physical Exam General: Alert, Oriented X3, Cooperative, No acute distress HEENT: Atraumatic, EOMI Lungs: Normal air movement Abdomen: Soft, Other (multiple surgical scars, erythematous raised TTP mass 7 cm diameter midabd) Extremities: No edema Skin: No rashes, No breakdown Neuro: Normal speech, Sensation intact Psych/Mental Status: Mental status NL, Mood NL MUSCULOSKELETAL: No joint tenderness Vitals VITALS Vital Signs Date Time Temp Pulse Resp B/P (MAP) Pulse Ox O2 Delivery O2 Flow Rate FiO2 11/09/16 11:07 95 Nasal Cannula 2.0 11/09/16 08:26 82 88/49 11/09/16 07:00 97.7 18 97.7 Labs Labs Laboratory Tests Test 11/08/16 14:00 11/09/16 06:05 White Blood Count 8.8 x10^3/uL (4.0-11.0) 6.1 x10^3/uL (4.0-11.0) Red Blood Count 4.65 x10^6/uL (3.50-5.40) 3.93 x10^6/uL (3.50-5.40) Hemoglobin 13.9 g/dL (12.0-15.5) 11.9 g/dL (12.0-15.5) Hematocrit 42.7 % (36.0-47.0) 35.4 % (36.0-47.0) Mean Corpuscular Volume 92 fL (79-100) 90 fL (79-100) Mean Corpuscular Hemoglobin 30 pg (25-35) 30 pg (25-35) Mean Corpuscular Hemoglobin Concent 33 g/dL (31-37) 34 g/dL (31-37) Red Cell Distribution Width 13.1 % (11.5-14.5) 13.1 % (11.5-14.5) Platelet Count 216 x10^3/uL (140-400) 175 x10^3/uL (140-400) Neutrophils (%) (Auto) 72 % (31-73) 61 % (31-73) Lymphocytes (%) (Auto) 18 % (24-48) 26 % (24-48) Monocytes (%) (Auto) 9 % (0-9) 11 % (0-9) Eosinophils (%) (Auto) 0 % (0-3) 2 % (0-3) Basophils (%) (Auto) 1 % (0-3) 1 % (0-3) Neutrophils # (Auto) 6.3 x10^3uL (1.8-7.7) 3.7 x10^3uL (1.8-7.7) Lymphocytes # (Auto) 1.6 x10^3/uL (1.0-4.8) 1.6 x10^3/uL (1.0-4.8) Monocytes # (Auto) 0.8 x10^3/uL (0.0-1.1) 0.7 x10^3/uL (0.0-1.1) Eosinophils # (Auto) 0.0 x10^3/uL (0.0-0.7) 0.1 x10^3/uL (0.0-0.7) Basophils # (Auto) 0.1 x10^3/uL (0.0-0.2) 0.0 x10^3/uL (0.0-0.2) Sodium Level 142 mmol/L (136-145) 141 mmol/L (136-145) Potassium Level 4.3 mmol/L (3.5-5.1) 4.0 mmol/L (3.5-5.1) Chloride Level 104 mmol/L (98-107) 108 mmol/L (98-107) Carbon Dioxide Level 34 mmol/L (21-32) 29 mmol/L (21-32) Anion Gap 4 (6-14) 4 (6-14) Blood Urea Nitrogen 11 mg/dL (7-20) 11 mg/dL (7-20) Creatinine 0.9 mg/dL (0.6-1.0) 0.8 mg/dL (0.6-1.0) Estimated GFR (Cockcroft-Gault) 62.3 71.3 Glucose Level 119 mg/dL (70-99) 93 mg/dL (70-99) Calcium Level 9.2 mg/dL (8.5-10.1) 7.7 mg/dL (8.5-10.1) Total Bilirubin 0.3 mg/dL (0.2-1.0) Direct Bilirubin < 0.1 mg/dL (0.0-0.2) Aspartate Amino Transf (AST/SGOT) 20 U/L (15-37) Alanine Aminotransferase (ALT/SGPT) 24 U/L (14-59) Alkaline Phosphatase 56 U/L (46-116) Troponin I Quantitative < 0.017 ng/mL (0.000-0.055) < 0.017 ng/mL (0.000-0.055) XT-Jtb-W-Type Natriuretic Peptide 68 pg/mL (0-124) Total Protein 7.2 g/dL (6.4-8.2) Albumin 3.4 g/dL (3.4-5.0) Lipase 220 U/L (73-393) Laboratory Tests Test 11/08/16 14:00 11/09/16 06:05 White Blood Count 8.8 x10^3/uL (4.0-11.0) 6.1 x10^3/uL (4.0-11.0) Red Blood Count 4.65 x10^6/uL (3.50-5.40) 3.93 x10^6/uL (3.50-5.40) Hemoglobin 13.9 g/dL (12.0-15.5) 11.9 g/dL (12.0-15.5) Hematocrit 42.7 % (36.0-47.0) 35.4 % (36.0-47.0) Mean Corpuscular Volume 92 fL (79-100) 90 fL (79-100) Mean Corpuscular Hemoglobin 30 pg (25-35) 30 pg (25-35) Mean Corpuscular Hemoglobin Concent 33 g/dL (31-37) 34 g/dL (31-37) Red Cell Distribution Width 13.1 % (11.5-14.5) 13.1 % (11.5-14.5) Platelet Count 216 x10^3/uL (140-400) 175 x10^3/uL (140-400) Neutrophils (%) (Auto) 72 % (31-73) 61 % (31-73) Lymphocytes (%) (Auto) 18 % (24-48) 26 % (24-48) Monocytes (%) (Auto) 9 % (0-9) 11 % (0-9) Eosinophils (%) (Auto) 0 % (0-3) 2 % (0-3) Basophils (%) (Auto) 1 % (0-3) 1 % (0-3) Neutrophils # (Auto) 6.3 x10^3uL (1.8-7.7) 3.7 x10^3uL (1.8-7.7) Lymphocytes # (Auto) 1.6 x10^3/uL (1.0-4.8) 1.6 x10^3/uL (1.0-4.8) Monocytes # (Auto) 0.8 x10^3/uL (0.0-1.1) 0.7 x10^3/uL (0.0-1.1) Eosinophils # (Auto) 0.0 x10^3/uL (0.0-0.7) 0.1 x10^3/uL (0.0-0.7) Basophils # (Auto) 0.1 x10^3/uL (0.0-0.2) 0.0 x10^3/uL (0.0-0.2) Sodium Level 142 mmol/L (136-145) 141 mmol/L (136-145) Potassium Level 4.3 mmol/L (3.5-5.1) 4.0 mmol/L (3.5-5.1) Chloride Level 104 mmol/L (98-107) 108 mmol/L (98-107) Carbon Dioxide Level 34 mmol/L (21-32) 29 mmol/L (21-32) Anion Gap 4 (6-14) 4 (6-14) Blood Urea Nitrogen 11 mg/dL (7-20) 11 mg/dL (7-20) Creatinine 0.9 mg/dL (0.6-1.0) 0.8 mg/dL (0.6-1.0) Estimated GFR (Cockcroft-Gault) 62.3 71.3 Glucose Level 119 mg/dL (70-99) 93 mg/dL (70-99) Calcium Level 9.2 mg/dL (8.5-10.1) 7.7 mg/dL (8.5-10.1) Total Bilirubin 0.3 mg/dL (0.2-1.0) Direct Bilirubin < 0.1 mg/dL (0.0-0.2) Aspartate Amino Transf (AST/SGOT) 20 U/L (15-37) Alanine Aminotransferase (ALT/SGPT) 24 U/L (14-59) Alkaline Phosphatase 56 U/L (46-116) Troponin I Quantitative < 0.017 ng/mL (0.000-0.055) < 0.017 ng/mL (0.000-0.055) AH-Pso-Q-Type Natriuretic Peptide 68 pg/mL (0-124) Total Protein 7.2 g/dL (6.4-8.2) Albumin 3.4 g/dL (3.4-5.0) Lipase 220 U/L (73-393) Images Images abd wall fluid collection (favor old hematoma) Assessment/Plan Assessment/Plan abd wall fluid collection favor recurrent seroma/abscess, appears to be symptomatic. Agree with abx. Pt would like MRI for more definitive answer. Drainage or debridement recommended pending this, if not improved on abx. Thanks for consult! CHANDRA CHATTERJEE MD Nov 09, 2016 12:47
--- NOTE | 2016-11-09 13:15 | PDOC ---
PROGRESS NOTES Chief Complaint Chief Complaint syncope, vasovagal likely h/o syncope , possible 2/2 hypoxia chronic hypoxic resp failure abd wall small cellulitis vs. old hematoma COPD exacerbation bronchitis chest pain, 2/2 cough likely htn h/o CAD chf stable, diastolic grade 1 Reflex sympathetic dystrophy tobaccoism bipolar? plan: card, sx consulted, will do MRI as per sx, pt required tho levaquin for now copd meds, duoneb, cough meds cont home meds on NC 2 L dvt ppx consider hold cardizem if cont low BP, waiting for Card consult PTOT History of Present Illness History of Present Illness ROS: no fever, chills, sob or chest pain pt likely has bipolar disorder, gave staff including me a hard time in the last admission. has home health, [facility]. pt refused orthostatic bp check again today, but told me her bp is low. when i told her that"u refused orthostatic check", she looks offended she also said" i need to go to another hospital" when i told her to wait for sx come to see you then decided what to do for the abd bump, but said " you are ok " when i told her that she is welcome to talk to the code enforcement supervisor if she wanted to go to another hospital she also requires me to give her multiple times of abx as " was treated with cipro and other abx before", after i explained to her levaquin should be given daily, she looks ok for now. BP at 80s Vitals Vitals Vital Signs Date Time Temp Pulse Resp B/P (MAP) Pulse Ox O2 Delivery O2 Flow Rate FiO2 11/09/16 11:07 95 Nasal Cannula 2.0 11/09/16 08:26 82 88/49 11/09/16 07:00 97.7 18 97.7 Physical Exam General: Alert, Oriented X3, Cooperative, No acute distress Heart: Regular rate, Normal S1, Normal S2 Lungs: Clear Abdomen: Normal bowel sounds, Soft, Other (multiple surgical scars, IN THe middle abd there is about 3cm mild red lump with mild tenderness. ) Extremities: No edema Skin: No rashes, No breakdown Labs LABS Laboratory Tests Test 11/08/16 14:00 11/09/16 06:05 White Blood Count 8.8 x10^3/uL (4.0-11.0) 6.1 x10^3/uL (4.0-11.0) Red Blood Count 4.65 x10^6/uL (3.50-5.40) 3.93 x10^6/uL (3.50-5.40) Hemoglobin 13.9 g/dL (12.0-15.5) 11.9 g/dL (12.0-15.5) Hematocrit 42.7 % (36.0-47.0) 35.4 % (36.0-47.0) Mean Corpuscular Volume 92 fL (79-100) 90 fL (79-100) Mean Corpuscular Hemoglobin 30 pg (25-35) 30 pg (25-35) Mean Corpuscular Hemoglobin Concent 33 g/dL (31-37) 34 g/dL (31-37) Red Cell Distribution Width 13.1 % (11.5-14.5) 13.1 % (11.5-14.5) Platelet Count 216 x10^3/uL (140-400) 175 x10^3/uL (140-400) Neutrophils (%) (Auto) 72 % (31-73) 61 % (31-73) Lymphocytes (%) (Auto) 18 % (24-48) 26 % (24-48) Monocytes (%) (Auto) 9 % (0-9) 11 % (0-9) Eosinophils (%) (Auto) 0 % (0-3) 2 % (0-3) Basophils (%) (Auto) 1 % (0-3) 1 % (0-3) Neutrophils # (Auto) 6.3 x10^3uL (1.8-7.7) 3.7 x10^3uL (1.8-7.7) Lymphocytes # (Auto) 1.6 x10^3/uL (1.0-4.8) 1.6 x10^3/uL (1.0-4.8) Monocytes # (Auto) 0.8 x10^3/uL (0.0-1.1) 0.7 x10^3/uL (0.0-1.1) Eosinophils # (Auto) 0.0 x10^3/uL (0.0-0.7) 0.1 x10^3/uL (0.0-0.7) Basophils # (Auto) 0.1 x10^3/uL (0.0-0.2) 0.0 x10^3/uL (0.0-0.2) Sodium Level 142 mmol/L (136-145) 141 mmol/L (136-145) Potassium Level 4.3 mmol/L (3.5-5.1) 4.0 mmol/L (3.5-5.1) Chloride Level 104 mmol/L (98-107) 108 mmol/L (98-107) Carbon Dioxide Level 34 mmol/L (21-32) 29 mmol/L (21-32) Anion Gap 4 (6-14) 4 (6-14) Blood Urea Nitrogen 11 mg/dL (7-20) 11 mg/dL (7-20) Creatinine 0.9 mg/dL (0.6-1.0) 0.8 mg/dL (0.6-1.0) Estimated GFR (Cockcroft-Gault) 62.3 71.3 Glucose Level 119 mg/dL (70-99) 93 mg/dL (70-99) Calcium Level 9.2 mg/dL (8.5-10.1) 7.7 mg/dL (8.5-10.1) Total Bilirubin 0.3 mg/dL (0.2-1.0) Direct Bilirubin < 0.1 mg/dL (0.0-0.2) Aspartate Amino Transf (AST/SGOT) 20 U/L (15-37) Alanine Aminotransferase (ALT/SGPT) 24 U/L (14-59) Alkaline Phosphatase 56 U/L (46-116) Troponin I Quantitative < 0.017 ng/mL (0.000-0.055) < 0.017 ng/mL (0.000-0.055) GP-Nxp-O-Type Natriuretic Peptide 68 pg/mL (0-124) Total Protein 7.2 g/dL (6.4-8.2) Albumin 3.4 g/dL (3.4-5.0) Lipase 220 U/L (73-393) Assessment and Plan Assessmemt and Plan Problems Medical Problems: (1) Abdominal fluid collection Status: Acute (2) Abdominal pain Status: Acute (3) Chest pain Status: Acute (4) Syncope Status: Acute Problems: Comment Review of Relevant I have reviewed the following items lazaro (where applicable) has been applied. Labs Laboratory Tests Test 11/08/16 14:00 11/09/16 06:05 White Blood Count 8.8 x10^3/uL (4.0-11.0) 6.1 x10^3/uL (4.0-11.0) Red Blood Count 4.65 x10^6/uL (3.50-5.40) 3.93 x10^6/uL (3.50-5.40) Hemoglobin 13.9 g/dL (12.0-15.5) 11.9 g/dL (12.0-15.5) Hematocrit 42.7 % (36.0-47.0) 35.4 % (36.0-47.0) Mean Corpuscular Volume 92 fL (79-100) 90 fL (79-100) Mean Corpuscular Hemoglobin 30 pg (25-35) 30 pg (25-35) Mean Corpuscular Hemoglobin Concent 33 g/dL (31-37) 34 g/dL (31-37) Red Cell Distribution Width 13.1 % (11.5-14.5) 13.1 % (11.5-14.5) Platelet Count 216 x10^3/uL (140-400) 175 x10^3/uL (140-400) Neutrophils (%) (Auto) 72 % (31-73) 61 % (31-73) Lymphocytes (%) (Auto) 18 % (24-48) 26 % (24-48) Monocytes (%) (Auto) 9 % (0-9) 11 % (0-9) Eosinophils (%) (Auto) 0 % (0-3) 2 % (0-3) Basophils (%) (Auto) 1 % (0-3) 1 % (0-3) Neutrophils # (Auto) 6.3 x10^3uL (1.8-7.7) 3.7 x10^3uL (1.8-7.7) Lymphocytes # (Auto) 1.6 x10^3/uL (1.0-4.8) 1.6 x10^3/uL (1.0-4.8) Monocytes # (Auto) 0.8 x10^3/uL (0.0-1.1) 0.7 x10^3/uL (0.0-1.1) Eosinophils # (Auto) 0.0 x10^3/uL (0.0-0.7) 0.1 x10^3/uL (0.0-0.7) Basophils # (Auto) 0.1 x10^3/uL (0.0-0.2) 0.0 x10^3/uL (0.0-0.2) Sodium Level 142 mmol/L (136-145) 141 mmol/L (136-145) Potassium Level 4.3 mmol/L (3.5-5.1) 4.0 mmol/L (3.5-5.1) Chloride Level 104 mmol/L (98-107) 108 mmol/L (98-107) Carbon Dioxide Level 34 mmol/L (21-32) 29 mmol/L (21-32) Anion Gap 4 (6-14) 4 (6-14) Blood Urea Nitrogen 11 mg/dL (7-20) 11 mg/dL (7-20) Creatinine 0.9 mg/dL (0.6-1.0) 0.8 mg/dL (0.6-1.0) Estimated GFR (Cockcroft-Gault) 62.3 71.3 Glucose Level 119 mg/dL (70-99) 93 mg/dL (70-99) Calcium Level 9.2 mg/dL (8.5-10.1) 7.7 mg/dL (8.5-10.1) Total Bilirubin 0.3 mg/dL (0.2-1.0) Direct Bilirubin < 0.1 mg/dL (0.0-0.2) Aspartate Amino Transf (AST/SGOT) 20 U/L (15-37) Alanine Aminotransferase (ALT/SGPT) 24 U/L (14-59) Alkaline Phosphatase 56 U/L (46-116) Troponin I Quantitative < 0.017 ng/mL (0.000-0.055) < 0.017 ng/mL (0.000-0.055) VV-Qqc-T-Type Natriuretic Peptide 68 pg/mL (0-124) Total Protein 7.2 g/dL (6.4-8.2) Albumin 3.4 g/dL (3.4-5.0) Lipase 220 U/L (73-393) Laboratory Tests Test 11/08/16 14:00 11/09/16 06:05 White Blood Count 8.8 x10^3/uL (4.0-11.0) 6.1 x10^3/uL (4.0-11.0) Red Blood Count 4.65 x10^6/uL (3.50-5.40) 3.93 x10^6/uL (3.50-5.40) Hemoglobin 13.9 g/dL (12.0-15.5) 11.9 g/dL (12.0-15.5) Hematocrit 42.7 % (36.0-47.0) 35.4 % (36.0-47.0) Mean Corpuscular Volume 92 fL (79-100) 90 fL (79-100) Mean Corpuscular Hemoglobin 30 pg (25-35) 30 pg (25-35) Mean Corpuscular Hemoglobin Concent 33 g/dL (31-37) 34 g/dL (31-37) Red Cell Distribution Width 13.1 % (11.5-14.5) 13.1 % (11.5-14.5) Platelet Count 216 x10^3/uL (140-400) 175 x10^3/uL (140-400) Neutrophils (%) (Auto) 72 % (31-73) 61 % (31-73) Lymphocytes (%) (Auto) 18 % (24-48) 26 % (24-48) Monocytes (%) (Auto) 9 % (0-9) 11 % (0-9) Eosinophils (%) (Auto) 0 % (0-3) 2 % (0-3) Basophils (%) (Auto) 1 % (0-3) 1 % (0-3) Neutrophils # (Auto) 6.3 x10^3uL (1.8-7.7) 3.7 x10^3uL (1.8-7.7) Lymphocytes # (Auto) 1.6 x10^3/uL (1.0-4.8) 1.6 x10^3/uL (1.0-4.8) Monocytes # (Auto) 0.8 x10^3/uL (0.0-1.1) 0.7 x10^3/uL (0.0-1.1) Eosinophils # (Auto) 0.0 x10^3/uL (0.0-0.7) 0.1 x10^3/uL (0.0-0.7) Basophils # (Auto) 0.1 x10^3/uL (0.0-0.2) 0.0 x10^3/uL (0.0-0.2) Sodium Level 142 mmol/L (136-145) 141 mmol/L (136-145) Potassium Level 4.3 mmol/L (3.5-5.1) 4.0 mmol/L (3.5-5.1) Chloride Level 104 mmol/L (98-107) 108 mmol/L (98-107) Carbon Dioxide Level 34 mmol/L (21-32) 29 mmol/L (21-32) Anion Gap 4 (6-14) 4 (6-14) Blood Urea Nitrogen 11 mg/dL (7-20) 11 mg/dL (7-20) Creatinine 0.9 mg/dL (0.6-1.0) 0.8 mg/dL (0.6-1.0) Estimated GFR (Cockcroft-Gault) 62.3 71.3 Glucose Level 119 mg/dL (70-99) 93 mg/dL (70-99) Calcium Level 9.2 mg/dL (8.5-10.1) 7.7 mg/dL (8.5-10.1) Total Bilirubin 0.3 mg/dL (0.2-1.0) Direct Bilirubin < 0.1 mg/dL (0.0-0.2) Aspartate Amino Transf (AST/SGOT) 20 U/L (15-37) Alanine Aminotransferase (ALT/SGPT) 24 U/L (14-59) Alkaline Phosphatase 56 U/L (46-116) Troponin I Quantitative < 0.017 ng/mL (0.000-0.055) < 0.017 ng/mL (0.000-0.055) OF-Ibg-E-Type Natriuretic Peptide 68 pg/mL (0-124) Total Protein 7.2 g/dL (6.4-8.2) Albumin 3.4 g/dL (3.4-5.0) Lipase 220 U/L (73-393) Medications Current Medications Vancomycin HCl (Vanco Per Pharmacy) 1 each PRN DAILY PRN MC SEE COMMENTS; Start 11/08/16 at 16:00; Stop 11/08/16 at 16:40; Status DC Ondansetron HCl (Zofran) 4 mg PRN Q8HRS PRN IV NAUSEA/VOMITING; Start 11/08/16 at 16:00; Stop 11/09/16 at 15:59 Morphine Sulfate 2 mg PRN Q2HR PRN IV PAIN; Start 11/08/16 at 16:00; Stop 11/09 at 15:59; Status UNV Sodium Chloride 1,000 ml @ 100 mls/hr Q10H IV Last administered on 11/09/16 04:38; Start 11/08/16 at 15:56; Stop 11/09/16 at 15:55 Vancomycin HCl 1.5 gm/Sodium Chloride 500 ml @ 250 mls/hr 1X ONCE IV ; Start 11/08/16 at 16:15; Stop 11/08/16 at 18:14; Status DC Aspirin (Ecotrin) 81 mg [id number] PO Last administered on 11/09/16 08:28; Start 11/08/16 at 17:00 Benzonatate (Tessalon Perle) 100 mg [id number] PO Last administered on 11/09/16 08 :28; Start 11/08/16 at 21:00 Diazepam (Valium) 5 mg PRN Q4HRS PRN PO ANXIETY / AGITATION Last administered on 11/08/16 21:12; Start 11/08/16 at 16:45 Diltiazem HCl (Cardizem) 30 mg BID PO Last administered on 11/08/16 21:13; Start 11/08/16 at 21:00 Diphenhydramine HCl (Benadryl) 25 mg PRN Q6HRS PRN PO ALLERGIES; Start at 16:45 Docusate Sodium (Colace) 100 mg PRN BID PRN PO CONSTIPATION; Start 11/08/16 at 16:45 Pantoprazole Sodium (Protonix) 40 mg DAILYAC PO Last administered on 11/09/16 08:28; Start 11/08/16 at 16:30 Non-Formulary Medication 2 puff BID IH ; Start 11/08/16 at 21:00; Stop 11/08/16 at 21:00; Status DC Non-Formulary Medication 1 cap DAILY IH ; Start 11/09/16 at 09:00; Stop at 09:00; Status DC Acetaminophen (Tylenol) 650 mg PRN Q6HRS PRN PO FEVER Last administered on 11/08 21:11; Start 11/08/16 at 16:45 Ondansetron HCl (Zofran) 4 mg PRN Q6HRS PRN IV NAUSEA/VOMITING; Start 11/08/16 at 16:45 Hydralazine HCl (Apresoline) 10 mg PRN Q4HRS PRN IVP ELEVATED BP, SEE COMMENTS ; Start 11/08/16 at 16:45 Docusate Sodium (Colace) 100 mg PRN DAILY PRN PO CONSTIPATION; Start 11/08/16 at 16:45 Albuterol/ Ipratropium (Duoneb) 3 ml RTQID NEB Last administered on 11/09/16 11:06; Start 11/08/16 at 20:00 Albuterol Sulfate (Ventolin Neb Soln) 2.5 mg PRN Q2HR PRN NEB SHORTNESS OF BREATH Last administered on 11/09/16 01:33; Start 11/08/16 at 16:45 Guaifenesin (Mucinex) 600 mg BID PO Last administered on 11/09/16 08:28; Start 11/08/16 at 21:00 Levofloxacin/ Dextrose 150 ml @ 100 mls/hr Q24H IV Last administered on 17:50; Start 11/08/16 at 17:00 Enoxaparin Sodium (Lovenox 40mg Syringe) 40 mg Q24H SQ ; Start 11/08/16 at 17:00 Albuterol/ Ipratropium (Duoneb) 3 ml RTQID NEB ; Start 11/08/16 at 20:00; Status UNV Budesonide (Pulmicort) 0.5 mg RTBID NEB Last administered on 11/09/16 07:08; Start 11/08/16 at 20:00 Ibuprofen (Motrin) 800 mg PRN Q6HRS PRN PO INFLAMMATION Last administered on 12:21; Start 11/08/16 at 23:30 Active Scripts Active [Levofloxacin] 500 MG Tablet 500 Mg PO DAILY06 Cardizem Tablet (Diltiazem Hcl) 30 Mg Tablet 30 Mg PO BID Benzonatate 100 Mg Capsule 100 Mg PO [id number] Aspirin Ec (Aspirin) 81 Mg Tablet. 81 Mg PO [id number] Protonix (Pantoprazole Sodium) 40 Mg Tablet. 1 Tab PO DAILY Reported Mucinex Dm Er 600-30 Mg Tablet (Guaifenesin/Dextromethorphan) 1 Each Tab.er.12h 1 Each PO Benadryl (Diphenhydramine Hcl) 25 Mg Capsule 25 Mg PO PRN PRN Dok (Docusate Sodium) 100 Mg Capsule 100 Mg PO PRN PRN Ibuprofen 400 Mg Tablet 400 Mg PO PRN Q6HRS PRN Vivelle-Dot (Estradiol) 1 Each Patch.tdsw 0.1 Patch TP Valium (Diazepam) 5 Mg Tablet 5 Mg PO PRN Q4HRS PRN Proventil Hfa Inhaler (Albuterol Sulfate) 6.7 Gm Hfa.aer.ad 1 Puff IH PRN PRN Spiriva (Tiotropium [place]) 18 Mcg Cap.w.dev 1 Cap IH DAILY Symbicort 160-4.5 Mcg Inhaler (Budesonide/Formoterol Fumarate) 10.2 Gm Hfa.aer.ad 2 Puff IH BID Vitals/I & O Vital Sign - Last 24 Hours 11/08/16 11/08/16 11/08/16 11/08/16 14:15 15:39 16:51 17:00 Temp 98.0 98.0 98.0 98.0 Pulse 115 101 101 Resp 18 18 18 B/P (MAP) 118/75 (89) 114/73 (87) 138/86 (103) Pulse Ox 97 97 97 O2 Delivery Room Air Room Air Nasal Cannula Nasal Cannula O2 Flow Rate 2.0 2.0 11/08/16 11/08/16 11/08/16 11/08/16 19:00 19:37 20:00 21:13 Temp 98.1 98.1 Pulse 97 97 Resp 18 B/P (MAP) 112/72 (85) 112/72 Pulse Ox 98 100 O2 Delivery Nasal Cannula Nasal Cannula Nasal Cannula O2 Flow Rate 2.0 4.0 4.0 11/08/16 11/09/16 11/09/1620/17 23:26 01:32 04:54 07:00 Temp 97.7 98.0 97.7 97.7 98.0 97.7 Pulse 90 72 82 Resp 18 16 18 B/P (MAP) 124/81 (95) 100/62 (75) 85/47 (60) Pulse Ox 98 95 97 98 O2 Delivery Nasal Cannula Nasal Cannula Nasal Cannula Nasal Cannula O2 Flow Rate 2.0 2.0 2.0 2.0 11/09/16 11/09/16 11/09/16 11/09/16 07:05 07:10 07:20 08:26 Pulse 82 B/P (MAP) 88/39 (55) 88/49 Pulse Ox 95 O2 Delivery Nasal Cannula Nasal Cannula O2 Flow Rate 2.0 2.0 11/09/16 11:07 Pulse Ox 95 O2 Delivery Nasal Cannula O2 Flow Rate 2.0 Intake and Output 11/09/16 11/09/16 11/10/16 15:00 23:00 07:00 Intake Total 440 ml Balance 440 ml COURTNEY BARKSDALE MD Nov 09, 2016 13:15
[2016-11-09] MEDS: ENOXAPARIN 40 MG/0.4 ML SYRINGE. SQ SCH (17:25)
[2016-11-09] MEDS ORDERED: GADOBUTROL 7.5 MMOL/7.5 ML VIAL IV ONE (20:15)
[2016-11-09] MEDS: DOCUSATE SODIUM 100 MG CAPSULE. PO PRN (20:30)
[2016-11-09] MEDS: diazePAM 5 MG TABLET PO PRN (22:43)
[2016-11-10] MEDS: diphenhydrAMINE HCL 25 MG CAPSULE PO PRN ×2 (01:44→23:43)
[2016-11-10] MEDS: ACETAMINOPHEN 325 MG TABLET. PO PRN ×2 (01:44→18:14)
[2016-11-10 04:24] LABS: BASO # 0.1 x10^3/uL (0.0-0.2); BASO % 1 % (0-3); EOS % 2 % (0-3); HEMATOCRIT 36.9 % (36.0-47.0); HEMOGLOBIN 12.1 g/dL (12.0-15.5); LYMPH # 1.6 x10^3/uL (1.0-4.8); LYMPH % 20 % (24-48); MEAN CORPUSCULAR HEMOGLOBIN 30 pg (25-35); MEAN CORPUSCULAR HGB CONC 33 g/dL (31-37); MEAN CORPUSCULAR VOLUME 92 fL (79-100); MONO % 11 % (0-9); NEUT % 67 % (31-73); PLATELET COUNT 178 x10^3/uL (140-400); RED BLOOD COUNT 4.02 x10^6/uL (3.50-5.40); RED CELL DISTRIBUTION WIDTH 13.2 % (11.5-14.5)
[2016-11-10 04:41] LABS: CALCIUM 8.1 mg/dL (8.5-10.1); CREATININE 0.8 mg/dL (0.6-1.0); GFR 71.3; POTASSIUM 4.1 mmol/L (3.5-5.1)
[2016-11-10] MEDS: BUDESONIDE 0.5 MG/2 ML NEBU. NEB SCH ×2 (06:53→20:38)
[2016-11-10] MEDS: IPRATRPIUM/ALBUTEROL 0.5/2.5MG 3 ML NEBU. NEB SCH ×4 (06:54→20:38)
[2016-11-10 07:00] VITALS: BP 113/66
[2016-11-10] MEDS: ASPIRIN ENTERIC COATED 81 MG TABLET.DR. PO SCH (08:42)
[2016-11-10] MEDS: BENZONATATE 100 MG CAPSULE. PO SCH ×3 (08:42→21:19)
[2016-11-10] MEDS: PANTOPRAZOLE 40 MG TABLET.DR. PO SCH (08:42)
[2016-11-10] MEDS: dilTIAZem HCL 30 MG TABLET PO SCH ×2 (08:42→21:20)
--- NOTE | 2016-11-10 10:54 | PDOC ---
SURGICAL PROGRESS NOTE Subjective Pt feels somewhat better and notices the area decrease in size and redness Vital Signs Vital Signs Date Time Temp Pulse Resp B/P (MAP) Pulse Ox O2 Delivery O2 Flow Rate FiO2 11/10/16 10:50 98 Nasal Cannula 2.0 11/10/16 08:42 95 113/66 11/10/16 07:00 97.9 18 97.9 I&O Intake and Output 11/11/16 07:00 Intake Total 120 ml Balance 120 ml Intake Oral 120 ml General: Alert, Oriented X3, Cooperative, No acute distress Abdomen: Soft, Other (area over mass less indurated and erythematous) Labs Laboratory Tests Test 11/08/16 14:00 11/09/16 06:05 11/10/16 04:05 White Blood Count 8.8 x10^3/uL (4.0-11.0) 6.1 x10^3/uL (4.0-11.0) 8.0 x10^3/uL (4.0-11.0) Red Blood Count 4.65 x10^6/uL (3.50-5.40) 3.93 x10^6/uL (3.50-5.40) 4.02 x10^6/uL (3.50-5.40) Hemoglobin 13.9 g/dL (12.0-15.5) 11.9 g/dL (12.0-15.5) 12.1 g/dL (12.0-15.5) Hematocrit 42.7 % (36.0-47.0) 35.4 % (36.0-47.0) 36.9 % (36.0-47.0) Mean Corpuscular Volume 92 fL (79-100) 90 fL (79-100) 92 fL (79-100) Mean Corpuscular Hemoglobin 30 pg (25-35) 30 pg (25-35) 30 pg (25-35) Mean Corpuscular Hemoglobin Concent 33 g/dL (31-37) 34 g/dL (31-37) 33 g/dL (31-37) Red Cell Distribution Width 13.1 % (11.5-14.5) 13.1 % (11.5-14.5) 13.2 % (11.5-14.5) Platelet Count 216 x10^3/uL (140-400) 175 x10^3/uL (140-400) 178 x10^3/uL (140-400) Neutrophils (%) (Auto) 72 % (31-73) 61 % (31-73) 67 % (31-73) Lymphocytes (%) (Auto) 18 % (24-48) 26 % (24-48) 20 % (24-48) Monocytes (%) (Auto) 9 % (0-9) 11 % (0-9) 11 % (0-9) Eosinophils (%) (Auto) 0 % (0-3) 2 % (0-3) 2 % (0-3) Basophils (%) (Auto) 1 % (0-3) 1 % (0-3) 1 % (0-3) Neutrophils # (Auto) 6.3 x10^3uL (1.8-7.7) 3.7 x10^3uL (1.8-7.7) 5.3 x10^3uL (1.8-7.7) Lymphocytes # (Auto) 1.6 x10^3/uL (1.0-4.8) 1.6 x10^3/uL (1.0-4.8) 1.6 x10^3/uL (1.0-4.8) Monocytes # (Auto) 0.8 x10^3/uL (0.0-1.1) 0.7 x10^3/uL (0.0-1.1) 0.9 x10^3/uL (0.0-1.1) Eosinophils # (Auto) 0.0 x10^3/uL (0.0-0.7) 0.1 x10^3/uL (0.0-0.7) 0.1 x10^3/uL (0.0-0.7) Basophils # (Auto) 0.1 x10^3/uL (0.0-0.2) 0.0 x10^3/uL (0.0-0.2) 0.1 x10^3/uL (0.0-0.2) Sodium Level 142 mmol/L (136-145) 141 mmol/L (136-145) 141 mmol/L (136-145) Potassium Level 4.3 mmol/L (3.5-5.1) 4.0 mmol/L (3.5-5.1) 4.1 mmol/L (3.5-5.1) Chloride Level 104 mmol/L (98-107) 108 mmol/L (98-107) 107 mmol/L (98-107) Carbon Dioxide Level 34 mmol/L (21-32) 29 mmol/L (21-32) 29 mmol/L (21-32) Anion Gap 4 (6-14) 4 (6-14) 5 (6-14) Blood Urea Nitrogen 11 mg/dL (7-20) 11 mg/dL (7-20) 10 mg/dL (7-20) Creatinine 0.9 mg/dL (0.6-1.0) 0.8 mg/dL (0.6-1.0) 0.8 mg/dL (0.6-1.0) Estimated GFR (Cockcroft-Gault) 62.3 71.3 71.3 Glucose Level 119 mg/dL (70-99) 93 mg/dL (70-99) 105 mg/dL (70-99) Calcium Level 9.2 mg/dL (8.5-10.1) 7.7 mg/dL (8.5-10.1) 8.1 mg/dL (8.5-10.1) Total Bilirubin 0.3 mg/dL (0.2-1.0) Direct Bilirubin < 0.1 mg/dL (0.0-0.2) Aspartate Amino Transf (AST/SGOT) 20 U/L (15-37) Alanine Aminotransferase (ALT/SGPT) 24 U/L (14-59) Alkaline Phosphatase 56 U/L (46-116) Troponin I Quantitative < 0.017 ng/mL (0.000-0.055) < 0.017 ng/mL (0.000-0.055) LE-Onw-K-Type Natriuretic Peptide 68 pg/mL (0-124) Total Protein 7.2 g/dL (6.4-8.2) Albumin 3.4 g/dL (3.4-5.0) Lipase 220 U/L (73-393) Laboratory Tests Test 11/10/16 04:05 White Blood Count 8.0 x10^3/uL (4.0-11.0) Red Blood Count 4.02 x10^6/uL (3.50-5.40) Hemoglobin 12.1 g/dL (12.0-15.5) Hematocrit 36.9 % (36.0-47.0) Mean Corpuscular Volume 92 fL (79-100) Mean Corpuscular Hemoglobin 30 pg (25-35) Mean Corpuscular Hemoglobin Concent 33 g/dL (31-37) Red Cell Distribution Width 13.2 % (11.5-14.5) Platelet Count 178 x10^3/uL (140-400) Neutrophils (%) (Auto) 67 % (31-73) Lymphocytes (%) (Auto) 20 % (24-48) Monocytes (%) (Auto) 11 % (0-9) Eosinophils (%) (Auto) 2 % (0-3) Basophils (%) (Auto) 1 % (0-3) Neutrophils # (Auto) 5.3 x10^3uL (1.8-7.7) Lymphocytes # (Auto) 1.6 x10^3/uL (1.0-4.8) Monocytes # (Auto) 0.9 x10^3/uL (0.0-1.1) Eosinophils # (Auto) 0.1 x10^3/uL (0.0-0.7) Basophils # (Auto) 0.1 x10^3/uL (0.0-0.2) Sodium Level 141 mmol/L (136-145) Potassium Level 4.1 mmol/L (3.5-5.1) Chloride Level 107 mmol/L (98-107) Carbon Dioxide Level 29 mmol/L (21-32) Anion Gap 5 (6-14) Blood Urea Nitrogen 10 mg/dL (7-20) Creatinine 0.8 mg/dL (0.6-1.0) Estimated GFR (Cockcroft-Gault) 71.3 Glucose Level 105 mg/dL (70-99) Calcium Level 8.1 mg/dL (8.5-10.1) I have reviewed the following MRI reviewed, report pending Problem List Problems Medical Problems: (1) Abdominal fluid collection Status: Acute (2) Abdominal pain Status: Acute (3) Chest pain Status: Acute (4) Syncope Status: Acute Assessment/Plan d/w pt options of drainage vs cont abx she favors drainage will plan OR tomorrow R/B/A d/w pt Problems: CHANDRA CHATTERJEE MD Nov 10, 2016 10:54
[2016-11-10 11:00] VITALS: BP 110/76
--- NOTE | 2016-11-10 11:24 | PDOC ---
PROGRESS NOTES Chief Complaint Chief Complaint syncope, vasovagal likely h/o syncope , possible 2/2 hypoxia chronic hypoxic resp failure abd wall small fluid collectino 2/2 small cellulitis vs. old hematoma COPD exacerbation bronchitis chest pain, 2/2 cough likely htn h/o CAD chf stable, diastolic grade 1 Reflex sympathetic dystrophy tobaccoism bipolar? plan: card, sx consulted, will do MRI as per sx, pt required tho levaquin for now copd meds, duoneb, cough meds cont home meds on NC 2 L dvt ppx consider hold cardizem if cont low BP, waiting for Card consult PTOT MRI pending, as per dr. Carter, will do drainage tmr DNR History of Present Illness History of Present Illness ROS: no fever, chills, sob or chest pain pt likely has bipolar disorder, gave staff including me a hard time in the last admission. has [facility] health, [facility]. pt refused orthostatic bp check again today, but told me her bp is low. 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 very agitated when taking downstairs for MRI yesterday BP at 80s then better. Vitals Vitals Vital Signs Date Time Temp Pulse Resp B/P (MAP) Pulse Ox O2 Delivery O2 Flow Rate FiO2 11/10/16 10:50 98 Nasal Cannula 2.0 11/10/16 08:42 95 113/66 11/10/16 07:00 97.9 18 97.9 Physical Exam General: Alert, Oriented X3, Cooperative, No acute distress Heart: Regular rate, Normal S1, Normal S2 Lungs: Clear Abdomen: Soft, Other (area over mass less indurated and erythematous) Extremities: No edema Skin: No rashes, No breakdown Labs LABS Laboratory Tests Test 11/10/16 04:05 White Blood Count 8.0 x10^3/uL (4.0-11.0) Red Blood Count 4.02 x10^6/uL (3.50-5.40) Hemoglobin 12.1 g/dL (12.0-15.5) Hematocrit 36.9 % (36.0-47.0) Mean Corpuscular Volume 92 fL (79-100) Mean Corpuscular Hemoglobin 30 pg (25-35) Mean Corpuscular Hemoglobin Concent 33 g/dL (31-37) Red Cell Distribution Width 13.2 % (11.5-14.5) Platelet Count 178 x10^3/uL (140-400) Neutrophils (%) (Auto) 67 % (31-73) Lymphocytes (%) (Auto) 20 % (24-48) Monocytes (%) (Auto) 11 % (0-9) Eosinophils (%) (Auto) 2 % (0-3) Basophils (%) (Auto) 1 % (0-3) Neutrophils # (Auto) 5.3 x10^3uL (1.8-7.7) Lymphocytes # (Auto) 1.6 x10^3/uL (1.0-4.8) Monocytes # (Auto) 0.9 x10^3/uL (0.0-1.1) Eosinophils # (Auto) 0.1 x10^3/uL (0.0-0.7) Basophils # (Auto) 0.1 x10^3/uL (0.0-0.2) Sodium Level 141 mmol/L (136-145) Potassium Level 4.1 mmol/L (3.5-5.1) Chloride Level 107 mmol/L (98-107) Carbon Dioxide Level 29 mmol/L (21-32) Anion Gap 5 (6-14) Blood Urea Nitrogen 10 mg/dL (7-20) Creatinine 0.8 mg/dL (0.6-1.0) Estimated GFR (Cockcroft-Gault) 71.3 Glucose Level 105 mg/dL (70-99) Calcium Level 8.1 mg/dL (8.5-10.1) Assessment and Plan Assessmemt and Plan Problems Medical Problems: (1) Abdominal fluid collection Status: Acute (2) Abdominal pain Status: Acute (3) Chest pain Status: Acute (4) Syncope Status: Acute Problems: Comment Review of Relevant I have reviewed the following items lazaro (where applicable) has been applied. Labs Laboratory Tests Test 11/08/16 14:00 11/09/16 06:05 11/10/16 04:05 White Blood Count 8.8 x10^3/uL (4.0-11.0) 6.1 x10^3/uL (4.0-11.0) 8.0 x10^3/uL (4.0-11.0) Red Blood Count 4.65 x10^6/uL (3.50-5.40) 3.93 x10^6/uL (3.50-5.40) 4.02 x10^6/uL (3.50-5.40) Hemoglobin 13.9 g/dL (12.0-15.5) 11.9 g/dL (12.0-15.5) 12.1 g/dL (12.0-15.5) Hematocrit 42.7 % (36.0-47.0) 35.4 % (36.0-47.0) 36.9 % (36.0-47.0) Mean Corpuscular Volume 92 fL (79-100) 90 fL (79-100) 92 fL (79-100) Mean Corpuscular Hemoglobin 30 pg (25-35) 30 pg (25-35) 30 pg (25-35) Mean Corpuscular Hemoglobin Concent 33 g/dL (31-37) 34 g/dL (31-37) 33 g/dL (31-37) Red Cell Distribution Width 13.1 % (11.5-14.5) 13.1 % (11.5-14.5) 13.2 % (11.5-14.5) Platelet Count 216 x10^3/uL (140-400) 175 x10^3/uL (140-400) 178 x10^3/uL (140-400) Neutrophils (%) (Auto) 72 % (31-73) 61 % (31-73) 67 % (31-73) Lymphocytes (%) (Auto) 18 % (24-48) 26 % (24-48) 20 % (24-48) Monocytes (%) (Auto) 9 % (0-9) 11 % (0-9) 11 % (0-9) Eosinophils (%) (Auto) 0 % (0-3) 2 % (0-3) 2 % (0-3) Basophils (%) (Auto) 1 % (0-3) 1 % (0-3) 1 % (0-3) Neutrophils # (Auto) 6.3 x10^3uL (1.8-7.7) 3.7 x10^3uL (1.8-7.7) 5.3 x10^3uL (1.8-7.7) Lymphocytes # (Auto) 1.6 x10^3/uL (1.0-4.8) 1.6 x10^3/uL (1.0-4.8) 1.6 x10^3/uL (1.0-4.8) Monocytes # (Auto) 0.8 x10^3/uL (0.0-1.1) 0.7 x10^3/uL (0.0-1.1) 0.9 x10^3/uL (0.0-1.1) Eosinophils # (Auto) 0.0 x10^3/uL (0.0-0.7) 0.1 x10^3/uL (0.0-0.7) 0.1 x10^3/uL (0.0-0.7) Basophils # (Auto) 0.1 x10^3/uL (0.0-0.2) 0.0 x10^3/uL (0.0-0.2) 0.1 x10^3/uL (0.0-0.2) Sodium Level 142 mmol/L (136-145) 141 mmol/L (136-145) 141 mmol/L (136-145) Potassium Level 4.3 mmol/L (3.5-5.1) 4.0 mmol/L (3.5-5.1) 4.1 mmol/L (3.5-5.1) Chloride Level 104 mmol/L (98-107) 108 mmol/L (98-107) 107 mmol/L (98-107) Carbon Dioxide Level 34 mmol/L (21-32) 29 mmol/L (21-32) 29 mmol/L (21-32) Anion Gap 4 (6-14) 4 (6-14) 5 (6-14) Blood Urea Nitrogen 11 mg/dL (7-20) 11 mg/dL (7-20) 10 mg/dL (7-20) Creatinine 0.9 mg/dL (0.6-1.0) 0.8 mg/dL (0.6-1.0) 0.8 mg/dL (0.6-1.0) Estimated GFR (Cockcroft-Gault) 62.3 71.3 71.3 Glucose Level 119 mg/dL (70-99) 93 mg/dL (70-99) 105 mg/dL (70-99) Calcium Level 9.2 mg/dL (8.5-10.1) 7.7 mg/dL (8.5-10.1) 8.1 mg/dL (8.5-10.1) Total Bilirubin 0.3 mg/dL (0.2-1.0) Direct Bilirubin < 0.1 mg/dL (0.0-0.2) Aspartate Amino Transf (AST/SGOT) 20 U/L (15-37) Alanine Aminotransferase (ALT/SGPT) 24 U/L (14-59) Alkaline Phosphatase 56 U/L (46-116) Troponin I Quantitative < 0.017 ng/mL (0.000-0.055) < 0.017 ng/mL (0.000-0.055) KF-Nmm-J-Type Natriuretic Peptide 68 pg/mL (0-124) Total Protein 7.2 g/dL (6.4-8.2) Albumin 3.4 g/dL (3.4-5.0) Lipase 220 U/L (73-393) Laboratory Tests Test 11/10/16 04:05 White Blood Count 8.0 x10^3/uL (4.0-11.0) Red Blood Count 4.02 x10^6/uL (3.50-5.40) Hemoglobin 12.1 g/dL (12.0-15.5) Hematocrit 36.9 % (36.0-47.0) Mean Corpuscular Volume 92 fL (79-100) Mean Corpuscular Hemoglobin 30 pg (25-35) Mean Corpuscular Hemoglobin Concent 33 g/dL (31-37) Red Cell Distribution Width 13.2 % (11.5-14.5) Platelet Count 178 x10^3/uL (140-400) Neutrophils (%) (Auto) 67 % (31-73) Lymphocytes (%) (Auto) 20 % (24-48) Monocytes (%) (Auto) 11 % (0-9) Eosinophils (%) (Auto) 2 % (0-3) Basophils (%) (Auto) 1 % (0-3) Neutrophils # (Auto) 5.3 x10^3uL (1.8-7.7) Lymphocytes # (Auto) 1.6 x10^3/uL (1.0-4.8) Monocytes # (Auto) 0.9 x10^3/uL (0.0-1.1) Eosinophils # (Auto) 0.1 x10^3/uL (0.0-0.7) Basophils # (Auto) 0.1 x10^3/uL (0.0-0.2) Sodium Level 141 mmol/L (136-145) Potassium Level 4.1 mmol/L (3.5-5.1) Chloride Level 107 mmol/L (98-107) Carbon Dioxide Level 29 mmol/L (21-32) Anion Gap 5 (6-14) Blood Urea Nitrogen 10 mg/dL (7-20) Creatinine 0.8 mg/dL (0.6-1.0) Estimated GFR (Cockcroft-Gault) 71.3 Glucose Level 105 mg/dL (70-99) Calcium Level 8.1 mg/dL (8.5-10.1) Medications Current Medications Vancomycin HCl (Vanco Per Pharmacy) 1 each PRN DAILY PRN MC SEE COMMENTS; Start 11/08/16 at 16:00; Stop 11/08/16 at 16:40; Status DC Ondansetron HCl (Zofran) 4 mg PRN Q8HRS PRN IV NAUSEA/VOMITING; Start 11/08/16 at 16:00; Stop 11/09/16 at 15:59; Status DC Morphine Sulfate 2 mg PRN Q2HR PRN IV PAIN; Start 11/08/16 at 16:00; Stop 11/09 at 15:59; Status UNV Sodium Chloride 1,000 ml @ 100 mls/hr Q10H IV Last administered on 11/09/16t 04:38; Start 11/08/16 at 15:56; Stop 11/09/16 at 15:55; Status DC Vancomycin HCl 1.5 gm/Sodium Chloride 500 ml @ 250 mls/hr 1X ONCE IV ; Start 11/08/16 at 16:15; Stop 11/08/16 at 18:14; Status DC Aspirin (Ecotrin) 81 mg [id number] PO Last administered on 11/10/16 08:42; Start 11/08/16 at 17:00 Benzonatate (Tessalon Perle) 100 mg [id number] PO Last administered on 11/10/16 08 :42; Start 11/08/16 at 21:00 Diazepam (Valium) 5 mg PRN Q4HRS PRN PO ANXIETY / AGITATION Last administered on 11/09/16 22:43; Start 11/08/16 at 16:45 Diltiazem HCl (Cardizem) 30 mg BID PO Last administered on 11/10/16 08:42; Start 11/08/16 at 21:00 Diphenhydramine HCl (Benadryl) 25 mg PRN Q6HRS PRN PO ALLERGIES Last administered on 11/10/16 01:44; Start 11/08/16 at 16:45 Docusate Sodium (Colace) 100 mg PRN BID PRN PO CONSTIPATION Last administered on 11/09/16 20:30; Start 11/08/16 at 16:45 Pantoprazole Sodium (Protonix) 40 mg DAILYAC PO Last administered on 11/10/16 08:42; Start 11/08/16 at 16:30 Non-Formulary Medication 2 puff BID IH ; Start 11/08/16 at 21:00; Stop 11/08/16 at 21:00; Status DC Non-Formulary Medication 1 cap DAILY IH ; Start 11/09/16 at 09:00; Stop at 09:00; Status DC Acetaminophen (Tylenol) 650 mg PRN Q6HRS PRN PO FEVER Last administered on 11/10 01:44; Start 11/08/16 at 16:45 Ondansetron HCl (Zofran) 4 mg PRN Q6HRS PRN IV NAUSEA/VOMITING; Start 11/08/16 at 16:45 Hydralazine HCl (Apresoline) 10 mg PRN Q4HRS PRN IVP ELEVATED BP, SEE COMMENTS ; Start 11/08/16 at 16:45 Docusate Sodium (Colace) 100 mg PRN DAILY PRN PO CONSTIPATION; Start 11/08/16 at 16:45; Stop 11/09/16 at 13:13; Status DC Albuterol/ Ipratropium (Duoneb) 3 ml RTQID NEB Last administered on 11/10/16 10:40; Start 11/08/16 at 20:00 Albuterol Sulfate (Ventolin Neb Soln) 2.5 mg PRN Q2HR PRN NEB SHORTNESS OF BREATH Last administered on 11/09/16 21:24; Start 11/08/16 at 16:45 Guaifenesin (Mucinex) 600 mg BID PO Last administered on 11/10/16 08:42; Start 11/08/16 at 21:00 Levofloxacin/ Dextrose 150 ml @ 100 mls/hr Q24H IV Last administered on 17:25; Start 11/08/16 at 17:00 Enoxaparin Sodium (Lovenox 40mg Syringe) 40 mg Q24H SQ ; Start 11/08/16 at 17:00 Albuterol/ Ipratropium (Duoneb) 3 ml RTQID NEB ; Start 11/08/16 at 20:00; Status UNV Budesonide (Pulmicort) 0.5 mg RTBID NEB Last administered on 11/10/16 06:53; Start 11/08/16 at 20:00 Ibuprofen (Motrin) 800 mg PRN Q6HRS PRN PO INFLAMMATION Last administered on 22:43; Start 11/08/16 at 23:30 Gadobutrol (Gadavist) 7 mmol 1X ONCE IV Last administered on 11/09/16 20:18; Start 11/09/16 at 20:15; Stop 11/09/16 at 20:16; Status DC Active Scripts Active [Levofloxacin] 500 MG Tablet 500 Mg PO DAILY06 Cardizem Tablet (Diltiazem Hcl) 30 Mg Tablet 30 Mg PO BID Benzonatate 100 Mg Capsule 100 Mg PO [id number] Aspirin Ec (Aspirin) 81 Mg Tablet. 81 Mg PO [id number] Protonix (Pantoprazole Sodium) 40 Mg Tablet. 1 Tab PO DAILY Reported Mucinex Dm Er 600-30 Mg Tablet (Guaifenesin/Dextromethorphan) 1 Each Tab.er.12h 1 Each PO Benadryl (Diphenhydramine Hcl) 25 Mg Capsule 25 Mg PO PRN PRN Dok (Docusate Sodium) 100 Mg Capsule 100 Mg PO PRN PRN Ibuprofen 400 Mg Tablet 400 Mg PO PRN Q6HRS PRN Vivelle-Dot (Estradiol) 1 Each Patch.tdsw 0.1 Patch TP Valium (Diazepam) 5 Mg Tablet 5 Mg PO PRN Q4HRS PRN Proventil Hfa Inhaler (Albuterol Sulfate) 6.7 Gm Hfa.aer.ad 1 Puff IH PRN PRN Spiriva (Tiotropium [place]) 18 Mcg Cap.w.dev 1 Cap IH DAILY Symbicort 160-4.5 Mcg Inhaler (Budesonide/Formoterol Fumarate) 10.2 Gm Hfa.aer.ad 2 Puff IH BID Vitals/I & O Vital Sign - Last 24 Hours 11/09/16 11/09/16 11/09/16 11/09/16 14:35 15:00 19:00 20:00 Temp 97.7 97.7 97.7 97.7 Pulse 83 90 Resp 18 18 B/P (MAP) 118/75 (89) 124/72 (89) Pulse Ox 95 97 99 O2 Delivery Nasal Cannula Nasal Cannula Nasal Cannula O2 Flow Rate 2.0 2.0 2.0 11/09/16 11/09/16 11/09/16 11/10/16 20:22 21:24 23:00 03:00 Temp 97.7 97.7 Pulse 83 96 Resp 20 20 B/P (MAP) 118/75 114/62 (79) Pulse Ox 95 99 O2 Delivery Nasal Cannula O2 Flow Rate 2.0 11/10/16 11/10/16 11/10/16 11/10/16 07:00 07:08 08:00 08:42 Temp 97.9 97.9 Pulse 95 95 Resp 18 B/P (MAP) 113/66 (82) 113/66 Pulse Ox 98 99 O2 Delivery Nasal Cannula Nasal Cannula Nasal Cannula O2 Flow Rate 2.0 2.0 2.0 11/10/16 10:50 Pulse Ox 98 O2 Delivery Nasal Cannula O2 Flow Rate 2.0 Intake and Output 11/10/16 11/10/16 11/11/16 15:00 23:00 07:00 Intake Total 120 ml Balance 120 ml COURTNEY BARKSDALE MD Nov 10, 2016 11:23
[2016-11-10] MEDS: diazePAM 5 MG TABLET PO PRN ×2 (14:01→23:44)
--- NOTE | 2016-11-10 15:48 | RAD ---
MR of the abdomen with gadolinium, 11/09/2016: History: Abdominal mass Initial scans were obtained on 11/09/2016. Imaging was performed in axial and coronal planes utilizing a variety of imaging sequences including T2 weighted, fat suppressed T2 weighted and opposed phase gradient echo sequences. Dynamic fat-suppressed T1-weighted sequences were also obtained prior to and following an IV injection of 7 cc of the Gadavist contrast agent. These initial images did not completely include the area of concern in the lower left anterior abdominal wall, and therefore the patient was returned to the department on 11/10/2016 and the imaging was repeated, extending down into the pelvis. The patient's known mass involving the medial aspect of the left rectus abdominis musculature was again identified. The mass measures nearly 3 cm in diameter. It contains 2 nonenhancing cystic-appearing components which are directly adjacent to each other each of which measure approximately 1.5 cm in diameter. There is rim-like enhancement surrounding these fluid collections. The abnormal enhancement also extends into the adjacent subcutaneous soft tissues and more laterally into the left rectus abdominis musculature. This suggests adjacent inflammation. The liver is unremarkable. No biliary ductal abnormality is seen. The pancreas is unremarkable. The spleen shows no abnormality. No significant renal abnormality is detected. IMPRESSION: Small multiloculated fluid collection in the anterior abdominal wall involving the medial aspect of the left rectus abdominis musculature at the upper pelvic level, with moderate adjacent inflammation as described above. Abscess is suspected.
[2016-11-10] MEDS ORDERED: GADOBUTROL 7.5 MMOL/7.5 ML VIAL IV ONE (16:15)
[2016-11-10] MEDS: ENOXAPARIN 40 MG/0.4 ML SYRINGE. SQ SCH (17:00)
[2016-11-10] MEDS: DOCUSATE SODIUM 100 MG CAPSULE. PO PRN (18:14)
[2016-11-10 19:00] VITALS: BP 113/71
[2016-11-10 23:00] VITALS: BP 107/68
[2016-11-10] MEDS: IBUPROFEN 800 MG TABLET. PO PRN (23:43)
[2016-11-11] MEDS: diazePAM 5 MG TABLET PO PRN ×3 (04:15→21:45)
[2016-11-11] MEDS: ACETAMINOPHEN 325 MG TABLET. PO PRN (04:15)
[2016-11-11 07:00] VITALS: BP 103/65
[2016-11-11] MEDS ORDERED: fentaNYL PF VIAL 100 MCG/2 ML VIAL IV PRN (07:00)
[2016-11-11] MEDS ORDERED: ONDANSETRON PF 4 MG/2 ML VIAL. IV PRN (07:00)
[2016-11-11] MEDS ORDERED: PROCHLORPERAZINE 10 MG/2 ML VIAL. IV PRN (07:00)
[2016-11-11] MEDS ORDERED: IV RINGERS,LACTATED 1000ML 1,000 ML IV SCH (07:00)
[2016-11-11] MEDS ORDERED: MORPHINE SULFATE 2 MG/ML DISP.SYRIN. IV PRN (07:00)
[2016-11-11] MEDS ORDERED: LIDOCAINE 1% PF 2 ML VIAL. ID PRN (07:00)
[2016-11-11] MEDS ORDERED: HYDROmorphone 2 MG/ML VIAL IV PRN (07:00)
[2016-11-11] MEDS: IPRATRPIUM/ALBUTEROL 0.5/2.5MG 3 ML NEBU. NEB SCH ×4 (08:06→19:34)
[2016-11-11] MEDS: BUDESONIDE 0.5 MG/2 ML NEBU. NEB SCH ×2 (08:06→19:34)
[2016-11-11] MEDS: dilTIAZem HCL 30 MG TABLET PO SCH ×2 (08:37→21:46)
[2016-11-11] MEDS: BENZONATATE 100 MG CAPSULE. PO SCH ×3 (08:38→21:46)
[2016-11-11] MEDS: ASPIRIN ENTERIC COATED 81 MG TABLET.DR. PO SCH (08:38)
[2016-11-11] MEDS: PANTOPRAZOLE 40 MG TABLET.DR. PO SCH (08:38)
[2016-11-11 09:51] LABS: BASO # 0.1 x10^3/uL (0.0-0.2); BASO % 1 % (0-3); EOS % 2 % (0-3); HEMATOCRIT 41.4 % (36.0-47.0); HEMOGLOBIN 13.4 g/dL (12.0-15.5); LYMPH # 1.3 x10^3/uL (1.0-4.8); LYMPH % 20 % (24-48); MEAN CORPUSCULAR HEMOGLOBIN 30 pg (25-35); MEAN CORPUSCULAR HGB CONC 32 g/dL (31-37); MEAN CORPUSCULAR VOLUME 92 fL (79-100); MONO % 9 % (0-9); NEUT % 68 % (31-73); PLATELET COUNT 200 x10^3/uL (140-400); RED BLOOD COUNT 4.49 x10^6/uL (3.50-5.40); RED CELL DISTRIBUTION WIDTH 13.6 % (11.5-14.5); WHITE BLOOD COUNT 6.6 x10^3/uL (4.0-11.0)
[2016-11-11 10:03] LABS: CALCIUM 8.8 mg/dL (8.5-10.1); CREATININE 0.8 mg/dL (0.6-1.0); GFR 71.3; POTASSIUM 4.2 mmol/L (3.5-5.1)
[2016-11-11 11:00] VITALS: BP 106/65
--- NOTE | 2016-11-11 12:08 | PDOC ---
PROGRESS NOTES Chief Complaint Chief Complaint syncope, vasovagal likely h/o syncope , possible 2/2 hypoxia chronic hypoxic resp failure abd wall small fluid collection 2/2 small cellulitis vs. old hematoma COPD exacerbation bronchitis chest pain, 2/2 cough likely htn h/o CAD chf stable, diastolic grade 1 Reflex sympathetic dystrophy tobaccoism bipolar? plan: card, sx consulted levaquin for now copd meds, duoneb, cough meds cont home meds on NC 2 L dvt ppx PTOT MRI showed small fluid collection, drain by dr. Carter today DNR History of Present Illness History of Present Illness ROS: no fever, chills, sob or chest pain pt likely has bipolar disorder, gave staff including me a hard time in the last admission. has [facility] health, [facility]. pt refused orthostatic bp check again today, but told me her bp is low. 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 very agitated when taking downstairs for MRI BP at 80s then better. Vitals Vitals Vital Signs Date Time Temp Pulse Resp B/P (MAP) Pulse Ox O2 Delivery O2 Flow Rate FiO2 11/11/16 11:26 97.7 82 19 107/61 100 Nasal Cannula 2 97.7 Physical Exam General: Alert, Oriented X3, Cooperative, No acute distress Heart: Regular rate, Normal S1, Normal S2 Lungs: Clear Abdomen: Soft, Other (area over mass less indurated and erythematous) Extremities: No edema Skin: No rashes, No breakdown Labs LABS Laboratory Tests Test 11/11/16 09:15 White Blood Count 6.6 x10^3/uL (4.0-11.0) Red Blood Count 4.49 x10^6/uL (3.50-5.40) Hemoglobin 13.4 g/dL (12.0-15.5) Hematocrit 41.4 % (36.0-47.0) Mean Corpuscular Volume 92 fL (79-100) Mean Corpuscular Hemoglobin 30 pg (25-35) Mean Corpuscular Hemoglobin Concent 32 g/dL (31-37) Red Cell Distribution Width 13.6 % (11.5-14.5) Platelet Count 200 x10^3/uL (140-400) Neutrophils (%) (Auto) 68 % (31-73) Lymphocytes (%) (Auto) 20 % (24-48) Monocytes (%) (Auto) 9 % (0-9) Eosinophils (%) (Auto) 2 % (0-3) Basophils (%) (Auto) 1 % (0-3) Neutrophils # (Auto) 4.4 x10^3uL (1.8-7.7) Lymphocytes # (Auto) 1.3 x10^3/uL (1.0-4.8) Monocytes # (Auto) 0.6 x10^3/uL (0.0-1.1) Eosinophils # (Auto) 0.1 x10^3/uL (0.0-0.7) Basophils # (Auto) 0.1 x10^3/uL (0.0-0.2) Sodium Level 140 mmol/L (136-145) Potassium Level 4.2 mmol/L (3.5-5.1) Chloride Level 105 mmol/L (98-107) Carbon Dioxide Level 33 mmol/L (21-32) Anion Gap 2 (6-14) Blood Urea Nitrogen 10 mg/dL (7-20) Creatinine 0.8 mg/dL (0.6-1.0) Estimated GFR (Cockcroft-Gault) 71.3 Glucose Level 93 mg/dL (70-99) Calcium Level 8.8 mg/dL (8.5-10.1) Assessment and Plan Assessmemt and Plan Problems Medical Problems: (1) Abdominal fluid collection Status: Acute (2) Abdominal pain Status: Acute (3) Chest pain Status: Acute (4) Syncope Status: Acute Problems: Comment Review of Relevant I have reviewed the following items lazaro (where applicable) has been applied. Labs Laboratory Tests Test 11/10/16 04:05 11/11/16 09:15 White Blood Count 8.0 x10^3/uL (4.0-11.0) 6.6 x10^3/uL (4.0-11.0) Red Blood Count 4.02 x10^6/uL (3.50-5.40) 4.49 x10^6/uL (3.50-5.40) Hemoglobin 12.1 g/dL (12.0-15.5) 13.4 g/dL (12.0-15.5) Hematocrit 36.9 % (36.0-47.0) 41.4 % (36.0-47.0) Mean Corpuscular Volume 92 fL (79-100) 92 fL (79-100) Mean Corpuscular Hemoglobin 30 pg (25-35) 30 pg (25-35) Mean Corpuscular Hemoglobin Concent 33 g/dL (31-37) 32 g/dL (31-37) Red Cell Distribution Width 13.2 % (11.5-14.5) 13.6 % (11.5-14.5) Platelet Count 178 x10^3/uL (140-400) 200 x10^3/uL (140-400) Neutrophils (%) (Auto) 67 % (31-73) 68 % (31-73) Lymphocytes (%) (Auto) 20 % (24-48) 20 % (24-48) Monocytes (%) (Auto) 11 % (0-9) 9 % (0-9) Eosinophils (%) (Auto) 2 % (0-3) 2 % (0-3) Basophils (%) (Auto) 1 % (0-3) 1 % (0-3) Neutrophils # (Auto) 5.3 x10^3uL (1.8-7.7) 4.4 x10^3uL (1.8-7.7) Lymphocytes # (Auto) 1.6 x10^3/uL (1.0-4.8) 1.3 x10^3/uL (1.0-4.8) Monocytes # (Auto) 0.9 x10^3/uL (0.0-1.1) 0.6 x10^3/uL (0.0-1.1) Eosinophils # (Auto) 0.1 x10^3/uL (0.0-0.7) 0.1 x10^3/uL (0.0-0.7) Basophils # (Auto) 0.1 x10^3/uL (0.0-0.2) 0.1 x10^3/uL (0.0-0.2) Sodium Level 141 mmol/L (136-145) 140 mmol/L (136-145) Potassium Level 4.1 mmol/L (3.5-5.1) 4.2 mmol/L (3.5-5.1) Chloride Level 107 mmol/L (98-107) 105 mmol/L (98-107) Carbon Dioxide Level 29 mmol/L (21-32) 33 mmol/L (21-32) Anion Gap 5 (6-14) 2 (6-14) Blood Urea Nitrogen 10 mg/dL (7-20) 10 mg/dL (7-20) Creatinine 0.8 mg/dL (0.6-1.0) 0.8 mg/dL (0.6-1.0) Estimated GFR (Cockcroft-Gault) 71.3 71.3 Glucose Level 105 mg/dL (70-99) 93 mg/dL (70-99) Calcium Level 8.1 mg/dL (8.5-10.1) 8.8 mg/dL (8.5-10.1) Laboratory Tests Test 11/11/16 09:15 White Blood Count 6.6 x10^3/uL (4.0-11.0) Red Blood Count 4.49 x10^6/uL (3.50-5.40) Hemoglobin 13.4 g/dL (12.0-15.5) Hematocrit 41.4 % (36.0-47.0) Mean Corpuscular Volume 92 fL (79-100) Mean Corpuscular Hemoglobin 30 pg (25-35) Mean Corpuscular Hemoglobin Concent 32 g/dL (31-37) Red Cell Distribution Width 13.6 % (11.5-14.5) Platelet Count 200 x10^3/uL (140-400) Neutrophils (%) (Auto) 68 % (31-73) Lymphocytes (%) (Auto) 20 % (24-48) Monocytes (%) (Auto) 9 % (0-9) Eosinophils (%) (Auto) 2 % (0-3) Basophils (%) (Auto) 1 % (0-3) Neutrophils # (Auto) 4.4 x10^3uL (1.8-7.7) Lymphocytes # (Auto) 1.3 x10^3/uL (1.0-4.8) Monocytes # (Auto) 0.6 x10^3/uL (0.0-1.1) Eosinophils # (Auto) 0.1 x10^3/uL (0.0-0.7) Basophils # (Auto) 0.1 x10^3/uL (0.0-0.2) Sodium Level 140 mmol/L (136-145) Potassium Level 4.2 mmol/L (3.5-5.1) Chloride Level 105 mmol/L (98-107) Carbon Dioxide Level 33 mmol/L (21-32) Anion Gap 2 (6-14) Blood Urea Nitrogen 10 mg/dL (7-20) Creatinine 0.8 mg/dL (0.6-1.0) Estimated GFR (Cockcroft-Gault) 71.3 Glucose Level 93 mg/dL (70-99) Calcium Level 8.8 mg/dL (8.5-10.1) Medications Current Medications Vancomycin HCl (Vanco Per Pharmacy) 1 each PRN DAILY PRN MC SEE COMMENTS; Start 11/08/16 at 16:00; Stop 11/08/16 at 16:40; Status DC Ondansetron HCl (Zofran) 4 mg PRN Q8HRS PRN IV NAUSEA/VOMITING; Start 11/08/16 at 16:00; Stop 11/09/16 at 15:59; Status DC Morphine Sulfate 2 mg PRN Q2HR PRN IV PAIN; Start 11/08/16 at 16:00; Stop 11/09 at 15:59; Status UNV Sodium Chloride 1,000 ml @ 100 mls/hr Q10H IV Last administered on 11/09/16t 04:38; Start 11/08/16 at 15:56; Stop 11/09/16 at 15:55; Status DC Vancomycin HCl 1.5 gm/Sodium Chloride 500 ml @ 250 mls/hr 1X ONCE IV ; Start 11/08/16 at 16:15; Stop 11/08/16 at 18:14; Status DC Aspirin (Ecotrin) 81 mg [id number] PO Last administered on 11/11/16 08:38; Start 11/08/16 at 17:00 Benzonatate (Tessalon Perle) 100 mg [id number] PO Last administered on 11/11/16 08 :38; Start 11/08/16 at 21:00 Diazepam (Valium) 5 mg PRN Q4HRS PRN PO ANXIETY / AGITATION Last administered on 11/11/16 08:45; Start 11/08/16 at 16:45 Diltiazem HCl (Cardizem) 30 mg BID PO Last administered on 11/11/16 08:37; Start 11/08/16 at 21:00 Diphenhydramine HCl (Benadryl) 25 mg PRN Q6HRS PRN PO ALLERGIES Last administered on 11/10/16 23:43; Start 11/08/16 at 16:45 Docusate Sodium (Colace) 100 mg PRN BID PRN PO CONSTIPATION Last administered on 11/10/16 18:14; Start 11/08/16 at 16:45 Pantoprazole Sodium (Protonix) 40 mg DAILYAC PO Last administered on 11/11/16 08:38; Start 11/08/16 at 16:30 Non-Formulary Medication 2 puff BID IH ; Start 11/08/16 at 21:00; Stop 11/08/16 at 21:00; Status DC Non-Formulary Medication 1 cap DAILY IH ; Start 11/09/16 at 09:00; Stop at 09:00; Status DC Acetaminophen (Tylenol) 650 mg PRN Q6HRS PRN PO FEVER Last administered on 11/11 04:15; Start 11/08/16 at 16:45 Ondansetron HCl (Zofran) 4 mg PRN Q6HRS PRN IV NAUSEA/VOMITING; Start 11/08/16 at 16:45 Hydralazine HCl (Apresoline) 10 mg PRN Q4HRS PRN IVP ELEVATED BP, SEE COMMENTS ; Start 11/08/16 at 16:45 Docusate Sodium (Colace) 100 mg PRN DAILY PRN PO CONSTIPATION; Start 11/08/16 at 16:45; Stop 11/09/16 at 13:13; Status DC Albuterol/ Ipratropium (Duoneb) 3 ml RTQID NEB Last administered on 11/11/16 08:06; Start 11/08/16 at 20:00 Albuterol Sulfate (Ventolin Neb Soln) 2.5 mg PRN Q2HR PRN NEB SHORTNESS OF BREATH Last administered on 11/09/16 21:24; Start 11/08/16 at 16:45 Guaifenesin (Mucinex) 600 mg BID PO Last administered on 11/11/16 08:38; Start 11/08/16 at 21:00 Levofloxacin/ Dextrose 150 ml @ 100 mls/hr Q24H IV Last administered on 17:59; Start 11/08/16 at 17:00 Enoxaparin Sodium (Lovenox 40mg Syringe) 40 mg Q24H SQ ; Start 11/08/16 at 17:00 Albuterol/ Ipratropium (Duoneb) 3 ml RTQID NEB ; Start 11/08/16 at 20:00; Status UNV Budesonide (Pulmicort) 0.5 mg RTBID NEB Last administered on 11/11/16 08:06; Start 11/08/16 at 20:00 Ibuprofen (Motrin) 800 mg PRN Q6HRS PRN PO INFLAMMATION Last administered on 23:43; Start 11/08/16 at 23:30 Gadobutrol (Gadavist) 7 mmol 1X ONCE IV Last administered on 11/09/16 20:18; Start 11/09/16 at 20:15; Stop 11/09/16 at 20:16; Status DC Ondansetron HCl (Zofran) 4 mg PRN Q6HRS PRN IV NAUSEA/VOMITING; Start 11/11/16 at 07:00; Stop 11/12/16 at 06:59 Fentanyl Citrate (Fentanyl 2ml Vial) 25 mcg PRN Q5MIN PRN IV MILD PAIN; Start 11/11/16 at 07:00; Stop 11/12/16 at 06:59 Fentanyl Citrate (Fentanyl 2ml Vial) 50 mcg PRN Q5MIN PRN IV MODERATE PAIN; Start 11/11/16 at 07:00; Stop 11/12/16 at 06:59 Morphine Sulfate 1 mg PRN Q10MIN PRN IV SEVERE PAIN; Start 11/11/16 at 07:00; Stop 11/12/16 at 06:59; Status UNV Ringer's Solution 1,000 ml @ 0 mls/hr Q0M IV Last administered on 11/11/16 11 :41; Start 11/11/16 at 07:00; Stop 11/11/16 at 18:59 Lidocaine HCl (Xylocaine-Mpf 1% Vial) 2 ml PRN 1X PRN ID PRIOR TO IV START; Start 11/11/16 at 07:00; Stop 11/12/16 at 06:59 Hydromorphone HCl (Dilaudid) 0.5 mg PRN Q10MIN PRN IV SEV PAIN, Second choice; Start 11/11/16 at 07:00; Stop 11/12/16 at 06:59; Status UNV Prochlorperazine Edisylate (Compazine) 5 mg PACU PRN PRN IV NAUSEA, MRX1; Start 11/11/16 at 07:00; Stop 11/12/16 at 06:59 Gadobutrol (Gadavist) 7 mmol 1X ONCE IV Last administered on 11/10/16 16:07; Start 11/10/16 at 16:15; Stop 11/10/16 at 16:44; Status DC Active Scripts Active [Levofloxacin] 500 MG Tablet 500 Mg PO DAILY06 Cardizem Tablet (Diltiazem Hcl) 30 Mg Tablet 30 Mg PO BID Benzonatate 100 Mg Capsule 100 Mg PO [id number] Aspirin Ec (Aspirin) 81 Mg Tablet. 81 Mg PO DAILYWBKFT Protonix (Pantoprazole Sodium) 40 Mg Tablet. 1 Tab PO DAILY Reported Mucinex Dm Er 600-30 Mg Tablet (Guaifenesin/Dextromethorphan) 1 Each Tab.er.12h 1 Each PO Benadryl (Diphenhydramine Hcl) 25 Mg Capsule 25 Mg PO PRN PRN Dok (Docusate Sodium) 100 Mg Capsule 100 Mg PO PRN PRN Ibuprofen 400 Mg Tablet 400 Mg PO PRN Q6HRS PRN Vivelle-Dot (Estradiol) 1 Each Patch.tdsw 0.1 Patch TP Valium (Diazepam) 5 Mg Tablet 5 Mg PO PRN Q4HRS PRN Proventil Hfa Inhaler (Albuterol Sulfate) 6.7 Gm Hfa.aer.ad 1 Puff IH PRN PRN Spiriva (Tiotropium [place]) 18 Mcg Cap.w.dev 1 Cap IH DAILY Symbicort 160-4.5 Mcg Inhaler (Budesonide/Formoterol Fumarate) 10.2 Gm Hfa.aer.ad 2 Puff IH BID Vitals/I & O Vital Sign - Last 24 Hours 11/10/16 11/10/16 11/10/16 11/10/16 15:41 19:00 20:00 21:07 Temp 98.1 98.1 Pulse 98 Resp 18 B/P (MAP) 113/71 (85) Pulse Ox 93 95 O2 Delivery Nasal Cannula Nasal Cannula Nasal Cannula Nasal Cannula O2 Flow Rate 2.0 2.0 2.0 2.0 11/10/16 11/10/16 11/10/16 11/11/16 21:08 21:20 23:00 07:00 Temp 97.7 98.1 97.7 98.1 Pulse 94 109 103 Resp 18 16 B/P (MAP) 119/60 107/68 (81) 103/65 (78) Pulse Ox 95 96 99 O2 Delivery Nasal Cannula Nasal Cannula Nasal Cannula O2 Flow Rate 2.0 2.0 2.0 11/11/16 11/11/16 11/11/16 11/11/16 08:00 08:07 08:37 11:00 Temp 97.7 97.7 Pulse 103 97 Resp 18 B/P (MAP) 103/65 106/65 (79) Pulse Ox 98 99 O2 Delivery Nasal Cannula Nasal Cannula Nasal Cannula O2 Flow Rate 2.0 2.0 3.0 11/11/16 11:26 Temp 97.7 97.7 Pulse 82 Resp 19 B/P (MAP) 107/61 Pulse Ox 100 O2 Delivery Nasal Cannula O2 Flow Rate 2 COURTNEY BARKSDALE MD Nov 11, 2016 12:07
--- NOTE | 2016-11-11 12:22 | PDOC ---
SURGICAL PROGRESS NOTE Subjective Pre-Op Note 66 yo F with abd wall abscess, recurrent MRI c/w this, no other findings Pt seen and reexamined. Assessment unchanged TO OR for abd wall I and D R/B/A d/w pt Vital Signs Vital Signs Date Time Temp Pulse Resp B/P (MAP) Pulse Ox O2 Delivery O2 Flow Rate FiO2 11/11/16 11:26 97.7 82 19 107/61 100 Nasal Cannula 2 97.7 Labs Laboratory Tests Test 11/10/16 04:05 11/11/16 09:15 White Blood Count 8.0 x10^3/uL (4.0-11.0) 6.6 x10^3/uL (4.0-11.0) Red Blood Count 4.02 x10^6/uL (3.50-5.40) 4.49 x10^6/uL (3.50-5.40) Hemoglobin 12.1 g/dL (12.0-15.5) 13.4 g/dL (12.0-15.5) Hematocrit 36.9 % (36.0-47.0) 41.4 % (36.0-47.0) Mean Corpuscular Volume 92 fL (79-100) 92 fL (79-100) Mean Corpuscular Hemoglobin 30 pg (25-35) 30 pg (25-35) Mean Corpuscular Hemoglobin Concent 33 g/dL (31-37) 32 g/dL (31-37) Red Cell Distribution Width 13.2 % (11.5-14.5) 13.6 % (11.5-14.5) Platelet Count 178 x10^3/uL (140-400) 200 x10^3/uL (140-400) Neutrophils (%) (Auto) 67 % (31-73) 68 % (31-73) Lymphocytes (%) (Auto) 20 % (24-48) 20 % (24-48) Monocytes (%) (Auto) 11 % (0-9) 9 % (0-9) Eosinophils (%) (Auto) 2 % (0-3) 2 % (0-3) Basophils (%) (Auto) 1 % (0-3) 1 % (0-3) Neutrophils # (Auto) 5.3 x10^3uL (1.8-7.7) 4.4 x10^3uL (1.8-7.7) Lymphocytes # (Auto) 1.6 x10^3/uL (1.0-4.8) 1.3 x10^3/uL (1.0-4.8) Monocytes # (Auto) 0.9 x10^3/uL (0.0-1.1) 0.6 x10^3/uL (0.0-1.1) Eosinophils # (Auto) 0.1 x10^3/uL (0.0-0.7) 0.1 x10^3/uL (0.0-0.7) Basophils # (Auto) 0.1 x10^3/uL (0.0-0.2) 0.1 x10^3/uL (0.0-0.2) Sodium Level 141 mmol/L (136-145) 140 mmol/L (136-145) Potassium Level 4.1 mmol/L (3.5-5.1) 4.2 mmol/L (3.5-5.1) Chloride Level 107 mmol/L (98-107) 105 mmol/L (98-107) Carbon Dioxide Level 29 mmol/L (21-32) 33 mmol/L (21-32) Anion Gap 5 (6-14) 2 (6-14) Blood Urea Nitrogen 10 mg/dL (7-20) 10 mg/dL (7-20) Creatinine 0.8 mg/dL (0.6-1.0) 0.8 mg/dL (0.6-1.0) Estimated GFR (Cockcroft-Gault) 71.3 71.3 Glucose Level 105 mg/dL (70-99) 93 mg/dL (70-99) Calcium Level 8.1 mg/dL (8.5-10.1) 8.8 mg/dL (8.5-10.1) Laboratory Tests Test 11/11/16 09:15 White Blood Count 6.6 x10^3/uL (4.0-11.0) Red Blood Count 4.49 x10^6/uL (3.50-5.40) Hemoglobin 13.4 g/dL (12.0-15.5) Hematocrit 41.4 % (36.0-47.0) Mean Corpuscular Volume 92 fL (79-100) Mean Corpuscular Hemoglobin 30 pg (25-35) Mean Corpuscular Hemoglobin Concent 32 g/dL (31-37) Red Cell Distribution Width 13.6 % (11.5-14.5) Platelet Count 200 x10^3/uL (140-400) Neutrophils (%) (Auto) 68 % (31-73) Lymphocytes (%) (Auto) 20 % (24-48) Monocytes (%) (Auto) 9 % (0-9) Eosinophils (%) (Auto) 2 % (0-3) Basophils (%) (Auto) 1 % (0-3) Neutrophils # (Auto) 4.4 x10^3uL (1.8-7.7) Lymphocytes # (Auto) 1.3 x10^3/uL (1.0-4.8) Monocytes # (Auto) 0.6 x10^3/uL (0.0-1.1) Eosinophils # (Auto) 0.1 x10^3/uL (0.0-0.7) Basophils # (Auto) 0.1 x10^3/uL (0.0-0.2) Sodium Level 140 mmol/L (136-145) Potassium Level 4.2 mmol/L (3.5-5.1) Chloride Level 105 mmol/L (98-107) Carbon Dioxide Level 33 mmol/L (21-32) Anion Gap 2 (6-14) Blood Urea Nitrogen 10 mg/dL (7-20) Creatinine 0.8 mg/dL (0.6-1.0) Estimated GFR (Cockcroft-Gault) 71.3 Glucose Level 93 mg/dL (70-99) Calcium Level 8.8 mg/dL (8.5-10.1) Problem List Problems Medical Problems: (1) Abdominal fluid collection Status: Acute (2) Abdominal pain Status: Acute (3) Chest pain Status: Acute (4) Syncope Status: Acute Problems: CHANDRA CHATTERJEE MD Nov 11, 2016 12:22
[2016-11-11] MEDS ORDERED: PROPOFOL 20 ML IV ONE (12:27)
[2016-11-11] MEDS ORDERED: LIDOCAINE 2% PF Vial for OR 5 ML VIAL. ONE (12:27)
[2016-11-11] MEDS ORDERED: DEXAMETHASONE SOD PHOS 20 MG/5 ML VIAL. ONE (12:35)
[2016-11-11] MEDS ORDERED: ONDANSETRON PF 4 MG/2 ML VIAL. ONE (12:35)
[2016-11-11] MEDS ORDERED: SEVOFLURANE 16 TO 30 MINUTES. IH ONE (12:47)
--- NOTE | 2016-11-11 12:57 | PDOC4 ---
OPERATIVE NOTE Date: Date: Nov 11, 2016 Pre-Op Diagnosis: Abdominal wall abscess Post-Op Diagnosis: same Procedure Performed: Incision and drainage of abdominal wall abscess Surgeon: Cayetano Chatterjee Anesthesia Type: GETA Blood Loss: minimal Specimans Obtained: cultures Findings: abd wall abscess, no obvious communication with intraabdominal process Complications: none Operative Note: After obtaining informed consent, patient was taken to the OR, and induced under GETA. Patient was prepped in the usual fashion over the abdominal wall. Abscess was identified and incision was made over fluctuant area using 15 blade scalpel. Purulent material was released. Cultures were obtained. Examination of the wound did not demonstrate any connection with intraabdominal viscera. Wound was packed with iodoform gauze. Dressing applied. No immediate complications. All counts correct. Patient tolerated procedure well and sent to PACU in stable condition. CAYETANO CHATTERJEE MD Nov 11, 2016 12:57
[2016-11-11] MEDS ORDERED: fentaNYL PF VIAL 100 MCG/2 ML VIAL ONE (12:59)
[2016-11-11] MEDS ORDERED: 0.9 % SODIUM CHLORIDE 10 ML DISP.SYRIN. IV PRN (13:00)
[2016-11-11] MEDS: fentaNYL PF VIAL 100 MCG/2 ML VIAL IV PRN ×2 (13:01→13:12)
[2016-11-11 13:45] VITALS: BP 101/59
[2016-11-11 15:00] VITALS: BP 101/59
[2016-11-11] MEDS: ENOXAPARIN 40 MG/0.4 ML SYRINGE. SQ SCH (16:45)
[2016-11-11] MEDS: DOCUSATE SODIUM 100 MG CAPSULE. PO PRN (16:51)
[2016-11-11] MEDS: IBUPROFEN 800 MG TABLET. PO PRN ×2 (16:52→23:56)
[2016-11-11 19:33] VITALS: BP 118/62
[2016-11-11] MEDS: diphenhydrAMINE HCL 25 MG CAPSULE PO PRN (21:46)
[2016-11-11 23:30] VITALS: BP 107/66
[2016-11-12] MEDS: ALBUTEROL SULFATE 2.5 MG/3 ML NEBU. NEB PRN (00:42)
[2016-11-12] MEDS: ONDANSETRON ODT 4 MG TAB.RAPDIS. PO PRN ×2 (01:17→01:36)
[2016-11-12] MEDS ORDERED: DIGOXIN 250 MCG TABLET. PO ONE (01:45)
[2016-11-12] MEDS: diazePAM 5 MG TABLET PO PRN (01:58)
[2016-11-12 03:34] VITALS: BP 109/74
[2016-11-12 05:15] LABS: BASO % 0 % (0-3); EOS % 0 % (0-3); HEMATOCRIT 36.7 % (36.0-47.0); HEMOGLOBIN 12.6 g/dL (12.0-15.5); LYMPH # 0.7 x10^3/uL (1.0-4.8); LYMPH % 7 % (24-48); MEAN CORPUSCULAR HEMOGLOBIN 31 pg (25-35); MEAN CORPUSCULAR HGB CONC 34 g/dL (31-37); MEAN CORPUSCULAR VOLUME 89 fL (79-100); MONO % 7 % (0-9); NEUT % 86 % (31-73); PLATELET COUNT 186 x10^3/uL (140-400); RED BLOOD COUNT 4.11 x10^6/uL (3.50-5.40); RED CELL DISTRIBUTION WIDTH 13.1 % (11.5-14.5); WHITE BLOOD COUNT 9.4 x10^3/uL (4.0-11.0)
[2016-11-12 05:30] LABS: CALCIUM 8.5 mg/dL (8.5-10.1); CREATININE 0.8 mg/dL (0.6-1.0); GFR 71.3; POTASSIUM 4.5 mmol/L (3.5-5.1)
[2016-11-12 07:00] VITALS: BP 107/38
[2016-11-12] MEDS: IPRATRPIUM/ALBUTEROL 0.5/2.5MG 3 ML NEBU. NEB SCH ×2 (07:49→12:28)
[2016-11-12] MEDS: BUDESONIDE 0.5 MG/2 ML NEBU. NEB SCH (07:49)
[2016-11-12] MEDS: PANTOPRAZOLE 40 MG TABLET.DR. PO SCH (10:05)
[2016-11-12] MEDS: ASPIRIN ENTERIC COATED 81 MG TABLET.DR. PO SCH (10:05)
[2016-11-12] MEDS: BENZONATATE 100 MG CAPSULE. PO SCH (10:06)
[2016-11-12] MEDS: dilTIAZem HCL 30 MG TABLET PO SCH (10:06)
[2016-11-12] MEDS: IBUPROFEN 800 MG TABLET. PO PRN (10:07)
[2016-11-12] MEDS: DOCUSATE SODIUM 100 MG CAPSULE. PO PRN (10:07)
[2016-11-12 11:00] VITALS: BP 107/66
--- NOTE | 2016-11-12 11:09 | PDOC ---
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0) 36.7 % (36.0-47.0) Mean Corpuscular Volume 92 fL (79-100) 89 fL (79-100) Mean Corpuscular Hemoglobin 30 pg (25-35) 31 pg (25-35) Mean Corpuscular Hemoglobin Concent 32 g/dL (31-37) 34 g/dL (31-37) Red Cell Distribution Width 13.6 % (11.5-14.5) 13.1 % (11.5-14.5) Platelet Count 200 x10^3/uL (140-400) 186 x10^3/uL (140-400) Neutrophils (%) (Auto) 68 % (31-73) 86 % (31-73) Lymphocytes (%) (Auto) 20 % (24-48) 7 % (24-48) Monocytes (%) (Auto) 9 % (0-9) 7 % (0-9) Eosinophils (%) (Auto) 2 % (0-3) 0 % (0-3) Basophils (%) (Auto) 1 % (0-3) 0 % (0-3) Neutrophils # (Auto) 4.4 x10^3uL (1.8-7.7) 8.1 x10^3uL (1.8-7.7) Lymphocytes # (Auto) 1.3 x10^3/uL (1.0-4.8) 0.7 x10^3/uL (1.0-4.8) Monocytes # (Auto) 0.6 x10^3/uL (0.0-1.1) 0.7 x10^3/uL (0.0-1.1) Eosinophils # (Auto) 0.1 x10^3/uL (0.0-0.7) 0.0 x10^3/uL (0.0-0.7) Basophils # (Auto) 0.1 x10^3/uL (0.0-0.2) 0.0 x10^3/uL (0.0-0.2) Sodium Level 140 mmol/L (136-145) 138 mmol/L (136-145) Potassium Level 4.2 mmol/L (3.5-5.1) 4.5 mmol/L (3.5-5.1) Chloride Level 105 mmol/L (98-107) 102 mmol/L (98-107) Carbon Dioxide Level 33 mmol/L (21-32) 32 mmol/L (21-32) Anion Gap 2 (6-14) 4 (6-14) Blood Urea Nitrogen 10 mg/dL (7-20) 14 mg/dL (7-20) Creatinine 0.8 mg/dL (0.6-1.0) 0.8 mg/dL (0.6-1.0) Estimated GFR (Cockcroft-Gault) 71.3 71.3 Glucose Level 93 mg/dL (70-99) 131 mg/dL (70-99) Calcium Level 8.8 mg/dL (8.5-10.1) 8.5 mg/dL (8.5-10.1) Laboratory Tests Test 11/12/16 04:48 White Blood Count 9.4 x10^3/uL (4.0-11.0) Red Blood Count 4.11 x10^6/uL (3.50-5.40) Hemoglobin 12.6 g/dL (12.0-15.5) Hematocrit 36.7 % (36.0-47.0) Mean Corpuscular Volume 89 fL (79-100) Mean Corpuscular Hemoglobin 31 pg (25-35) Mean Corpuscular Hemoglobin Concent 34 g/dL (31-37) Red Cell Distribution Width 13.1 % (11.5-14.5) Platelet Count 186 x10^3/uL (140-400) Neutrophils (%) (Auto) 86 % (31-73) Lymphocytes (%) (Auto) 7 % (24-48) Monocytes (%) (Auto) 7 % (0-9) Eosinophils (%) (Auto) 0 % (0-3) Basophils (%) (Auto) 0 % (0-3) Neutrophils # (Auto) 8.1 x10^3uL (1.8-7.7) Lymphocytes # (Auto) 0.7 x10^3/uL (1.0-4.8) Monocytes # (Auto) 0.7 x10^3/uL (0.0-1.1) Eosinophils # (Auto) 0.0 x10^3/uL (0.0-0.7) Basophils # (Auto) 0.0 x10^3/uL (0.0-0.2) Sodium Level 138 mmol/L (136-145) Potassium Level 4.5 mmol/L (3.5-5.1) Chloride Level 102 mmol/L (98-107) Carbon Dioxide Level 32 mmol/L (21-32) Anion Gap 4 (6-14) Blood Urea Nitrogen 14 mg/dL (7-20) Creatinine 0.8 mg/dL (0.6-1.0) Estimated GFR (Cockcroft-Gault) 71.3 Glucose Level 131 mg/dL (70-99) Calcium Level 8.5 mg/dL (8.5-10.1) Problem List Problems Medical Problems: (1) Abdominal fluid collection Status: Acute (2) Abdominal pain Status: Acute (3) Chest pain Status: Acute (4) Syncope Status: Acute Assessment/Plan s/p I&D continue wound care, abx If dcs home FU in clinic with Dr Carter next week Problems: JOHN BALDWIN MD 11/12/16 1159: SURGICAL PROGRESS NOTE Assessment/Plan Agree with Beto's assessment and plan. Problems: MILTON YUEN APRN Nov 12, 2016 11:09 JOHN BALDWIN MD Nov 12, 2016 11:59
[2016-11-12] MEDS ORDERED: LEVO750T31 PO (11:37)
[2016-11-12] MEDS ORDERED: SODIUM PHOSPHATES 19/7GM 133 ML ENEMA. PR ONE (12:45)
--- NOTE | 2016-11-12 13:57 | PDOC3 ---
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 Pt was dced here 05/2016, AT THAT TIME, She came from home for syncope. Pt has very vague complain and cannot be trusted. brain MRI neg. She refused to do orthostatic BP CHEck altho her BP is at lower side. She is on O2 2L 12/09, saying she has more sob, however, she looked calm to me. She would appears sob if tells her decrease NC 4L to 2L, but feels calm if we just turn the o2 DOWN to 2L wo telling her, and her sat is 95% on RA. She said her [facility] would not [facility] portable [facility]2 tank, however, SW called [facility] , who has been willing to just waiting for [facility], not ours. 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 She was eventually dced home with portable o2 tank. This time, she felt more cough with some mucus, on home o2 2L. sHE ALSO c/o some chest pain today, substernal, no radiation. now chest pain free in ER. She said she usually uses wheelchair, and syncoped today. However, she can not tell how me the details. She said she was combing her hair then passed out, but cannot tell me if she felt on the chair or the floor. She said her visiting nurse was there and came to see her and then called EMS. She also has h/o multiple abd sx 27ys ago, started with bowel perforation, then several sx, complicated with fistula. She feels the scar tissues has pain, erythema, for 3 days, no skin discharge, or fever, or chills. 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 She said [facility] gave her cipro 3 weeks ago for same thing, was better. CT showed 1. Small mass in the anterior abdominal wall at the upper pelvic level most likely representing complex fluid such as an old hematoma, although an infected hematoma or abscess cannot be excluded. smoke 6 cig per day. MRI showed small abd wall abcess ,pt got i and d by dr. Carter on 11/11 with wound open and packing, cx still pending. However, pt behaves very paronoid, exactly like when she was here 05/2016, required to leave the hospital on day , and questions every staff about the care and threaten to call 911 to leave the hosp now. as per sx, ok to dc today, pt also refuse nurse to change dressing for her. refuse orthostatic check. dc home with HH, cont wound care, levaquin for another 5ds, fu with sx at the clinic for cx result. dc time 40min General: Alert, Oriented X3, Cooperative, No acute distress Heart: Regular rate, Normal S1, Normal S2 Lungs: Clear Abdomen: Soft, Other (area over mass less indurated and erythematous) Extremities: No edema Skin: No rashes, No breakdown Patient History: FH: [place] (myocardial infarction) 33 FATHER 32 MOTHER Problems: Disposition HH CONDITION AT DISCHARGE: Improved, Stable Diet regular Scheduled Aspirin (Aspirin Ec), 81 MG PO [id number] Benzonatate (Benzonatate), 100 MG PO [id number] Budesonide/Formoterol Fumarate (Symbicort 160-4.5 Mcg Inhaler), 2 PUFF IH BID, ( Reported) Diltiazem Hcl (Cardizem Tablet), 30 MG PO BID Levofloxacin (Levaquin), 750 MG PO [id number] Pantoprazole Sodium (Protonix), 1 TAB PO DAILY Tiotropium [place] (Spiriva), 1 CAP IH DAILY, (Reported) Scheduled PRN Albuterol Sulfate (Proventil Hfa Inhaler), 1 PUFF IH PRN PRN for WHEEZING, ( Reported) Diazepam (Valium), 5 MG PO PRN Q4HRS PRN for ANXIETY / AGITATION, (Reported) Diphenhydramine Hcl (Benadryl), 25 MG PO PRN PRN for ALLERGIES, (Reported) Docusate Sodium (Dok), 100 MG PO PRN PRN for CONSTIPATION, (Reported) Ibuprofen (Ibuprofen), 400 MG PO PRN Q6HRS PRN for INFLAMMATION, (Reported) Miscellaneous Medications Estradiol (Vivelle-Dot), 0.1 PATCH TP, (Reported) Guaifenesin/Dextromethorphan (Mucinex Dm Er 600-30 Mg Tablet), 1 EACH PO, ( Reported) Discontinued Medications [Levofloxacin], 500 MG PO DAILY06 Follow Up sx next week COURTNEY BARKSDALE MD Nov 12, 2016 13:57
== END 2016-11-12 14:15 | disposition home health service (06) | DRG 580 ==
LOC: ER 13:46 → 4 NORTH 15:37 → OBSVTOIN 11-09 09:39
PROVIDERS: ADMIT Internal Medicine; ATTEND Internal Medicine
PROC: 0W9F0ZZ Drainage of Abdominal Wall, Open Approach (ICD-10-PCS; principal; 2016-11-11 12:45)
DX: L02.211 Cutaneous abscess of abdominal wall (principal); I50.30 Unspecified diastolic (congestive) heart failure; I95.9 Hypotension, unspecified; J96.11 Chronic respiratory failure with hypoxia; I11.0 Hypertensive heart disease with heart failure; J44.1 Chronic obstructive pulmonary disease with (acute) exacerbation; G90.50 Complex regional pain syndrome I, unspecified; Z99.81 Dependence on supplemental oxygen; L03.311 Cellulitis of abdominal wall; R55 Syncope and collapse; J45.909 Unspecified asthma, uncomplicated; I25.10 Atherosclerotic heart disease of native coronary artery without angina pectoris; F42.9 Obsessive-compulsive disorder, unspecified; F41.9 Anxiety disorder, unspecified; F17.210 Nicotine dependence, cigarettes, uncomplicated; F32.9 Major depressive disorder, single episode, unspecified; M19.90 Unspecified osteoarthritis, unspecified site; Z66 Do not resuscitate; I25.2 Old myocardial infarction; Z87.01 Personal history of pneumonia (recurrent); Z90.49 Acquired absence of other specified parts of digestive tract; Z90.89 Acquired absence of other organs; Z82.49 Family history of ischemic heart disease and other diseases of the circulatory system; Z88.0 Allergy status to penicillin; Z88.5 Allergy status to narcotic agent; Z91.041 Radiographic dye allergy status
CPT/HCPCS: 36415; 71010; 74176; 74183; 80048; 80076; 83690; 83880; 84484; 85025; 87071; 87075; 87205; 93005; 94250; 94640; 94760; A9585; G0378; G0379; J1100; J1956; J2405; J2704; J3010; J7030; J7120; J7613; J7620; J7626; Q0162; Q0163; 99285-25; J2001

== ENCOUNTER 2017-09-14 17:37 | Inpatient (IN) | payer MEDICARE ==
[2017-09-14 18:21] LABS: BASO # 0.1 x10^3/uL (0.0-0.2); BASO % 1 % (0-3); EOS % 0 % (0-3); HEMATOCRIT 30.5 % (36.0-47.0); HEMOGLOBIN 9.5 g/dL (12.0-15.5); LYMPH # 1.1 x10^3/uL (1.0-4.8); LYMPH % 5 % (24-48); MEAN CORPUSCULAR HEMOGLOBIN 22 pg (25-35); MEAN CORPUSCULAR HGB CONC 31 g/dL (31-37); MEAN CORPUSCULAR VOLUME 70 fL (79-100); MONO # 1.9 x10^3/uL (0.0-1.1); MONO % 9 % (0-9); NEUT # 17.8 x10^3uL (1.8-7.7); NEUT % 85 % (31-73); PLATELET COUNT 211 x10^3/uL (140-400); RED BLOOD COUNT 4.36 x10^6/uL (3.50-5.40); RED CELL DISTRIBUTION WIDTH 21.6 % (11.5-14.5)
[2017-09-14 18:23] LABS: ADD MAN DIFF? YES
[2017-09-14 18:31] LABS: D-DIMER 0.38 ug/mlFEU (0.00-0.50)
[2017-09-14 18:32] LABS: ANION GAP 6 (6-14); BLOOD UREA NITROGEN 10 mg/dL (7-20); BUN/CREATININE RATIO 14 (6-20); CARBON DIOXIDE 29 mmol/L (21-32); CHLORIDE 100 mmol/L (98-107); CREATININE 0.7 mg/dL (0.6-1.0); GFR 83.2; GLUCOSE 127 mg/dL (70-99); POTASSIUM 3.8 mmol/L (3.5-5.1); SODIUM 135 mmol/L (136-145)
[2017-09-14 18:37] LABS: ALBUMIN/GLOBULIN RATIO 0.8 (1.0-1.7); ALK PHOS 63 U/L (46-116); ALT (SGPT) 30 U/L (14-59); AST (SGOT) 22 U/L (15-37); TOTAL BILIRUBIN 0.3 mg/dL (0.2-1.0); TOTAL PROTEIN 6.6 g/dL (6.4-8.2)
[2017-09-14 18:41] LABS: TROPONINI < 0.017 ng/mL (0.000-0.055)
[2017-09-14 18:44] LABS: NT-PRO BNP 508 pg/mL (0-124)
[2017-09-14] MEDS ORDERED: IV NORMAL SALINE 500ML BAG 500 ML IV (19:00)
[2017-09-14 19:09] LABS: BILIRUBIN,URINE NEGATIVE (NEG); CLARITY,URINE CLEAR; COLOR,URINE YELLOW; GLUCOSE,URINE NEGATIVE (NEG); NITRITE,URINE NEGATIVE (NEG); PH,URINE 6.5; PROTEIN,URINE NEGATIVE (NEG-TRACE)
[2017-09-14] MEDS ORDERED: PIPERACILLIN/TAZOBACTAM 4.5 GM in IV NORMAL SALINE 100ML 100 ML IV (19:15)
[2017-09-14 19:16] LABS: SQUAMOUS EPITHELIAL CELL,UR MOD /LPF
[2017-09-14 19:17] LABS: BACTERIA,URINE MODERATE /HPF (0-FEW); RBC,URINE 0 /HPF (0-2); WBC,URINE 0 /HPF (0-4)
[2017-09-14 19:19] LABS: % BANDS 11 % (0-9); % LYMPHS 5 % (24-48); % MONOS 11 % (0-10); % SEGS 73 % (35-66); ANISOCYTOSIS MOD; HYPOCHROMIA MOD; MICROCYTOSIS MOD; PLT ESTIMATE ADEQUATE (ADEQUATE); POIKILOCYTOSIS SLIGHT
[2017-09-14 19:20] LABS: OVALOCYTES FEW
[2017-09-14] MEDS ORDERED: NON FORMULARY ITEM (Albuterol Sulfate (Proventil Hfa Inhaler) 1 PUFF) IH (19:45)
[2017-09-14] MEDS ORDERED: IPRATRPIUM/ALBUTEROL 0.5/2.5MG 3 ML NEBU. NEB (19:45)
[2017-09-14] MEDS ORDERED: IBUPROFEN 400 MG TABLET. PO (19:45)
[2017-09-14] MEDS: ONDANSETRON PF 4 MG/2 ML VIAL. IV (19:54)
[2017-09-14] MEDS: PANTOPRAZOLE 40 MG TABLET.DR. PO (19:54)
[2017-09-14] MEDS: methylPREDNISolone SOD SUCC PF 125 MG/2 ML VIAL. IV (20:00)
[2017-09-14] MEDS: IPRATRPIUM/ALBUTEROL 0.5/2.5MG 3 ML NEBU. NEB (20:04)
[2017-09-14] MEDS: BUDESONIDE 0.5 MG/2 ML NEBU. NEB (20:05)
[2017-09-14] MEDS: diazePAM 2 MG TABLET PO (20:13)
[2017-09-14 20:17] LABS: LACTIC ACID 1.2 mmol/L (0.4-2.0)
[2017-09-14] MEDS: AZTREONAM IV Push 2 GM VIAL. IVP (20:18)
[2017-09-14] MEDS ORDERED: NON FORMULARY ITEM (Budesonide/Formoterol Fumarate (Symbicort 160-4.5 Mcg Inhaler) 2 PUFF) IH (21:00)
[2017-09-14] MEDS ORDERED: BUDESONIDE 0.5 MG/2 ML NEBU. NEB (21:00)
[2017-09-14] MEDS: ENOXAPARIN 40 MG/0.4 ML SYRINGE. SQ (21:00)
[2017-09-14] MEDS: BENZONATATE 100 MG CAPSULE. PO (22:09)
[2017-09-14] MEDS: guaiFENesin DM 600/30MG 1 TAB TAB.ER.12H PO (22:09)
[2017-09-14] MEDS: diazePAM 5 MG TABLET PO (22:09)
[2017-09-14] MEDS: ALBUTEROL SULFATE 2.5 MG/3 ML NEBU. NEB (22:49)
[2017-09-15] MEDS ORDERED: AZTREONAM 2 GM in IV DEXTROSE 5% 100ML 100 ML IV
[2017-09-15] MEDS: diphenhydrAMINE HCL 25 MG CAPSULE PO (02:05)
[2017-09-15 02:18] LABS: TROPONINI < 0.017 ng/mL (0.000-0.055)
[2017-09-15 02:23] LABS: LACTIC ACID 1.2 mmol/L (0.4-2.0)
[2017-09-15] MEDS: diazePAM 5 MG TABLET PO ×4 (02:53→20:05)
[2017-09-15] MEDS: AZTREONAM IV Push 2 GM VIAL. IVP ×4 (02:57→20:02)
[2017-09-15 03:42] LABS: TROPONINI < 0.017 ng/mL (0.000-0.055)
[2017-09-15] MEDS: ACETAMINOPHEN 325 MG TABLET. PO (03:51)
[2017-09-15 05:11] LABS: ADD MAN DIFF? NO
[2017-09-15] MEDS: DIGOXIN IV 500 MCG/2 ML AMPUL. IV (05:11)
[2017-09-15 05:31] LABS: % SAT IRON 4 % (15-34); IRON,SERUM 12 ug/dL (50-170)
[2017-09-15 05:38] LABS: ALBUMIN 3.1 g/dL (3.4-5.0); ALBUMIN/GLOBULIN RATIO 0.9 (1.0-1.7); ALK PHOS 81 U/L (46-116); ALT (SGPT) 29 U/L (14-59); ANION GAP 9 (6-14); AST (SGOT) 22 U/L (15-37); BLOOD UREA NITROGEN 10 mg/dL (7-20); BUN/CREATININE RATIO 13 (6-20); CALCIUM 9.1 mg/dL (8.5-10.1); CARBON DIOXIDE 27 mmol/L (21-32); CHLORIDE 100 mmol/L (98-107); CREATININE 0.8 mg/dL (0.6-1.0); GFR 71.3; SODIUM 136 mmol/L (136-145); TOTAL BILIRUBIN 0.4 mg/dL (0.2-1.0); TOTAL PROTEIN 6.7 g/dL (6.4-8.2)
[2017-09-15 05:40] LABS: BASO # 0.1 x10^3/uL (0.0-0.2); BASO % 1 % (0-3); EOS % 0 % (0-3); HEMOGLOBIN 9.2 g/dL (12.0-15.5); LYMPH # 0.9 x10^3/uL (1.0-4.8); LYMPH % 6 % (24-48); MEAN CORPUSCULAR HEMOGLOBIN 22 pg (25-35); MEAN CORPUSCULAR HGB CONC 31 g/dL (31-37); MEAN CORPUSCULAR VOLUME 71 fL (79-100); MONO # 1.3 x10^3/uL (0.0-1.1); MONO % 9 % (0-9); NEUT # 12.2 x10^3uL (1.8-7.7); NEUT % 84 % (31-73); PLATELET COUNT 212 x10^3/uL (140-400); RED BLOOD COUNT 4.21 x10^6/uL (3.50-5.40); RED CELL DISTRIBUTION WIDTH 22.1 % (11.5-14.5); WHITE BLOOD COUNT 14.5 x10^3/uL (4.0-11.0)
[2017-09-15 05:43] LABS: GLUCOSE 39 mg/dL (70-99)
[2017-09-15] MEDS: IPRATRPIUM/ALBUTEROL 0.5/2.5MG 3 ML NEBU. NEB ×4 (07:06→19:07)
[2017-09-15] MEDS: BUDESONIDE 0.5 MG/2 ML NEBU. NEB ×2 (07:06→19:07)
[2017-09-15] MEDS ORDERED: NON FORMULARY ITEM (Tiotropium Bromide (Spiriva) 1 CAP) IH (09:00)
[2017-09-15] MEDS: BENZONATATE 100 MG CAPSULE. PO ×4 (09:00→20:03)
[2017-09-15] MEDS: predniSONE 20 MG TABLET PO (09:00)
[2017-09-15] MEDS: ASPIRIN ENTERIC COATED 81 MG TABLET.DR. PO (09:07)
[2017-09-15] MEDS: guaiFENesin DM 600/30MG 1 TAB TAB.ER.12H PO ×2 (09:08→20:03)
[2017-09-15 10:29] LABS: CHOLESTEROL 138 mg/dL (0-200); HDLC 70 mg/dL (40-60); LDLC 60 mg/dL (0-100); NON-HDL CHOLESTEROL 68 mg/dL (0-129); TRIGLYCERIDES 41 mg/dL (0-150); VLDLC 8 mg/dL (0-40)
[2017-09-15 10:37] LABS: THYROID STIM HORMONE (TSH) 0.814 uIU/mL (0.358-3.74)
[2017-09-15] MEDS: MAG HYDROX/ALUMINUM HYD/SIMETH 30 ML ORAL.SUSP PO (12:43)
[2017-09-15] MEDS: PANTOPRAZOLE 40 MG TABLET.DR. PO (15:25)
[2017-09-15] MEDS: FERROUS SULFATE ORAL 300 MG/5 ML SOLUTION. PO (17:49)
[2017-09-15] MEDS: LACTOBACILLUS RHAMNOSUS GG 1 CAPSULE. PO (20:02)
[2017-09-15] MEDS: ENOXAPARIN 40 MG/0.4 ML SYRINGE. SQ (20:04)
[2017-09-16 00:55] LABS: POC GLUCOSE 105 mg/dL (70-99)
[2017-09-16] MEDS: ALBUTEROL SULFATE 2.5 MG/3 ML NEBU. NEB (01:25)
[2017-09-16] MEDS: diazePAM 5 MG TABLET PO ×5 (01:39→23:23)
[2017-09-16] MEDS: ACETAMINOPHEN 325 MG TABLET. PO ×3 (02:00→23:23)
[2017-09-16] MEDS: AZTREONAM IV Push 2 GM VIAL. IVP ×4 (02:09→21:47)
[2017-09-16] MEDS: PANTOPRAZOLE 40 MG TABLET.DR. PO (07:14)
[2017-09-16] MEDS: IPRATRPIUM/ALBUTEROL 0.5/2.5MG 3 ML NEBU. NEB ×4 (07:52→20:23)
[2017-09-16] MEDS: BUDESONIDE 0.5 MG/2 ML NEBU. NEB ×2 (07:52→20:23)
[2017-09-16] MEDS: FERROUS SULFATE ORAL 300 MG/5 ML SOLUTION. PO ×2 (08:17→17:06)
[2017-09-16] MEDS: ASPIRIN ENTERIC COATED 81 MG TABLET.DR. PO (08:17)
[2017-09-16] MEDS: methylPREDNISolone SOD SUCC PF 40 MG/ML VIAL. IV ×3 (08:17→21:48)
[2017-09-16] MEDS ORDERED: ONDANSETRON PF 4 MG/2 ML VIAL. IV (09:00)
[2017-09-16] MEDS ORDERED: ONDANSETRON ODT 4 MG TAB.RAPDIS. PO (09:00)
[2017-09-16] MEDS: LACTOBACILLUS RHAMNOSUS GG 1 CAPSULE. PO ×2 (09:06→21:46)
[2017-09-16] MEDS: guaiFENesin DM 600/30MG 1 TAB TAB.ER.12H PO ×2 (09:07→21:46)
[2017-09-16] MEDS: BENZONATATE 100 MG CAPSULE. PO ×3 (09:07→21:46)
[2017-09-16] MEDS: ENOXAPARIN 40 MG/0.4 ML SYRINGE. SQ (21:00)
[2017-09-17] MEDS: AZTREONAM IV Push 2 GM VIAL. IVP ×4 (03:49→20:39)
[2017-09-17] MEDS: diazePAM 5 MG TABLET PO ×3 (04:00→20:59)
[2017-09-17] MEDS: methylPREDNISolone SOD SUCC PF 40 MG/ML VIAL. IV (06:31)
[2017-09-17] MEDS: PANTOPRAZOLE 40 MG TABLET.DR. PO (06:32)
[2017-09-17] MEDS: IPRATRPIUM/ALBUTEROL 0.5/2.5MG 3 ML NEBU. NEB ×4 (07:16→19:23)
[2017-09-17] MEDS: BUDESONIDE 0.5 MG/2 ML NEBU. NEB ×2 (07:16→19:23)
[2017-09-17] MEDS: FERROUS SULFATE ORAL 300 MG/5 ML SOLUTION. PO ×2 (08:14→17:04)
[2017-09-17] MEDS: ASPIRIN ENTERIC COATED 81 MG TABLET.DR. PO (08:14)
[2017-09-17] MEDS: guaiFENesin DM 600/30MG 1 TAB TAB.ER.12H PO ×2 (09:16→20:39)
[2017-09-17] MEDS: BENZONATATE 100 MG CAPSULE. PO ×3 (09:16→20:40)
[2017-09-17] MEDS: LACTOBACILLUS RHAMNOSUS GG 1 CAPSULE. PO ×2 (09:16→20:40)
[2017-09-17 12:08] LABS: POC GLUCOSE 135 mg/dL (70-99)
[2017-09-17] MEDS: ENOXAPARIN 40 MG/0.4 ML SYRINGE. SQ (20:40)
[2017-09-18] MEDS: diazePAM 5 MG TABLET PO ×4 (01:22→20:56)
[2017-09-18] MEDS: ALBUTEROL SULFATE 2.5 MG/3 ML NEBU. NEB (01:27)
[2017-09-18] MEDS ORDERED: BENZOCAINE/MENTHOL LOZENGE. PO (01:30)
[2017-09-18] MEDS: AZTREONAM IV Push 2 GM VIAL. IVP ×4 (01:56→20:57)
[2017-09-18] MEDS: guaiFENesin ORAL 200 MG/10 ML LIQUID. PO (01:57)
[2017-09-18 06:41] LABS: ADD MAN DIFF? NO
[2017-09-18 06:49] LABS: BASO % 0 % (0-3); EOS % 0 % (0-3); HEMATOCRIT 28.3 % (36.0-47.0); HEMOGLOBIN 8.5 g/dL (12.0-15.5); LYMPH # 1.1 x10^3/uL (1.0-4.8); LYMPH % 7 % (24-48); MEAN CORPUSCULAR HEMOGLOBIN 22 pg (25-35); MEAN CORPUSCULAR HGB CONC 30 g/dL (31-37); MEAN CORPUSCULAR VOLUME 72 fL (79-100); MONO # 0.9 x10^3/uL (0.0-1.1); MONO % 6 % (0-9); NEUT # 13.7 x10^3uL (1.8-7.7); NEUT % 88 % (31-73); PLATELET COUNT 235 x10^3/uL (140-400); RED BLOOD COUNT 3.94 x10^6/uL (3.50-5.40); RED CELL DISTRIBUTION WIDTH 21.8 % (11.5-14.5); WHITE BLOOD COUNT 15.6 x10^3/uL (4.0-11.0)
[2017-09-18 07:02] LABS: ANION GAP 1 (6-14); BLOOD UREA NITROGEN 19 mg/dL (7-20); CALCIUM 8.8 mg/dL (8.5-10.1); CARBON DIOXIDE 34 mmol/L (21-32); CHLORIDE 106 mmol/L (98-107); CREATININE 0.7 mg/dL (0.6-1.0); GFR 83.2; GLUCOSE 136 mg/dL (70-99); POTASSIUM 4.4 mmol/L (3.5-5.1); SODIUM 141 mmol/L (136-145)
[2017-09-18 07:12] LABS: INR 1.1 (0.8-1.1); PROTHROMBIN TIME PATIENT 13.5 SEC (11.7-14.0)
[2017-09-18] MEDS: IV RINGERS,LACTATED 1000ML 1,000 ML IV (07:48)
[2017-09-18] MEDS ORDERED: fentaNYL PF VIAL 100 MCG/2 ML VIAL IV ×2 (08:00)
[2017-09-18] MEDS: FERROUS SULFATE ORAL 300 MG/5 ML SOLUTION. PO ×2 (08:00→16:37)
[2017-09-18] MEDS ORDERED: PROCHLORPERAZINE 10 MG/2 ML VIAL. IV (08:00)
[2017-09-18] MEDS ORDERED: ONDANSETRON PF 4 MG/2 ML VIAL. IV (08:00)
[2017-09-18] MEDS ORDERED: LIDOCAINE 1% PF 2 ML VIAL. ID (08:00)
[2017-09-18] MEDS: BUDESONIDE 0.5 MG/2 ML NEBU. NEB ×2 (08:22→20:00)
[2017-09-18] MEDS: IPRATRPIUM/ALBUTEROL 0.5/2.5MG 3 ML NEBU. NEB ×4 (08:22→20:00)
[2017-09-18] MEDS: LACTOBACILLUS RHAMNOSUS GG 1 CAPSULE. PO ×2 (09:00→20:56)
[2017-09-18] MEDS: methylPREDNISolone SOD SUCC PF 40 MG/ML VIAL. IV (09:18)
[2017-09-18] MEDS: BENZONATATE 100 MG CAPSULE. PO ×3 (11:31→20:56)
[2017-09-18] MEDS ORDERED: PROPOFOL 20 ML IV (14:06)
[2017-09-18 16:01] LABS: POC GLUCOSE 119 mg/dL (70-99)
[2017-09-18] MEDS: ASPIRIN ENTERIC COATED 81 MG TABLET.DR. PO (16:36)
[2017-09-18] MEDS: PANTOPRAZOLE 40 MG TABLET.DR. PO (16:36)
[2017-09-18] MEDS: guaiFENesin DM 600/30MG 1 TAB TAB.ER.12H PO ×2 (16:36→20:56)
[2017-09-18] MEDS: ACETAMINOPHEN 325 MG TABLET. PO (16:37)
[2017-09-18] MEDS: DOCUSATE SODIUM 100 MG CAPSULE. PO (16:37)
[2017-09-18] MEDS: ENOXAPARIN 40 MG/0.4 ML SYRINGE. SQ (20:57)
[2017-09-19] MEDS: AZTREONAM IV Push 2 GM VIAL. IVP ×3 (02:24→15:00)
[2017-09-19] MEDS: diazePAM 5 MG TABLET PO ×2 (03:18→12:11)
[2017-09-19] MEDS: ACETAMINOPHEN 325 MG TABLET. PO ×2 (03:20→12:11)
[2017-09-19] MEDS: IPRATRPIUM/ALBUTEROL 0.5/2.5MG 3 ML NEBU. NEB ×2 (07:17→11:35)
[2017-09-19] MEDS: BUDESONIDE 0.5 MG/2 ML NEBU. NEB (07:17)
[2017-09-19] MEDS: methylPREDNISolone SOD SUCC PF 40 MG/ML VIAL. IV (09:12)
[2017-09-19] MEDS: FERROUS SULFATE ORAL 300 MG/5 ML SOLUTION. PO (09:12)
[2017-09-19] MEDS: LACTOBACILLUS RHAMNOSUS GG 1 CAPSULE. PO (09:13)
[2017-09-19] MEDS: ASPIRIN ENTERIC COATED 81 MG TABLET.DR. PO (09:13)
[2017-09-19] MEDS: DOCUSATE SODIUM 100 MG CAPSULE. PO (09:13)
[2017-09-19] MEDS: BENZONATATE 100 MG CAPSULE. PO ×2 (09:13→14:00)
[2017-09-19] MEDS: PANTOPRAZOLE 40 MG TABLET.DR. PO (09:13)
[2017-09-19] MEDS: guaiFENesin DM 600/30MG 1 TAB TAB.ER.12H PO (12:11)
== END 2017-09-19 15:15 | DRG 871 ==
LOC: ER 17:37 → 2 SOUTH 19:29
PROC: 0DJ08ZZ Inspection of Upper Intestinal Tract, Via Natural or Artificial Opening Endoscopic (ICD-10-PCS; principal; 2017-09-18 14:00)
DX: A41.9 Sepsis, unspecified organism (principal); J96.21 Acute and chronic respiratory failure with hypoxia; I50.43 Acute on chronic combined systolic (congestive) and diastolic (congestive) heart failure; J96.22 Acute and chronic respiratory failure with hypercapnia; J18.9 Pneumonia, unspecified organism; J44.0 Chronic obstructive pulmonary disease with (acute) lower respiratory infection; J44.1 Chronic obstructive pulmonary disease with (acute) exacerbation; I48.92 Unspecified atrial flutter; F17.210 Nicotine dependence, cigarettes, uncomplicated; F32.9 Major depressive disorder, single episode, unspecified; F42.9 Obsessive-compulsive disorder, unspecified; F43.10 Post-traumatic stress disorder, unspecified; I11.0 Hypertensive heart disease with heart failure; I25.10 Atherosclerotic heart disease of native coronary artery without angina pectoris; J20.9 Acute bronchitis, unspecified; K21.0 Gastro-esophageal reflux disease with esophagitis; T78.3XXA Angioneurotic edema, initial encounter; M19.90 Unspecified osteoarthritis, unspecified site; E16.2 Hypoglycemia, unspecified; Z66 Do not resuscitate; K31.89 Other diseases of stomach and duodenum; D50.9 Iron deficiency anemia, unspecified; Z87.11 Personal history of peptic ulcer disease; Z90.49 Acquired absence of other specified parts of digestive tract; Z90.710 Acquired absence of both cervix and uterus; Z99.81 Dependence on supplemental oxygen; Z82.49 Family history of ischemic heart disease and other diseases of the circulatory system; Z90.89 Acquired absence of other organs; I25.2 Old myocardial infarction; Z88.5 Allergy status to narcotic agent; Z88.0 Allergy status to penicillin; Z91.041 Radiographic dye allergy status; Z80.0 Family history of malignant neoplasm of digestive organs; Z71.6 Tobacco abuse counseling
CPT/HCPCS: 36415; 71045; 80048; 80053; 80061; 81001; 82962; 83540; 83550; 83605; 83735; 83880; 84443; 84484; 85007; 85025; 85379; 85610; 87040; 87086; 92610-GN; 93005; 94640; 94760; 96365; 96375; 97161-GP; 97166-GO; 99291; J1160; J1956; J2405; J2704; J2920; J3490; J7120; J7613; J7620; J7626; Q0163

== ENCOUNTER 2018-05-28 15:28 | Inpatient (IN) | payer MEDICARE ==
[~2018-05-28] VITALS: Ht 167.6 cm; Wt 49.0 kg
[~2018-05-28 15:28] MED LIST changes: +ALBU2.5V8 IH; +BENZ-8 PO; +BENZ100C PO; -BENZ100C15 PO; +DIGO125T PO; -DILT120C80 PO; +DILT120C85 PO; +DOXY100T9 PO; +LEVO500T8 PO; +LEVO750T31 PO; +PRED20TA PO; -PROVENTIL HFA6.7 GM IH; +TRAM50TA PO
[2018-05-28] MEDS ORDERED: fentaNYL PF VIAL 100 MCG/2 ML VIAL IV ONE (16:00)
[2018-05-28 16:01] LABS: BASO % 1 % (0-3); EOS % 1 % (0-3); HEMATOCRIT 36.3 % (36.0-47.0); HEMOGLOBIN 11.4 g/dL (12.0-15.5); LYMPH # 1.1 x10^3/uL (1.0-4.8); LYMPH % 19 % (24-48); MEAN CORPUSCULAR HEMOGLOBIN 28 pg (25-35); MEAN CORPUSCULAR HGB CONC 31 g/dL (31-37); MEAN CORPUSCULAR VOLUME 90 fL (79-100); MONO # 0.6 x10^3/uL (0.0-1.1); MONO % 11 % (0-9); NEUT % 69 % (31-73); PLATELET COUNT 213 x10^3/uL (140-400); RED BLOOD COUNT 4.06 x10^6/uL (3.50-5.40); RED CELL DISTRIBUTION WIDTH 15.9 % (11.5-14.5); WHITE BLOOD COUNT 5.9 x10^3/uL (4.0-11.0)
[2018-05-28 16:15] LABS: CALCIUM 9.1 mg/dL (8.5-10.1); CREATININE 0.7 mg/dL (0.6-1.0); POTASSIUM 4.6 mmol/L (3.5-5.1)
--- NOTE | 2018-05-28 16:20 | RAD ---
Right hip radiograph 05/28/2018 3:43 PM INDICATION: Right hip pain after fall COMPARISON: None available. TECHNIQUE: AP view the pelvis and 2 dedicated views the right hips are provided. FINDINGS: There is no acute fracture or dislocation. Bone mineralization is within normal limits. Joint spaces are maintained. Regional soft tissues are within normal limits. There is no soft tissue gas or osseous erosion. Suture material is identified within the right hemipelvis. IMPRESSION: No acute fracture or dislocation. Electronically signed by: Iwona Collins MD (05/28/2018 4:17 PM) [id number]
[2018-05-28 16:21] LABS: ALBUMIN 3.4 g/dL (3.4-5.0); ALBUMIN/GLOBULIN RATIO 1.1 (1.0-1.7); MAGNESIUM 1.9 mg/dL (1.8-2.4); TOTAL BILIRUBIN 0.2 mg/dL (0.2-1.0); TOTAL PROTEIN 6.6 g/dL (6.4-8.2)
--- NOTE | 2018-05-28 16:21 | RAD ---
Chest radiograph 05/28/2018 3:43 PM INDICATION: Shortness of air, history of pneumonia COMPARISON: February 22, 2018 TECHNIQUE: Frontal view of the chest is provided. FINDINGS: The cardiomediastinal silhouette is within normal limits. Similar trace right pleural effusion with adjacent compressive atelectasis versus infiltrate.. There is no pulmonary vascular congestion. There is no pneumothorax. Pulmonary emphysematous changes are present. No significant osseous abnormality is identified. IMPRESSION: Stable COPD changes with trace right pleural effusion, not significantly changed. No new airspace consolidation is identified. Electronically signed by: Iwona Collins MD (05/28/2018 4:18 PM) [id number]
--- NOTE | 2018-05-28 16:24 | PHYS DOC ---
Past Medical History Past Medical History: CHF, COPD, SC Additional Past Medical Histor: Sympathetic Reflex Dystrophy, OCD, uses O2 @ noc, bowel perf Past Surgical History: Hysterectomy, Other Additional Past Surgical Histo: trach,abd surgery Alcohol Use: None Drug Use: None Adult General Chief Complaint Chief Complaint: MECHANICAL FALL HPI HPI Patient is a 67 year old female with history of COPD, current smoker, SC, CHF, who presents to the ED today to be evaluated for fall. Patient states around midnight last night she got up to use the bathroom, she was sitting on the side of the bed trying to get her slippers on, she states she slipped and fell straight on her back. Patient denies any loss of consciousness. She states she believes she sat on the floor for roughly 40 minutes but was able to get up. She states she's been using the wheelchair quite a bit since she fell. She is able to bear weight to her extremities that is painful. She is also complaining of left wrist pain and right ankle pain from this fall. She also states she's been coughing and short of air for couple days and believes she has pneumonia. Patient denies any fever. Review of Systems Review of Systems Constitutional: Denies fever or chills [] Eyes: Denies change in visual acuity, redness, or eye pain [] HENT: Denies nasal congestion or sore throat [] Respiratory: Reports cough or shortness of breath Cardiovascular: No additional information not addressed in HPI [] GI: Denies abdominal pain, nausea, vomiting, bloody stools or diarrhea [] : Denies dysuria or hematuria [] Musculoskeletal: Reports neck pain, mid and low back pain, right ankle pain, left wrist pain Integument: Denies rash or skin lesions [] Neurologic: Denies headache, focal weakness or sensory changes [] All other systems were reviewed and found to be within normal limits, except as documented in this note. Current Medications Current Medications Current Medications Medications (Trade) Dose Ordered Sig/René Start Time Stop Time Status Last Admin Dose Admin Albuterol/ Ipratropium (Duoneb) 3 ml 1X ONCE 05/28/18 18:45 05/28/18 18:46 DC Fentanyl Citrate (Fentanyl 2ml Vial) 50 mcg 1X ONCE 05/28/18 16:00 05/28/18 16:01 DC 05/28/18 16:09 50 MCG Levofloxacin/ Dextrose 100 ml @ 100 mls/hr 1X ONCE 05/28/18 17:00 05/28/18 17:59 DC 05/28/18 17:11 100 MLS/HR Methylprednisolone Sodium Succinate (SOLU-Medrol 125MG VIAL) 125 mg 1X ONCE 05/28/18 18:45 05/28/18 18:46 DC Sodium Chloride 1,000 ml @ 1,650 mls/hr Q37M 05/28/18 16:53 05/28/18 17:53 DC 05/28/18 17:14 1,650 MLS/HR Vancomycin HCl (Vanco Per Pharmacy) 1 each PRN DAILY PRN 05/28/18 17:00 UNV Vancomycin HCl 1.25 gm/Sodium Chloride 250 ml @ 166.667 mls/hr 1X ONCE 05/28/18 17:00 05/28/18 18:29 DC 05/28/18 18:19 166.667 MLS/HR Allergies Allergies Allergies Coded Allergies Type Severity Reaction Last Updated Verified Iodine and Iodide Containing Produc Allergy Intermediate 02/23/18 Yes Penicillins Allergy Intermediate 02/22/18 Yes codeine Allergy Intermediate 02/22/18 Yes Physical Exam Physical Exam Constitutional: Well developed, well nourished, no acute distress, non-toxic appearance. [] HENT: Normocephalic, atraumatic, bilateral external ears normal, oropharynx moist, no oral exudates, nose normal. [] Eyes: PERRLA, EOMI, conjunctiva normal, no discharge. [] Neck: Normal range of motion, no tenderness, supple, no stridor. [] Cardiovascular:Heart rate regular rhythm, no murmur [] Lungs & Thorax: Slightly diminished breath sounds to posterior lung bases, patient is on oxygen 2 L. Abdomen: Bowel sounds normal, soft, no tenderness, no masses, no pulsatile masses. [] Skin: Warm, dry, no erythema, no rash. [] Back: Diffuse tenderness throughout the spine with slight midline tenderness to thoracic and lumbar spine, no CVA tenderness. [] Extremities: Left wrist with no obvious deformity. Tenderness on the dorsal aspect of the wrist diffusely. Full range of motion to the left wrist, no scaphoid tenderness. Adequate radial, medial, ulnar sensation to the left upper extremity. Bilateral lower extremities with +1 chronic edema. No tenderness on palpation of the ankle, full range of motion to the right ankle. +2 right pedal pulse. Cap refill less than 2 seconds the right toes. Neurologic: Alert and oriented X 3, normal motor function, normal sensory function, no focal deficits noted. [] Psychologic: Affect normal, judgement normal, mood normal. [] Current Patient Data Vital Signs Vital Signs Date Time Temp Pulse Resp B/P (MAP) Pulse Ox O2 Delivery O2 Flow Rate FiO2 05/28/18 19:01 99 Nasal Cannula 3.0 05/28/18 18:30 88 16 05/28/18 15:28 98.4 136/65 (88) 98.4 Lab Values Laboratory Tests Test 05/28/18 15:45 05/28/18 17:22 White Blood Count 5.9 x10^3/uL (4.0-11.0) Red Blood Count 4.06 x10^6/uL (3.50-5.40) Hemoglobin 11.4 g/dL (12.0-15.5) L Hematocrit 36.3 % (36.0-47.0) Mean Corpuscular Volume 90 fL (79-100) Mean Corpuscular Hemoglobin 28 pg (25-35) Mean Corpuscular Hemoglobin Concent 31 g/dL (31-37) Red Cell Distribution Width 15.9 % (11.5-14.5) H Platelet Count 213 x10^3/uL (140-400) Neutrophils (%) (Auto) 69 % (31-73) Lymphocytes (%) (Auto) 19 % (24-48) L Monocytes (%) (Auto) 11 % (0-9) H Eosinophils (%) (Auto) 1 % (0-3) Basophils (%) (Auto) 1 % (0-3) Neutrophils # (Auto) 4.0 x10^3uL (1.8-7.7) Lymphocytes # (Auto) 1.1 x10^3/uL (1.0-4.8) Monocytes # (Auto) 0.6 x10^3/uL (0.0-1.1) Eosinophils # (Auto) 0.0 x10^3/uL (0.0-0.7) Basophils # (Auto) 0.0 x10^3/uL (0.0-0.2) Prothrombin Time 13.0 SEC (11.7-14.0) Prothrombin Time INR 1.0 (0.8-1.1) PTT 25 SEC (24-38) Sodium Level 145 mmol/L (136-145) Potassium Level 4.6 mmol/L (3.5-5.1) Chloride Level 104 mmol/L (98-107) Carbon Dioxide Level 34 mmol/L (21-32) H Anion Gap 7 (6-14) Blood Urea Nitrogen 15 mg/dL (7-20) Creatinine 0.7 mg/dL (0.6-1.0) Estimated GFR (Cockcroft-Gault) 83.0 BUN/Creatinine Ratio 21 (6-20) H Glucose Level 113 mg/dL (70-99) H Lactic Acid Level 3.7 mmol/L (0.4-2.0) H Calcium Level 9.1 mg/dL (8.5-10.1) Magnesium Level 1.9 mg/dL (1.8-2.4) Total Bilirubin 0.2 mg/dL (0.2-1.0) Aspartate Amino Transferase (AST) 27 U/L (15-37) Alanine Aminotransferase (ALT) 32 U/L (14-59) Alkaline Phosphatase 47 U/L (46-116) Troponin I Quantitative < 0.017 ng/mL (0.000-0.055) LW-Ymo-D-Type Natriuretic Peptide 96 pg/mL (0-124) Total Protein 6.6 g/dL (6.4-8.2) Albumin 3.4 g/dL (3.4-5.0) Albumin/Globulin Ratio 1.1 (1.0-1.7) Procalcitonin < 0.10 ng/mL (0.00-0.10) Urine Collection Type U cath Urine Color Yellow Urine Clarity Clear Urine pH 6.5 Urine Specific Carey 1.015 Urine Protein Negative mg/dL (NEG-TRACE) Urine Glucose (UA) Negative mg/dL (NEG) Urine Ketones (Stick) Negative mg/dL (NEG) Urine Blood Negative (NEG) Urine Nitrite Negative (NEG) Urine Bilirubin Negative (NEG) Urine Urobilinogen Dipstick 1.0 mg/dL (0.2 mg/dL) Urine Leukocyte Esterase Negative (NEG) Urine RBC 0 /HPF (0-2) Urine WBC 0 /HPF (0-4) Urine Squamous Epithelial Cells Many /LPF Urine Bacteria 0 /HPF (0-FEW) Laboratory Tests 05/28/18 15:45 Laboratory Tests 05/28/18 15:45 EKG EKG [] Radiology/Procedures Radiology/Procedures []PROCEDURE: CT HEAD AND CERVICAL SPINE WO CT HEAD AND CERVICAL SPINE WO Clinical indications: FALL YESTERDAY, HEAD, NECK PAIN. COMPARISON: No previous head CT available. NONCONTRAST HEAD CT Technique: Noncontrast axial cross sectional scanning of the head was performed. PQRS compliance Statement One or more of the following individualized dose reduction techniques were utilized for this study: 1. Automated exposure control 2. Adjustment of the mA and/or kV according to patient size 3. Use of iterative reconstruction technique Findings: No acute intracranial hemorrhage or midline shift or mass-effect or hydrocephalus or extra-axial fluid collection is seen. Mild bilateral periventricular white matter hypodensity is seen consistent with chronic small vessel ischemic disease in this age group. No skull fracture or pneumocephalus is seen. No opacification of the mastoid sinuses or the paranasal sinuses is seen. The maxillary sinuses are not completely seen in this study. Impression: No acute intracranial abnormality is seen. CT STUDY CERVICAL SPINE WITHOUT CONTRAST TECHNIQUE: Noncontrast helical CT scanning cervical spine was performed. Multiplanar 2-D reconstructions were generated. FINDINGS: No acute fracture or lytic process or discitis is seen. No anterolisthesis is evident. No perching of facet joints is seen. Degenerative facet arthropathy is evident. Degenerative disc space narrowing and endplate spurring is seen at C4-5 and C5-6 and C6-7. IMPRESSION: No acute fracture. Degenerative cervical spondylosis. Electronically signed by: Torsten Restrepo MD (05/28/2018 5:01 PM) [facility] DICTATED and SIGNED BY: TORSTEN RESTREPO MD DATE: 05/28/18 1707 PROCEDURE: PORTABLE CHEST 1V Chest radiograph 05/28/2018 3:43 PM INDICATION: Shortness of air, history of pneumonia COMPARISON: February 22, 2018 TECHNIQUE: Frontal view of the chest is provided. FINDINGS: The cardiomediastinal silhouette is within normal limits. Similar trace right pleural effusion with adjacent compressive atelectasis versus infiltrate.. There is no pulmonary vascular congestion. There is no pneumothorax. Pulmonary emphysematous changes are present. No significant osseous abnormality is identified. IMPRESSION: Stable COPD changes with trace right pleural effusion, not significantly changed. No new airspace consolidation is identified. Electronically signed by: Esteban Brody MD (05/28/2018 4:18 PM) [id number] DICTATED and SIGNED BY: ESTEBAN BRODY MD DATE: 05/28/18 1618 PROCEDURE: CT LUMBAR SPINE WO CONTRAST INDICATION: FALL YESTERDAY, HEAD, NECK, LOWER BACK PAIN. COMPARISON: June 07, 2016 TECHNIQUE: Axial CT images obtained through the thoracic and lumbar spine without contrast. One or more of the following individualized dose reduction techniques were utilized for this examination: 1. Automated exposure control; 2. Adjustment of the mA and/or kV according to patient size; 3. Use of iterative reconstruction technique. FINDINGS: Thoracic spine: Degenerative changes the spine with osteophyte formation. No evidence of malalignment. Mild loss of height T1 vertebral body again seen. No definite acute fracture line is seen. Emphysematous changes at partially visualized lungs. Linear opacity right lung partially seen. Calcified pleural plaques partially seen. Lumbar spine: Degenerative changes are identified. Calcific atherosclerosis. Mild scoliotic curvature. A definite acute fracture line is not seen. Apparent osseous demineralization. Partial defects L5. Grade 1 anterolisthesis L5 on S1. IMPRESSION: 1. No definite acute fracture or dislocation of the thoracic or lumbar spine. 2. Multilevel degenerative changes throughout the spine. 3. Linear opacity right lung could be atelectasis or scarring but only partially seen. Emphysematous changes. 4. Calcified pleural plaques partially seen. Electronically signed by: Andrew Christine MD (05/28/2018 5:43 PM) [facility] DICTATED and SIGNED BY: ANDREW CHRISTINE MD DATE: 05/28/18 1743 PROCEDURE: CT THORACIC SPINE WO CONTRAST INDICATION: FALL YESTERDAY, HEAD, NECK, LOWER BACK PAIN. COMPARISON: June 07, 2016 TECHNIQUE: Axial CT images obtained through the thoracic and lumbar spine without contrast. One or more of the following individualized dose reduction techniques were utilized for this examination: 1. Automated exposure control; 2. Adjustment of the mA and/or kV according to patient size; 3. Use of iterative reconstruction technique. FINDINGS: Thoracic spine: Degenerative changes the spine with osteophyte formation. No evidence of malalignment. Mild loss of height T1 vertebral body again seen. No definite acute fracture line is seen. Emphysematous changes at partially visualized lungs. Linear opacity right lung partially seen. Calcified pleural plaques partially seen. Lumbar spine: Degenerative changes are identified. Calcific atherosclerosis. Mild scoliotic curvature. A definite acute fracture line is not seen. Apparent osseous demineralization. Partial defects L5. Grade 1 anterolisthesis L5 on S1. IMPRESSION: 1. No definite acute fracture or dislocation of the thoracic or lumbar spine. 2. Multilevel degenerative changes throughout the spine. 3. Linear opacity right lung could be atelectasis or scarring but only partially seen. Emphysematous changes. 4. Calcified pleural plaques partially seen. Electronically signed by: Andrew Christine MD (05/28/2018 5:43 PM) [facility] DICTATED and SIGNED BY: ANDREW CHRISTINE MD DATE: 05/28/18 1743 PROCEDURE: HIP RIGHT 2V WITH PELVIS Right hip radiograph 05/28/2018 3:43 PM INDICATION: Right hip pain after fall COMPARISON: None available. TECHNIQUE: AP view the pelvis and 2 dedicated views the right hips are provided. FINDINGS: There is no acute fracture or dislocation. Bone mineralization is within normal limits. Joint spaces are maintained. Regional soft tissues are within normal limits. There is no soft tissue gas or osseous erosion. Suture material is identified within the right hemipelvis. IMPRESSION: No acute fracture or dislocation. Electronically signed by: Esteban Brody MD (05/28/2018 4:17 PM) [id number] DICTATED and SIGNED BY: ESTEBAN BRODY MD DATE: 05/28/18 1617 Course & Med Decision Making Course & Med Decision Making Pertinent Labs and Imaging studies reviewed. (See chart for details) This is a 67-year-old female patient presenting to the ED today to be evaluated after falling last night. Patient is complaining of off her entire spine hurting , is also complaining of left wrist pain from hitting it on a side table and right ankle pain. She is also complaining of a cough and shortness of breath, she believes she has pneumonia. She has COPD and is a current smoker. CT of the head, cervical spine, lumbar spine, x-rays of the right hip including pelvic and right ankle x-rays are negative for any acute findings. CBC, CMP, troponin with no acute findings. Lactic 3.7. UA is clean no infection chest xray is negative for pneumonia. Started on IV fluids and Levaquin and vancomycin. I don't have a good source for patient's lactic acidosis. Temperature is 98.4 in the ED, on arrival heart rate was 103, it has come down to 84 after breathing treatments and IV fluids. We will continue with IV fluids upon admission as well as breathing treatments. She was also given Solu-Medrol for COPD. Consulted with Dr. Zheng who accepted patient for admission. Dragon Disclaimer Dragon Disclaimer This electronic medical record was generated, in whole or in part, using a voice recognition dictation system. Departure Departure Impression: Primary Impression: COPD exacerbation Additional Impressions: Fall from standing Lumbar contusion Contusion of thoracic wall Acute cervical sprain Contusion of right hip Right ankle sprain Lactic acidosis Disposition: ADMITTED INPATIENT Condition: STABLE Referrals: NON,STAFF (PCP) Problem Qualifiers Additional Impressions: Fall from standing Encounter type: initial encounter Qualified Codes: W19.XXXA - Unspecified fall, initial encounter Lumbar contusion Encounter type: initial encounter Qualified Codes: S30.0XXA - Contusion of lower back and pelvis, initial encounter Contusion of thoracic wall Encounter type: initial encounter Contusion of thoracic wall detail: back wall of thorax Laterality: unspecified laterality Qualified Codes: S20.229A - Contusion of unspecified back wall of thorax, initial encounter Acute cervical sprain Encounter type: initial encounter Qualified Codes: S13.9XXA - Sprain of joints and ligaments of unspecified parts of neck, initial encounter Contusion of right hip Encounter type: initial encounter Qualified Codes: S70.01XA - Contusion of right hip, initial encounter Right ankle sprain Encounter type: initial encounter Involved ligament of ankle: unspecified ligament Qualified Codes: S93.401A - Sprain of unspecified ligament of right ankle, initial encounter KRISTIN HEWITT [employer] May 28, 2018 16:24
[2018-05-28] MEDS ORDERED: VANCOMYCIN 1.25 GM in IV NORMAL SALINE 250ML 250 ML IV ONE (17:00)
--- NOTE | 2018-05-28 17:04 | RAD ---
CT HEAD AND CERVICAL SPINE WO Clinical indications: FALL YESTERDAY, HEAD, NECK PAIN. COMPARISON: No previous head CT available. NONCONTRAST HEAD CT Technique: Noncontrast axial cross sectional scanning of the head was performed. PQRS compliance Statement One or more of the following individualized dose reduction techniques were utilized for this study: 1. Automated exposure control 2. Adjustment of the mA and/or kV according to patient size 3. Use of iterative reconstruction technique Findings: No acute intracranial hemorrhage or midline shift or mass-effect or hydrocephalus or extra-axial fluid collection is seen. Mild bilateral periventricular white matter hypodensity is seen consistent with chronic small vessel ischemic disease in this age group. No skull fracture or pneumocephalus is seen. No opacification of the mastoid sinuses or the paranasal sinuses is seen. The maxillary sinuses are not completely seen in this study. Impression: No acute intracranial abnormality is seen. CT STUDY CERVICAL SPINE WITHOUT CONTRAST TECHNIQUE: Noncontrast helical CT scanning cervical spine was performed. Multiplanar 2-D reconstructions were generated. FINDINGS: No acute fracture or lytic process or discitis is seen. No anterolisthesis is evident. No perching of facet joints is seen. Degenerative facet arthropathy is evident. Degenerative disc space narrowing and endplate spurring is seen at C4-5 and C5-6 and C6-7. IMPRESSION: No acute fracture. Degenerative cervical spondylosis. Electronically signed by: Milton Restrepo MD (05/28/2018 5:01 PM) [facility]
[2018-05-28] MEDS: IV NORMAL SALINE 1000ML BAG 1,000 ML IV SCH ×3 (17:14→23:00)
--- NOTE | 2018-05-28 17:46 | RAD ---
INDICATION: FALL YESTERDAY, HEAD, NECK, LOWER BACK PAIN. COMPARISON: June 07, 2016 TECHNIQUE: Axial CT images obtained through the thoracic and lumbar spine without contrast. One or more of the following individualized dose reduction techniques were utilized for this examination: 1. Automated exposure control; 2. Adjustment of the mA and/or kV according to patient size; 3. Use of iterative reconstruction technique. FINDINGS: Thoracic spine: Degenerative changes the spine with osteophyte formation. No evidence of malalignment. Mild loss of height T1 vertebral body again seen. No definite acute fracture line is seen. Emphysematous changes at partially visualized lungs. Linear opacity right lung partially seen. Calcified pleural plaques partially seen. Lumbar spine: Degenerative changes are identified. Calcific atherosclerosis. Mild scoliotic curvature. A definite acute fracture line is not seen. Apparent osseous demineralization. Partial defects L5. Grade 1 anterolisthesis L5 on S1. IMPRESSION: 1. No definite acute fracture or dislocation of the thoracic or lumbar spine. 2. Multilevel degenerative changes throughout the spine. 3. Linear opacity right lung could be atelectasis or scarring but only partially seen. Emphysematous changes. 4. Calcified pleural plaques partially seen. Electronically signed by: Nickolas Delcid MD (05/28/2018 5:43 PM) [facility]
[2018-05-28 18:30] LABS: BILIRUBIN,URINE NEGATIVE (NEG); CLARITY,URINE CLEAR; COLOR,URINE YELLOW; NITRITE,URINE NEGATIVE (NEG); PH,URINE 6.5; PROTEIN,URINE NEGATIVE (NEG-TRACE)
[2018-05-28] MEDS ORDERED: methylPREDNISolone SOD SUCC PF 125 MG/2 ML VIAL. IV ONE (18:45)
[2018-05-28] MEDS ORDERED: IPRATRPIUM/ALBUTEROL 0.5/2.5MG 3 ML NEBU. NEB ONE (18:45)
[2018-05-28 18:48] LABS: BACTERIA,URINE 0 /HPF (0-FEW); RBC,URINE 0 /HPF (0-2); SQUAMOUS EPITHELIAL CELL,UR MANY /LPF; WBC,URINE 0 /HPF (0-4)
[2018-05-28] MEDS ORDERED: IPRATRPIUM/ALBUTEROL 0.5/2.5MG 3 ML NEBU. NEB SCH (20:00)
[2018-05-28] MEDS: IV NORMAL SALINE 1000ML BAG 1,000 ML IV ONE ×2 (20:00→22:14)
[2018-05-28] MEDS ORDERED: fentaNYL PF VIAL 100 MCG/2 ML VIAL IV PRN (20:00)
[2018-05-28] MEDS ORDERED: ACETAMINOPHEN 325 MG TABLET. PO PRN (20:00)
[2018-05-28] MEDS ORDERED: ONDANSETRON PF 4 MG/2 ML VIAL. IV PRN (20:00)
[2018-05-28 21:00] VITALS: BP 128/106
--- NOTE | 2018-05-28 21:06 | NUR ---
The patient, SAMEER BAHENA, 67 y/o, F admitted by RUSH CONNER III, DO, was given written information regarding hospital policies, unit procedures and contact persons. Valuables were checked and left with her.
[2018-05-28] MEDS: VANCOMYCIN PER PHARMACY MC PRN (21:43)
--- NOTE | 2018-05-28 21:46 | NUR ---
Pharmacy Vancomycin Dosing Note S:Consulted to monitor and dose vancomycin started 05/28/18. O:SAMEER BAHENA is a 67 year old F started on empiric antibiotics for an elevated lactic acidosis. Height: 5 feet, 4 inches Weight: 48.269213 kg [place] Body Weight: 54.70 Adjusted Body Weight: 52.22 Dosing Weight: Actual Other Antibiotics: Levofloxacin LABS: Last BUN: 21 Last Creatinine: 0.7 Creatinine Clearance: 45-55 mL/min Last WBC: 5.9 Last Procalcitonin: < 0.1 (per chest x-ray no pneumonia) Tmax (past 24 hours): 98 Microbiology: Blood cultures in progress UA negative I/O: 100/not yet documented Drug Levels: Last dose given 05/28/18 at 1819 Vancomycin Dosing: Loading Dose: 1250 mg x1 Dosing Weight: Actual Target Trough: 15-20 A: Based on: Patient's PMH, renal function, and severity of suspected infection P: 1. Initiated vancomycin 750 mg IV q18h 2. Follow up Trough level on 05/30/18 at 0530 3. Pharmacy will continue to monitor, follow and adjust therapy as needed. TASHI MORGAN, [facility], 05/28/18 [id number]
--- NOTE | 2018-05-28 23:28 | RAD ---
RIGHT ANKLE AP, LATERAL, OBLIQUE Clinical Indication: ER PATIENT. TRAUMA FALL. PAIN IN RIGHT ANKLE. Comparison: None. Findings: There is no acute fracture or dislocation. Mineralization is normal. Joint spaces are maintained. The ankle mortise is intact. There is no ankle joint effusion. There is subcutaneous edema. Mild lateral ankle soft tissue swelling. IMPRESSION: No acute fracture. Electronically signed by: Shawn Nova MD (05/28/2018 11:25 PM) [facility]
--- NOTE | 2018-05-28 23:45 | HP ---
ADMIT DATE: 05/28/2018 CHIEF COMPLAINT: Fall. HISTORY OF PRESENT ILLNESS: The patient is a pleasant elderly female who smokes too much. She has end-stage COPD. She states she was recently moved to an assisted care facility and today she fell. She was on her way to the bathroom, but she was sitting on the edge of the bed and fell when she slipped getting her slippers. She landed on her back. Denies any loss of consciousness. She sat on the floor for 40 minutes. I discussed the case with ER physician. Her lactic acid level was little high. She is also in respiratory distress. We are going to admit the patient and give her IV antibiotics and fluids and consult Pulmonary. PAST MEDICAL HISTORY: End-stage COPD; CHF; myocardial infarction; RSD; OCD; bowel perforation; hysterectomy; previous tracheostomy, but that has been reversed; abdominal surgery. ALLERGIES: IODINE, PENICILLIN, CODEINE. FAMILY HISTORY: Coronary disease. SOCIAL HISTORY: She still smokes. No drinking or drugs. MEDICATIONS: She is on Benadryl, Levaquin, Spiriva, ProAir, digoxin, Valium, Ultram, Tessalon, guaifenesin, Symbicort, docusate, estradiol and prednisone. REVIEW OF SYSTEMS: GENERAL: No history of weight change, weakness or fevers. SKIN: No bruising, hair changes or rashes. EYES: No blurred, double or loss of vision. NOSE AND THROAT: No history of nosebleeds, hoarseness or sore throat. HEART: No history of palpitations, chest pain or shortness of breath on exertion. LUNGS: She complains of shortness of breath. GASTROINTESTINAL: Denies changes in appetite, nausea, vomiting, diarrhea or constipation. GENITOURINARY: No history of frequency, urgency, hesitancy or nocturia. NEUROLOGIC: She complains of weakness. PSYCHIATRIC: No history of panic, anxiety or depression. ENDOCRINE: No history of heat or cold intolerance, polyuria or polydipsia. EXTREMITIES: Denies muscle weakness, joint pain, pain on walking or stiffness. PHYSICAL EXAMINATION: VITAL SIGNS: Temperature 98, pulse 96, respirations 18, blood pressure 122/90, O2 sat 100% on 3 liters. GENERAL: She is alert, cooperative. HEART: Normal S1, S2. LUNGS: Very, very diminished with poor inspiratory effort. ABDOMEN: Soft. EXTREMITIES: Trace edema. SKIN: No rashes. PSYCHIATRIC: She is a little depressed and anxious. VASCULAR: Good capillary refill. ENDOCRINE: No thyromegaly. LYMPHATICS: No cervical nodes. HEMATOPOIETIC: No bruising. LABORATORY DATA: Hemoglobin is 11.4. Lactic acid is a little high at 3.7. We repeated it, now is down to 1. INR is 1. Urinalysis negative. Chest x-ray shows COPD and a trace pleural effusion. ASSESSMENT AND PLAN: Fall in an elderly female who could not get up for 40 minutes. I suspect this is because of her end-stage chronic obstructive pulmonary disease. She can barely breathe. We are going to give her IV Solu-Medrol, IV antibiotics empirically, IV saline at 75 mL an hour, DuoNeb. Consult Pulmonary. PT, OT and home meds. Full code. DVT prophylaxis. PROGNOSIS: Guarded. RUSH CONNER DO DR: [email or web address]/ksenia JOB#: [id number] / [id number]
[2018-05-29 03:00] VITALS: BP 105/51
[2018-05-29] MEDS: ALBUTEROL SULFATE 2.5 MG/3 ML NEBU. NEB PRN ×2 (03:15→22:53)
[2018-05-29] MEDS: diazePAM 5 MG TABLET PO PRN ×3 (03:23→22:56)
[2018-05-29] MEDS: traMADol 50 MG TABLET PO PRN (04:44)
[2018-05-29 05:28] LABS: BASO % 1 % (0-3); EOS # 0.1 x10^3/uL (0.0-0.7); EOS % 1 % (0-3); HEMATOCRIT 31.7 % (36.0-47.0); LYMPH # 1.3 x10^3/uL (1.0-4.8); LYMPH % 20 % (24-48); MEAN CORPUSCULAR HEMOGLOBIN 29 pg (25-35); MEAN CORPUSCULAR HGB CONC 32 g/dL (31-37); MEAN CORPUSCULAR VOLUME 90 fL (79-100); MONO # 0.7 x10^3/uL (0.0-1.1); MONO % 10 % (0-9); NEUT # 4.6 x10^3uL (1.8-7.7); NEUT % 68 % (31-73); PLATELET COUNT 175 x10^3/uL (140-400); RED BLOOD COUNT 3.52 x10^6/uL (3.50-5.40); RED CELL DISTRIBUTION WIDTH 16.1 % (11.5-14.5); WHITE BLOOD COUNT 6.7 x10^3/uL (4.0-11.0)
[2018-05-29 05:55] LABS: ALBUMIN 2.8 g/dL (3.4-5.0); CREATININE 0.6 mg/dL (0.6-1.0); GFR 99.1; POTASSIUM 3.8 mmol/L (3.5-5.1); TOTAL BILIRUBIN 0.2 mg/dL (0.2-1.0); TOTAL PROTEIN 5.6 g/dL (6.4-8.2)
--- NOTE | 2018-05-29 06:40 | EKG ---
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
[2018-05-29 07:00] VITALS: BP 110/86
[2018-05-29] MEDS: IPRATRPIUM/ALBUTEROL 0.5/2.5MG 3 ML NEBU. NEB SCH ×4 (07:57→19:53)
[2018-05-29] MEDS: BUDESONIDE 0.5 MG/2 ML NEBU. NEB SCH ×2 (07:57→19:53)
[2018-05-29] MEDS ORDERED: NICOTINE 21MG PATCH. TD PRN (08:30)
[2018-05-29] MEDS ORDERED: diphenhydrAMINE HCL 25 MG CAPSULE PO PRN (08:30)
[2018-05-29] MEDS: IV NORMAL SALINE 1000ML BAG 1,000 ML IV SCH ×2 (08:47→22:58)
[2018-05-29] MEDS ORDERED: BENZONATATE 100 MG CAPSULE. PO SCH (09:00)
[2018-05-29] MEDS ORDERED: predniSONE 10 MG TABLET PO SCH (09:00)
[2018-05-29] MEDS ORDERED: NON FORMULARY ITEM (Budesonide/Formoterol Fumarate (Symbicort 160-4.5 Mcg Inhaler) 2 PUFF) IH SCH (09:00)
[2018-05-29] MEDS ORDERED: NON FORMULARY ITEM (Tiotropium Bromide (Spiriva) 1 CAP) IH SCH (09:00)
[2018-05-29] MEDS ORDERED: DIGOXIN 125 MCG TABLET. PO SCH (09:00)
--- NOTE | 2018-05-29 10:59 | PDOC ---
PROGRESS NOTES Chief Complaint Chief Complaint End-stage COPD, on hospice Home O2 dependent Smoker-2 cigarettes a day Cachexia with possible undiagnosed osteoporosis DJD throughout the back Right ankle sprain but no fracture Fall Generalized weakness Multiple allergies History of Present Illness History of Present Illness I know her from before-can be quite difficult in management Very opinionated Wheezy but does not want steroids because can make her crazy Apparently now on hospice, home O2 dependent She does not want to go back on hospice because they claim they really do not do anything She is a full code on chart She likes her pain medicines but asks for for some Tylenol too She likes her Tessalon Perle when necessary , not scheduled She has been coughing though She is okay with a baby dose of prednisone No pneumonia on x-rays I have provided her all her copies of her x-rays I discussed about osteoporosis, DEXA scan as outpatient PCP-she follows at [facility] Extensive discussion she tends to argue me on all things i suggest Plan: Tylenol Make when necessary Tessalon and status scheduled Pulmo consult for end-stage COPD Will not go back to hospice on discharge-she does not want it anymore Other supportive meds PT OT Lives in assisted living Nicotine patch when necessary Robitussin when necessary Will ask a colleague to see her for better rapport and care Vitals Vitals Vital Signs Date Time Temp Pulse Resp B/P (MAP) Pulse Ox O2 Delivery O2 Flow Rate FiO2 05/29/18 08:43 99 110/86 05/29/18 08:00 Nasal Cannula 3.0 05/29/18 07:00 98.4 16 98 98.4 Physical Exam General: Alert, Oriented X3, Cooperative, No acute distress Heart: Regular rate, Normal S1, Normal S2, No murmurs Lungs: Wheezing Abdomen: No tenderness, No hepatosplenomegaly Extremities: No edema, Other (cachexia) Skin: No rashes, No breakdown, No significant lesion Labs LABS Laboratory Tests Test 05/28/18 15:45 05/28/18 17:22 05/28/18 19:52 05/29/18 04:16 White Blood Count 5.9 x10^3/uL (4.0-11.0) 6.7 x10^3/uL (4.0-11.0) Red Blood Count 4.06 x10^6/uL (3.50-5.40) 3.52 x10^6/uL (3.50-5.40) Hemoglobin 11.4 g/dL (12.0-15.5) 10.0 g/dL (12.0-15.5) Hematocrit 36.3 % (36.0-47.0) 31.7 % (36.0-47.0) Mean Corpuscular Volume 90 fL (79-100) 90 fL (79-100) Mean Corpuscular Hemoglobin 28 pg (25-35) 29 pg (25-35) Mean Corpuscular Hemoglobin Concent 31 g/dL (31-37) 32 g/dL (31-37) Red Cell Distribution Width 15.9 % (11.5-14.5) 16.1 % (11.5-14.5) Platelet Count 213 x10^3/uL (140-400) 175 x10^3/uL (140-400) Neutrophils (%) (Auto) 69 % (31-73) 68 % (31-73) Lymphocytes (%) (Auto) 19 % (24-48) 20 % (24-48) Monocytes (%) (Auto) 11 % (0-9) 10 % (0-9) Eosinophils (%) (Auto) 1 % (0-3) 1 % (0-3) Basophils (%) (Auto) 1 % (0-3) 1 % (0-3) Neutrophils # (Auto) 4.0 x10^3uL (1.8-7.7) 4.6 x10^3uL (1.8-7.7) Lymphocytes # (Auto) 1.1 x10^3/uL (1.0-4.8) 1.3 x10^3/uL (1.0-4.8) Monocytes # (Auto) 0.6 x10^3/uL (0.0-1.1) 0.7 x10^3/uL (0.0-1.1) Eosinophils # (Auto) 0.0 x10^3/uL (0.0-0.7) 0.1 x10^3/uL (0.0-0.7) Basophils # (Auto) 0.0 x10^3/uL (0.0-0.2) 0.0 x10^3/uL (0.0-0.2) Prothrombin Time 13.0 SEC (11.7-14.0) Prothromb Time International Ratio 1.0 (0.8-1.1) Activated Partial Thromboplast Time 25 SEC (24-38) Sodium Level 145 mmol/L (136-145) 143 mmol/L (136-145) Potassium Level 4.6 mmol/L (3.5-5.1) 3.8 mmol/L (3.5-5.1) Chloride Level 104 mmol/L (98-107) 106 mmol/L (98-107) Carbon Dioxide Level 34 mmol/L (21-32) 31 mmol/L (21-32) Anion Gap 7 (6-14) 6 (6-14) Blood Urea Nitrogen 15 mg/dL (7-20) 11 mg/dL (7-20) Creatinine 0.7 mg/dL (0.6-1.0) 0.6 mg/dL (0.6-1.0) Estimated GFR (Cockcroft-Gault) 83.0 99.1 BUN/Creatinine Ratio 21 (6-20) 18 (6-20) Glucose Level 113 mg/dL (70-99) 100 mg/dL (70-99) Lactic Acid Level 3.7 mmol/L (0.4-2.0) 1.0 mmol/L (0.4-2.0) Calcium Level 9.1 mg/dL (8.5-10.1) 8.0 mg/dL (8.5-10.1) Magnesium Level 1.9 mg/dL (1.8-2.4) Total Bilirubin 0.2 mg/dL (0.2-1.0) 0.2 mg/dL (0.2-1.0) Aspartate Amino Transf (AST/SGOT) 27 U/L (15-37) 25 U/L (15-37) Alanine Aminotransferase (ALT/SGPT) 32 U/L (14-59) 26 U/L (14-59) Alkaline Phosphatase 47 U/L (46-116) 37 U/L (46-116) Troponin I Quantitative < 0.017 ng/mL (0.000-0.055) JT-Lds-B-Type Natriuretic Peptide 96 pg/mL (0-124) Total Protein 6.6 g/dL (6.4-8.2) 5.6 g/dL (6.4-8.2) Albumin 3.4 g/dL (3.4-5.0) 2.8 g/dL (3.4-5.0) Albumin/Globulin Ratio 1.1 (1.0-1.7) 1.0 (1.0-1.7) Procalcitonin < 0.10 ng/mL (0.00-0.10) Urine Collection Type U cath Urine Color Yellow Urine Clarity Clear Urine pH 6.5 Urine Specific Jacobson 1.015 Urine Protein Negative mg/dL (NEG-TRACE) Urine Glucose (UA) Negative mg/dL (NEG) Urine Ketones (Stick) Negative mg/dL (NEG) Urine Blood Negative (NEG) Urine Nitrite Negative (NEG) Urine Bilirubin Negative (NEG) Urine Urobilinogen Dipstick 1.0 mg/dL (0.2 mg/dL) Urine Leukocyte Esterase Negative (NEG) Urine RBC 0 /HPF (0-2) Urine WBC 0 /HPF (0-4) Urine Squamous Epithelial Cells Many /LPF Urine Bacteria 0 /HPF (0-FEW) Review of Systems Review of Systems SOA, cough, no abdominal pain, no chest pain Assessment and Plan Assessmemt and Plan Problems Medical Problems: (1) Acute cervical sprain Status: Acute (2) Contusion of right hip Status: Acute (3) Contusion of thoracic wall Status: Acute (4) Fall from standing Status: Acute (5) Lumbar contusion Status: Acute (6) Right ankle sprain Status: Acute Comment Review of Relevant I have reviewed the following items lazaro (where applicable) has been applied. Labs Laboratory Tests Test 05/28/18 15:45 05/28/18 17:22 05/28/18 19:52 05/29/18 04:16 White Blood Count 5.9 x10^3/uL (4.0-11.0) 6.7 x10^3/uL (4.0-11.0) Red Blood Count 4.06 x10^6/uL (3.50-5.40) 3.52 x10^6/uL (3.50-5.40) Hemoglobin 11.4 g/dL (12.0-15.5) 10.0 g/dL (12.0-15.5) Hematocrit 36.3 % (36.0-47.0) 31.7 % (36.0-47.0) Mean Corpuscular Volume 90 fL (79-100) 90 fL (79-100) Mean Corpuscular Hemoglobin 28 pg (25-35) 29 pg (25-35) Mean Corpuscular Hemoglobin Concent 31 g/dL (31-37) 32 g/dL (31-37) Red Cell Distribution Width 15.9 % (11.5-14.5) 16.1 % (11.5-14.5) Platelet Count 213 x10^3/uL (140-400) 175 x10^3/uL (140-400) Neutrophils (%) (Auto) 69 % (31-73) 68 % (31-73) Lymphocytes (%) (Auto) 19 % (24-48) 20 % (24-48) Monocytes (%) (Auto) 11 % (0-9) 10 % (0-9) Eosinophils (%) (Auto) 1 % (0-3) 1 % (0-3) Basophils (%) (Auto) 1 % (0-3) 1 % (0-3) Neutrophils # (Auto) 4.0 x10^3uL (1.8-7.7) 4.6 x10^3uL (1.8-7.7) Lymphocytes # (Auto) 1.1 x10^3/uL (1.0-4.8) 1.3 x10^3/uL (1.0-4.8) Monocytes # (Auto) 0.6 x10^3/uL (0.0-1.1) 0.7 x10^3/uL (0.0-1.1) Eosinophils # (Auto) 0.0 x10^3/uL (0.0-0.7) 0.1 x10^3/uL (0.0-0.7) Basophils # (Auto) 0.0 x10^3/uL (0.0-0.2) 0.0 x10^3/uL (0.0-0.2) Prothrombin Time 13.0 SEC (11.7-14.0) Prothromb Time International Ratio 1.0 (0.8-1.1) Activated Partial Thromboplast Time 25 SEC (24-38) Sodium Level 145 mmol/L (136-145) 143 mmol/L (136-145) Potassium Level 4.6 mmol/L (3.5-5.1) 3.8 mmol/L (3.5-5.1) Chloride Level 104 mmol/L (98-107) 106 mmol/L (98-107) Carbon Dioxide Level 34 mmol/L (21-32) 31 mmol/L (21-32) Anion Gap 7 (6-14) 6 (6-14) Blood Urea Nitrogen 15 mg/dL (7-20) 11 mg/dL (7-20) Creatinine 0.7 mg/dL (0.6-1.0) 0.6 mg/dL (0.6-1.0) Estimated GFR (Cockcroft-Gault) 83.0 99.1 BUN/Creatinine Ratio 21 (6-20) 18 (6-20) Glucose Level 113 mg/dL (70-99) 100 mg/dL (70-99) Lactic Acid Level 3.7 mmol/L (0.4-2.0) 1.0 mmol/L (0.4-2.0) Calcium Level 9.1 mg/dL (8.5-10.1) 8.0 mg/dL (8.5-10.1) Magnesium Level 1.9 mg/dL (1.8-2.4) Total Bilirubin 0.2 mg/dL (0.2-1.0) 0.2 mg/dL (0.2-1.0) Aspartate Amino Transf (AST/SGOT) 27 U/L (15-37) 25 U/L (15-37) Alanine Aminotransferase (ALT/SGPT) 32 U/L (14-59) 26 U/L (14-59) Alkaline Phosphatase 47 U/L (46-116) 37 U/L (46-116) Troponin I Quantitative < 0.017 ng/mL (0.000-0.055) LM-Qom-D-Type Natriuretic Peptide 96 pg/mL (0-124) Total Protein 6.6 g/dL (6.4-8.2) 5.6 g/dL (6.4-8.2) Albumin 3.4 g/dL (3.4-5.0) 2.8 g/dL (3.4-5.0) Albumin/Globulin Ratio 1.1 (1.0-1.7) 1.0 (1.0-1.7) Procalcitonin < 0.10 ng/mL (0.00-0.10) Urine Collection Type U cath Urine Color Yellow Urine Clarity Clear Urine pH 6.5 Urine Specific Jacobson 1.015 Urine Protein Negative mg/dL (NEG-TRACE) Urine Glucose (UA) Negative mg/dL (NEG) Urine Ketones (Stick) Negative mg/dL (NEG) Urine Blood Negative (NEG) Urine Nitrite Negative (NEG) Urine Bilirubin Negative (NEG) Urine Urobilinogen Dipstick 1.0 mg/dL (0.2 mg/dL) Urine Leukocyte Esterase Negative (NEG) Urine RBC 0 /HPF (0-2) Urine WBC 0 /HPF (0-4) Urine Squamous Epithelial Cells Many /LPF Urine Bacteria 0 /HPF (0-FEW) Laboratory Tests Test 05/28/18 15:45 05/28/18 17:22 05/28/18 19:52 05/29/18 04:16 White Blood Count 5.9 x10^3/uL (4.0-11.0) 6.7 x10^3/uL (4.0-11.0) Red Blood Count 4.06 x10^6/uL (3.50-5.40) 3.52 x10^6/uL (3.50-5.40) Hemoglobin 11.4 g/dL (12.0-15.5) 10.0 g/dL (12.0-15.5) Hematocrit 36.3 % (36.0-47.0) 31.7 % (36.0-47.0) Mean Corpuscular Volume 90 fL (79-100) 90 fL (79-100) Mean Corpuscular Hemoglobin 28 pg (25-35) 29 pg (25-35) Mean Corpuscular Hemoglobin Concent 31 g/dL (31-37) 32 g/dL (31-37) Red Cell Distribution Width 15.9 % (11.5-14.5) 16.1 % (11.5-14.5) Platelet Count 213 x10^3/uL (140-400) 175 x10^3/uL (140-400) Neutrophils (%) (Auto) 69 % (31-73) 68 % (31-73) Lymphocytes (%) (Auto) 19 % (24-48) 20 % (24-48) Monocytes (%) (Auto) 11 % (0-9) 10 % (0-9) Eosinophils (%) (Auto) 1 % (0-3) 1 % (0-3) Basophils (%) (Auto) 1 % (0-3) 1 % (0-3) Neutrophils # (Auto) 4.0 x10^3uL (1.8-7.7) 4.6 x10^3uL (1.8-7.7) Lymphocytes # (Auto) 1.1 x10^3/uL (1.0-4.8) 1.3 x10^3/uL (1.0-4.8) Monocytes # (Auto) 0.6 x10^3/uL (0.0-1.1) 0.7 x10^3/uL (0.0-1.1) Eosinophils # (Auto) 0.0 x10^3/uL (0.0-0.7) 0.1 x10^3/uL (0.0-0.7) Basophils # (Auto) 0.0 x10^3/uL (0.0-0.2) 0.0 x10^3/uL (0.0-0.2) Prothrombin Time 13.0 SEC (11.7-14.0) Prothromb Time International Ratio 1.0 (0.8-1.1) Activated Partial Thromboplast Time 25 SEC (24-38) Sodium Level 145 mmol/L (136-145) 143 mmol/L (136-145) Potassium Level 4.6 mmol/L (3.5-5.1) 3.8 mmol/L (3.5-5.1) Chloride Level 104 mmol/L (98-107) 106 mmol/L (98-107) Carbon Dioxide Level 34 mmol/L (21-32) 31 mmol/L (21-32) Anion Gap 7 (6-14) 6 (6-14) Blood Urea Nitrogen 15 mg/dL (7-20) 11 mg/dL (7-20) Creatinine 0.7 mg/dL (0.6-1.0) 0.6 mg/dL (0.6-1.0) Estimated GFR (Cockcroft-Gault) 83.0 99.1 BUN/Creatinine Ratio 21 (6-20) 18 (6-20) Glucose Level 113 mg/dL (70-99) 100 mg/dL (70-99) Lactic Acid Level 3.7 mmol/L (0.4-2.0) 1.0 mmol/L (0.4-2.0) Calcium Level 9.1 mg/dL (8.5-10.1) 8.0 mg/dL (8.5-10.1) Magnesium Level 1.9 mg/dL (1.8-2.4) Total Bilirubin 0.2 mg/dL (0.2-1.0) 0.2 mg/dL (0.2-1.0) Aspartate Amino Transf (AST/SGOT) 27 U/L (15-37) 25 U/L (15-37) Alanine Aminotransferase (ALT/SGPT) 32 U/L (14-59) 26 U/L (14-59) Alkaline Phosphatase 47 U/L (46-116) 37 U/L (46-116) Troponin I Quantitative < 0.017 ng/mL (0.000-0.055) RS-Pho-Z-Type Natriuretic Peptide 96 pg/mL (0-124) Total Protein 6.6 g/dL (6.4-8.2) 5.6 g/dL (6.4-8.2) Albumin 3.4 g/dL (3.4-5.0) 2.8 g/dL (3.4-5.0) Albumin/Globulin Ratio 1.1 (1.0-1.7) 1.0 (1.0-1.7) Procalcitonin < 0.10 ng/mL (0.00-0.10) Urine Collection Type U cath Urine Color Yellow Urine Clarity Clear Urine pH 6.5 Urine Specific Jacobson 1.015 Urine Protein Negative mg/dL (NEG-TRACE) Urine Glucose (UA) Negative mg/dL (NEG) Urine Ketones (Stick) Negative mg/dL (NEG) Urine Blood Negative (NEG) Urine Nitrite Negative (NEG) Urine Bilirubin Negative (NEG) Urine Urobilinogen Dipstick 1.0 mg/dL (0.2 mg/dL) Urine Leukocyte Esterase Negative (NEG) Urine RBC 0 /HPF (0-2) Urine WBC 0 /HPF (0-4) Urine Squamous Epithelial Cells Many /LPF Urine Bacteria 0 /HPF (0-FEW) Medications Current Medications Fentanyl Citrate (Fentanyl 2ml Vial) 50 mcg 1X ONCE IV Last administered on 16:09; Start 05/28/18 at 16:00; Stop 05/28/18 at 16:01; Status DC Vancomycin HCl (Vanco Per Pharmacy) 1 each PRN DAILY PRN MC SEE COMMENTS Last administered on 05/28/18at 21:43; Start 05/28/18 at 17:00 Levofloxacin/ Dextrose 100 ml @ 100 mls/hr 1X ONCE IV Last administered on 17:11; Start 05/28/18 at 17:00; Stop 05/28/18 at 17:59; Status DC Sodium Chloride 1,000 ml @ 1,650 mls/hr Q37M IV Last administered on 05/28/18 17:14; Start 05/28/18 at 16:53; Stop 05/28/18 at 17:53; Status DC Vancomycin HCl 1.25 gm/Sodium Chloride 250 ml @ 166.667 mls/hr 1X ONCE IV Last administered on 05/28/18 18:19; Start 05/28/18 at 17:00; Stop 05/28/18 at 18: 29; Status DC Albuterol/ Ipratropium (Duoneb) 3 ml 1X ONCE NEB Last administered on 19:01; Start 05/28/18 at 18:45; Stop 05/28/18 at 18:46; Status DC Methylprednisolone Sodium Succinate (SOLU-Medrol 125MG VIAL) 125 mg 1X ONCE IV Last administered on 05/28/18at 22:16; Start 05/28/18 at 18:45; Stop 05/28/18 at 18:46; Status DC Ondansetron HCl (Zofran) 4 mg PRN Q8HRS PRN IV NAUSEA/VOMITING; Start 05/28/18 at 20:00; Stop 05/29/18 at 19:59 Fentanyl Citrate (Fentanyl 2ml Vial) 50 mcg PRN Q1HR PRN IV PAIN SEVERE; Start 05/28/18 at 20:00; Stop 05/29/18 at 19:59 Acetaminophen (Tylenol) 650 mg PRN Q4HRS PRN PO FEVER; Start 05/28/18 at 20:00; Stop 05/29/18 at 19:59 Albuterol/ Ipratropium (Duoneb) 3 ml RTQID NEB ; Start 05/28/18 at 20:00; Stop at 01:06; Status DC Sodium Chloride 1,000 ml @ 125 mls/hr 1X ONCE IV ; Start 05/28/18 at 20:00; Stop 05/29/18 at 03:59; Status DC Vancomycin HCl 750 mg/Sodium Chloride 250 ml @ 250 mls/hr Q18H IV ; Start at 12:00 Vancomycin HCl (Vancomycin Trough Level) 1 each 1X ONCE MC ; Start 05/30/18 at 05:30; Stop 05/30/18 at 05:31 Diazepam (Valium) 5 mg PRN Q4HRS PRN PO ANXIETY / AGITATION Last administered on 05/29/18at 03:23; Start 05/28/18 at 23:00 Digoxin (Lanoxin) 125 mcg DAILY PO ; Start 05/29/18 at 09:00; Stop 05/29/18 at 10: 46; Status DC Prednisone (Prednisone) 30 mg DAILY PO ; Start 05/29/18 at 09:00 Tramadol HCl (Ultram) 50 mg PRN Q8HRS PRN PO MODERATE PAIN Last administered on 05/29/18at 04:44; Start 05/28/18 at 23:00 Benzonatate (Tessalon Perle) 100 mg TID PO Last administered on 05/29/18at 08:45 ; Start 05/29/18 at 09:00; Stop 05/29/18 at 10:46; Status DC Non-Formulary Medication (Budesonide/ Formoterol Fumarate (Symbicort 160-4.5 Mcg Inhaler)) 2 puff BID IH ; Start 05/29/18 at 09:00; Status UNV Diltiazem HCl (Cardizem 24hr Cd) 120 mg DAILY PO Last administered on 05/29/18at 08:42; Start 05/29/18 at 09:00 Levofloxacin (Levaquin) 500 mg DAILY PO Last administered on 05/29/18at 08:44; Start 05/29/18 at 09:00 Non-Formulary Medication (Tiotropium [place] (Spiriva)) 1 cap DAILY IH ; Start 05/29/18 at 09:00; Status UNV Sodium Chloride 1,000 ml @ 75 mls/hr [id number] IV Last administered on 05/29/18at 08:47; Start 05/28/18 at 23:00 Budesonide (Pulmicort) 0.5 mg RTBID NEB Last administered on 05/29/18at 07:57; Start 05/29/18 at 08:00 Albuterol/ Ipratropium (Duoneb) 3 ml RTQID NEB Last administered on 05/29/18at 07 :57; Start 05/29/18 at 08:00 Albuterol Sulfate (Ventolin Neb Soln) 2.5 mg PRN Q4HRS PRN NEB SHORTNESS OF BREATH Last administered on 05/29/18at 03:15; Start 05/29/18 at 03:15 Nicotine (Nicoderm Cq 21mg) 1 patch PRN DAILY PRN TD SMOKING CESSATION; Start 05/29/18 at 08:30 Guaifenesin (Robitussin Dm) 10 ml PRN Q6HRS PRN PO COUGH 1ST CHOICE; Start 05/29 at 08:30 Diphenhydramine HCl (Benadryl) 25 mg PRN QHS PRN PO INSOMNIA; Start 05/29/18 at 08:30 Benzonatate (Tessalon Perle) 100 mg PRN TID PRN PO cough 2ND CHOICE; Start 05/29 at 11:00 Acetaminophen (Tylenol) 500 mg PRN Q6HRS PRN PO MILD PAIN / TEMP; Start at 10:45 Active Scripts Active Tramadol Hcl 50 Mg Tablet 50 Mg PO PRN Q8HRS PRN 30 Days Levofloxacin 500 Mg Tablet 500 Mg PO DAILY 7 Days Prednisone 20 Mg Tablet 30 Mg PO DAILY 5 Days Tessalon Perle (Benzonatate) 100 Mg Capsule 1 Cap PO TID Reported Diltiazem 24HR Cd (Diltiazem Hcl) 120 Mg Cap.er.24h 1 Cap PO DAILY Mucinex Dm Er 600-30 Mg Tablet (Guaifenesin/Dextromethorphan) 1 Each Tab.er.12h 1 Each PO Benadryl (Diphenhydramine Hcl) 25 Mg Capsule 25 Mg PO PRN PRN Dok (Docusate Sodium) 100 Mg Capsule 100 Mg PO PRN PRN Vivelle-Dot (Estradiol) 1 Each Patch.tdsw 0.1 Patch TP Valium (Diazepam) 5 Mg Tablet 5 Mg PO PRN Q4HRS PRN Proventil Hfa Inhaler (Albuterol Sulfate) 6.7 Gm Hfa.aer.ad 1 Puff IH PRN PRN Spiriva (Tiotropium [place]) 18 Mcg Cap.w.dev 1 Cap IH DAILY Symbicort 160-4.5 Mcg Inhaler (Budesonide/Formoterol Fumarate) 10.2 Gm Hfa.aer.ad 2 Puff IH BID Vitals/I & O Vital Sign - Last 24 Hours 05/28/18 05/28/18 05/28/18 05/28/18 15:28 16:00 17:00 18:30 Temp 98.4 98.4 Pulse 103 104 104 88 Resp 20 16 16 16 B/P (MAP) 136/65 (88) Pulse Ox 97 97 97 100 O2 Delivery Nasal Cannula O2 Flow Rate 3.0 05/28/18 05/28/18 05/28/18 05/28/18 19:01 19:25 20:25 21:00 Temp 98.0 98.0 Pulse 91 86 96 Resp 16 16 18 B/P (MAP) 128/106 (113) Pulse Ox 99 99 99 100 O2 Delivery Nasal Cannula Nasal Cannula O2 Flow Rate 3.0 3.0 05/28/18 05/29/18 05/29/18 05/29/18 21:06 03:00 03:15 04:44 Temp 98.3 98.3 Pulse 105 Resp 18 18 B/P (MAP) 105/51 (69) Pulse Ox 99 99 99 O2 Delivery Nasal Cannula Nasal Cannula Nasal Cannula Nasal Cannula O2 Flow Rate 3.0 3.0 3.0 3.0 05/29/18 05/29/18 05/29/18 05/29/18 05:44 07:00 08:00 08:42 Temp 98.4 98.4 Pulse 99 99 Resp 18 16 B/P (MAP) 110/86 (94) 110/86 Pulse Ox 99 98 O2 Delivery Nasal Cannula Nasal Cannula Nasal Cannula O2 Flow Rate 3.0 3.0 3.0 05/29/18 08:43 Pulse 99 B/P (MAP) 110/86 Intake and Output 05/28/18 05/28/18 05/29/18 14:59 22:59 06:59 Intake Total 220 ml 200 ml Balance 220 ml 200 ml SHERIF HOLLINGSWORTH MD May 29, 2018 10:58
[2018-05-29 11:00] VITALS: BP 91/45
[2018-05-29] MEDS ORDERED: BENZONATATE 100 MG CAPSULE. PO PRN (11:00)
[2018-05-29] MEDS ORDERED: predniSONE 20 MG TABLET PO ONE (11:30)
[2018-05-29] MEDS: VANCOMYCIN 750 MG in IV NORMAL SALINE 250ML 250 ML IV SCH (12:25)
--- NOTE | 2018-05-29 14:43 | NUR ---
SW following pt for anticipated dc needs. Chart reviewed. SW confirmed with Bushra at [facility], Pt is a resident. PT/OT pending. SW will await for PT/OT recommendation and will proceed accordingly.
[2018-05-29 14:55] VITALS: BP 103/61
[2018-05-29] MEDS: ACETAMINOPHEN 500 MG TABLET PO PRN ×2 (16:01→22:56)
[2018-05-29] MEDS: guaiFENesin DM 200MG/20MG 10 ML SYRUP PO PRN ×2 (16:01→22:56)
[2018-05-29] MEDS: VANCOMYCIN PER PHARMACY MC PRN (16:59)
--- NOTE | 2018-05-29 17:27 | CONS ---
DATE OF CONSULTATION: ATTENDING PHYSICIAN: Dr. Zheng. REASON FOR CONSULTATION: Dyspnea. HISTORY OF PRESENT ILLNESS: The patient is a 67-year-old who has end-stage COPD, on chronic oxygen. She was in hospice; however, she said that she did fire them and recently the patient fell and was evaluated in the ER, she was short of breath as well. She has been coughing, which has been mostly nonproductive phlegm. No fever, no chills, no chest pains. No nausea, vomiting, diarrhea. She does have lower extremity edema. Chest x-ray did not reveal any definite consolidation. PAST MEDICAL HISTORY: History of COPD, end-stage; history of chronic respiratory failure, on home oxygen; history of [place]. PAST SURGICAL HISTORY: Previous tracheostomy, hysterectomy and bowel perforation surgery. ALLERGIES: IODINE, PENICILLIN, CODEINE. FAMILY HISTORY: Coronary artery disease. SOCIAL HISTORY: Still smokes since age 11. REVIEW OF SYSTEMS: Twelve-point system obtained. Pertinent positives discussed in my history of present illness, otherwise noncontributory. All systems that were negative were reviewed as well. MEDICATIONS: All reviewed as listed in the MRAD. PHYSICAL EXAMINATION: VITAL SIGNS: Reviewed. Pulse ox 100% on 3 liters. NECK: Supple. LUNGS: Diminished breath sounds. CARDIOVASCULAR: Regular rate and rhythm. ABDOMEN: Soft, nontender. EXTREMITIES: With 1+ pitting edema. LABORATORY DATA: Reviewed. Sodium 143, potassium 3.8. White cell count 6.7, hemoglobin 10.0. IMPRESSION: 1. Dyspnea secondary to acute exacerbation of chronic obstructive pulmonary disease in a patient with end-stage chronic obstructive pulmonary disease with chronic hypoxic respiratory failure. 2. Acute bronchitis. No definite consolidation seen on the chest x-ray. 3. Lower extremity edema, likely cor pulmonale. RECOMMENDATIONS: 1. Discussed with the patient at this time, I will continue with supportive treatment with oxygen and bronchodilators along with oral prednisone. 2. Continue empiric antibiotics. 3. The patient wants to consider another hospice company. We will ask social workers to help with that. 4. We will follow along with you. ADEEL FRAGOSO MD DR: DIMPLE/ksenia JOB#: [id number] / [id number]
[2018-05-29 19:00] VITALS: BP 105/61
[2018-05-29 23:00] VITALS: BP 117/63
[2018-05-30 03:00] VITALS: BP 111/60
[2018-05-30] MEDS: diazePAM 5 MG TABLET PO PRN ×3 (04:06→20:49)
[2018-05-30] MEDS: ALBUTEROL SULFATE 2.5 MG/3 ML NEBU. NEB PRN ×2 (04:15→22:54)
[2018-05-30] MEDS: ACETAMINOPHEN 500 MG TABLET PO PRN ×2 (05:56→20:48)
[2018-05-30] MEDS: VANCOMYCIN 750 MG in IV NORMAL SALINE 250ML 250 ML IV SCH (06:00)
[2018-05-30] MEDS: guaiFENesin DM 200MG/20MG 10 ML SYRUP PO PRN ×2 (06:00→20:50)
[2018-05-30 07:00] VITALS: BP 110/60
[2018-05-30 07:17] LABS: VANC TR 4.5 mcg/mL (10.0-20.0)
[2018-05-30] MEDS: BUDESONIDE 0.5 MG/2 ML NEBU. NEB SCH ×2 (08:23→18:11)
[2018-05-30] MEDS: IPRATRPIUM/ALBUTEROL 0.5/2.5MG 3 ML NEBU. NEB SCH ×4 (08:23→18:11)
[2018-05-30] MEDS: predniSONE 20 MG TABLET PO SCH (09:00)
[2018-05-30] MEDS: VANCOMYCIN 1 GM in IV NORMAL SALINE 250ML 250 ML IV SCH ×2 (09:03→20:50)
[2018-05-30] MEDS: LACTOBACILLUS RHAMNOSUS GG 1 CAPSULE. PO SCH ×2 (09:03→20:48)
--- NOTE | 2018-05-30 09:30 | NUR ---
Pt only wanted 10 mg prednisone this am. Talked with pt about need for prednisone w/ COPD, she stated that prednisone makes her breathing worse.
[2018-05-30] MEDS ORDERED: predniSONE 10 MG TABLET PO ONE (09:45)
--- NOTE | 2018-05-30 10:59 | NUR ---
Pt refused am assessment. Pt was initially okay with assessment, after listening to pt's heart, she decided she did not want me to continue the assessment.
[2018-05-30 11:00] VITALS: BP 114/64
--- NOTE | 2018-05-30 11:02 | PDOC ---
PROGRESS NOTES Chief Complaint Chief Complaint End-stage COPD, Home O2 dependent Smoker-2 cigarettes a day Cachexia with possible undiagnosed osteoporosis DJD lumbar spine Right ankle sprain acute Fall, high fall risk Generalized weakness likely cor pulmonale. moderate protein-caloric malnutrition dental caries marked disability long discussion re needs for dentist and home health assist, various frustrations with end stage disease, disability, no easy answers. she is estranged from a daughter who lives in [place] plan consult pulmonary case mngt for d/c planning education provided for smoking cessation lack of social support PAST MEDICAL HISTORY: End-stage COPD; CHF; myocardial infarction; RSD; OCD; bowel perforation; hysterectomy; previous tracheostomy, but that has been reversed; abdominal surgery. ALLERGIES: IODINE, PENICILLIN, CODEINE. FAMILY HISTORY: Coronary disease. SOCIAL HISTORY: She still smokes. No etoh or drugs. History of Present Illness History of Present Illness Very opinionated Wheezy but does not want steroids because can make her crazy Apparently now on hospice, home O2 dependent She does not want to go back on hospice because they claim they really do not do anything She is a full code on chart She likes her pain medicines but asks for for some Tylenol too She likes her Tessalon Perle when necessary , not scheduled She has been coughing though She is okay with a baby dose of prednisone No pneumonia on x-rays I discussed about osteoporosis, DEXA scan as outpatient PCP-she follows at the [place] Plan: Tylenol Make when necessary Tessalon and status scheduled Pulmo consult for end-stage COPD Will not go back to hospice on discharge- Other supportive meds PT OT Lives in assisted living Nicotine patch when necessary Robitussin when necessary palliation of symptoms Vitals Vitals Vital Signs Date Time Temp Pulse Resp B/P (MAP) Pulse Ox O2 Delivery O2 Flow Rate FiO2 05/30/18 09:03 97 110/60 05/30/18 08:24 99 Nasal Cannula 4.0 05/30/18 07:00 97.5 18 97.5 Physical Exam General: Alert, Oriented X3, Cooperative, No acute distress, mild distress, Other (tearful due to loss of hope for imroved quality of life) Heart: Regular rate, Normal S1, Normal S2, No murmurs Lungs: Wheezing (poor air exchange, prolonged exp wheeze and exp phase) Abdomen: No tenderness, No hepatosplenomegaly Extremities: No cyanosis, No edema, Other (cachexia) Skin: No rashes, No breakdown, No significant lesion Labs LABS PROCEDURE: CT CHEST WO CONTRAST CT CHEST WO CONTRAST Indication: POSSIBLE LUNG MASS NO CONTRAST IODINE ALLERGY PREV SENT Exposure: One or more of the following individualized dose reduction techniques were utilized for this examination: 1. Automated exposure control 2. Adjustment of the mA and/or kV according to patient size 3. Use of iterative reconstruction technique. Comparison: June 07, 2016 CT chest. Contrast: None FINDINGS: Vascular structures: Limited exam without contrast. Ascending aorta measures 3.2 cm transverse. No descending aortic aneurysm. Lymph nodes:No significant enlargement Thyroid gland:Visualized aspect is unremarkable. Heart: Mild coronary calcification. Esophagus: Unremarkable Pleural spaces: Mild pleural calcification on the right is again identified. No significant effusion. Lungs: Mild linear atelectasis identified, greater on the right. No consolidating infiltrate. No dominant mass identified. Trachea and central airways: Patent Spine: Mild degenerative spondylosis. Bones: No destructive process. Upper abdomen: Slices obtained through the upper most abdomen are limited by the noncontrast technique. No obvious acute findings. External Soft Tissue: No acute findings. Impression: 1. Mild atelectasis. 2. Mild right pleural calcification is stable. 3. No evidence of new mass or other abnormality. Electronically signed by: Bull Vela MD (02/25/2018 8:14 AM) [facility] DICTATED and SIGNED BY: BULL VELA MD DATE: 02/25/18 0756 RIGHT ANKLE AP, LATERAL, OBLIQUE Clinical Indication: ER PATIENT. TRAUMA FALL. PAIN IN RIGHT ANKLE. Comparison: None. Findings: There is no acute fracture or dislocation. Mineralization is normal. Joint spaces are maintained. The ankle mortise is intact. There is no ankle joint effusion. There is subcutaneous edema. Mild lateral ankle soft tissue swelling. IMPRESSION: No acute fracture. Electronically signed by: Shawn Nova MD (05/28/2018 11:25 PM) [facility] MITRAL VALVE The mitral valve is thickened but opens well. There is no evidence of mitral valve prolapse. There is no mitral valve stenosis. Doppler and Color-flow revealed mild mitral regurgitation. TRICUSPID VALVE The tricuspid valve is not well visualized. Doppler and Color Flow revealed trace tricuspid regurgitation. There is no tricuspid valve stenosis. PULMONIC VALVE The pulmonic valve is not well visualized. Doppler and Color Flow revealed no pulmonic valvular regurgitation. GREAT VESSELS The aortic root is normal in size. The IVC is normal in size and collapses >50% with inspiration. PERICARDIAL EFFUSION There is no evidence of significant pericardial effusion. Critical Notification Critical Value: No <Conclusion> The left ventricular systolic function is normal. The ejection fraction is estimated at 60%. There is normal LV segmental wall motion. Mild mitral regurgitation. Trace tricuspid regurgitation. There is no evidence of significant pericardial effusion. Signed by : Taran Lucio, Electronically Approved : 02/26/2018 12:15:55 Laboratory Tests Test 05/30/18 05:35 Vancomycin Level Trough 4.5 mcg/mL (10.0-20.0) Vancomycin Last Dose Date 05/29/18 Vancomycin Last Dose Time 1200 Assessment and Plan Assessmemt and Plan Problems Medical Problems: (1) Acute cervical sprain Status: Acute (2) Contusion of right hip Status: Acute (3) Contusion of thoracic wall Status: Acute (4) Fall from standing Status: Acute (5) Lumbar contusion Status: Acute (6) Right ankle sprain Status: Acute Past Medical History Past Medical History: CHF, COPD end stage , [place] Additional Past Medical Histor: Sympathetic Reflex Dystrophy, OCD, uses O2 @ noc, bowel perf Past Surgical History: Hysterectomy, Other Additional Past Surgical Histo: trach,abd surgery Alcohol Use: None Drug Use: None PAST MEDICAL HISTORY: History of COPD, end-stage; history of chronic respiratory failure, on home oxygen; history of [place]. PAST SURGICAL HISTORY: Previous tracheostomy, hysterectomy and bowel perforation surgery. ALLERGIES: IODINE, PENICILLIN, CODEINE. FAMILY HISTORY: Coronary artery disease. SOCIAL HISTORY: Still smokes since age 11. Comment Review of Relevant I have reviewed the following items lazaro (where applicable) has been applied. Labs Laboratory Tests Test 05/28/18 15:45 05/28/18 17:22 05/28/18 19:52 05/29/18 04:16 White Blood Count 5.9 x10^3/uL (4.0-11.0) 6.7 x10^3/uL (4.0-11.0) Red Blood Count 4.06 x10^6/uL (3.50-5.40) 3.52 x10^6/uL (3.50-5.40) Hemoglobin 11.4 g/dL (12.0-15.5) 10.0 g/dL (12.0-15.5) Hematocrit 36.3 % (36.0-47.0) 31.7 % (36.0-47.0) Mean Corpuscular Volume 90 fL (79-100) 90 fL (79-100) Mean Corpuscular Hemoglobin 28 pg (25-35) 29 pg (25-35) Mean Corpuscular Hemoglobin Concent 31 g/dL (31-37) 32 g/dL (31-37) Red Cell Distribution Width 15.9 % (11.5-14.5) 16.1 % (11.5-14.5) Platelet Count 213 x10^3/uL (140-400) 175 x10^3/uL (140-400) Neutrophils (%) (Auto) 69 % (31-73) 68 % (31-73) Lymphocytes (%) (Auto) 19 % (24-48) 20 % (24-48) Monocytes (%) (Auto) 11 % (0-9) 10 % (0-9) Eosinophils (%) (Auto) 1 % (0-3) 1 % (0-3) Basophils (%) (Auto) 1 % (0-3) 1 % (0-3) Neutrophils # (Auto) 4.0 x10^3uL (1.8-7.7) 4.6 x10^3uL (1.8-7.7) Lymphocytes # (Auto) 1.1 x10^3/uL (1.0-4.8) 1.3 x10^3/uL (1.0-4.8) Monocytes # (Auto) 0.6 x10^3/uL (0.0-1.1) 0.7 x10^3/uL (0.0-1.1) Eosinophils # (Auto) 0.0 x10^3/uL (0.0-0.7) 0.1 x10^3/uL (0.0-0.7) Basophils # (Auto) 0.0 x10^3/uL (0.0-0.2) 0.0 x10^3/uL (0.0-0.2) Prothrombin Time 13.0 SEC (11.7-14.0) Prothromb Time International Ratio 1.0 (0.8-1.1) Activated Partial Thromboplast Time 25 SEC (24-38) Sodium Level 145 mmol/L (136-145) 143 mmol/L (136-145) Potassium Level 4.6 mmol/L (3.5-5.1) 3.8 mmol/L (3.5-5.1) Chloride Level 104 mmol/L (98-107) 106 mmol/L (98-107) Carbon Dioxide Level 34 mmol/L (21-32) 31 mmol/L (21-32) Anion Gap 7 (6-14) 6 (6-14) Blood Urea Nitrogen 15 mg/dL (7-20) 11 mg/dL (7-20) Creatinine 0.7 mg/dL (0.6-1.0) 0.6 mg/dL (0.6-1.0) Estimated GFR (Cockcroft-Gault) 83.0 99.1 BUN/Creatinine Ratio 21 (6-20) 18 (6-20) Glucose Level 113 mg/dL (70-99) 100 mg/dL (70-99) Lactic Acid Level 3.7 mmol/L (0.4-2.0) 1.0 mmol/L (0.4-2.0) Calcium Level 9.1 mg/dL (8.5-10.1) 8.0 mg/dL (8.5-10.1) Magnesium Level 1.9 mg/dL (1.8-2.4) Total Bilirubin 0.2 mg/dL (0.2-1.0) 0.2 mg/dL (0.2-1.0) Aspartate Amino Transf (AST/SGOT) 27 U/L (15-37) 25 U/L (15-37) Alanine Aminotransferase (ALT/SGPT) 32 U/L (14-59) 26 U/L (14-59) Alkaline Phosphatase 47 U/L (46-116) 37 U/L (46-116) Troponin I Quantitative < 0.017 ng/mL (0.000-0.055) YD-Hop-E-Type Natriuretic Peptide 96 pg/mL (0-124) Total Protein 6.6 g/dL (6.4-8.2) 5.6 g/dL (6.4-8.2) Albumin 3.4 g/dL (3.4-5.0) 2.8 g/dL (3.4-5.0) Albumin/Globulin Ratio 1.1 (1.0-1.7) 1.0 (1.0-1.7) Procalcitonin < 0.10 ng/mL (0.00-0.10) Urine Collection Type U cath Urine Color Yellow Urine Clarity Clear Urine pH 6.5 Urine Specific [place] 1.015 Urine Protein Negative mg/dL (NEG-TRACE) Urine Glucose (UA) Negative mg/dL (NEG) Urine Ketones (Stick) Negative mg/dL (NEG) Urine Blood Negative (NEG) Urine Nitrite Negative (NEG) Urine Bilirubin Negative (NEG) Urine Urobilinogen Dipstick 1.0 mg/dL (0.2 mg/dL) Urine Leukocyte Esterase Negative (NEG) Urine RBC 0 /HPF (0-2) Urine WBC 0 /HPF (0-4) Urine Squamous Epithelial Cells Many /LPF Urine Bacteria 0 /HPF (0-FEW) Test 05/29/18 09:03 05/30/18 05:35 Nasal Screen MRSA (PCR) Negative (Negative) Vancomycin Level Trough 4.5 mcg/mL (10.0-20.0) Vancomycin Last Dose Date 05/29/18 Vancomycin Last Dose Time 1200 Laboratory Tests Test 05/30/18 05:35 Vancomycin Level Trough 4.5 mcg/mL (10.0-20.0) Vancomycin Last Dose Date 05/29/18 Vancomycin Last Dose Time 1200 Microbiology 05/28/18 Blood Culture - Preliminary, Resulted NO GROWTH AFTER 1 DAY Medications Current Medications Fentanyl Citrate (Fentanyl 2ml Vial) 50 mcg 1X ONCE IV Last administered on 05/28/18at 16:09; Start 05/28/18 at 16:00; Stop 05/28/18 at 16:01; Status DC Vancomycin HCl (Vanco Per Pharmacy) 1 each PRN DAILY PRN MC SEE COMMENTS Last administered on 05/29/18at 16:59; Start 05/28/18 at 17:00 Levofloxacin/ Dextrose 100 ml @ 100 mls/hr 1X ONCE IV Last administered on 05/28/18at 17:11; Start 05/28/18 at 17:00; Stop 05/28/18 at 17:59; Status DC Sodium Chloride 1,000 ml @ 1,650 mls/hr Q37M IV Last administered on 05/28/18at 17:14; Start 05/28/18 at 16:53; Stop 05/28/18 at 17:53; Status DC Vancomycin HCl 1.25 gm/Sodium Chloride 250 ml @ 166.667 mls/hr 1X ONCE IV Last administered on 05/28/18 18:19; Start 05/28/18 at 17:00; Stop 05/28/18 at 18: 29; Status DC Albuterol/ Ipratropium (Duoneb) 3 ml 1X ONCE NEB Last administered on at 19:01; Start 05/28/18 at 18:45; Stop 05/28/18 at 18:46; Status DC Methylprednisolone Sodium Succinate (SOLU-Medrol 125MG VIAL) 125 mg 1X ONCE IV Last administered on 05/28/18at 22:16; Start 05/28/18 at 18:45; Stop 05/28/18 at 18:46; Status DC Ondansetron HCl (Zofran) 4 mg PRN Q8HRS PRN IV NAUSEA/VOMITING Last administered on 05/29/18at 11:05; Start 05/28/18 at 20:00; Stop 05/29/18 at 19:59; Status DC Fentanyl Citrate (Fentanyl 2ml Vial) 50 mcg PRN Q1HR PRN IV PAIN SEVERE; Start 05/28/18 at 20:00; Stop 05/29/18 at 19:59; Status DC Acetaminophen (Tylenol) 650 mg PRN Q4HRS PRN PO FEVER Last administered on at 11:06; Start 05/28/18 at 20:00; Stop 05/29/18 at 19:59; Status DC Albuterol/ Ipratropium (Duoneb) 3 ml RTQID NEB ; Start 05/28/18 at 20:00; Stop at 01:06; Status DC Sodium Chloride 1,000 ml @ 125 mls/hr 1X ONCE IV ; Start 05/28/18 at 20:00; Stop 05/29/18 at 03:59; Status DC Vancomycin HCl 750 mg/Sodium Chloride 250 ml @ 250 mls/hr Q18H IV Last administered on 05/29/18at 12:25; Start 05/29/18 at 12:00; Stop 05/30/18 at 07:32; Status DC Vancomycin HCl (Vancomycin Trough Level) 1 each 1X ONCE MC Last administered on 05/30/18 05:30; Start 05/30/18 at 05:30; Stop 05/30/18 at 05:31; Status DC Diazepam (Valium) 5 mg PRN Q4HRS PRN PO ANXIETY / AGITATION Last administered on 05/30/18 04:06; Start 05/28/18 at 23:00 Digoxin (Lanoxin) 125 mcg DAILY PO ; Start 05/29/18 at 09:00; Stop 05/29/18 at 10: 46; Status DC Prednisone (Prednisone) 30 mg DAILY PO ; Start 05/29/18 at 09:00; Stop 05/30/18 at 08:10; Status DC Tramadol HCl (Ultram) 50 mg PRN Q8HRS PRN PO MODERATE PAIN Last administered on 05/29/18at 04:44; Start 05/28/18 at 23:00 Benzonatate (Tessalon Perle) 100 mg TID PO Last administered on 05/29/18at 08:45 ; Start 05/29/18 at 09:00; Stop 05/29/18 at 10:46; Status DC Non-Formulary Medication (Budesonide/ Formoterol Fumarate (Symbicort 160-4.5 Mcg Inhaler)) 2 puff BID IH ; Start 05/29/18 at 09:00; Status UNV Diltiazem HCl (Cardizem 24hr Cd) 120 mg DAILY PO Last administered on at 09:03; Start 05/29/18 at 09:00 Levofloxacin (Levaquin) 500 mg DAILY PO Last administered on 05/30/18at 09:03; Start 05/29/18 at 09:00 Non-Formulary Medication (Tiotropium [place] (Spiriva)) 1 cap DAILY IH ; Start 05/29/18 at 09:00; Status UNV Sodium Chloride 1,000 ml @ 75 mls/hr [id number] IV Last administered on 05/29/18at 22:58; Start 05/28/18 at 23:00 Budesonide (Pulmicort) 0.5 mg RTBID NEB Last administered on 05/30/18at 08:23; Start 05/29/18 at 08:00 Albuterol/ Ipratropium (Duoneb) 3 ml RTQID NEB Last administered on 05/30/18at 08:23; Start 05/29/18 at 08:00 Albuterol Sulfate (Ventolin Neb Soln) 2.5 mg PRN Q4HRS PRN NEB SHORTNESS OF BREATH Last administered on 05/30/18at 04:15; Start 05/29/18 at 03:15 Nicotine (Nicoderm Cq 21mg) 1 patch PRN DAILY PRN TD SMOKING CESSATION; Start 05/29/18 at 08:30 Guaifenesin (Robitussin Dm) 10 ml PRN Q6HRS PRN PO COUGH 1ST CHOICE Last administered on 05/30/18at 06:00; Start 05/29/18 at 08:30 Diphenhydramine HCl (Benadryl) 25 mg PRN QHS PRN PO INSOMNIA; Start 05/29/18 at 08:30 Benzonatate (Tessalon Perle) 100 mg PRN TID PRN PO cough 2ND CHOICE; Start 05/29 at 11:00 Acetaminophen (Tylenol) 500 mg PRN Q6HRS PRN PO MILD PAIN / TEMP Last administered on 05/30/18at 05:56; Start 05/29/18 at 10:45 Prednisone (Prednisone) 40 mg DAILY PO ; Start 05/30/18 at 09:00 Prednisone (Prednisone) 40 mg 1X ONCE PO ; Start 05/29/18 at 11:30; Stop at 11:31; Status DC Vancomycin HCl 1 gm/Sodium Chloride 250 ml @ 250 mls/hr Q12H IV Last administered on 05/30/18at 09:03; Start 05/30/18 at 08:00 Lactobacillus Rhamnosus (Culturelle) 1 cap BID PO Last administered on at 09:03; Start 05/30/18 at 09:00 Prednisone (Prednisone) 10 mg 1X ONCE PO Last administered on 05/30/18at 09:45 ; Start 05/30/18 at 09:45; Stop 05/30/18 at 09:46; Status DC Active Scripts Active Tramadol Hcl 50 Mg Tablet 50 Mg PO PRN Q8HRS PRN 30 Days Levofloxacin 500 Mg Tablet 500 Mg PO DAILY 7 Days Prednisone 20 Mg Tablet 30 Mg PO DAILY 5 Days Tessalon Perle (Benzonatate) 100 Mg Capsule 1 Cap PO TID Reported Diltiazem 24HR Cd (Diltiazem Hcl) 120 Mg Cap.er.24h 1 Cap PO DAILY Mucinex Dm Er 600-30 Mg Tablet (Guaifenesin/Dextromethorphan) 1 Each Tab.er.12h 1 Each PO Benadryl (Diphenhydramine Hcl) 25 Mg Capsule 25 Mg PO PRN PRN Dok (Docusate Sodium) 100 Mg Capsule 100 Mg PO PRN PRN Vivelle-Dot (Estradiol) 1 Each Patch.tdsw 0.1 Patch TP Valium (Diazepam) 5 Mg Tablet 5 Mg PO PRN Q4HRS PRN Proventil Hfa Inhaler (Albuterol Sulfate) 6.7 Gm Hfa.aer.ad 1 Puff IH PRN PRN Spiriva (Tiotropium [place]) 18 Mcg Cap.w.dev 1 Cap IH DAILY Symbicort 160-4.5 Mcg Inhaler (Budesonide/Formoterol Fumarate) 10.2 Gm Hfa.aer.ad 2 Puff IH BID Vitals/I & O Vital Sign - Last 24 Hours 05/29/18 05/29/18 05/29/18 05/29/18 12:00 14:55 15:58 19:00 Temp 98.2 98.3 98.2 98.3 Pulse 97 93 Resp 18 18 B/P (MAP) 103/61 (75) 105/61 (76) Pulse Ox 97 100 97 96 O2 Delivery Nasal Cannula Nasal Cannula Nasal Cannula Nasal Cannula O2 Flow Rate 3.0 3.0 3.0 3.0 05/29/18 05/29/18 05/29/18 05/29/18 19:55 19:55 20:00 22:52 Pulse Ox 97 97 97 O2 Delivery Nasal Cannula Nasal Cannula Nasal Cannula Nasal Cannula O2 Flow Rate 3.0 3.0 3.0 3.0 05/29/18 05/30/18 05/30/18 05/30/18 23:00 03:00 04:15 07:00 Temp 98.1 98.1 97.5 98.1 98.1 97.5 Pulse 106 92 97 Resp 18 18 18 B/P (MAP) 117/63 (81) 111/60 (77) 110/60 (77) Pulse Ox 98 99 92 98 O2 Delivery Nasal Cannula Nasal Cannula Nasal Cannula Nasal Cannula O2 Flow Rate 3.0 3.0 3.0 3.0 05/30/18 05/30/18 08:24 09:03 Pulse 97 B/P (MAP) 110/60 Pulse Ox 99 O2 Delivery Nasal Cannula O2 Flow Rate 4.0 Intake and Output 05/29/18 05/29/18 05/30/18 15:00 23:00 07:00 Intake Total 250 ml 0 ml 0 ml Balance 250 ml 0 ml 0 ml JOHN BUTT MD May 30, 2018 11:02
[2018-05-30] MEDS: traMADol 50 MG TABLET PO PRN ×2 (11:33→22:29)
--- NOTE | 2018-05-30 14:12 | PDOC ---
PULMONARY PROGRESS NOTES Subjective persistent cough Vitals Vital Signs Date Time Temp Pulse Resp B/P (MAP) Pulse Ox O2 Delivery O2 Flow Rate FiO2 05/30/18 13:36 99 Nasal Cannula 3.0 05/30/18 11:00 98.5 112 18 114/64 (81) 98.5 General: Alert, No acute distress HEENT: Other Lungs: Wheezing Cardiovascular: S1, S2 Abdomen: Soft, Non-tender Neuro Exam: Alert Extremities: No Edema Skin: Warm Labs Laboratory Tests Test 05/28/18 15:45 05/28/18 17:22 05/28/18 19:52 05/29/18 04:16 White Blood Count 5.9 x10^3/uL (4.0-11.0) 6.7 x10^3/uL (4.0-11.0) Red Blood Count 4.06 x10^6/uL (3.50-5.40) 3.52 x10^6/uL (3.50-5.40) Hemoglobin 11.4 g/dL (12.0-15.5) 10.0 g/dL (12.0-15.5) Hematocrit 36.3 % (36.0-47.0) 31.7 % (36.0-47.0) Mean Corpuscular Volume 90 fL (79-100) 90 fL (79-100) Mean Corpuscular Hemoglobin 28 pg (25-35) 29 pg (25-35) Mean Corpuscular Hemoglobin Concent 31 g/dL (31-37) 32 g/dL (31-37) Red Cell Distribution Width 15.9 % (11.5-14.5) 16.1 % (11.5-14.5) Platelet Count 213 x10^3/uL (140-400) 175 x10^3/uL (140-400) Neutrophils (%) (Auto) 69 % (31-73) 68 % (31-73) Lymphocytes (%) (Auto) 19 % (24-48) 20 % (24-48) Monocytes (%) (Auto) 11 % (0-9) 10 % (0-9) Eosinophils (%) (Auto) 1 % (0-3) 1 % (0-3) Basophils (%) (Auto) 1 % (0-3) 1 % (0-3) Neutrophils # (Auto) 4.0 x10^3uL (1.8-7.7) 4.6 x10^3uL (1.8-7.7) Lymphocytes # (Auto) 1.1 x10^3/uL (1.0-4.8) 1.3 x10^3/uL (1.0-4.8) Monocytes # (Auto) 0.6 x10^3/uL (0.0-1.1) 0.7 x10^3/uL (0.0-1.1) Eosinophils # (Auto) 0.0 x10^3/uL (0.0-0.7) 0.1 x10^3/uL (0.0-0.7) Basophils # (Auto) 0.0 x10^3/uL (0.0-0.2) 0.0 x10^3/uL (0.0-0.2) Prothrombin Time 13.0 SEC (11.7-14.0) Prothromb Time International Ratio 1.0 (0.8-1.1) Activated Partial Thromboplast Time 25 SEC (24-38) Sodium Level 145 mmol/L (136-145) 143 mmol/L (136-145) Potassium Level 4.6 mmol/L (3.5-5.1) 3.8 mmol/L (3.5-5.1) Chloride Level 104 mmol/L (98-107) 106 mmol/L (98-107) Carbon Dioxide Level 34 mmol/L (21-32) 31 mmol/L (21-32) Anion Gap 7 (6-14) 6 (6-14) Blood Urea Nitrogen 15 mg/dL (7-20) 11 mg/dL (7-20) Creatinine 0.7 mg/dL (0.6-1.0) 0.6 mg/dL (0.6-1.0) Estimated GFR (Cockcroft-Gault) 83.0 99.1 BUN/Creatinine Ratio 21 (6-20) 18 (6-20) Glucose Level 113 mg/dL (70-99) 100 mg/dL (70-99) Lactic Acid Level 3.7 mmol/L (0.4-2.0) 1.0 mmol/L (0.4-2.0) Calcium Level 9.1 mg/dL (8.5-10.1) 8.0 mg/dL (8.5-10.1) Magnesium Level 1.9 mg/dL (1.8-2.4) Total Bilirubin 0.2 mg/dL (0.2-1.0) 0.2 mg/dL (0.2-1.0) Aspartate Amino Transf (AST/SGOT) 27 U/L (15-37) 25 U/L (15-37) Alanine Aminotransferase (ALT/SGPT) 32 U/L (14-59) 26 U/L (14-59) Alkaline Phosphatase 47 U/L (46-116) 37 U/L (46-116) Troponin I Quantitative < 0.017 ng/mL (0.000-0.055) KC-Mww-A-Type Natriuretic Peptide 96 pg/mL (0-124) Total Protein 6.6 g/dL (6.4-8.2) 5.6 g/dL (6.4-8.2) Albumin 3.4 g/dL (3.4-5.0) 2.8 g/dL (3.4-5.0) Albumin/Globulin Ratio 1.1 (1.0-1.7) 1.0 (1.0-1.7) Procalcitonin < 0.10 ng/mL (0.00-0.10) Urine Collection Type U cath Urine Color Yellow Urine Clarity Clear Urine pH 6.5 Urine Specific [place] 1.015 Urine Protein Negative mg/dL (NEG-TRACE) Urine Glucose (UA) Negative mg/dL (NEG) Urine Ketones (Stick) Negative mg/dL (NEG) Urine Blood Negative (NEG) Urine Nitrite Negative (NEG) Urine Bilirubin Negative (NEG) Urine Urobilinogen Dipstick 1.0 mg/dL (0.2 mg/dL) Urine Leukocyte Esterase Negative (NEG) Urine RBC 0 /HPF (0-2) Urine WBC 0 /HPF (0-4) Urine Squamous Epithelial Cells Many /LPF Urine Bacteria 0 /HPF (0-FEW) Test 05/29/18 09:03 05/30/18 05:35 Nasal Screen MRSA (PCR) Negative (Negative) Vancomycin Level Trough 4.5 mcg/mL (10.0-20.0) Vancomycin Last Dose Date 05/29/18 Vancomycin Last Dose Time 1200 Laboratory Tests Test 05/30/18 05:35 Vancomycin Level Trough 4.5 mcg/mL (10.0-20.0) Vancomycin Last Dose Date 05/29/18 Vancomycin Last Dose Time 1200 Medications Active Scripts Medications Dose Route/Sig Max Daily Dose Days Date Category Tramadol Hcl 50 Mg Tablet 50 Mg PO PRN Q8HRS PRN 30 02/27/18 Rx Levofloxacin 500 Mg Tablet 500 Mg PO DAILY 7 02/27/18 Rx Prednisone 20 Mg Tablet 30 Mg PO DAILY 5 02/27/18 Rx Tessalon Perle (Benzonatate) 100 Mg Capsule 1 Cap PO TID 04/23/17 Rx Diltiazem 24HR Cd (Diltiazem Hcl) 120 Mg Cap.er.24h 1 Cap PO DAILY 04/18/17 Reported Mucinex Dm Er 600-30 Mg Tablet (Guaifenesin/Dextromethorphan) 1 Each Tab.er.12h 1 Each PO 06/14/15 Reported Benadryl (Diphenhydramine Hcl) 25 Mg Capsule 25 Mg PO PRN PRN 06/14/15 Reported Dok (Docusate Sodium) 100 Mg Capsule 100 Mg PO PRN PRN 06/14/15 Reported Vivelle-Dot (Estradiol) 1 Each Patch.tdsw 0.1 Patch TP 06/14/15 Reported Valium (Diazepam) 5 Mg Tablet 5 Mg PO PRN Q4HRS PRN 06/14/15 Reported Proventil Hfa Inhaler (Albuterol Sulfate) 6.7 Gm Hfa.aer.ad 1 Puff IH PRN PRN 06/14/15 Reported Spiriva (Tiotropium [place]) 18 Mcg Cap.w.dev 1 Cap IH DAILY 06/14/15 Reported Symbicort 160-4.5 Mcg Inhaler (Budesonide/Formoterol Fumarate) 10.2 Gm Hfa.aer.ad 2 Puff IH BID 06/14/15 Reported Impression . 1. Dyspnea secondary to acute exacerbation of chronic obstructive pulmonary disease in a patient with end-stage chronic obstructive pulmonary disease with chronic hypoxic respiratory failure. 2. Acute bronchitis. No definite consolidation seen on the chest x-ray. 3. Lower extremity edema, likely cor pulmonale. Plan . 1. Discussed with the patient at this time, I will continue with supportive treatment with oxygen and bronchodilators along with oral prednisone. she prefers to avoid IV steroids 2. Continue empiric antibiotics. 3. The patient wants to consider another hospice company. We will ask social workers / Palliative care to help with that. 4. We will follow along with you. ADEEL FRAGOSO MD May 30, 2018 14:12
[2018-05-30 15:00] VITALS: BP 115/60
--- NOTE | 2018-05-30 15:30 | NUR ---
SW faxed updates to [place].
[2018-05-30] MEDS: VANCOMYCIN PER PHARMACY MC PRN ×2 (16:28→16:29)
--- NOTE | 2018-05-30 16:30 | NUR ---
Pharmacy Vancomycin Dosing Note S: Consulted to monitor and dose vancomycin started 05/28/18. O: SAMEER BAHENA is a 67 year old F with acute resp failure Other Antibiotics: Levofloxacin LABS: Last BUN: 11 Last Creatinine: 0.6 Creatinine Clearance: 45-55 mL/min Last WBC: 6.7 Last Procalcitonin: < 0.1 (per chest x-ray no pneumonia) Tmax (past 24 hours): 98.5 Microbiology: Blood cultures:NGTD UA negative I/O: 420/- Drug Levels: Last Trough level: 4.5 on 05/30/18 at 0535 Last dose given 05/29/18 at 1225 Vancomycin Dosing: Dosing Weight: Actual Target Trough: 15-20 A: Based on: TROUGH P: 1. INCREASE Vancomycin to 1000 mg IV q12h 2. Follow up Trough level on 05/31/18 at 0730 3. Pharmacy will continue to monitor, follow and adjust therapy as needed. Shilpi Pope [facility], 05/30/18 [id number]
[2018-05-30] MEDS: IV NORMAL SALINE 1000ML BAG 1,000 ML IV SCH (18:10)
[2018-05-30 19:00] VITALS: BP 114/59
--- NOTE | 2018-05-30 19:10 | PDOC2 ---
PALLIATIVE CARE Palliative Care Note Palliative Care Consult requested by Dr. Galeano to address plan of care Medical Assessment per medical record 1. Dyspnea secondary to acute exacerbation of chronic obstructive pulmonary disease in a patient with end-stage chronic obstructive pulmonary disease with chronic hypoxic respiratory failure. 2. Acute bronchitis. No definite consolidation seen on the chest x-ray. 3. Lower extremity edema, likely cor pulmonale. Hx OCD, Patient had been with [facility]. Is no longer with Hospice. Temporarily ??lives in [facility] in [place]. She is a --[facility] but with Hospice this time was decreased to 6 hours. Feels like she is needing more support than what hospice was providing. Discussed Code Status; patient understood she was DNR/DNI.---however she was Full Code according to the record. Patient requests DNR/DNI. Would like to wait and sign the Outside the Hospital DNR/DNI form later. Patient has 2 grandsons, son is . Asked that we continue conversation tomorrow. SATNY RAYMUNDO May 30, 2018 19:10
[2018-05-30 23:00] VITALS: BP 126/55
[2018-05-31 03:47] VITALS: BP 122/55
[2018-05-31] MEDS: ALBUTEROL SULFATE 2.5 MG/3 ML NEBU. NEB PRN (03:52)
[2018-05-31] MEDS: IV NORMAL SALINE 1000ML BAG 1,000 ML IV SCH ×2 (04:20→08:57)
[2018-05-31] MEDS: diazePAM 5 MG TABLET PO PRN ×3 (04:21→21:55)
[2018-05-31] MEDS: ACETAMINOPHEN 500 MG TABLET PO PRN ×3 (04:21→21:55)
[2018-05-31 07:00] VITALS: BP 122/74
[2018-05-31] MEDS: BUDESONIDE 0.5 MG/2 ML NEBU. NEB SCH ×2 (07:11→21:02)
[2018-05-31] MEDS: IPRATRPIUM/ALBUTEROL 0.5/2.5MG 3 ML NEBU. NEB SCH ×4 (07:11→21:02)
[2018-05-31 08:16] LABS: BASO % 1 % (0-3); EOS # 0.1 x10^3/uL (0.0-0.7); EOS % 2 % (0-3); HEMATOCRIT 31.4 % (36.0-47.0); LYMPH # 1.2 x10^3/uL (1.0-4.8); LYMPH % 21 % (24-48); MEAN CORPUSCULAR HEMOGLOBIN 29 pg (25-35); MEAN CORPUSCULAR HGB CONC 32 g/dL (31-37); MEAN CORPUSCULAR VOLUME 91 fL (79-100); MONO # 0.6 x10^3/uL (0.0-1.1); MONO % 11 % (0-9); NEUT # 3.8 x10^3uL (1.8-7.7); NEUT % 66 % (31-73); PLATELET COUNT 168 x10^3/uL (140-400); RED BLOOD COUNT 3.46 x10^6/uL (3.50-5.40); RED CELL DISTRIBUTION WIDTH 15.9 % (11.5-14.5); WHITE BLOOD COUNT 5.8 x10^3/uL (4.0-11.0)
[2018-05-31 08:28] LABS: CREATININE 0.6 mg/dL (0.6-1.0); GFR 99.1
[2018-05-31 08:35] LABS: VANC TR 10.1 mcg/mL (10.0-20.0)
[2018-05-31] MEDS: LACTOBACILLUS RHAMNOSUS GG 1 CAPSULE. PO SCH ×2 (08:58→21:56)
[2018-05-31] MEDS: VANCOMYCIN 1 GM in IV NORMAL SALINE 250ML 250 ML IV SCH (08:58)
[2018-05-31] MEDS: predniSONE 20 MG TABLET PO SCH (08:59)
--- NOTE | 2018-05-31 10:59 | PDOC ---
PROGRESS NOTES Chief Complaint Chief Complaint End-stage COPD, Pulmonary emphysematous changes are present. on cxr Home O2 dependent Smoker-2 cigarettes a day Cachexia with possible undiagnosed osteoporosis DJD lumbar spine Right ankle sprain acute Fall, high fall risk Generalized weakness likely cor pulmonale. moderate protein-caloric malnutrition dental caries marked disability lack of socail support long discussion re needs for dentist and home health assist, various frustrations with end stage disease, disability, no easy answers. she is estranged from a daughter who lives in [place] plan consult pulmonary d/c when ok with pulmonary case mngt for d/c planning education provided for smoking cessation lack of social support PAST MEDICAL HISTORY: End-stage COPD; CHF; myocardial infarction; RSD; OCD; bowel perforation; hysterectomy; previous tracheostomy, but that has been reversed; abdominal surgery. ALLERGIES: IODINE, PENICILLIN, CODEINE. FAMILY HISTORY: Coronary disease. SOCIAL HISTORY: She still smokes. No etoh or drugs. History of Present Illness History of Present Illness Wheezy less She does not want to go back on hospice She is a full code on chart She likes her pain medicines but asks for for some Tylenol too Tessalon Perle when necessary , persistent coughing po prednisone No pneumonia on x-rays I discussed about osteoporosis, DEXA scan as outpatient PCP-she follows at the [facility] Plan: Tylenol Pulmo consult for end-stage COPD Will not go back to hospice on discharge- Other supportive meds PT OT Lives in assisted living Nicotine patch when necessary Robitussin when necessary palliation of symptoms iv vanc may need trilogy Vitals Vitals Vital Signs Date Time Temp Pulse Resp B/P (MAP) Pulse Ox O2 Delivery O2 Flow Rate FiO2 05/31/18 08:59 94 122/74 05/31/18 08:00 Nasal Cannula 3.0 05/31/18 07:11 98 05/31/18 07:00 98.7 18 98.7 Physical Exam General: Alert, Oriented X3, Cooperative, No acute distress, mild distress, Other (tearful due to loss of hope for imroved quality of life) Heart: Regular rate, Normal S1, Normal S2, No murmurs Lungs: Wheezing (poor air exchange, prolonged exp wheeze and exp phase) Abdomen: Soft, No tenderness, No hepatosplenomegaly Extremities: No cyanosis, No edema, Other (cachexia) Skin: No rashes, No breakdown, No significant lesion Labs LABS PATIENT: SAMEER BAHENA ACCT: [id number] LOC: [address] [place] [address] U : [id number] AGE/SX: 67/F ROOM: [facility] REG : 05/28/[address]: RUSH CONNER III, DO : 1950 BED: 1 DIS : STATUS: ADM IN TLOC: SPEC #: [id number] ABRAHAN: 05/28/18 STATUS: RES REQ #: [id number] RECD: 05/28/[address]: KRISTIN HEWITT APRN SOURCE: BLOOD ENTR: 05/28/18-[address] [facility] [address]: ARVIN,STAFF SPDC: ORDERED: BCULT Procedure Result BLOOD CULTURE Preliminary NO GROWTH AFTER 3 DAYS Chest radiograph 05/28/2018 3:43 PM INDICATION: Shortness of air, history of pneumonia COMPARISON: February 22, 2018 TECHNIQUE: Frontal view of the chest is provided. FINDINGS: The cardiomediastinal silhouette is within normal limits. Similar trace right pleural effusion with adjacent compressive atelectasis versus infiltrate.. There is no pulmonary vascular congestion. There is no pneumothorax. Pulmonary emphysematous changes are present. No significant osseous abnormality is identified. IMPRESSION: Stable COPD changes with trace right pleural effusion, not significantly changed. No new airspace consolidation is identified. Electronically signed by: Esteban Brody MD (05/28/2018 4:18 PM) [id number] DICTATED and SIGNED BY: ESTEBAN BRODY MD DATE: 05/28/18 1618 Laboratory Tests Test 05/31/18 07:47 White Blood Count 5.8 x10^3/uL (4.0-11.0) Red Blood Count 3.46 x10^6/uL (3.50-5.40) Hemoglobin 10.0 g/dL (12.0-15.5) Hematocrit 31.4 % (36.0-47.0) Mean Corpuscular Volume 91 fL (79-100) Mean Corpuscular Hemoglobin 29 pg (25-35) Mean Corpuscular Hemoglobin Concent 32 g/dL (31-37) Red Cell Distribution Width 15.9 % (11.5-14.5) Platelet Count 168 x10^3/uL (140-400) Neutrophils (%) (Auto) 66 % (31-73) Lymphocytes (%) (Auto) 21 % (24-48) Monocytes (%) (Auto) 11 % (0-9) Eosinophils (%) (Auto) 2 % (0-3) Basophils (%) (Auto) 1 % (0-3) Neutrophils # (Auto) 3.8 x10^3uL (1.8-7.7) Lymphocytes # (Auto) 1.2 x10^3/uL (1.0-4.8) Monocytes # (Auto) 0.6 x10^3/uL (0.0-1.1) Eosinophils # (Auto) 0.1 x10^3/uL (0.0-0.7) Basophils # (Auto) 0.0 x10^3/uL (0.0-0.2) Sodium Level 143 mmol/L (136-145) Potassium Level 4.0 mmol/L (3.5-5.1) Chloride Level 106 mmol/L (98-107) Carbon Dioxide Level 32 mmol/L (21-32) Anion Gap 5 (6-14) Blood Urea Nitrogen 9 mg/dL (7-20) Creatinine 0.6 mg/dL (0.6-1.0) Estimated GFR (Cockcroft-Gault) 99.1 Glucose Level 100 mg/dL (70-99) Calcium Level 8.0 mg/dL (8.5-10.1) Vancomycin Level Trough 10.1 mcg/mL (10.0-20.0) Vancomycin Last Dose Date 05/30/18 Vancomycin Last Dose Time 1999 Assessment and Plan Assessmemt and Plan Problems Medical Problems: (1) Acute cervical sprain Status: Acute (2) Contusion of right hip Status: Acute (3) Contusion of thoracic wall Status: Acute (4) Fall from standing Status: Acute (5) Lumbar contusion Status: Acute (6) Right ankle sprain Status: Acute Comment Review of Relevant I have reviewed the following items lazaro (where applicable) has been applied. Labs Laboratory Tests Test 05/30/18 05:35 05/31/18 07:47 Vancomycin Level Trough 4.5 mcg/mL (10.0-20.0) 10.1 mcg/mL (10.0-20.0) Vancomycin Last Dose Date 05/29/18 05/30/18 Vancomycin Last Dose Time 1200 2000 White Blood Count 5.8 x10^3/uL (4.0-11.0) Red Blood Count 3.46 x10^6/uL (3.50-5.40) Hemoglobin 10.0 g/dL (12.0-15.5) Hematocrit 31.4 % (36.0-47.0) Mean Corpuscular Volume 91 fL (79-100) Mean Corpuscular Hemoglobin 29 pg (25-35) Mean Corpuscular Hemoglobin Concent 32 g/dL (31-37) Red Cell Distribution Width 15.9 % (11.5-14.5) Platelet Count 168 x10^3/uL (140-400) Neutrophils (%) (Auto) 66 % (31-73) Lymphocytes (%) (Auto) 21 % (24-48) Monocytes (%) (Auto) 11 % (0-9) Eosinophils (%) (Auto) 2 % (0-3) Basophils (%) (Auto) 1 % (0-3) Neutrophils # (Auto) 3.8 x10^3uL (1.8-7.7) Lymphocytes # (Auto) 1.2 x10^3/uL (1.0-4.8) Monocytes # (Auto) 0.6 x10^3/uL (0.0-1.1) Eosinophils # (Auto) 0.1 x10^3/uL (0.0-0.7) Basophils # (Auto) 0.0 x10^3/uL (0.0-0.2) Sodium Level 143 mmol/L (136-145) Potassium Level 4.0 mmol/L (3.5-5.1) Chloride Level 106 mmol/L (98-107) Carbon Dioxide Level 32 mmol/L (21-32) Anion Gap 5 (6-14) Blood Urea Nitrogen 9 mg/dL (7-20) Creatinine 0.6 mg/dL (0.6-1.0) Estimated GFR (Cockcroft-Gault) 99.1 Glucose Level 100 mg/dL (70-99) Calcium Level 8.0 mg/dL (8.5-10.1) Laboratory Tests Test 05/31/18 07:47 White Blood Count 5.8 x10^3/uL (4.0-11.0) Red Blood Count 3.46 x10^6/uL (3.50-5.40) Hemoglobin 10.0 g/dL (12.0-15.5) Hematocrit 31.4 % (36.0-47.0) Mean Corpuscular Volume 91 fL (79-100) Mean Corpuscular Hemoglobin 29 pg (25-35) Mean Corpuscular Hemoglobin Concent 32 g/dL (31-37) Red Cell Distribution Width 15.9 % (11.5-14.5) Platelet Count 168 x10^3/uL (140-400) Neutrophils (%) (Auto) 66 % (31-73) Lymphocytes (%) (Auto) 21 % (24-48) Monocytes (%) (Auto) 11 % (0-9) Eosinophils (%) (Auto) 2 % (0-3) Basophils (%) (Auto) 1 % (0-3) Neutrophils # (Auto) 3.8 x10^3uL (1.8-7.7) Lymphocytes # (Auto) 1.2 x10^3/uL (1.0-4.8) Monocytes # (Auto) 0.6 x10^3/uL (0.0-1.1) Eosinophils # (Auto) 0.1 x10^3/uL (0.0-0.7) Basophils # (Auto) 0.0 x10^3/uL (0.0-0.2) Sodium Level 143 mmol/L (136-145) Potassium Level 4.0 mmol/L (3.5-5.1) Chloride Level 106 mmol/L (98-107) Carbon Dioxide Level 32 mmol/L (21-32) Anion Gap 5 (6-14) Blood Urea Nitrogen 9 mg/dL (7-20) Creatinine 0.6 mg/dL (0.6-1.0) Estimated GFR (Cockcroft-Gault) 99.1 Glucose Level 100 mg/dL (70-99) Calcium Level 8.0 mg/dL (8.5-10.1) Vancomycin Level Trough 10.1 mcg/mL (10.0-20.0) Vancomycin Last Dose Date 05/30/18 Vancomycin Last Dose Time 1999 Microbiology 05/28/18 Blood Culture - Preliminary, Resulted NO GROWTH AFTER 2 DAYS Medications Current Medications Fentanyl Citrate (Fentanyl 2ml Vial) 50 mcg 1X ONCE IV Last administered on 05/28/18at 16:09; Start 05/28/18 at 16:00; Stop 05/28/18 at 16:01; Status DC Vancomycin HCl (Vanco Per Pharmacy) 1 each PRN DAILY PRN MC SEE COMMENTS Last administered on 05/30/18 16:29; Start 05/28/18 at 17:00 Levofloxacin/ Dextrose 100 ml @ 100 mls/hr 1X ONCE IV Last administered on 17:11; Start 05/28/18 at 17:00; Stop 05/28/18 at 17:59; Status DC Sodium Chloride 1,000 ml @ 1,650 mls/hr Q37M IV Last administered on 05/28/18 17:14; Start 05/28/18 at 16:53; Stop 05/28/18 at 17:53; Status DC Vancomycin HCl 1.25 gm/Sodium Chloride 250 ml @ 166.667 mls/hr 1X ONCE IV Last administered on 05/28/18 18:19; Start 05/28/18 at 17:00; Stop 05/28/18 at 18: 29; Status DC Albuterol/ Ipratropium (Duoneb) 3 ml 1X ONCE NEB Last administered on 19:01; Start 05/28/18 at 18:45; Stop 05/28/18 at 18:46; Status DC Methylprednisolone Sodium Succinate (SOLU-Medrol 125MG VIAL) 125 mg 1X ONCE IV Last administered on 05/28/18 22:16; Start 05/28/18 at 18:45; Stop 05/28/18 at 18:46; Status DC Ondansetron HCl (Zofran) 4 mg PRN Q8HRS PRN IV NAUSEA/VOMITING Last administered on 05/29/18 11:05; Start 05/28/18 at 20:00; Stop 05/29/18 at 19:59; Status DC Fentanyl Citrate (Fentanyl 2ml Vial) 50 mcg PRN Q1HR PRN IV PAIN SEVERE; Start 05/28/18 at 20:00; Stop 05/29/18 at 19:59; Status DC Acetaminophen (Tylenol) 650 mg PRN Q4HRS PRN PO FEVER Last administered on 11:06; Start 05/28/18 at 20:00; Stop 05/29/18 at 19:59; Status DC Albuterol/ Ipratropium (Duoneb) 3 ml RTQID NEB ; Start 05/28/18 at 20:00; Stop at 01:06; Status DC Sodium Chloride 1,000 ml @ 125 mls/hr 1X ONCE IV ; Start 05/28/18 at 20:00; Stop 05/29/18 at 03:59; Status DC Vancomycin HCl 750 mg/Sodium Chloride 250 ml @ 250 mls/hr Q18H IV Last administered on 05/29/18at 12:25; Start 05/29/18 at 12:00; Stop 05/30/18 at 07:32; Status DC Vancomycin HCl (Vancomycin Trough Level) 1 each 1X ONCE MC Last administered on 05/30/18at 05:30; Start 05/30/18 at 05:30; Stop 05/30/18 at 05:31; Status DC Diazepam (Valium) 5 mg PRN Q4HRS PRN PO ANXIETY / AGITATION Last administered on 05/31/18at 04:21; Start 05/28/18 at 23:00 Digoxin (Lanoxin) 125 mcg DAILY PO ; Start 05/29/18 at 09:00; Stop 05/29/18 at 10: 46; Status DC Prednisone (Prednisone) 30 mg DAILY PO ; Start 05/29/18 at 09:00; Stop 05/30/18 at 08:10; Status DC Tramadol HCl (Ultram) 50 mg PRN Q8HRS PRN PO MODERATE PAIN Last administered on 05/30/18at 22:29; Start 05/28/18 at 23:00 Benzonatate (Tessalon Perle) 100 mg TID PO Last administered on 05/29/18at 08:45 ; Start 05/29/18 at 09:00; Stop 05/29/18 at 10:46; Status DC Non-Formulary Medication (Budesonide/ Formoterol Fumarate (Symbicort 160-4.5 Mcg Inhaler)) 2 puff BID IH ; Start 05/29/18 at 09:00; Status UNV Diltiazem HCl (Cardizem 24hr Cd) 120 mg DAILY PO Last administered on at 08:59; Start 05/29/18 at 09:00 Levofloxacin (Levaquin) 500 mg DAILY PO Last administered on 05/31/18at 08:59; Start 05/29/18 at 09:00 Non-Formulary Medication (Tiotropium [place] (Spiriva)) 1 cap DAILY IH ; Start 05/29/18 at 09:00; Status UNV Sodium Chloride 1,000 ml @ 75 mls/hr [id number] IV Last administered on at 08:57; Start 05/28/18 at 23:00 Budesonide (Pulmicort) 0.5 mg RTBID NEB Last administered on 05/31/18at 07:11; Start 05/29/18 at 08:00 Albuterol/ Ipratropium (Duoneb) 3 ml RTQID NEB Last administered on 05/31/18 07:11; Start 05/29/18 at 08:00 Albuterol Sulfate (Ventolin Neb Soln) 2.5 mg PRN Q4HRS PRN NEB SHORTNESS OF BREATH Last administered on 05/30/18at 04:15; Start 05/29/18 at 03:15; Stop at 14:10; Status DC Nicotine (Nicoderm Cq 21mg) 1 patch PRN DAILY PRN TD SMOKING CESSATION; Start 05/29/18 at 08:30 Guaifenesin (Robitussin Dm) 10 ml PRN Q6HRS PRN PO COUGH 1ST CHOICE Last administered on 05/30/18at 20:50; Start 05/29/18 at 08:30 Diphenhydramine HCl (Benadryl) 25 mg PRN QHS PRN PO INSOMNIA; Start 05/29/18 at 08:30 Benzonatate (Tessalon Perle) 100 mg PRN TID PRN PO cough 2ND CHOICE; Start 05/29 at 11:00 Acetaminophen (Tylenol) 500 mg PRN Q6HRS PRN PO MILD PAIN / TEMP Last administered on 05/31/18at 04:21; Start 05/29/18 at 10:45 Prednisone (Prednisone) 40 mg DAILY PO Last administered on 05/31/18at 08:59; Start 05/30/18 at 09:00 Prednisone (Prednisone) 40 mg 1X ONCE PO ; Start 05/29/18 at 11:30; Stop at 11:31; Status DC Vancomycin HCl 1 gm/Sodium Chloride 250 ml @ 250 mls/hr Q12H IV Last administered on 05/31/18at 08:58; Start 05/30/18 at 08:00 Lactobacillus Rhamnosus (Culturelle) 1 cap BID PO Last administered on at 08:58; Start 05/30/18 at 09:00 Prednisone (Prednisone) 10 mg 1X ONCE PO Last administered on 05/30/18at 09:45 ; Start 05/30/18 at 09:45; Stop 05/30/18 at 09:46; Status DC Albuterol Sulfate (Ventolin Neb Soln) 2.5 mg PRN Q2HRS PRN NEB SHORTNESS OF BREATH Last administered on 05/31/18at 03:52; Start 05/30/18 at 14:15 Vancomycin HCl (Vancomycin Trough Level) 1 each 1X ONCE MC Last administered on 05/31/18at 07:30; Start 05/31/18 at 07:30; Stop 05/31/18 at 07:31; Status DC Active Scripts Active Tramadol Hcl 50 Mg Tablet 50 Mg PO PRN Q8HRS PRN 30 Days Levofloxacin 500 Mg Tablet 500 Mg PO DAILY 7 Days Prednisone 20 Mg Tablet 30 Mg PO DAILY 5 Days Tessalon Perle (Benzonatate) 100 Mg Capsule 1 Cap PO TID Reported Diltiazem 24HR Cd (Diltiazem Hcl) 120 Mg Cap.er.24h 1 Cap PO DAILY Mucinex Dm Er 600-30 Mg Tablet (Guaifenesin/Dextromethorphan) 1 Each Tab.er.12h 1 Each PO Benadryl (Diphenhydramine Hcl) 25 Mg Capsule 25 Mg PO PRN PRN Dok (Docusate Sodium) 100 Mg Capsule 100 Mg PO PRN PRN Vivelle-Dot (Estradiol) 1 Each Patch.tdsw 0.1 Patch TP Valium (Diazepam) 5 Mg Tablet 5 Mg PO PRN Q4HRS PRN Proventil Hfa Inhaler (Albuterol Sulfate) 6.7 Gm Hfa.aer.ad 1 Puff IH PRN PRN Spiriva (Tiotropium [place]) 18 Mcg Cap.w.dev 1 Cap IH DAILY Symbicort 160-4.5 Mcg Inhaler (Budesonide/Formoterol Fumarate) 10.2 Gm Hfa.aer.ad 2 Puff IH BID Vitals/I & O Vital Sign - Last 24 Hours 05/30/18 05/30/18 05/30/18 05/30/18 11:00 11:33 13:36 15:00 Temp 98.5 98.5 Pulse 112 89 Resp 18 18 B/P (MAP) 114/64 (81) 115/60 (78) Pulse Ox 99 99 99 O2 Delivery Room Air Nasal Cannula Nasal Cannula Room Air O2 Flow Rate 3.0 3.0 05/30/18 05/30/18 05/30/18 05/30/18 15:48 18:12 19:00 19:30 Temp 98.5 98.5 Pulse 106 Resp 20 B/P (MAP) 114/59 (77) Pulse Ox 99 O2 Delivery Nasal Cannula Nasal Cannula Nasal Cannula Nasal Cannula O2 Flow Rate 3.0 3.0 3.0 05/30/18 05/30/18 05/30/18 05/30/18 22:29 22:50 23:00 23:30 Temp 97.8 97.8 Pulse 111 Resp 17 20 17 B/P (MAP) 126/55 (78) Pulse Ox 99 98 98 98 O2 Delivery Nasal Cannula Nasal Cannula Room Air Nasal Cannula O2 Flow Rate 3.0 3.0 3.0 05/31/18 05/31/18 05/31/18 05/31/18 03:47 03:51 07:00 07:11 Temp 98.1 98.7 98.1 98.7 Pulse 110 94 Resp 20 18 B/P (MAP) 122/55 (77) 122/74 (90) Pulse Ox 95 98 98 O2 Delivery Nasal Cannula Nasal Cannula Nasal Cannula Nasal Cannula O2 Flow Rate 3.0 3.0 05/31/18 05/31/18 08:00 08:59 Pulse 94 B/P (MAP) 122/74 O2 Delivery Nasal Cannula O2 Flow Rate 3.0 Intake and Output 05/30/18 05/30/18 05/31/18 14:59 22:59 06:59 Intake Total 600 ml 180 ml Output Total 1200 ml Balance 600 ml 180 ml -1200 ml Nutrition Consultation Dietary Evaluation: Recommendations by RD: Increase Calorie Intake, Protein supplementation Comments: ensure enlive tid Expected Outcomes/Goals: to meet > 75% est nutr needs Interpretation of weight loss: >20% in 1 year Malnutrition Findings: Body Fat Depletion (Non Severe: Mod to Severe Weight Status: Underweight JOHN BUTT MD May 31, 2018 10:58
[2018-05-31 11:00] VITALS: BP 109/60
--- NOTE | 2018-05-31 11:41 | NUR ---
SW following pt. Notified by PC pt would like a visit from [facility]. Clinicals faxed to [facility] and a liaison will visit pt today. Pt acceptance and admission pending. Will continue to follow.
--- NOTE | 2018-05-31 11:45 | PDOC ---
PULMONARY PROGRESS NOTES Subjective persistent cough, sob better, no pain, on home 02 3 lpm. Vitals Vital Signs Date Time Temp Pulse Resp B/P (MAP) Pulse Ox O2 Delivery O2 Flow Rate FiO2 05/31/18 11:00 98.3 93 17 109/60 (76) 99 Nasal Cannula 98.3 05/31/18 08:00 3.0 ROS: No Nausea General: Alert, No acute distress HEENT: Other Lungs: Wheezing (poor air exchange, prolonged exp wheeze and exp phase) Cardiovascular: S1, S2 Abdomen: Soft, Non-tender Neuro Exam: Alert Extremities: No Edema Skin: Warm Labs Laboratory Tests Test 05/30/18 05:35 05/31/18 07:47 Vancomycin Level Trough 4.5 mcg/mL (10.0-20.0) 10.1 mcg/mL (10.0-20.0) Vancomycin Last Dose Date 05/29/18 05/30/18 Vancomycin Last Dose Time 1200 2000 White Blood Count 5.8 x10^3/uL (4.0-11.0) Red Blood Count 3.46 x10^6/uL (3.50-5.40) Hemoglobin 10.0 g/dL (12.0-15.5) Hematocrit 31.4 % (36.0-47.0) Mean Corpuscular Volume 91 fL (79-100) Mean Corpuscular Hemoglobin 29 pg (25-35) Mean Corpuscular Hemoglobin Concent 32 g/dL (31-37) Red Cell Distribution Width 15.9 % (11.5-14.5) Platelet Count 168 x10^3/uL (140-400) Neutrophils (%) (Auto) 66 % (31-73) Lymphocytes (%) (Auto) 21 % (24-48) Monocytes (%) (Auto) 11 % (0-9) Eosinophils (%) (Auto) 2 % (0-3) Basophils (%) (Auto) 1 % (0-3) Neutrophils # (Auto) 3.8 x10^3uL (1.8-7.7) Lymphocytes # (Auto) 1.2 x10^3/uL (1.0-4.8) Monocytes # (Auto) 0.6 x10^3/uL (0.0-1.1) Eosinophils # (Auto) 0.1 x10^3/uL (0.0-0.7) Basophils # (Auto) 0.0 x10^3/uL (0.0-0.2) Sodium Level 143 mmol/L (136-145) Potassium Level 4.0 mmol/L (3.5-5.1) Chloride Level 106 mmol/L (98-107) Carbon Dioxide Level 32 mmol/L (21-32) Anion Gap 5 (6-14) Blood Urea Nitrogen 9 mg/dL (7-20) Creatinine 0.6 mg/dL (0.6-1.0) Estimated GFR (Cockcroft-Gault) 99.1 Glucose Level 100 mg/dL (70-99) Calcium Level 8.0 mg/dL (8.5-10.1) Laboratory Tests Test 05/31/18 07:47 White Blood Count 5.8 x10^3/uL (4.0-11.0) Red Blood Count 3.46 x10^6/uL (3.50-5.40) Hemoglobin 10.0 g/dL (12.0-15.5) Hematocrit 31.4 % (36.0-47.0) Mean Corpuscular Volume 91 fL (79-100) Mean Corpuscular Hemoglobin 29 pg (25-35) Mean Corpuscular Hemoglobin Concent 32 g/dL (31-37) Red Cell Distribution Width 15.9 % (11.5-14.5) Platelet Count 168 x10^3/uL (140-400) Neutrophils (%) (Auto) 66 % (31-73) Lymphocytes (%) (Auto) 21 % (24-48) Monocytes (%) (Auto) 11 % (0-9) Eosinophils (%) (Auto) 2 % (0-3) Basophils (%) (Auto) 1 % (0-3) Neutrophils # (Auto) 3.8 x10^3uL (1.8-7.7) Lymphocytes # (Auto) 1.2 x10^3/uL (1.0-4.8) Monocytes # (Auto) 0.6 x10^3/uL (0.0-1.1) Eosinophils # (Auto) 0.1 x10^3/uL (0.0-0.7) Basophils # (Auto) 0.0 x10^3/uL (0.0-0.2) Sodium Level 143 mmol/L (136-145) Potassium Level 4.0 mmol/L (3.5-5.1) Chloride Level 106 mmol/L (98-107) Carbon Dioxide Level 32 mmol/L (21-32) Anion Gap 5 (6-14) Blood Urea Nitrogen 9 mg/dL (7-20) Creatinine 0.6 mg/dL (0.6-1.0) Estimated GFR (Cockcroft-Gault) 99.1 Glucose Level 100 mg/dL (70-99) Calcium Level 8.0 mg/dL (8.5-10.1) Vancomycin Level Trough 10.1 mcg/mL (10.0-20.0) Vancomycin Last Dose Date 05/30/18 Vancomycin Last Dose Time 1999 Medications Active Scripts Medications Dose Route/Sig Max Daily Dose Days Date Category Tramadol Hcl 50 Mg Tablet 50 Mg PO PRN Q8HRS PRN 30 02/27/18 Rx Levofloxacin 500 Mg Tablet 500 Mg PO DAILY 7 02/27/18 Rx Prednisone 20 Mg Tablet 30 Mg PO DAILY 5 02/27/18 Rx Tessalon Perle (Benzonatate) 100 Mg Capsule 1 Cap PO TID 04/23/17 Rx Diltiazem 24HR Cd (Diltiazem Hcl) 120 Mg Cap.er.24h 1 Cap PO DAILY 04/18/17 Reported Mucinex Dm Er 600-30 Mg Tablet (Guaifenesin/Dextromethorphan) 1 Each Tab.er.12h 1 Each PO 06/14/15 Reported Benadryl (Diphenhydramine Hcl) 25 Mg Capsule 25 Mg PO PRN PRN 06/14/15 Reported Dok (Docusate Sodium) 100 Mg Capsule 100 Mg PO PRN PRN 06/14/15 Reported Vivelle-Dot (Estradiol) 1 Each Patch.tdsw 0.1 Patch TP 06/14/15 Reported Valium (Diazepam) 5 Mg Tablet 5 Mg PO PRN Q4HRS PRN 06/14/15 Reported Proventil Hfa Inhaler (Albuterol Sulfate) 6.7 Gm Hfa.aer.ad 1 Puff IH PRN PRN 06/14/15 Reported Spiriva (Tiotropium [place]) 18 Mcg Cap.w.dev 1 Cap IH DAILY 06/14/15 Reported Symbicort 160-4.5 Mcg Inhaler (Budesonide/Formoterol Fumarate) 10.2 Gm Hfa.aer.ad 2 Puff IH BID 06/14/15 Reported Impression . 1. Dyspnea secondary to acute exacerbation of chronic obstructive pulmonary disease in a patient with end-stage chronic obstructive pulmonary disease with chronic hypoxic respiratory failure. 2. Acute bronchitis. No definite consolidation seen on the chest x-ray. 3. Lower extremity edema, likely cor pulmonale. Plan . 1. o2 titration, BD, ICS, cont oral prednisone. add singulair. she prefers to avoid IV steroids 2. Continue empiric antibiotics. 3. The patient wants to consider another hospice company. 4. suzanna aldana discuss w pt We will follow along with you. ROBBY DIMAS MD May 31, 2018 11:45
[2018-05-31] MEDS: guaiFENesin DM 200MG/20MG 10 ML SYRUP PO PRN (14:41)
[2018-05-31] MEDS ORDERED: POLYETHYLENE GLYCOL 3350 17 GM PACKET. PO PRN (16:00)
[2018-05-31 19:00] VITALS: BP 107/62
[2018-05-31] MEDS: DOCUSATE SODIUM 100 MG CAPSULE. PO PRN (20:20)
[2018-05-31] MEDS ORDERED: MONTELUKAST SODIUM 10 MG TABLET. PO SCH (21:00)
[2018-05-31 23:00] VITALS: BP 134/74
[2018-06-01] MEDS: traMADol 50 MG TABLET PO PRN (01:07)
[2018-06-01] MEDS: IV NORMAL SALINE 1000ML BAG 1,000 ML IV SCH (01:08)
[2018-06-01 03:00] VITALS: BP 134/74
[2018-06-01] MEDS: diazePAM 5 MG TABLET PO PRN (04:54)
[2018-06-01] MEDS: ACETAMINOPHEN 500 MG TABLET PO PRN (04:54)
[2018-06-01] MEDS: guaiFENesin DM 200MG/20MG 10 ML SYRUP PO PRN (04:54)
[2018-06-01 07:00] VITALS: BP 105/63
--- NOTE | 2018-06-01 07:45 | PDOC ---
PULMONARY PROGRESS NOTES Subjective had a bad night, has more cough, wheezing, has sob, on home 02 3 lpm. Vitals Vital Signs Date Time Temp Pulse Resp B/P (MAP) Pulse Ox O2 Delivery O2 Flow Rate FiO2 06/01/18 03:00 98.9 115 17 134/74 (94) 97 Nasal Cannula 98.9 05/31/18 21:02 3.0 ROS: No Nausea General: Alert, No acute distress HEENT: Other Lungs: Wheezing (poor air exchange, prolonged exp wheeze and exp phase) Cardiovascular: S1, S2 Abdomen: Soft, Non-tender Neuro Exam: Alert Extremities: No Edema Skin: Warm Labs Laboratory Tests Test 05/31/18 07:47 White Blood Count 5.8 x10^3/uL (4.0-11.0) Red Blood Count 3.46 x10^6/uL (3.50-5.40) Hemoglobin 10.0 g/dL (12.0-15.5) Hematocrit 31.4 % (36.0-47.0) Mean Corpuscular Volume 91 fL (79-100) Mean Corpuscular Hemoglobin 29 pg (25-35) Mean Corpuscular Hemoglobin Concent 32 g/dL (31-37) Red Cell Distribution Width 15.9 % (11.5-14.5) Platelet Count 168 x10^3/uL (140-400) Neutrophils (%) (Auto) 66 % (31-73) Lymphocytes (%) (Auto) 21 % (24-48) Monocytes (%) (Auto) 11 % (0-9) Eosinophils (%) (Auto) 2 % (0-3) Basophils (%) (Auto) 1 % (0-3) Neutrophils # (Auto) 3.8 x10^3uL (1.8-7.7) Lymphocytes # (Auto) 1.2 x10^3/uL (1.0-4.8) Monocytes # (Auto) 0.6 x10^3/uL (0.0-1.1) Eosinophils # (Auto) 0.1 x10^3/uL (0.0-0.7) Basophils # (Auto) 0.0 x10^3/uL (0.0-0.2) Sodium Level 143 mmol/L (136-145) Potassium Level 4.0 mmol/L (3.5-5.1) Chloride Level 106 mmol/L (98-107) Carbon Dioxide Level 32 mmol/L (21-32) Anion Gap 5 (6-14) Blood Urea Nitrogen 9 mg/dL (7-20) Creatinine 0.6 mg/dL (0.6-1.0) Estimated GFR (Cockcroft-Gault) 99.1 Glucose Level 100 mg/dL (70-99) Calcium Level 8.0 mg/dL (8.5-10.1) Vancomycin Level Trough 10.1 mcg/mL (10.0-20.0) Vancomycin Last Dose Date 05/30/18 Vancomycin Last Dose Time 1999 Laboratory Tests Test 05/31/18 07:47 White Blood Count 5.8 x10^3/uL (4.0-11.0) Red Blood Count 3.46 x10^6/uL (3.50-5.40) Hemoglobin 10.0 g/dL (12.0-15.5) Hematocrit 31.4 % (36.0-47.0) Mean Corpuscular Volume 91 fL (79-100) Mean Corpuscular Hemoglobin 29 pg (25-35) Mean Corpuscular Hemoglobin Concent 32 g/dL (31-37) Red Cell Distribution Width 15.9 % (11.5-14.5) Platelet Count 168 x10^3/uL (140-400) Neutrophils (%) (Auto) 66 % (31-73) Lymphocytes (%) (Auto) 21 % (24-48) Monocytes (%) (Auto) 11 % (0-9) Eosinophils (%) (Auto) 2 % (0-3) Basophils (%) (Auto) 1 % (0-3) Neutrophils # (Auto) 3.8 x10^3uL (1.8-7.7) Lymphocytes # (Auto) 1.2 x10^3/uL (1.0-4.8) Monocytes # (Auto) 0.6 x10^3/uL (0.0-1.1) Eosinophils # (Auto) 0.1 x10^3/uL (0.0-0.7) Basophils # (Auto) 0.0 x10^3/uL (0.0-0.2) Sodium Level 143 mmol/L (136-145) Potassium Level 4.0 mmol/L (3.5-5.1) Chloride Level 106 mmol/L (98-107) Carbon Dioxide Level 32 mmol/L (21-32) Anion Gap 5 (6-14) Blood Urea Nitrogen 9 mg/dL (7-20) Creatinine 0.6 mg/dL (0.6-1.0) Estimated GFR (Cockcroft-Gault) 99.1 Glucose Level 100 mg/dL (70-99) Calcium Level 8.0 mg/dL (8.5-10.1) Vancomycin Level Trough 10.1 mcg/mL (10.0-20.0) Vancomycin Last Dose Date 05/30/18 Vancomycin Last Dose Time 1999 Medications Active Scripts Medications Dose Route/Sig Max Daily Dose Days Date Category Tramadol Hcl 50 Mg Tablet 50 Mg PO PRN Q8HRS PRN 30 02/27/18 Rx Levofloxacin 500 Mg Tablet 500 Mg PO DAILY 7 02/27/18 Rx Prednisone 20 Mg Tablet 30 Mg PO DAILY 5 02/27/18 Rx Tessalon Perle (Benzonatate) 100 Mg Capsule 1 Cap PO TID 04/23/17 Rx Diltiazem 24HR Cd (Diltiazem Hcl) 120 Mg Cap.er.24h 1 Cap PO DAILY 04/18/17 Reported Mucinex Dm Er 600-30 Mg Tablet (Guaifenesin/Dextromethorphan) 1 Each Tab.er.12h 1 Each PO 06/14/15 Reported Benadryl (Diphenhydramine Hcl) 25 Mg Capsule 25 Mg PO PRN PRN 06/14/15 Reported Dok (Docusate Sodium) 100 Mg Capsule 100 Mg PO PRN PRN 06/14/15 Reported Vivelle-Dot (Estradiol) 1 Each Patch.tdsw 0.1 Patch TP 06/14/15 Reported Valium (Diazepam) 5 Mg Tablet 5 Mg PO PRN Q4HRS PRN 06/14/15 Reported Proventil Hfa Inhaler (Albuterol Sulfate) 6.7 Gm Hfa.aer.ad 1 Puff IH PRN PRN 06/14/15 Reported Spiriva (Tiotropium [place]) 18 Mcg Cap.w.dev 1 Cap IH DAILY 06/14/15 Reported Symbicort 160-4.5 Mcg Inhaler (Budesonide/Formoterol Fumarate) 10.2 Gm Hfa.aer.ad 2 Puff IH BID 06/14/15 Reported Impression . 1. Dyspnea secondary to acute exacerbation of chronic obstructive pulmonary disease in a patient with end-stage chronic obstructive pulmonary disease with chronic hypoxic respiratory failure. 2. Acute bronchitis. No definite consolidation seen on the chest x-ray. 3. Lower extremity edema, likely cor pulmonale. Plan . 1. o2 titration, BD, ICS, has more cough, sob, wheezing, will change oral prednisone to solumedrol 40 bid, willing to take. cont singulair. 2. Continue empiric antibiotics. 3. The patient wants to consider another hospice company. 4. suzanna stapleton pt, rn We will follow along with you. ROBBY DIMAS MD Jun 01, 2018 07:45
[2018-06-01] MEDS: BUDESONIDE 0.5 MG/2 ML NEBU. NEB SCH (08:00)
[2018-06-01] MEDS: LACTOBACILLUS RHAMNOSUS GG 1 CAPSULE. PO SCH (08:37)
[2018-06-01] MEDS: DOCUSATE SODIUM 100 MG CAPSULE. PO PRN (08:38)
[2018-06-01] MEDS: IPRATRPIUM/ALBUTEROL 0.5/2.5MG 3 ML NEBU. NEB SCH ×3 (08:44→15:19)
[2018-06-01] MEDS ORDERED: methylPREDNISolone SOD SUCC PF 40 MG/ML VIAL. IV SCH (09:00)
[2018-06-01] MEDS ORDERED: MONT10TA9 PO (09:07)
[2018-06-01] MEDS ORDERED: GUAI600T47 PO (09:07)
--- NOTE | 2018-06-01 09:08 | PDOC3 ---
Discharge Summary Visit Information Date of Admission: May 28, 2018 Date of Discharge: Jun 01, 2018 Admitting Diagnosis Comment: End-stage COPD on hospice Severe OCD Moderate PCM Fall, non-injury Lactic acidosis/SIRS POA with no organ dysfunction Final Diagnosis Problems Medical Problems: (1) Acute cervical sprain Status: Acute (2) Contusion of right hip Status: Acute (3) Contusion of thoracic wall Status: Acute (4) Fall from standing Status: Acute (5) Lumbar contusion Status: Acute (6) Right ankle sprain Status: Acute Brief Hospital Course Allergies Allergies Coded Allergies Type Severity Reaction Last Updated Verified Iodine and Iodide Containing Produc Allergy Intermediate 02/23/18 Yes Penicillins Allergy Intermediate 02/22/18 Yes codeine Allergy Intermediate 02/22/18 Yes Vital Signs Vital Signs Date Time Temp Pulse Resp B/P (MAP) Pulse Ox O2 Delivery O2 Flow Rate FiO2 06/01/18 08:51 98 Nasal Cannula 3.0 06/01/18 08:38 97 105/63 06/01/18 07:00 97.9 20 97.9 Lab Results Laboratory Tests Test 05/31/18 07:47 White Blood Count 5.8 x10^3/uL (4.0-11.0) Red Blood Count 3.46 x10^6/uL (3.50-5.40) Hemoglobin 10.0 g/dL (12.0-15.5) Hematocrit 31.4 % (36.0-47.0) Mean Corpuscular Volume 91 fL (79-100) Mean Corpuscular Hemoglobin 29 pg (25-35) Mean Corpuscular Hemoglobin Concent 32 g/dL (31-37) Red Cell Distribution Width 15.9 % (11.5-14.5) Platelet Count 168 x10^3/uL (140-400) Neutrophils (%) (Auto) 66 % (31-73) Lymphocytes (%) (Auto) 21 % (24-48) Monocytes (%) (Auto) 11 % (0-9) Eosinophils (%) (Auto) 2 % (0-3) Basophils (%) (Auto) 1 % (0-3) Neutrophils # (Auto) 3.8 x10^3uL (1.8-7.7) Lymphocytes # (Auto) 1.2 x10^3/uL (1.0-4.8) Monocytes # (Auto) 0.6 x10^3/uL (0.0-1.1) Eosinophils # (Auto) 0.1 x10^3/uL (0.0-0.7) Basophils # (Auto) 0.0 x10^3/uL (0.0-0.2) Sodium Level 143 mmol/L (136-145) Potassium Level 4.0 mmol/L (3.5-5.1) Chloride Level 106 mmol/L (98-107) Carbon Dioxide Level 32 mmol/L (21-32) Anion Gap 5 (6-14) Blood Urea Nitrogen 9 mg/dL (7-20) Creatinine 0.6 mg/dL (0.6-1.0) Estimated GFR (Cockcroft-Gault) 99.1 Glucose Level 100 mg/dL (70-99) Calcium Level 8.0 mg/dL (8.5-10.1) Vancomycin Level Trough 10.1 mcg/mL (10.0-20.0) Vancomycin Last Dose Date 05/30/18 Vancomycin Last Dose Time 1999 Brief Hospital Course Ms. Jay is a 67 old female with severe OCD, had a noninjury fall hence admitted. She can be very opinionated about her care. Treated for acute bronchitis with no pneumonia on x-ray. Previously on hospice but she wishes to transfer a different hospice company. Comanagement pulmonary. Needed some Trilogy and O2 and will transfer to a different hospice. Very significant time rounding with her, given severe OCD. She will require gloves for anybody goes into her room. In any case cleared by pulmonary and we have arranged for new hospice company DC time. 30 minutes greater than 60% DC education counseling rx on chart DNR Consults: pulmo PRoc; none Discharge Information Condition at Discharge: Improved, Stable Disposition/Orders: D/C to Home w/ HH Scheduled Benzonatate (Tessalon Perle) 100 Mg Capsule, 1 CAP PO TID, #21 Prescribed by: SHERIF HOLLINGSWORTH on 04/23/17 7052 Last Action: Converted on 05/28/18 967 by RUSH CONNER Budesonide/Formoterol Fumarate (Symbicort 160-4.5 Mcg Inhaler) 10.2 Gm Hfa.aer.ad, 2 PUFF IH BID, #1 Ref 5 (Reported) Entered as Reported by: AMIRAH COOLEY on 06/14/15114 Last Action: Converted on 05/28/182258 by NIALaureano CONNER Diltiazem Hcl (Diltiazem 24HR Cd) 120 Mg Cap.er.24h, 1 CAP PO DAILY, #90 Ref 1 ( Reported) Entered as Reported by: CHANDRA JOHNSTON on 04/18/17 1843 Last Action: Converted on 05/28/182258 by NIALaureano CONNER Guaifenesin (Mucinex) 600 Mg Tablet.er, 600 MG PO BID for cough MDD 1, #14 Prescribed by: SHERIF HOLLINGSWORTH on 06/01/1807 Levofloxacin (Levofloxacin) 500 Mg Tablet, 500 MG PO DAILY for COPD for 7 Days, #7 Prescribed by: FIGUEROA BANEGAS MD on 02/27/18928 Last Action: Converted on 05/28/182258 by NIALaureano CONNER Montelukast Sodium (Montelukast Sodium Tablet) 10 Mg Tablet, 10 MG PO QHS for copd MDD 1, #30 Prescribed by: SHERIF HOLLINGSWORTH on 06/01/18906 Prednisone (Prednisone) 20 Mg Tablet, 30 MG PO DAILY for COPD for 5 Days, #8 Prescribed by: FIGUEROA BANEGAS MD on 02/27/18928 Last Action: Continued on 05/28/182258 by RUSH CONNER Tiotropium [place] (Spiriva) 18 Mcg Cap.w.dev, 1 CAP IH DAILY, #30 Ref 3 ( Reported) Entered as Reported by: AMIRAH COOLEY on 06/14/15114 Last Action: Converted on 05/28/182258 by RUSH CONNER Scheduled PRN Albuterol Sulfate (Proventil Hfa Inhaler) 6.7 Gm Hfa.aer.ad, 1 PUFF IH PRN PRN for WHEEZING, Ref 0 (Reported) Entered as Reported by: AMIRAH COOLEY on 06/14/15114 Diazepam (Valium) 5 Mg Tablet, 5 MG PO PRN Q4HRS PRN for ANXIETY / AGITATION, ( Reported) Entered as Reported by: AMIRAH COOLEY on 06/14/15114 Last Action: Continued on 05/28/182258 by NIALaureano CONNER Diphenhydramine Hcl (Benadryl) 25 Mg Capsule, 25 MG PO PRN PRN for ALLERGIES, ( Reported) Entered as Reported by: AMIRAH COOLEY on 06/14/15114 Docusate Sodium (Dok) 100 Mg Capsule, 100 MG PO PRN PRN for CONSTIPATION, ( Reported) Entered as Reported by: AMIRAH COOLEY on 06/14/15114 Tramadol Hcl (Tramadol Hcl) 50 Mg Tablet, 50 MG PO PRN Q8HRS PRN for MODERATE PAIN for 30 Days, #30 Prescribed by: FIGUEROA BANEGAS MD on 02/27/18934 Last Action: Continued on 05/28/182258 by RUSH CONNER Miscellaneous Medications Estradiol (Vivelle-Dot) 1 Each Patch.tdsw, 0.1 PATCH TP, #24 Ref 3 (Reported) Entered as Reported by: AMIRAH COOLEY on 06/14/15114 Guaifenesin/Dextromethorphan (Mucinex Dm Er 600-30 Mg Tablet) 1 Each Tab.er.12h , 1 EACH PO, (Reported) Entered as Reported by: AMIRAH COOLEY on 06/14/15114 SHERIF HOLLINGSWORTH MD Jun 01, 2018 09:07
--- NOTE | 2018-06-01 10:51 | PDOC ---
PROGRESS NOTES Chief Complaint Chief Complaint End-stage COPD, Pulmonary emphysematous changes are present. on cxr Home O2 dependent Smoker-2 cigarettes a day Cachexia with possible undiagnosed osteoporosis DJD lumbar spine Right ankle sprain acute Fall, high fall risk Generalized weakness likely cor pulmonale. moderate protein-caloric malnutrition dental caries marked disability lack of socail support rx for portable o2 tank written today for d/c home long discussion re needs for dentist and home health assist, various frustrations with end stage disease, disability, no easy answers. she is estranged from a daughter who lives in [place] plan consult pulmonary d/c when ok with pulmonary d/c vanc today case mngt for d/c planning education provided for smoking cessation lack of social support 02 tank 3 liters portable PAST MEDICAL HISTORY: End-stage COPD; CHF; myocardial infarction; RSD; OCD; bowel perforation; hysterectomy; previous tracheostomy, but that has been reversed; abdominal surgery. ALLERGIES: IODINE, PENICILLIN, CODEINE. FAMILY HISTORY: Coronary disease. SOCIAL HISTORY: She still smokes. No etoh or drugs. History of Present Illness History of Present Illness Wheezy less She does not want to go back on hospice She is a full code on chart She likes her pain medicines but asks for for some Tylenol too Tessalon Perle when necessary , persistent coughing po prednisone No pneumonia on x-rays I discussed about osteoporosis, DEXA scan as outpatient PCP-she follows at [facility] Plan: Tylenol Pulmo consult for end-stage COPD Will not go back to hospice on discharge- Other supportive meds PT OT Lives in assisted living Nicotine patch when necessary Robitussin when necessary palliation of symptoms iv vanc may need trilogy Vitals Vitals Vital Signs Date Time Temp Pulse Resp B/P (MAP) Pulse Ox O2 Delivery O2 Flow Rate FiO2 06/01/18 08:51 98 Nasal Cannula 3.0 06/01/18 08:38 97 105/63 06/01/18 07:00 97.9 20 97.9 Physical Exam General: Alert, Oriented X3, Cooperative, No acute distress, mild distress, Other (tearful due to loss of hope for imroved quality of life) Heart: Regular rate, Normal S1, Normal S2, No murmurs Lungs: Wheezing (poor air exchange, prolonged exp wheeze and exp phase no distress) Abdomen: Soft, No tenderness, No hepatosplenomegaly Extremities: No cyanosis, No edema, Other (cachexia) Skin: No rashes, No breakdown, No significant lesion Assessment and Plan Assessmemt and Plan Problems Medical Problems: (1) Acute cervical sprain Status: Acute (2) Contusion of right hip Status: Acute (3) Contusion of thoracic wall Status: Acute (4) Fall from standing Status: Acute (5) Lumbar contusion Status: Acute (6) Right ankle sprain Status: Acute Comment Review of Relevant I have reviewed the following items lazaro (where applicable) has been applied. Labs Laboratory Tests Test 05/31/18 07:47 White Blood Count 5.8 x10^3/uL (4.0-11.0) Red Blood Count 3.46 x10^6/uL (3.50-5.40) Hemoglobin 10.0 g/dL (12.0-15.5) Hematocrit 31.4 % (36.0-47.0) Mean Corpuscular Volume 91 fL (79-100) Mean Corpuscular Hemoglobin 29 pg (25-35) Mean Corpuscular Hemoglobin Concent 32 g/dL (31-37) Red Cell Distribution Width 15.9 % (11.5-14.5) Platelet Count 168 x10^3/uL (140-400) Neutrophils (%) (Auto) 66 % (31-73) Lymphocytes (%) (Auto) 21 % (24-48) Monocytes (%) (Auto) 11 % (0-9) Eosinophils (%) (Auto) 2 % (0-3) Basophils (%) (Auto) 1 % (0-3) Neutrophils # (Auto) 3.8 x10^3uL (1.8-7.7) Lymphocytes # (Auto) 1.2 x10^3/uL (1.0-4.8) Monocytes # (Auto) 0.6 x10^3/uL (0.0-1.1) Eosinophils # (Auto) 0.1 x10^3/uL (0.0-0.7) Basophils # (Auto) 0.0 x10^3/uL (0.0-0.2) Sodium Level 143 mmol/L (136-145) Potassium Level 4.0 mmol/L (3.5-5.1) Chloride Level 106 mmol/L (98-107) Carbon Dioxide Level 32 mmol/L (21-32) Anion Gap 5 (6-14) Blood Urea Nitrogen 9 mg/dL (7-20) Creatinine 0.6 mg/dL (0.6-1.0) Estimated GFR (Cockcroft-Gault) 99.1 Glucose Level 100 mg/dL (70-99) Calcium Level 8.0 mg/dL (8.5-10.1) Vancomycin Level Trough 10.1 mcg/mL (10.0-20.0) Vancomycin Last Dose Date 05/30/18 Vancomycin Last Dose Time 1999 Microbiology 05/28/18 Blood Culture - Preliminary, Resulted NO GROWTH AFTER 3 DAYS Medications Current Medications Fentanyl Citrate (Fentanyl 2ml Vial) 50 mcg 1X ONCE IV Last administered on 16:09; Start 05/28/18 at 16:00; Stop 05/28/18 at 16:01; Status DC Vancomycin HCl (Vanco Per Pharmacy) 1 each PRN DAILY PRN MC SEE COMMENTS Last administered on 05/30/18 16:29; Start 05/28/18 at 17:00; Stop 05/31/18 at 11:48 ; Status DC Levofloxacin/ Dextrose 100 ml @ 100 mls/hr 1X ONCE IV Last administered on 17:11; Start 05/28/18 at 17:00; Stop 05/28/18 at 17:59; Status DC Sodium Chloride 1,000 ml @ 1,650 mls/hr Q37M IV Last administered on 05/28/18 17:14; Start 05/28/18 at 16:53; Stop 05/28/18 at 17:53; Status DC Vancomycin HCl 1.25 gm/Sodium Chloride 250 ml @ 166.667 mls/hr 1X ONCE IV Last administered on 05/28/18 18:19; Start 05/28/18 at 17:00; Stop 05/28/18 at 18: 29; Status DC Albuterol/ Ipratropium (Duoneb) 3 ml 1X ONCE NEB Last administered on 19:01; Start 05/28/18 at 18:45; Stop 05/28/18 at 18:46; Status DC Methylprednisolone Sodium Succinate (SOLU-Medrol 125MG VIAL) 125 mg 1X ONCE IV Last administered on 05/28/18at 22:16; Start 05/28/18 at 18:45; Stop 05/28/18 at 18:46; Status DC Ondansetron HCl (Zofran) 4 mg PRN Q8HRS PRN IV NAUSEA/VOMITING Last administered on 05/29/18at 11:05; Start 05/28/18 at 20:00; Stop 05/29/18 at 19:59; Status DC Fentanyl Citrate (Fentanyl 2ml Vial) 50 mcg PRN Q1HR PRN IV PAIN SEVERE; Start 05/28/18 at 20:00; Stop 05/29/18 at 19:59; Status DC Acetaminophen (Tylenol) 650 mg PRN Q4HRS PRN PO FEVER Last administered on at 11:06; Start 05/28/18 at 20:00; Stop 05/29/18 at 19:59; Status DC Albuterol/ Ipratropium (Duoneb) 3 ml RTQID NEB ; Start 05/28/18 at 20:00; Stop at 01:06; Status DC Sodium Chloride 1,000 ml @ 125 mls/hr 1X ONCE IV ; Start 05/28/18 at 20:00; Stop 05/29/18 at 03:59; Status DC Vancomycin HCl 750 mg/Sodium Chloride 250 ml @ 250 mls/hr Q18H IV Last administered on 05/29/18at 12:25; Start 05/29/18 at 12:00; Stop 05/30/18 at 07:32; Status DC Vancomycin HCl (Vancomycin Trough Level) 1 each 1X ONCE MC Last administered on 05/30/18at 05:30; Start 05/30/18 at 05:30; Stop 05/30/18 at 05:31; Status DC Diazepam (Valium) 5 mg PRN Q4HRS PRN PO ANXIETY / AGITATION Last administered on 06/01/18at 04:54; Start 05/28/18 at 23:00 Digoxin (Lanoxin) 125 mcg DAILY PO ; Start 05/29/18 at 09:00; Stop 05/29/18 at 10: 46; Status DC Prednisone (Prednisone) 30 mg DAILY PO ; Start 05/29/18 at 09:00; Stop 05/30/18 at 08:10; Status DC Tramadol HCl (Ultram) 50 mg PRN Q8HRS PRN PO MODERATE PAIN Last administered on 06/01/18 01:07; Start 05/28/18 at 23:00 Benzonatate (Tessalon Perle) 100 mg TID PO Last administered on 05/29/18 08:45 ; Start 05/29/18 at 09:00; Stop 05/29/18 at 10:46; Status DC Non-Formulary Medication (Budesonide/ Formoterol Fumarate (Symbicort 160-4.5 Mcg Inhaler)) 2 puff BID IH ; Start 05/29/18 at 09:00; Status UNV Diltiazem HCl (Cardizem 24hr Cd) 120 mg DAILY PO Last administered on 08:38; Start 05/29/18 at 09:00 Levofloxacin (Levaquin) 500 mg DAILY PO Last administered on 06/01/18 08:37; Start 05/29/18 at 09:00 Non-Formulary Medication (Tiotropium [place] (Spiriva)) 1 cap DAILY IH ; Start 05/29/18 at 09:00; Status UNV Sodium Chloride 1,000 ml @ 75 mls/hr [id number] IV Last administered on 01:08; Start 05/28/18 at 23:00; Stop 06/01/18 at 07:47; Status DC Budesonide (Pulmicort) 0.5 mg RTBID NEB Last administered on 05/31/18 21:02; Start 05/29/18 at 08:00 Albuterol/ Ipratropium (Duoneb) 3 ml RTQID NEB Last administered on 06/01/18at 08:44; Start 05/29/18 at 08:00 Albuterol Sulfate (Ventolin Neb Soln) 2.5 mg PRN Q4HRS PRN NEB SHORTNESS OF BREATH Last administered on 05/30/18 04:15; Start 05/29/18 at 03:15; Stop at 14:10; Status DC Nicotine (Nicoderm Cq 21mg) 1 patch PRN DAILY PRN TD SMOKING CESSATION; Start 05/29/18 at 08:30 Guaifenesin (Robitussin Dm) 10 ml PRN Q6HRS PRN PO COUGH 1ST CHOICE Last administered on 06/01/18at 04:54; Start 05/29/18 at 08:30; Stop 06/01/18 at 07:47 ; Status DC Diphenhydramine HCl (Benadryl) 25 mg PRN QHS PRN PO INSOMNIA; Start 05/29/18 at 08:30 Benzonatate (Tessalon Perle) 100 mg PRN TID PRN PO cough 2ND CHOICE; Start 05/29 at 11:00 Acetaminophen (Tylenol) 500 mg PRN Q6HRS PRN PO MILD PAIN / TEMP Last administered on 06/01/18 04:54; Start 05/29/18 at 10:45 Prednisone (Prednisone) 40 mg DAILY PO Last administered on 05/31/18 08:59; Start 05/30/18 at 09:00; Stop 06/01/18 at 07:47; Status DC Prednisone (Prednisone) 40 mg 1X ONCE PO ; Start 05/29/18 at 11:30; Stop at 11:31; Status DC Vancomycin HCl 1 gm/Sodium Chloride 250 ml @ 250 mls/hr Q12H IV Last administered on 05/31/18 08:58; Start 05/30/18 at 08:00; Stop 05/31/18 at 11:46 ; Status DC Lactobacillus Rhamnosus (Culturelle) 1 cap BID PO Last administered on 08:37; Start 05/30/18 at 09:00 Prednisone (Prednisone) 10 mg 1X ONCE PO Last administered on 05/30/18 09:45 ; Start 05/30/18 at 09:45; Stop 05/30/18 at 09:46; Status DC Albuterol Sulfate (Ventolin Neb Soln) 2.5 mg PRN Q2HRS PRN NEB SHORTNESS OF BREATH Last administered on 05/31/18 03:52; Start 05/30/18 at 14:15 Vancomycin HCl (Vancomycin Trough Level) 1 each 1X ONCE MC Last administered on 05/31/18 07:30; Start 05/31/18 at 07:30; Stop 05/31/18 at 07:31; Status DC Montelukast Sodium (Singulair) 10 mg QHS PO Last administered on 05/31/18at 21: 56; Start 05/31/18 at 21:00 Docusate Sodium (Colace) 100 mg PRN DAILY PRN PO CONSTIPATION Last administered on 06/01/18at 08:38; Start 05/31/18 at 16:00 Polyethylene Glycol (miraLAX PACKET) 17 gm PRN DAILY PRN PO CONSTIPATION; Start 05/31/18 at 16:00 Methylprednisolone Sodium Succinate (SOLU-Medrol 40MG VIAL) 40 mg Q12HR IV Last administered on 06/01/18at 08:37; Start 06/01/18 at 09:00 Guaifenesin (Mucinex) 600 mg BID PO Last administered on 06/01/18at 08:37; Start 06/01/18 at 09:00 Active Scripts Active Mucinex (Guaifenesin) 600 Mg Tablet.er 600 Mg PO BID MDD 1 Montelukast Sodium Tablet (Montelukast Sodium) 10 Mg Tablet 10 Mg PO QHS MDD 1 Tramadol Hcl 50 Mg Tablet 50 Mg PO PRN Q8HRS PRN 30 Days Levofloxacin 500 Mg Tablet 500 Mg PO DAILY 7 Days Prednisone 20 Mg Tablet 30 Mg PO DAILY 5 Days Tessalon Perle (Benzonatate) 100 Mg Capsule 1 Cap PO TID Reported Diltiazem 24HR Cd (Diltiazem Hcl) 120 Mg Cap.er.24h 1 Cap PO DAILY Mucinex Dm Er 600-30 Mg Tablet (Guaifenesin/Dextromethorphan) 1 Each Tab.er.12h 1 Each PO Benadryl (Diphenhydramine Hcl) 25 Mg Capsule 25 Mg PO PRN PRN Dok (Docusate Sodium) 100 Mg Capsule 100 Mg PO PRN PRN Vivelle-Dot (Estradiol) 1 Each Patch.tdsw 0.1 Patch TP Valium (Diazepam) 5 Mg Tablet 5 Mg PO PRN Q4HRS PRN Proventil Hfa Inhaler (Albuterol Sulfate) 6.7 Gm Hfa.aer.ad 1 Puff IH PRN PRN Spiriva (Tiotropium [place]) 18 Mcg Cap.w.dev 1 Cap IH DAILY Symbicort 160-4.5 Mcg Inhaler (Budesonide/Formoterol Fumarate) 10.2 Gm Hfa.aer.ad 2 Puff IH BID Vitals/I & O Vital Sign - Last 24 Hours 05/31/18 05/31/18 05/31/18 05/31/18 11:00 12:18 15:22 19:00 Temp 98.3 98.1 98.3 98.1 Pulse 93 103 Resp 17 17 B/P (MAP) 109/60 (76) 107/62 (77) Pulse Ox 99 99 96 O2 Delivery Nasal Cannula Nasal Cannula Nasal Cannula Nasal Cannula O2 Flow Rate 3.0 3.0 05/31/18 05/31/18 05/31/18 06/01/18 20:00 21:02 23:00 01:07 Temp 98.2 98.2 Pulse 115 Resp 17 16 B/P (MAP) 134/74 (94) Pulse Ox 99 97 O2 Delivery Nasal Cannula Nasal Cannula Nasal Cannula Room Air O2 Flow Rate 3.0 3.0 06/01/18 06/01/18 06/01/18 06/01/18 02:10 03:00 07:00 08:38 Temp 98.9 97.9 98.9 97.9 Pulse 115 97 97 Resp 16 17 20 B/P (MAP) 134/74 (94) 105/63 (77) 105/63 Pulse Ox 97 99 O2 Delivery Nasal Cannula Nasal Cannula Nasal Cannula O2 Flow Rate 3.0 06/01/18 06/01/18 08:44 08:51 Pulse Ox 98 98 O2 Delivery Nasal Cannula Nasal Cannula O2 Flow Rate 3.0 3.0 Intake and Output 05/31/18 05/31/18 06/01/18 15:00 23:00 07:00 Intake Total 600 ml 120 ml 0 ml Balance 600 ml 120 ml 0 ml Nutrition Consultation Dietary Evaluation: Recommendations by RD: Increase Calorie Intake, Protein supplementation Comments: ensure enlive tid Expected Outcomes/Goals: to meet > 75% est nutr needs Interpretation of weight loss: >20% in 1 year Malnutrition Findings: Body Fat Depletion (Non Severe: Mod to Severe Weight Status: Underweight JOHN BUTT MD Jun 01, 2018 10:51
[2018-06-01 11:00] VITALS: BP 126/69
--- NOTE | 2018-06-01 11:36 | PDOC2 ---
PALLIATIVE CARE Palliative Care Note Palliative Care Patient states she has selected [facility] and signed papers for their services. Will discharge to today with [facility]. Claire RAMIREZ assisting with discharge plans. SANTY RAYMUNDO Jun 01, 2018 11:36
--- NOTE | 2018-06-01 13:00 | NUR ---
SW following pt. received a phone call from Bushra from [facility] stating they could not meet pt's needs. Bushra had informed they will come to visit pt around 1030 but did not show. Bushra had also spoken with pt this morning and had informed her they had a new room for her too. Spoke with pt with Bushra and CATIE Camejo from facility on speaker phone. SW and pt expressed concerns/frustration as facility had notified they will take pt back and had a new room for her. Pt expressed her concerns as she does not have a place to go and does not have anyone to take care of her at home. She requested at least a week notice so she can find a place. SW also notified facility the discussion since pt's admission date was pt was going to return back to [place] upon dc. Bashir had even left a VM yesterday stating if pt is not able to go to SNU, they will accommodate her with retuning back. After extensive discussion on the phone Bushra is coming to visit pt in about 45 minutes to discuss matter in person. Pt had agreed to go on hospice with [facility] today. Will continue to follow.
--- NOTE | 2018-06-01 13:25 | NUR ---
SW received a phone call from Bushra who reported as long as pt is able to sign plan of care paperwork, they will take her today. Bushra reported she is on her way. Will continue to follow.
--- NOTE | 2018-06-01 13:31 | SNU/HH DC ---
DISCHARGE ORDERS DISCHARGE INFORMATION: FINAL DIAGNOSIS Problems Medical Problems: (1) Acute cervical sprain Status: Acute (2) Contusion of right hip Status: Acute (3) Contusion of thoracic wall Status: Acute (4) Fall from standing Status: Acute (5) Lumbar contusion Status: Acute (6) Right ankle sprain Status: Acute CONDITION ON DISCHARGE: Stable CODE STATUS: Code Status: DNR/DNI GROUP HOME: SNF STAY <30 DAYS: No HOSPICE: HOSPICE: Yes HOSPICE EVAL & TREAT: Yes LTAC: ADMIT TO LTAC: No POST DISCHARGE ORDERS: ACTIVITY ORDERS: Activity as tolerated WEIGHT BEARING STATUS: As tolerated BATHING ORDERS: Shower-keep dressing dry, No Tub Bath until see DIET AFTER DISCHARGE: Cardiac WOUND/INCISION CARE: Keep wound/cast CDI, Reinforce dressing PRN CHECKS AFTER DISCHARGE: CHECKS AFTER DISCHARGE: Check blood press - daily, Check your Temp as needed, Weigh Yourself Daily FOLLOW-UP: PHYSICIAN FOLLOW-UP: begin [facility] today TREATMENT/EQUIPMENT ORDERS: ADAPTIVE EQUIPMENT NEEDED: Wheelchair RESPIRATORY EQUIPMENT NEEDED: Oxygen DISCHARGE MEDICATIONS: Home Meds Active Scripts Guaifenesin (MUCINEX) 600 Mg Tablet.er, 600 MG PO BID for cough MDD 1, #14 TAB.SR Prov:SHERIF HOLLINGSWORTH MD 06/01/18 Montelukast Sodium (MONTELUKAST SODIUM TABLET) 10 Mg Tablet, 10 MG PO QHS for copd MDD 1, #30 TAB Prov:SHERIF HOLLINGSWORTH MD 06/01/18 Tramadol Hcl (TRAMADOL HCL) 50 Mg Tablet, 50 MG PO PRN Q8HRS PRN for MODERATE PAIN for 30 Days, #30 TAB Prov:FIGUEROA BANEGAS MD 02/27/18 Benzonatate (TESSALON PERLE) 100 Mg Capsule, 1 CAP PO TID, #21 CAP Prov:SHERIF HOLLINGSWORTH MD 04/23/17 Reported Medications Diltiazem Hcl (DILTIAZEM 24HR CD) 120 Mg Cap.er.24h, 1 CAP PO DAILY, #90 CAP 1 Refill 04/18/17 Guaifenesin/Dextromethorphan (MUCINEX DM ER 600-30 MG TABLET) 1 Each Tab.er.12h , 1 EACH PO 06/14/15 Diphenhydramine Hcl (BENADRYL) 25 Mg Capsule, 25 MG PO PRN PRN for ALLERGIES 06/14/15 Docusate Sodium (DOK) 100 Mg Capsule, 100 MG PO PRN PRN for CONSTIPATION 06/14/15 Estradiol (VIVELLE-DOT) 1 Each Patch.tdsw, 0.1 PATCH TP, #24 PATCH 3 Refills 06/14/15 Diazepam (VALIUM) 5 Mg Tablet, 5 MG PO PRN Q4HRS PRN for ANXIETY / AGITATION, TAB 06/14/15 Albuterol Sulfate (PROVENTIL HFA INHALER) 6.7 Gm Hfa.aer.ad, 1 PUFF IH PRN PRN for WHEEZING, INHALER 0 Refills 06/14/15 Tiotropium Quimby (SPIRIVA) 18 Mcg Cap.w.dev, 1 CAP IH DAILY, #30 CAP 3 Refills 06/14/15 Budesonide/Formoterol Fumarate (SYMBICORT 160-4.5 MCG INHALER) 10.2 Gm Hfa.aer.ad, 2 PUFF IH BID, #1 INHALER 5 Refills 06/14/15 Discontinued Scripts Levofloxacin (LEVOFLOXACIN) 500 Mg Tablet, 500 MG PO DAILY for COPD for 7 Days, #7 TAB Prov:FIGUEROA BANEGAS MD 02/27/18 Prednisone (PREDNISONE) 20 Mg Tablet, 30 MG PO DAILY for COPD for 5 Days, #8 TAB Prov:FIGUEROA BANEGAS MD 02/27/18 JOHN BUTT MD Jun 01, 2018 13:31
[2018-06-01] MEDS: ALBUTEROL SULFATE 2.5 MG/3 ML NEBU. NEB PRN (13:32)
[2018-06-01 15:00] VITALS: BP 115/64
--- NOTE | 2018-06-01 15:22 | NUR ---
SW following pt. SW met with pt, Bushra and Bashir from [facility]. Pt signed required [place] paperwork. Orders faxed to [facility] and [place]. Pt does not qualify for [facility] through hospice. Pt will transport via [facility] at 1700.
== END 2018-06-01 18:34 | disposition hospice, home (50) | DRG 191 ==
LOC: ER 15:28 → 5 NORTH 19:42
PROVIDERS: ADMIT Internal Medicine; ATTEND Internal Medicine
DX: J44.1 Chronic obstructive pulmonary disease with (acute) exacerbation (principal); J96.11 Chronic respiratory failure with hypoxia; R64 Cachexia; E44.0 Moderate protein-calorie malnutrition; E87.2 Acidosis; J98.11 Atelectasis; Z68.1 Body mass index [BMI] 19.9 or less, adult; R65.10 Systemic inflammatory response syndrome (SIRS) of non-infectious origin without acute organ dysfunction; S70.01XA Contusion of right hip, initial encounter; J44.0 Chronic obstructive pulmonary disease with (acute) lower respiratory infection; W01.0XXA Fall on same level from slipping, tripping and stumbling without subsequent striking against object, initial encounter; S30.0XXA Contusion of lower back and pelvis, initial encounter; I50.9 Heart failure, unspecified; J20.9 Acute bronchitis, unspecified; F17.210 Nicotine dependence, cigarettes, uncomplicated; F42.9 Obsessive-compulsive disorder, unspecified; I25.2 Old myocardial infarction; K02.9 Dental caries, unspecified; M47.812 Spondylosis without myelopathy or radiculopathy, cervical region; M47.816 Spondylosis without myelopathy or radiculopathy, lumbar region; S13.4XXA Sprain of ligaments of cervical spine, initial encounter; S93.401A Sprain of unspecified ligament of right ankle, initial encounter; Z66 Do not resuscitate; Z82.49 Family history of ischemic heart disease and other diseases of the circulatory system; Z91.81 History of falling; Z93.0 Tracheostomy status; Z99.81 Dependence on supplemental oxygen; Z90.710 Acquired absence of both cervix and uterus; Z88.0 Allergy status to penicillin; Z88.8 Allergy status to other drugs, medicaments and biological substances; Y93.89 Activity, other specified; Y92.091 Bathroom in other non-institutional residence as the place of occurrence of the external cause; Y99.8 Other external cause status
CPT/HCPCS: 36415; 70450; 71045; 72125; 72128; 72131; 73502; 73610; 80048; 80053; 80202; 81001; 83605; 83735; 83880; 84145; 84484; 85025; 85610; 85730; 87040; 87641; 93005; 94640; 94760; 96365; J1956; J2405; J2920; J2930; J3010; J3370; J7030; J7050; J7512; J7613; J7620; J7626; 99285-25

== ENCOUNTER 2019-04-28 20:25 | Emergency (ER) | payer MEDICARE ==
[~2019-04-28] VITALS: Ht 167.6 cm; Wt 63.0 kg
[~2019-04-28 20:25] MED LIST changes: -ALBU2.5V8 IH; +CHOL500016 PO; -DIGO125T PO; +DIGO125T3 PO; -DILT120C85 PO; +DILT120C99 PO; +DOXY-96 PO; +DOXY100C14 PO; -DOXY100T9 PO; +EPIPEN0.3 MG/0.3 IJ; +GUAI600T47 PO; +MAG-115 PO; +MONT10TA49 PO; +NYST100054 PO; +PANT20TA2 PO; -PANT40TA3 PO; +PANT40TA77 PO; +PROVENTIL HFA6.7 GM IH
[2019-04-28] MEDS ORDERED: ONDANSETRON PF 4 MG/2 ML VIAL. IV ONE (21:15)
[2019-04-28] MEDS ORDERED: IPRATRPIUM/ALBUTEROL 0.5/2.5MG 3 ML NEBU. NEB ONE (21:15)
[2019-04-28 21:31] LABS: BASO % 1 % (0-3); EOS # 0.1 x10^3/uL (0.0-0.7); EOS % 1 % (0-3); HEMATOCRIT 37.1 % (36.0-47.0); HEMOGLOBIN 12.2 g/dL (12.0-15.5); LYMPH # 1.2 x10^3/uL (1.0-4.8); LYMPH % 19 % (24-48); MEAN CORPUSCULAR HEMOGLOBIN 31 pg (25-35); MEAN CORPUSCULAR HGB CONC 33 g/dL (31-37); MEAN CORPUSCULAR VOLUME 93 fL (79-100); MONO # 0.8 x10^3/uL (0.0-1.1); MONO % 12 % (0-9); NEUT # 4.4 x10^3/uL (1.8-7.7); NEUT % 67 % (31-73); PLATELET COUNT 190 x10^3/uL (140-400); RED BLOOD COUNT 3.97 x10^6/uL (3.50-5.40); RED CELL DISTRIBUTION WIDTH 12.4 % (11.5-14.5); WHITE BLOOD COUNT 6.6 x10^3/uL (4.0-11.0)
[2019-04-28 21:44] LABS: CALCIUM 8.8 mg/dL (8.5-10.1); CREATININE 0.7 mg/dL (0.6-1.0); GFR 82.7; POTASSIUM 3.9 mmol/L (3.5-5.1)
--- NOTE | 2019-04-28 21:47 | RAD ---
PORTABLE CHEST 1V History: Shortness of breath Comparison: January 09, 2019 Findings: Single view of the chest is submitted. There is again suspected emphysema. There is no new infiltrate, pleural fluid, pneumothorax. Cardiac silhouette is stable, within normal limits. Impression: 1. There is emphysema, no significant infiltrate identified. Electronically signed by: Waldo Crisostomo MD (04/28/2019 9:44 PM) [id number]
[2019-04-28 21:50] LABS: ALBUMIN 3.3 g/dL (3.4-5.0); ALBUMIN/GLOBULIN RATIO 1.1 (1.0-1.7); TOTAL BILIRUBIN 0.1 mg/dL (0.2-1.0); TOTAL PROTEIN 6.2 g/dL (6.4-8.2)
--- NOTE | 2019-04-28 21:58 | RAD ---
Exam: CT of abdomen and pelvis without contrast INDICATION: Abdominal pain TECHNIQUE: Sequential axial images through the abdomen and pelvis obtained without IV contrast. Sagittal and coronal reformatted images were reconstructed from the axial data and reviewed. Comparisons: None FINDINGS: Heart size is normal. No pericardial effusion visualized lung bases are clear. No Evaluation of solid organs is limited secondary to noncontrast technique. Liver, spleen, pancreas, gallbladder and adrenals are unremarkable. No perinephric inflammation or hydronephrosis. No renal or ureteral calculi are identified. Bladder is incompletely distended and not well evaluated. Uterus is absent. No abnormal adnexal mass. Large amount of stool is noted within the rectum. Anastomotic sutures at the small bowel in the right lower quadrant. Remainder of the large and small bowel are unremarkable. Appendix is not identified. No free intra-abdominal air or fluid. Abdominal aorta has a normal course and caliber. No enlarged abdominal lymph nodes are identified. No suspicious osseous lesions or acute fractures. IMPRESSION: 1. Large amount of stool is noted within the rectum. 2. Otherwise, no acute process identified within the abdomen or pelvis. Exposure: One or more of the following in the visualized dose reduction techniques were utilized for this examination: 1. Automated exposure control 2. Adjustment of the MA and/or KV according to patient size 3. Use of iterative of reconstructive technique Electronically signed by: Darren Dangelo MD (04/28/2019 9:55 PM) [id number]
[2019-04-28 22:31] VITALS: BP 138/74
--- NOTE | 2019-04-28 22:35 | PHYS DOC ---
Past Medical History Past Medical History: Anxiety, CHF, COPD, Diverticulosis, AR Additional Past Medical Histor: Sympathetic Reflex Dystrophy, OCD, uses O2 @ noc, bowel perf Past Surgical History: Hysterectomy, Other Additional Past Surgical Histo: trach,abd surgery Smoking Status: Current Every Day Smoker Alcohol Use: None Drug Use: None Adult General Chief Complaint Chief Complaint: ABDOMINAL PAIN [facility] HPI Patient is a 68 year old female with history of anxiety, coronary artery disease, CHF, COPD on 3 L of home oxygen and currently smoking, sympathetic reflex dystrophy, OCD, history of multiple abdominal surgeries and bowel perf who presents with complaint of abdominal pain. Patient complaining of intermittent episodes of left lower quadrant pain for 1 month that getting worse for the last few days and today was forced on all the time and rated her pain 8/10. Patient complaining of nausea without vomiting for the last 1 month and complaining of decrease of appetite. Patient also states she had shortness of breath since last night and had to increase her home oxygen from 3 L to 4 L. Patient complaining of redness of skin of her abdomen with water discharge from that area and left side of abdomen. Patient states she became anxious and felt one episode of chest pain that resolved spontaneously. Patient states she had a good bowel movement last night but complaining of bloating abdomen. Review of Systems Review of Systems Constitutional: Denies fever or chills [] Eyes: Denies change in visual acuity, redness, or eye pain [] HENT: Denies nasal congestion or sore throat [] Respiratory: Reports cough and shortness of breath Cardiovascular: No additional information not addressed in HPI [] GI: Reports abdominal pain, nausea, denies vomiting, bloody stools or diarrhea [] : Denies dysuria or hematuria [] Musculoskeletal: Denies back pain or joint pain [] Integument: Denies rash or skin lesions [] Neurologic: Denies headache, focal weakness or sensory changes [] Endocrine: Denies polyuria or polydipsia [] All other systems were reviewed and found to be within normal limits, except as documented in this note. Current Medications Current Medications Current Medications Medications (Trade) Dose Ordered Sig/René Start Time Stop Time Status Last Admin Dose Admin Albuterol/ Ipratropium (Duoneb) 3 ml 1X ONCE 04/28/19 21:15 04/28/19 21:16 DC 04/28/19 21:15 3 ML Ondansetron HCl (Zofran) 4 mg 1X ONCE 04/28/19 21:15 04/28/19 21:16 DC 04/28/19 21:15 4 MG Allergies Allergies Allergies Coded Allergies Type Severity Reaction Last Updated Verified Iodine and Iodide Containing Produc Allergy Intermediate 02/23/18 Yes Penicillins Allergy Intermediate 02/22/18 Yes codeine Allergy Intermediate 02/22/18 Yes Physical Exam Physical Exam Constitutional: Well nourished, mild distress, non-toxic appearance. [] HENT: Normocephalic, atraumatic, moist oral mucosa. Eyes: PERRLA, EOMI, conjunctiva normal, no discharge. [] Neck: Normal range of motion, no tenderness, supple, no stridor. [] Cardiovascular: Tachycardia, no murmur [] Lungs & Thorax: Bilateral breath sounds clear to auscultation [] Abdomen: Multiple abdominal surgical scar, 1 x 1 cm mild erythema of left side incision without drainage or tenderness or erythema or sign of active infection, bowel sounds normal, soft, no tenderness, no masses, no pulsatile masses. [] Skin: Warm, dry, no erythema, no rash. [] Back: No tenderness, no CVA tenderness. [] Extremities: No tenderness, no cyanosis, no clubbing, ROM intact, no edema. [] Neurologic: Alert and oriented X 3, no focal deficits noted. [] Psychologic: Affect anxious, judgement normal, mood normal. [] Current Patient Data Vital Signs Vital Signs Date Time Temp Pulse Resp B/P (MAP) Pulse Ox O2 Delivery O2 Flow Rate FiO2 04/28/19 21:54 100 Nasal Cannula 4.0 04/28/19 20:41 98.3 106 19 138/72 (94) 98.3 Lab Values Laboratory Tests Test 04/28/19 21:14 04/28/19 21:51 White Blood Count 6.6 x10^3/uL (4.0-11.0) Red Blood Count 3.97 x10^6/uL (3.50-5.40) Hemoglobin 12.2 g/dL (12.0-15.5) Hematocrit 37.1 % (36.0-47.0) Mean Corpuscular Volume 93 fL (79-100) Mean Corpuscular Hemoglobin 31 pg (25-35) Mean Corpuscular Hemoglobin Concent 33 g/dL (31-37) Red Cell Distribution Width 12.4 % (11.5-14.5) Platelet Count 190 x10^3/uL (140-400) Neutrophils (%) (Auto) 67 % (31-73) Lymphocytes (%) (Auto) 19 % (24-48) L Monocytes (%) (Auto) 12 % (0-9) H Eosinophils (%) (Auto) 1 % (0-3) Basophils (%) (Auto) 1 % (0-3) Neutrophils # (Auto) 4.4 x10^3/uL (1.8-7.7) Lymphocytes # (Auto) 1.2 x10^3/uL (1.0-4.8) Monocytes # (Auto) 0.8 x10^3/uL (0.0-1.1) Eosinophils # (Auto) 0.1 x10^3/uL (0.0-0.7) Basophils # (Auto) 0.0 x10^3/uL (0.0-0.2) Prothrombin Time 14.0 SEC (11.7-14.0) Prothrombin Time INR 1.1 (0.8-1.1) Sodium Level 141 mmol/L (136-145) Potassium Level 3.9 mmol/L (3.5-5.1) Chloride Level 102 mmol/L (98-107) Carbon Dioxide Level 37 mmol/L (21-32) H Anion Gap 2 (6-14) L Blood Urea Nitrogen 12 mg/dL (7-20) Creatinine 0.7 mg/dL (0.6-1.0) Estimated GFR (Cockcroft-Gault) 82.7 BUN/Creatinine Ratio 17 (6-20) Glucose Level 105 mg/dL (70-99) H Lactic Acid Level 0.8 mmol/L (0.4-2.0) Calcium Level 8.8 mg/dL (8.5-10.1) Total Bilirubin 0.1 mg/dL (0.2-1.0) L Aspartate Amino Transferase (AST) 22 U/L (15-37) Alanine Aminotransferase (ALT) 24 U/L (14-59) Alkaline Phosphatase 51 U/L (46-116) Troponin I Quantitative < 0.017 ng/mL (0.000-0.055) HK-Mtc-X-Type Natriuretic Peptide 67 pg/mL (0-124) Total Protein 6.2 g/dL (6.4-8.2) L Albumin 3.3 g/dL (3.4-5.0) L Albumin/Globulin Ratio 1.1 (1.0-1.7) Lipase 196 U/L (73-393) Urine Collection Type Unknown Urine Color Yellow Urine Clarity Cloudy Urine pH 7.5 Urine Specific [place] 1.015 Urine Protein Negative mg/dL (NEG-TRACE) Urine Glucose (UA) Negative mg/dL (NEG) Urine Ketones (Stick) Negative mg/dL (NEG) Urine Blood Negative (NEG) Urine Nitrite Negative (NEG) Urine Bilirubin Negative (NEG) Urine Urobilinogen Dipstick 1.0 mg/dL (0.2 mg/dL) Urine Leukocyte Esterase Negative (NEG) Urine RBC 0 /HPF (0-2) Urine WBC 1-4 /HPF (0-4) Urine Squamous Epithelial Cells Many /LPF Urine Amorphous Sediment Present /HPF Urine Bacteria Moderate /HPF (0-FEW) Urine Mucus Slight /LPF Urine Opiates Screen Neg (NEG) Urine Methadone Screen Neg (NEG) Urine Barbiturates Neg (NEG) Urine Phencyclidine Screen Neg (NEG) Urine Amphetamine/Methamphetamine Neg (NEG) Urine Benzodiazepines Screen Pos (NEG) Urine Cocaine Screen Neg (NEG) Urine Cannabinoids Screen Neg (NEG) Urine Ethyl Alcohol Neg (NEG) Laboratory Tests 04/28/19 21:14 Laboratory Tests 04/28/19 21:14 EKG EKG EKG interpreted by me. EKG at 2209 shows sinus tachycardia rate of 102, right atrial enlargement, T wave abnormality in lateral leads, no acute ST and T wave elevation. Radiology/Procedures Radiology/Procedures [facility] [address] [place] [address] IMAGING REPORT Signed PATIENT: SAMEER BAHENA ACCOUNT: [id number] : 1950 LOCATION: ER AGE: 68 SEX: F EXAM STATUS: PRE ER ORD. PHYSICIAN: JORGE POSADA MD REASON: Abdominal pain, shortness of breath PROCEDURE: CT ABDOMEN PELVIS WO CONTRAST Exam: CT of abdomen and pelvis without contrast INDICATION: Abdominal pain TECHNIQUE: Sequential axial images through the abdomen and pelvis obtained without IV contrast. Sagittal and coronal reformatted images were reconstructed from the axial data and reviewed. Comparisons: None FINDINGS: Heart size is normal. No pericardial effusion visualized lung bases are clear. No Evaluation of solid organs is limited secondary to noncontrast technique. Liver, spleen, pancreas, gallbladder and adrenals are unremarkable. No perinephric inflammation or hydronephrosis. No renal or ureteral calculi are identified. Bladder is incompletely distended and not well evaluated. Uterus is absent. No abnormal adnexal mass. Large amount of stool is noted within the rectum. Anastomotic sutures at the small bowel in the right lower quadrant. Remainder of the large and small bowel are unremarkable. Appendix is not identified. No free intra-abdominal air or fluid. Abdominal aorta has a normal course and caliber. No enlarged abdominal lymph nodes are identified. No suspicious osseous lesions or acute fractures. IMPRESSION: 1. Large amount of stool is noted within the rectum. 2. Otherwise, no acute process identified within the abdomen or pelvis. Exposure: One or more of the following in the visualized dose reduction techniques were utilized for this examination: 1. Automated exposure control 2. Adjustment of the MA and/or KV according to patient size 3. Use of iterative of reconstructive technique Electronically signed by: Darern Barrera MD (04/28/2019 9:55 PM) [id number] DICTATED and SIGNED BY: DARREN BARRERA MD DATE: 04/28/19 2155 [facility] [address] [place], [place] [id number] IMAGING REPORT Signed PATIENT: SAMEER BAHENA ACCOUNT: [id number] : 1950 LOCATION: ER AGE: 68 SEX: F EXAM STATUS: PRE ER ORD. PHYSICIAN: JORGE POSADA MD REASON: Shortness of breath PROCEDURE: PORTABLE CHEST 1V PORTABLE CHEST 1V History: Shortness of breath Comparison: January 09, 2019 Findings: Single view of the chest is submitted. There is again suspected emphysema. There is no new infiltrate, pleural fluid, pneumothorax. Cardiac silhouette is stable, within normal limits. Impression: 1. There is emphysema, no significant infiltrate identified. Electronically signed by: Shira Crisostomo MD (04/28/2019 9:44 PM) [id number] DICTATED and SIGNED BY: SHIRA CRISOSTOMO MD DATE: 04/28/192143 Course & Med Decision Making Course & Med Decision Making Pertinent Labs and Imaging studies reviewed. (See chart for details) Evaluation of patient in ER showed 68-year-old female patient with history of anxiety complaining of abdominal pain for 1 month getting worse today. Patient had unremarkable physical exam except for anxiety. Lab was unremarkable and CT of abdomen pelvis showed constipation. Patient states she usually getting admission at hospital when she is coming to the hospital and requesting admission but patient was advised that she needs to follow-up with her primary care physician regarding chronic problem. I've spoken with the patient and/or caregivers. I've explained the patient's condition, diagnosis and treatment plan based on information available to me at this time. I've answered the patient's and/or caregivers questions and addressed any concerns. The patient and/or caregivers have a good understanding the patie nt's diagnosis, condition and treatment plan as can be expected at this point. Vital signs have been stabilized. The patient's condition is stable for discharge from the emergency department. The patient will pursue further outpatient evaluation with her primary care provider or other designated consulting physician as outlined in the discharge instructions. Patient and/or caregivers are agreeable to this plan of care and follow-up instructions have been explained in detail. The patient and/or caregivers have received these instructions in written format and expressed understanding of these discharge instructions. The patient and her caregivers are aware that if any significant change in condition or worsening of symptoms should prompt him to immediately return to this of the closest emergency department. If an emergent department is not readily available I would encourage him to call 911. Juan Disclaimer Dragon Disclaimer This electronic medical record was generated, in whole or in part, using a voice recognition dictation system. Departure Departure Impression: Primary Impression: Constipation Additional Impressions: Anxiety about health Tobacco abuse Tobacco abuse counseling Chronic abdominal pain Disposition: HOME, SELF-CARE (At 2330) Condition: STABLE Referrals: NO PCP (PCP) Patient Instructions: Chronic Pain Management, Constipation, Adult Additional Instructions: Drink plenty of liquids Follow-up with your primary care physician in 2-3 days for chronic abdominal pain Return to ER if not getting better Continue home pain medication May take [id number] magnesium citrate and MiraLAX for constipation Thank you for visiting [facility]. We appreciate you trusting us with your care. If any additional problems come up don't hesitate to return to visit us. Please follow up with your primary care provider so they can plan additional care if needed and know about the problem that you had. If symptoms worsen come back to the Emergency Department. Any concerning symptoms that start such as chest pain, shortness of air, weakness or numbness on one side of the body, running high fevers or any other concerning symptoms return to the ER. Problem Qualifiers Primary Impression: Constipation Constipation type: unspecified constipation type Qualified Codes: K59.00 - Constipation, unspecified JORGE POSADA MD Apr 28, 2019 22:35
[2019-04-28 22:59] LABS: BILIRUBIN,URINE NEGATIVE (NEG); CLARITY,URINE CLOUDY; COLOR,URINE YELLOW; NITRITE,URINE NEGATIVE (NEG); PH,URINE 7.5; PROTEIN,URINE NEGATIVE (NEG-TRACE)
[2019-04-28 23:04] LABS: BARBITURATES NEG (NEG); BENZODIAZEPINES POS (NEG); CANNABINOIDS NEG (NEG); COCAINE NEG (NEG); METHADONE NEG (NEG); OPIATES NEG (NEG); PHENCYCLIDINE NEG (NEG)
[2019-04-28 23:07] LABS: BACTERIA,URINE MODERATE /HPF (0-FEW); RBC,URINE 0 /HPF (0-2); SQUAMOUS EPITHELIAL CELL,UR MANY /LPF
[2019-04-28 23:08] LABS: AMORPHOUS SEDIMENT,UR PRESENT /HPF
[2019-04-28 23:09] LABS: AMPHETAMINE/METHAMPHETAMINE NEG (NEG)
--- NOTE | 2019-04-28 23:43 | EKG ---
[facility] [address] [place] [address] Test Date: 2019-04-28 Test Time: 22:09:53 Pat Name: SAMEER BAHENA Department: Room: Gender: F Medical Management Specialist: : 1950 Requested By: JORGE POSADA Order Number: [id number] Reading MD: Measurements Intervals Wilbur Rate: 102 P: 94 ND: 162 QRS: 39 QRSD: 78 T: 77 QT: 326 QTc: 428 Interpretive Statements SINUS TACHYCARDIA RIGHT ATRIAL ENLARGEMENT T ABNORMALITY IN HIGH LATERAL LEADS ABNORMAL ECG No previous ECG available for comparison
== END 2019-04-29 02:00 | disposition home or self-care (01) ==
LOC: ER 20:25
DX: K59.00 Constipation, unspecified (principal); F41.9 Anxiety disorder, unspecified; R10.32 Left lower quadrant pain; R11.0 Nausea; R63.0 Anorexia; R07.89 Other chest pain; J44.9 Chronic obstructive pulmonary disease, unspecified; I50.9 Heart failure, unspecified; I25.2 Old myocardial infarction; F17.200 Nicotine dependence, unspecified, uncomplicated; Z90.710 Acquired absence of both cervix and uterus; Z98.890 Other specified postprocedural states; Z88.0 Allergy status to penicillin; Z88.1 Allergy status to other antibiotic agents; Z88.5 Allergy status to narcotic agent
CPT/HCPCS: 36415; 71045; 74176; 80053; 80307; 81001; 83605; 83690; 83880; 84484; 85025; 85610; 87086; 93005; 94640; 96374; 99285; J2405